=== PATIENT | male | born 1940 | race Caucasian/White ===

== ENCOUNTER 2016-07-29 08:05 | Emergency (ER) | payer MEDICARE, BC ==
[~2016-07-29] VITALS: Ht 170.2 cm; Wt 75.7 kg
[~2016-07-29 08:05] MED LIST: /WARF5TA OR; ACTI300C OR; ATEN50TA2 OR; CHLO25TA GT; CLON0.5T OR; DIGO0.257 OR; ENAL20TA OR; FISH1000 OR; GLUC500T OR; NEOM50TA PO; OMEP20TA7 OR; PRAV20TA2 OR; PRAV40TA2 PO; TAMS0.4C2 PO
[2016-07-29 08:24] VITALS: BP 134/65
[2016-07-29] MEDS ORDERED: TAMSULOSIN (08:27)
[2016-07-29] MEDS ORDERED: OMEP20CA3 (08:27)
[2016-07-29] MEDS ORDERED: ATAC16TA (08:27)
[2016-07-29] MEDS ORDERED: CHLO125TA (08:27)
[2016-07-29] MEDS ORDERED: WARF-23 (08:27)
--- NOTE | 2016-07-29 09:07 | REP ---
Clinical: Pain. Technique: Internal rotation, external rotation, and Y view of the left shoulder. Comparison: 08/20/2012. Findings: Age-related osteopenia and degenerative changes include cortical irregularity at the acromioclavicular joint as well as decrease subacromial space. Subtle irregularity to the glenoid rim and humeral head are also noted and consistent with mild age-related changes. No acute fracture or dislocation. No periarticular calcifications. Surrounding soft tissues are unremarkable. Impression: Osteopenia and cortical irregularities at the acromioclavicular joint and glenohumeral joint consistent with age-related degenerative change. Signed by Francis Mccollum MD 07/29/2016 08:59 A
== END 2016-07-29 10:12 | disposition home or self-care (01) ==
LOC: M ED 09:10
DX: S43.51XA Sprain of right acromioclavicular joint, initial encounter (principal); X58.XXXA Exposure to other specified factors, initial encounter; Y92.099 Unspecified place in other non-institutional residence as the place of occurrence of the external cause; Y93.89 Activity, other specified; Y99.9 Unspecified external cause status; M85.812 Other specified disorders of bone density and structure, left shoulder; M19.012 Primary osteoarthritis, left shoulder; I10 Essential (primary) hypertension; K21.9 Gastro-esophageal reflux disease without esophagitis; I48.91 Unspecified atrial fibrillation; K74.60 Unspecified cirrhosis of liver; Z79.01 Long term (current) use of anticoagulants; Z79.899 Other long term (current) drug therapy; Z88.8 Allergy status to other drugs, medicaments and biological substances

== ENCOUNTER → 2016-12-02 | Outpatient (CLI) | payer MEDICARE, BC ==
[~2016-12-02] MED LIST changes: +ATAC16TA; +CHLO125TA; +OMEP20CA3; +TAMSULOSIN; +WARF-23
[2016-12-02 10:56] LABS: BASO % 0.6 % (0.0-1.0); EOS % 0.1 % (0.0-3.0); LARGE UNSTAINED CELL # 0.1 K/mm3 (0.0-0.4); LARGE UNSTAINED CELL % 1.6 % (0.0-4.0); LYMPH # 0.9 K/mm3 (1.5-4.5); LYMPH % 22.5 % (24.0-44.0); MEAN CORPUSCULAR HEMOGLOBIN 33.1 pg (27.0-33.0); MEAN CORPUSCULAR HGB CONC 35.5 g/dl (32.0-36.5); MEAN CORPUSCULAR VOLUME 93.2 fl (80.0-96.0); MONO # 0.3 K/mm3 (0.0-0.8); MONO % 8.1 % (0.0-5.0); NEUTROPHILS # 2.6 K/mm3 (1.8-7.7); NEUTROPHILS % 67.2 % (36.0-66.0); RED CELL DISTRIBUTION WIDTH 14.8 % (11.5-14.5); WHITE BLOOD COUNT 3.8 K/mm3 (4.0-10.0)
[2016-12-02 11:15] LABS: ALBUMIN 3.6 GM/DL (3.2-5.2); ALBUMIN/GLOBULIN RATIO 0.9 (1.00-1.93); BILIRUBIN,TOTAL 3.1 MG/DL (0.2-1.0); CALCIUM LEVEL 8.8 MG/DL (8.8-10.2); CREATININE FOR GFR 1.31 MG/DL (0.70-1.30); GLOMERULAR FILTRATION RATE 56.8 (>42); PLATELET COUNT, AUTOMATED 87 k/mm3 (150-450); POTASSIUM SERUM 3.7 MEQ/L (3.5-5.1); TOTAL PROTEIN 7.6 GM/DL (6.4-8.2)
[2016-12-04 00:06] LABS: PSA TOTAL 6.1 ng/mL (0.0-4.0)
== END ==
LOC: M LAB 10:09
PROVIDERS: ATTEND Urology
DX: R97.20 Elevated prostate specific antigen [PSA] (principal); R10.2 Pelvic and perineal pain

== ENCOUNTER → 2017-02-25 | Outpatient (REF) | payer MEDICARE, BC ==
[2017-02-25 11:27] LABS: INR 4.28
== END ==
LOC: M LAB REF 10:37
PROVIDERS: ATTEND Nurse Practitioner Adult Health
DX: I48.0 Paroxysmal atrial fibrillation (principal); Z51.81 Encounter for therapeutic drug level monitoring

== ENCOUNTER → 2017-04-04 | Outpatient (CLI) | payer MEDICARE, BC ==
[2017-04-04 10:41] LABS: BASO % 0.7 % (0.0-1.0); EOS # 0.1 10^3/uL (0.0-0.50); EOS % 1.9 % (0.0-3.0); HEMATOCRIT 37.7 % (42.0-52.0); HEMOGLOBIN 12.8 g/dl (14.0-18.0); IMMATURE GRANULOCYTE % 0.5 % (0-0); LYMPH # 0.9 10^3/uL (1.5-4.5); LYMPH % 21.2 % (24.0-44.0); MEAN CORPUSCULAR HEMOGLOBIN 32.2 pg (27.0-33.0); MEAN CORPUSCULAR VOLUME 94.7 fl (80.0-96.0); MONO # 0.3 10^3/uL (0.0-0.8); MONO % 7.9 % (0.0-5.0); NEUTROPHILS # 2.8 10^3/uL (1.8-7.7); NEUTROPHILS % 67.8 % (36.0-66.0); RED BLOOD COUNT 3.98 10^6/uL (4.30-6.10); RED CELL DISTRIBUTION WIDTH 14.3 % (11.5-14.5); WHITE BLOOD COUNT 4.2 10^3/uL (4.0-10.0)
[2017-04-04 10:53] LABS: PLATELET COUNT, AUTOMATED 77 10^3/uL (150-450)
[2017-04-04 10:54] LABS: IMMATURE PLATELET FRACTION % 8.9 % (0.0-10.9)
[2017-04-04 11:00] LABS: ALBUMIN 3.4 GM/DL (3.2-5.2); ALBUMIN/GLOBULIN RATIO 0.87 (1.00-1.93); ALKALINE PHOSPHATASE 416 U/L (45-117); ALT/SGPT 114 U/L (12-78); ANION GAP 7 MEQ/L (8-16); AST/SGOT 125 U/L (7-37); BILIRUBIN,DIRECT 2.3 MG/DL (0.0-0.2); BILIRUBIN,TOTAL 3.2 MG/DL (0.2-1.0); BLOOD UREA NITROGEN 20 MG/DL (7-18); CALCIUM LEVEL 8.5 MG/DL (8.8-10.2); CARBON DIOXIDE LEVEL 28 MEQ/L (21-32); CHLORIDE LEVEL 105 MEQ/L (98-107); GLOMERULAR FILTRATION RATE 57.3 (>42); GLUCOSE, FASTING 160 MG/DL (83-110); POTASSIUM SERUM 3.8 MEQ/L (3.5-5.1); SODIUM LEVEL 140 MEQ/L (136-145); TOTAL PROTEIN 7.3 GM/DL (6.4-8.2)
[2017-04-04 11:06] LABS: ALPHA FETOPROTEIN TUMOR QUANT 7.9 NG/ML (<8.1)
== END ==
LOC: M LAB 09:26
DX: K74.60 Unspecified cirrhosis of liver (principal)
CPT/HCPCS: 82248

== ENCOUNTER 2017-06-21 08:16 | Emergency (ER) | payer MEDICARE, BC ==
[2017-06-21 09:24] LABS: BASO % 0.7 % (0.0-1.0); EOS # 0.1 10^3/uL (0.0-0.50); EOS % 2.2 % (0.0-3.0); HEMOGLOBIN 13.3 g/dl (13.5-17.5); IMMATURE GRANULOCYTE % 0.2 % (0-3.0); LYMPH # 0.8 10^3/uL (1.5-4.5); LYMPH % 20.7 % (24.0-44.0); MEAN CORPUSCULAR HEMOGLOBIN 32.4 pg (27.0-33.0); MEAN CORPUSCULAR HGB CONC 34.1 g/dl (32.0-36.5); MEAN CORPUSCULAR VOLUME 94.9 fl (80.0-96.0); MONO # 0.4 10^3/uL (0.0-0.8); MONO % 9.1 % (0.0-5.0); NEUTROPHILS # 2.7 10^3/uL (1.8-7.7); NEUTROPHILS % 67.1 % (36.0-66.0); RED BLOOD COUNT 4.11 10^6/uL (4.30-6.10); RED CELL DISTRIBUTION WIDTH 14.2 % (11.5-14.5); WHITE BLOOD COUNT 4.1 10^3/uL (4.0-10.0)
[2017-06-21 09:32] LABS: IMMATURE PLATELET FRACTION % 7.3 % (0.0-10.9); PLATELET COUNT, AUTOMATED 89 10^3/uL (150-450); PLATELET F 85; POS COUNT POS FLAG
[2017-06-21 09:35] LABS: INR 1.66; PROTHROMBIN TIME 20.1 SECONDS (12.4-14.5)
[2017-06-21 09:36] LABS: PARTIAL THROMBOPLASTIN TIME 36.7 SECONDS (26.8-37.9)
[2017-06-21 09:54] LABS: AMMONIA 32 uMOL/L (<32)
[2017-06-21 10:05] LABS: ALBUMIN 3.4 GM/DL (3.2-5.2); ALBUMIN/GLOBULIN RATIO 0.81 (1.00-1.93); ALKALINE PHOSPHATASE 281 U/L (45-117); ALT/SGPT 137 U/L (12-78); AMYLASE 88 U/L (25-115); ANION GAP 7 MEQ/L (8-16); AST/SGOT 155 U/L (7-37); BILIRUBIN,DIRECT 2.1 MG/DL (0.0-0.2); BILIRUBIN,TOTAL 2.6 MG/DL (0.2-1.0); BLOOD UREA NITROGEN 20 MG/DL (7-18); CALCIUM LEVEL 8.9 MG/DL (8.8-10.2); CARBON DIOXIDE LEVEL 29 MEQ/L (21-32); CHLORIDE LEVEL 107 MEQ/L (98-107); CREATININE FOR GFR 1.21 MG/DL (0.70-1.30); GLOMERULAR FILTRATION RATE > 60.0 (>42); GLUCOSE, FASTING 104 MG/DL (70-100); LIPASE 240 U/L (73-393); POTASSIUM SERUM 3.9 MEQ/L (3.5-5.1); SODIUM LEVEL 143 MEQ/L (136-145); TOTAL PROTEIN 7.6 GM/DL (6.4-8.2)
== END 2017-06-21 10:39 | disposition home or self-care (01) ==
LOC: M ED 08:16
DX: R51 Headache (principal); K74.60 Unspecified cirrhosis of liver; I48.91 Unspecified atrial fibrillation; E11.9 Type 2 diabetes mellitus without complications; I10 Essential (primary) hypertension; E78.70 Disorder of bile acid and cholesterol metabolism, unspecified; K21.9 Gastro-esophageal reflux disease without esophagitis; Z88.8 Allergy status to other drugs, medicaments and biological substances; Z79.899 Other long term (current) drug therapy; Z79.2 Long term (current) use of antibiotics; Z79.01 Long term (current) use of anticoagulants
CPT/HCPCS: 70450

== ENCOUNTER → 2017-08-01 | Outpatient (REF) | payer MEDICARE, OTHER ==
[2017-08-01 13:14] LABS: HEPATITIS C VIRUS ABY INDEX < 0.0 INDEX (<0.8)
== END ==
LOC: M LAB REF 11:39
DX: Z11.59 Encounter for screening for other viral diseases (principal)
CPT/HCPCS: 86803

== ENCOUNTER 2017-08-15 09:52 | Inpatient (IN) | payer MEDICARE, OTHER ==
[2017-08-15] MEDS: MORPHINE 4 MG/ML 1ML VIAL/SYRINGE (J2270) IV ×2 (10:14→11:28)
[2017-08-15] MEDS: ONDANSETRON 4MG/2ML VIAL (J2405) IV (10:14)
[2017-08-15] MEDS: LORazepam 2 MG/ML VIAL (J2060) IV (13:43)
[2017-08-15] MEDS: PERCOCET 5MG/325MG TAB PO (22:00)
[2017-08-15] MEDS ORDERED: BISACODYL 5 MG TAB PO (23:30)
[2017-08-15] MEDS ORDERED: ACETAMINOPHEN TAB 650MG DOSE (2X325MG) PO (23:30)
[2017-08-15] MEDS ORDERED: MORPHINE 4 MG/ML 1ML VIAL/SYRINGE (J2270) IV (23:30)
[2017-08-16] MEDS: CREON-12 CAPSULE PO ×4 (09:49→20:46)
[2017-08-16] MEDS: TAMSULOSIN 0.4 MG CAP PO (09:49)
[2017-08-16] MEDS: PANTOPRAZOLE 40MG TAB (PROTONIX) PO (09:49)
[2017-08-16] MEDS: NEOMYCIN SULFATE 500 MG TAB PO ×2 (09:50→20:47)
[2017-08-16] MEDS: URSODIOL 300 MG CAP PO ×2 (09:50→20:48)
[2017-08-16] MEDS: CHLORTHALIDONE 12.5MG PER 1/2 TABLET PO (09:50)
[2017-08-16] MEDS: CANDESARTAN 16 MG TABLET PO ×2 (11:27→20:46)
[2017-08-16] MEDS: PERCOCET 5MG/325MG TAB PO ×2 (12:03→17:59)
[2017-08-16] MEDS: RIVAROXABAN 20 MG TAB (XARELTO) PO (17:59)
[2017-08-17] MEDS: URSODIOL 300 MG CAP PO ×2 (07:54→20:56)
[2017-08-17] MEDS: NEOMYCIN SULFATE 500 MG TAB PO ×2 (07:54→20:57)
[2017-08-17] MEDS: CANDESARTAN 16 MG TABLET PO ×2 (07:55→20:57)
[2017-08-17] MEDS: CREON-12 CAPSULE PO ×4 (07:55→20:56)
[2017-08-17] MEDS: PANTOPRAZOLE 40MG TAB (PROTONIX) PO (07:55)
[2017-08-17] MEDS: TAMSULOSIN 0.4 MG CAP PO (07:55)
[2017-08-17] MEDS: CHLORTHALIDONE 12.5MG PER 1/2 TABLET PO (07:55)
[2017-08-17] MEDS: PERCOCET 5MG/325MG TAB PO ×2 (07:55→20:56)
[2017-08-17] MEDS: RIVAROXABAN 20 MG TAB (XARELTO) PO (17:16)
[2017-08-18] MEDS: URSODIOL 300 MG CAP PO ×2 (08:12→21:22)
[2017-08-18] MEDS: CREON-12 CAPSULE PO ×4 (08:12→21:22)
[2017-08-18] MEDS: NEOMYCIN SULFATE 500 MG TAB PO ×2 (08:12→21:22)
[2017-08-18] MEDS: PANTOPRAZOLE 40MG TAB (PROTONIX) PO (08:12)
[2017-08-18] MEDS: CANDESARTAN 16 MG TABLET PO ×2 (08:13→21:22)
[2017-08-18] MEDS: CHLORTHALIDONE 12.5MG PER 1/2 TABLET PO (08:13)
[2017-08-18] MEDS: TAMSULOSIN 0.4 MG CAP PO (08:13)
[2017-08-18] MEDS: RIVAROXABAN 20 MG TAB (XARELTO) PO (17:26)
[2017-08-18] MEDS: LORazepam 0.5 MG TAB PO (21:22)
[2017-08-19] MEDS: CANDESARTAN 16 MG TABLET PO (08:08)
[2017-08-19] MEDS: PANTOPRAZOLE 40MG TAB (PROTONIX) PO (08:08)
[2017-08-19] MEDS: NEOMYCIN SULFATE 500 MG TAB PO (08:08)
[2017-08-19] MEDS: URSODIOL 300 MG CAP PO (08:08)
[2017-08-19] MEDS: TAMSULOSIN 0.4 MG CAP PO (08:08)
[2017-08-19] MEDS: CHLORTHALIDONE 12.5MG PER 1/2 TABLET PO (08:08)
[2017-08-19] MEDS: CREON-12 CAPSULE PO ×2 (08:08→12:00)
[2017-08-19 08:29] LABS: BASO % 0.9 % (0.0-1.0); EOS # 0.1 10^3/uL (0.0-0.50); EOS % 2.4 % (0.0-3.0); HEMOGLOBIN 14.4 g/dl (13.5-17.5); IMMATURE GRANULOCYTE % 0.4 % (0-3.0); LYMPH % 21.4 % (24.0-44.0); MEAN CORPUSCULAR HEMOGLOBIN 33.6 pg (27.0-33.0); MEAN CORPUSCULAR HGB CONC 35.1 g/dl (32.0-36.5); MEAN CORPUSCULAR VOLUME 95.8 fl (80.0-96.0); MONO # 0.4 10^3/uL (0.0-0.8); MONO % 8.1 % (0.0-5.0); NEUTROPHILS # 3.1 10^3/uL (1.8-7.7); NEUTROPHILS % 66.8 % (36.0-66.0); RED BLOOD COUNT 4.28 10^6/uL (4.30-6.10); RED CELL DISTRIBUTION WIDTH 13.5 % (11.5-14.5); WHITE BLOOD COUNT 4.6 10^3/uL (4.0-10.0)
[2017-08-19 08:37] LABS: PLATELET COUNT, AUTOMATED 90 10^3/uL (150-450)
[2017-08-19 08:39] LABS: IMMATURE PLATELET FRACTION % 5.7 % (0.0-10.9)
[2017-08-19 09:01] LABS: ALBUMIN 3.4 GM/DL (3.2-5.2); ALBUMIN/GLOBULIN RATIO 0.81 (1.00-1.93); ALKALINE PHOSPHATASE 344 U/L (45-117); ALT/SGPT 134 U/L (12-78); ANION GAP 8 MEQ/L (8-16); AST/SGOT 141 U/L (7-37); BILIRUBIN,TOTAL 2.4 MG/DL (0.2-1.0); BLOOD UREA NITROGEN 28 MG/DL (7-18); CALCIUM LEVEL 8.7 MG/DL (8.8-10.2); CARBON DIOXIDE LEVEL 27 MEQ/L (21-32); CHLORIDE LEVEL 105 MEQ/L (98-107); CREATININE FOR GFR 1.39 MG/DL (0.70-1.30); GLUCOSE, FASTING 143 MG/DL (70-100); MAGNESIUM LEVEL 2.2 MG/DL (1.8-2.4); POTASSIUM SERUM 4.1 MEQ/L (3.5-5.1); SODIUM LEVEL 140 MEQ/L (136-145); TOTAL PROTEIN 7.6 GM/DL (6.4-8.2)
== END 2017-08-19 14:45 | disposition home or self-care (01) | DRG 552 ==
LOC: M ED INP 23:19 → M MS5PR 08-16 01:20 → M ED 09:52
DX: M54.9 Dorsalgia, unspecified (principal); I10 Essential (primary) hypertension; E78.5 Hyperlipidemia, unspecified; I48.0 Paroxysmal atrial fibrillation; Z79.899 Other long term (current) drug therapy; K74.60 Unspecified cirrhosis of liver; Z88.8 Allergy status to other drugs, medicaments and biological substances; M79.1 Myalgia; M48.061 Spinal stenosis, lumbar region without neurogenic claudication

== ENCOUNTER → 2017-08-26 | Outpatient (CLI) | payer MEDICARE, BC ==
[2017-08-26 14:29] LABS: PROSTATIC SPECIFIC AG MONITOR 6.06 NG/ML (< 4.0)
== END ==
LOC: M LAB 13:32
DX: C61 Malignant neoplasm of prostate (principal)
CPT/HCPCS: 84153

== ENCOUNTER 2017-09-24 11:17 | Emergency (ER) | payer MEDICARE, BC ==
[2017-09-24] MEDS: PERCOCET 5MG/325MG TAB PO (12:47)
== END 2017-09-24 13:18 | disposition home or self-care (01) ==
LOC: M ED 11:17
DX: S49.91XA Unspecified injury of right shoulder and upper arm, initial encounter (principal); M25.511 Pain in right shoulder; X58.XXXA Exposure to other specified factors, initial encounter; Y92.9 Unspecified place or not applicable; Y93.89 Activity, other specified; Y99.9 Unspecified external cause status; Z79.899 Other long term (current) drug therapy; Z88.8 Allergy status to other drugs, medicaments and biological substances
CPT/HCPCS: 73030

== ENCOUNTER 2017-11-16 11:26 | Emergency (ER) | payer MEDICARE ==
[2017-11-16 12:01] LABS: BASO % 0.9 % (0.0-1.0); EOS # 0.1 10^3/uL (0.0-0.50); EOS % 2.9 % (0.0-3.0); HEMATOCRIT 37.5 % (42.0-52.0); HEMOGLOBIN 12.9 g/dl (13.5-17.5); IMMATURE GRANULOCYTE % 0.2 % (0-3.0); LYMPH # 0.9 10^3/uL (1.5-4.5); LYMPH % 18.8 % (24.0-44.0); MEAN CORPUSCULAR HEMOGLOBIN 33.6 pg (27.0-33.0); MEAN CORPUSCULAR HGB CONC 34.4 g/dl (32.0-36.5); MEAN CORPUSCULAR VOLUME 97.7 fl (80.0-96.0); MONO # 0.6 10^3/uL (0.0-0.8); MONO % 13.2 % (0.0-5.0); NEUTROPHILS # 2.9 10^3/uL (1.8-7.7); RED BLOOD COUNT 3.84 10^6/uL (4.30-6.10); RED CELL DISTRIBUTION WIDTH 12.8 % (11.5-14.5); WHITE BLOOD COUNT 4.5 10^3/uL (4.0-10.0)
[2017-11-16 12:13] LABS: PLATELET COUNT, AUTOMATED 96 10^3/uL (150-450)
[2017-11-16 12:14] LABS: IMMATURE PLATELET FRACTION % 4.7 % (0.0-10.9); PLATELET F 89
[2017-11-16 12:31] LABS: ANION GAP 6 MEQ/L (8-16); BLOOD UREA NITROGEN 25 MG/DL (7-18); CALCIUM LEVEL 8.8 MG/DL (8.8-10.2); CARBON DIOXIDE LEVEL 28 MEQ/L (21-32); CHLORIDE LEVEL 109 MEQ/L (98-107); CPK CREATINE PHOSPHOKINASE 93 U/L (39-308); CREATININE FOR GFR 1.34 MG/DL (0.70-1.30); GLOMERULAR FILTRATION RATE 55.2 (>42); GLUCOSE, FASTING 104 MG/DL (70-100); MB/CK RELATIVE INDEX 1.07 (< OR =4); POTASSIUM SERUM 3.8 MEQ/L (3.5-5.1); SODIUM LEVEL 143 MEQ/L (136-145); TROPONIN I < 0.02 NG/ML (< 0.10)
[2017-11-16] MEDS: GI COCKTAIL 50ML BTL(HYOSCYAMINE/MAALOX/LIDOCAINE VISCOUS)(1:3:1) PO (13:25)
[2017-11-16] MEDS: PANTOPRAZOLE 40MG INJ (PROTONIX) (C9113) IV (14:53)
== END 2017-11-16 15:05 | disposition home or self-care (01) ==
LOC: M ED 11:26
DX: R07.89 Other chest pain (principal); K21.9 Gastro-esophageal reflux disease without esophagitis; I48.91 Unspecified atrial fibrillation; I10 Essential (primary) hypertension; E78.5 Hyperlipidemia, unspecified
CPT/HCPCS: C9113

== ENCOUNTER 2018-02-03 03:18 | Emergency (ER) | payer MEDICARE, OTHER ==
[2018-02-04 09:32] LABS: BEDSIDE GLUCOSE 118 MG/DL (83-110)
== END 2018-02-03 06:31 | disposition home or self-care (01) ==
LOC: M ED 03:18
DX: R55 Syncope and collapse (principal); S40.012A Contusion of left shoulder, initial encounter; S00.93XA Contusion of unspecified part of head, initial encounter; S00.31XA Abrasion of nose, initial encounter; W18.11XA Fall from or off toilet without subsequent striking against object, initial encounter; Y92.091 Bathroom in other non-institutional residence as the place of occurrence of the external cause; I10 Essential (primary) hypertension; I48.91 Unspecified atrial fibrillation; K21.9 Gastro-esophageal reflux disease without esophagitis; K74.60 Unspecified cirrhosis of liver; Z79.899 Other long term (current) drug therapy; Z79.01 Long term (current) use of anticoagulants; Z88.8 Allergy status to other drugs, medicaments and biological substances
CPT/HCPCS: 73030

== ENCOUNTER → 2018-02-06 | Outpatient (CLI) | payer MEDICARE, OTHER, BC | LOC: M LRY 09:51 | DX: R05 Cough (principal); R91.8 Other nonspecific abnormal finding of lung field | CPT/HCPCS: 71046; G0463 ==

== ENCOUNTER → 2018-03-18 | Outpatient (CLI) | payer MEDICARE, BC ==
[~2018-03-18] MED LIST changes: +ALLE1TAB23 PO; -ATAC16TA; +ATAC16TA PO; +ATIV1TAB10 PO; +BENZ200C70 PO; +CAND16TA7 PO; +CETI10CH PO; -CHLO125TA; +CHLO125TA PO; +CORICAP PO; +COUM1TAB17 PO; +COUM2.5T17 PO; +CREO12CA PO; +FLUT11IN; +LORA0.5T11 PO; +NEOM500T PO; -NEOM50TA PO; +NORCOTAB PO; -OMEP20TA7 OR; +OMEP20TA7 PO; +PANT40TA3; +SING10TA32 PO; +SUCR1SS PO; +URSO300C3 PO; +XARE20TA PO
--- NOTE | 2018-03-18 14:47 | REP ---
Chest two views HISTORY: Shortness of breath Comparison: 02/06/2018 Linear density is present in the left lower lobe consistent with atelectasis or scar. The right lung is clear. The lungs are clear. The heart is normal in size. The pulmonary vasculature is normal in appearance. The bony structure is intact. IMPRESSION: Left lower lobe atelectasis or scar. Electronically Signed by Yuriy Sorenson MD 03/18/2018 02:38 P
== END ==
LOC: M LRY 14:21
PROVIDERS: ATTEND Nurse Practitioner Family
DX: J98.4 Other disorders of lung (principal); R06.02 Shortness of breath
CPT/HCPCS: 71046; 80053; 82550; 82553; 83880; 84484; 85025; 93005; 94640; G0463

== ENCOUNTER → 2018-03-18 | Outpatient (REF) | payer MEDICARE, BC ==
[~2018-03-18] MED LIST changes: -BENZ200C70 PO; -CORICAP PO; -PANT40TA3; -SING10TA32 PO
[2018-03-18 15:40] LABS: BASO # 0.1 10^3/uL (0.0-0.2); BASO % 0.9 % (0.0-1.0); EOS # 0.1 10^3/uL (0.0-0.50); EOS % 1.7 % (0.0-3.0); HEMOGLOBIN 11.8 g/dl (13.5-17.5); LYMPH # 0.9 10^3/uL (1.5-4.5); LYMPH % 15.6 % (24.0-44.0); MEAN CORPUSCULAR HEMOGLOBIN 28.7 pg (27.0-33.0); MEAN CORPUSCULAR HGB CONC 32.8 g/dl (32.0-36.5); MEAN CORPUSCULAR VOLUME 87.6 fl (80.0-96.0); MONO # 0.7 10^3/uL (0.0-0.8); MONO % 11.5 % (0.0-5.0); NEUTROPHILS # 4.1 10^3/uL (1.8-7.7); PLATELET COUNT, AUTOMATED 128 10^3/uL (150-450); RED BLOOD COUNT 4.11 10^6/uL (4.30-6.10); WHITE BLOOD COUNT 5.8 10^3/uL (4.0-10.0)
[2018-03-18 17:07] LABS: ALT/SGPT 64 U/L (12-78); BILIRUBIN,TOTAL 1.5 MG/DL (0.2-1.0); BLOOD UREA NITROGEN 12 MG/DL (7-18); CARBON DIOXIDE LEVEL 27 MEQ/L (21-32); CHLORIDE LEVEL 108 MEQ/L (98-107); CK-MB VALUE MASS < 1.0 NG/ML (<3.6); CPK CREATINE PHOSPHOKINASE 84 U/L (39-308); CREATININE FOR GFR 1.25 MG/DL (0.70-1.30); GLOMERULAR FILTRATION RATE 59.8 (>42); GLUCOSE, FASTING 89 MG/DL (70-100); MB/CK RELATIVE INDEX 1.19 (< OR =4); NT-PRO BNP 15 PG/ML (<450); POTASSIUM SERUM 3.5 MEQ/L (3.5-5.1); SODIUM LEVEL 142 MEQ/L (136-145); TOTAL PROTEIN 6.9 GM/DL (6.4-8.2); TROPONIN I < 0.02 NG/ML (< 0.10)
== END ==
LOC: M SFHCLERA 14:07
PROVIDERS: ATTEND Nurse Practitioner Family
DX: R06.02 Shortness of breath (principal)

== ENCOUNTER 2018-03-29 05:30 | Emergency (ER) | payer MEDICARE, BC ==
[2018-03-29] MEDS ORDERED: PRAV40TA2 PO (05:47)
[2018-03-29] MEDS ORDERED: CORICAP PO (05:47)
[2018-03-29] MEDS ORDERED: SING10TA32 PO (05:47)
[2018-03-29] MEDS ORDERED: IBUPROFEN 800 MG TAB PO ONE (06:45)
[2018-03-29 06:47] LABS: BASO % 0.2 % (0.0-1.0); EOS % 0.2 % (0.0-3.0); HEMATOCRIT 34.8 % (42.0-52.0); HEMOGLOBIN 11.3 g/dl (13.5-17.5); LYMPH # 0.5 10^3/uL (1.5-4.5); LYMPH % 3.3 % (24.0-44.0); MEAN CORPUSCULAR HEMOGLOBIN 28.1 pg (27.0-33.0); MEAN CORPUSCULAR HGB CONC 32.5 g/dl (32.0-36.5); MEAN CORPUSCULAR VOLUME 86.6 fl (80.0-96.0); MONO # 0.8 10^3/uL (0.0-0.8); MONO % 5.1 % (0.0-5.0); NEUTROPHILS # 14.6 10^3/uL (1.8-7.7); NEUTROPHILS % 90.7 % (36.0-66.0); RED BLOOD COUNT 4.02 10^6/uL (4.30-6.10); WHITE BLOOD COUNT 16.1 10^3/uL (4.0-10.0)
[2018-03-29 06:56] LABS: ALBUMIN 2.9 GM/DL (3.2-5.2); ALT/SGPT 53 U/L (12-78); BILIRUBIN,DIRECT 1.3 MG/DL (0.0-0.2); BILIRUBIN,TOTAL 1.6 MG/DL (0.2-1.0); BLOOD UREA NITROGEN 12 MG/DL (7-18); CALCIUM LEVEL 8.6 MG/DL (8.8-10.2); CARBON DIOXIDE LEVEL 24 MEQ/L (21-32); CHLORIDE LEVEL 106 MEQ/L (98-107); CK-MB VALUE MASS < 1.0 NG/ML (<3.6); CPK CREATINE PHOSPHOKINASE 69 U/L (39-308); CREATININE FOR GFR 1.15 MG/DL (0.70-1.30); GLOMERULAR FILTRATION RATE > 60.0 (>42); GLUCOSE, FASTING 123 MG/DL (70-100); MB/CK RELATIVE INDEX 1.45 (< OR =4); POTASSIUM SERUM 3.5 MEQ/L (3.5-5.1); SODIUM LEVEL 141 MEQ/L (136-145); TOTAL PROTEIN 7.2 GM/DL (6.4-8.2); TROPONIN I < 0.02 NG/ML (< 0.10)
[2018-03-29 06:57] LABS: INR 1.37; PROTHROMBIN TIME 17.1 SECONDS (12.1-14.4)
[2018-03-29 06:58] LABS: PARTIAL THROMBOPLASTIN TIME 34.9 SECONDS (25.4-37.6)
[2018-03-29 07:07] LABS: INFLUENZA A AMPLIFICATION NEGATIVE (NEGATIVE); INFLUENZA B AMPLIFICATION NEGATIVE (NEGATIVE)
[2018-03-29 07:30] LABS: PLATELET COUNT, AUTOMATED 87 10^3/uL (150-450)
[2018-03-29] MEDS ORDERED: ISOVUE-370 76% 100ML VIAL (Q9967) As Ordered ONE (08:14)
--- NOTE | 2018-03-29 08:23 | REP ---
Chest x-ray: Two views. History: Short of breath. Comparison study: March 18, 2018. Findings: The lungs are exposed at a low level of inspiration unchanged from the prior study. There is no evidence of infiltrate or free subdiaphragmatic air. There is some linear opacity in the right base consistent with atelectasis. Heart is not felt to be enlarged. The aorta is tortuous and calcific. Pulmonary vasculature is not increased. There are degenerative changes in the thoracic spine. There are surgical clips in right upper quadrant of the abdomen. Impression: Discoid atelectasis right base. Elevated right hemidiaphragm unchanged. Otherwise no acute disease. Electronically Signed by Yoel Whitt MD 03/29/2018 08:14 A
--- NOTE | 2018-03-29 08:49 | REP ---
CT pulmonary angiogram: With IV contrast. History: Shortness of breath, fever, rule out pulmonary embolus versus infiltrate. Comparison studies: No comparison chest CT. Comparison chest x-ray is from earlier on this date. Contrast dose: 75 cc's of Isovue [address] technique: Helical scanning is acquired and overlapping 1.5 mm and contiguous 3 mm axial images are reformatted. In addition, maximum intensity projection and multiplanar re-formation images are generated in sagittal and coronal imaging projections. CT pulmonary angiographic findings: There is good opacification of the pulmonary arterial tree. There is no CT evidence of pulmonary embolism. Thoracic aorta enhances homogeneously. The innominate and left common carotid take a common origin from the aortic arch as a common normal variant. No evidence of aneurysm or dissection. There is bilateral lower lobe plate-like atelectasis but no focal infiltrate. A tiny sliver of pleural fluid is present bilaterally. There is mild to moderate upper abdominal ascites visible. Splenomegaly is observed. Prominent left hepatic lobe, atrophic right hepatic lobe, and macronodular liver contour connote cirrhosis. There are multiple borderline size upper abdominal lymph nodes. No hilar or mediastinal adenopathy is seen. No bony destructive lesion. Impression: No CT evidence of pulmonary embolus. Bilateral lower lobe discoid atelectatic changes. No definite infiltrate. Mild to moderate upper abdominal ascites. Cirrhosis. There are scattered stable celiac axis and upper abdominal lymph nodes unchanged from August 15, 2017. The ascites is new, however. Electronically Signed by Yoel Whitt MD 03/29/2018 09:09 A
--- NOTE | 2018-03-29 08:52 | ECGEPIP ---
Stationary ECG Study 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
[2018-03-29 09:23] VITALS: BP 111/54
--- NOTE | 2018-03-30 06:48 | ED PDOC ---
Post-Departure Follow-Up no pcp listed. certified letter sent to pt re formal read of cta chest. find out pcp name and fax to pcp for fu please Lucas Sabillon MD Mar 30, 2018 06:48
== END 2018-03-29 09:28 | disposition home or self-care (01) ==
LOC: M ED 05:30
DX: R18.8 Other ascites (principal); K74.60 Unspecified cirrhosis of liver; I45.19 Other right bundle-branch block; I10 Essential (primary) hypertension; E78.00 Pure hypercholesterolemia, unspecified; K21.9 Gastro-esophageal reflux disease without esophagitis; I48.91 Unspecified atrial fibrillation; G47.33 Obstructive sleep apnea (adult) (pediatric); Z79.899 Other long term (current) drug therapy; Z79.01 Long term (current) use of anticoagulants; Z88.8 Allergy status to other drugs, medicaments and biological substances
CPT/HCPCS: 36415; 71046; 71275; 80048; 80076; 82550; 82553; 84484; 85025; 85049; 85055; 85610; 85730; 87631; 93005; 99284; Q9967

== ENCOUNTER → 2018-03-30 | Outpatient (REF) | payer MEDICARE ==
[~2018-03-30] MED LIST changes: +CORICAP PO; +SING10TA32 PO
[2018-03-30 18:26] LABS: FERRITIN 36 NG/ML (26-388); IRON (FE) 71 UG/DL (65-175); PERCENT SATURATION 20.3 % (19.7-50.0); TOTAL IRON BINDING CAPACITY 350 UG/DL (250-450)
[2018-04-01 12:01] LABS: HEPATITIS B SURFACE ANTIBODY NEGATIVE (POSITIVE)
[2018-04-01 12:41] LABS: HEPATITIS B CORE ANTIBODY IGM NEGATIVE (NEGATIVE)
[2018-04-01 14:58] LABS: CERULOPLASMIN 27.5 mg/dL (16.0-31.0)
[2018-04-02 00:10] LABS: ANTI-MITOCHONDRIAL ANTIBODY 8.5 Units (0.0-20.0); ANTI-SMOOTH MUSCLE ANTIBODY 5 Units (0-19); ANTINUCLEAR ANTIBODIES DIRECT Negative (Negative); ENDOMYSIAL ABY IgA Negative (Negative); HEPATITIS A IgG TOTAL Positive (Negative); LIVER-KIDNEY MICROSOMAL ABY 1.5 Units (0.0-20.0); TISSUE TRANSGLUTAMINASE IgA <2 U/mL (0-3)
== END ==
LOC: M LAB REF 17:01
PROVIDERS: ATTEND Physician Assistant
DX: K74.60 Unspecified cirrhosis of liver (principal)

== ENCOUNTER → 2018-04-14 | Outpatient (REF) | payer MEDICARE | LOC: M LAB REF 11:54 | PROVIDERS: ATTEND Nurse Practitioner Adult Health | DX: R06.02 Shortness of breath (principal) ==

== ENCOUNTER 2018-04-21 14:58 | Emergency (ER) | payer MEDICARE ==
[~2018-04-21] VITALS: Ht 170.2 cm; Wt 77.3 kg
[2018-04-21] MEDS ORDERED: PANT40TA3 (15:16)
[2018-04-21] MEDS ORDERED: NEOM500T PO (15:16)
--- NOTE | 2018-04-21 17:05 | REP ---
Chest x-ray: Two views. History: Shortness of breath. Cirrhosis. Comparison study: March 29, 2018. Findings: The lungs are symmetrically aerated and clear. Pleural angles are sharp. Heart size is normal. Pulmonary vasculature is not increased. There are degenerative changes in the thoracic spine. Impression: No active disease. Electronically Signed by Yoel Whitt MD 04/21/2018 04:56 P
[2018-04-21 17:12] LABS: APPEARANCE, URINE HAZY (CLEAR); BACTERIA, URINE AUTO 2+ (NEGATIVE); BILIRUBIN, URINE AUTO NEGATIVE (NEGATIVE); BLOOD, URINE BLOOD NEGATIVE (NEGATIVE); COLOR, URINE AMBER (YELLOW); GLUCOSE, URINE (UA) AUTO NEGATIVE (NEGATIVE); KETONE, URINE AUTO NEGATIVE (NEGATIVE); LEUKOCYTE ESTERASE, URINE AUTO TRACE (NEGATIVE); MUCUS, URINE SMALL (NEGATIVE); NITRITE, URINE AUTO NEGATIVE (NEGATIVE); PROTEIN, URINE AUTO NEGATIVE (NEGATIVE); RBC, URINE AUTO 3 /HPF (0-3); SPECIFIC GRAVITY URINE AUTO 1.023 (1.002-1.035); SQUAMOUS EPITHELIAL CELL UR AU 0 /HPF (0-6); WBC, URINE AUTO 61 /HPF (0-3)
[2018-04-21 17:16] LABS: BASO # 0.1 10^3/uL (0.0-0.2); BASO % 0.8 % (0.0-1.0); EOS # 0.2 10^3/uL (0.0-0.50); EOS % 2.8 % (0.0-3.0); HEMATOCRIT 32.4 % (42.0-52.0); HEMOGLOBIN 10.5 g/dl (13.5-17.5); LYMPH # 1.1 10^3/uL (1.5-4.5); LYMPH % 17.3 % (24.0-44.0); MEAN CORPUSCULAR HEMOGLOBIN 29.1 pg (27.0-33.0); MEAN CORPUSCULAR HGB CONC 32.4 g/dl (32.0-36.5); MEAN CORPUSCULAR VOLUME 89.8 fl (80.0-96.0); MONO # 0.6 10^3/uL (0.0-0.8); MONO % 9.6 % (0.0-5.0); NEUTROPHILS # 4.2 10^3/uL (1.8-7.7); NEUTROPHILS % 68.3 % (36.0-66.0); PLATELET COUNT, AUTOMATED 100 10^3/uL (150-450); RED BLOOD COUNT 3.61 10^6/uL (4.30-6.10); WHITE BLOOD COUNT 6.1 10^3/uL (4.0-10.0)
[2018-04-21 17:28] LABS: INR 1.32; PROTHROMBIN TIME 16.6 SECONDS (12.1-14.4)
[2018-04-21 17:29] LABS: PARTIAL THROMBOPLASTIN TIME 37.4 SECONDS (25.4-37.6)
[2018-04-21 17:40] LABS: ALT/SGPT 37 U/L (12-78); AMYLASE 85 U/L (25-115); BILIRUBIN,DIRECT 1.3 MG/DL (0.0-0.2); BILIRUBIN,TOTAL 1.6 MG/DL (0.2-1.0); BLOOD UREA NITROGEN 15 MG/DL (7-18); CALCIUM LEVEL 8.1 MG/DL (8.8-10.2); CARBON DIOXIDE LEVEL 27 MEQ/L (21-32); CHLORIDE LEVEL 106 MEQ/L (98-107); CREATININE FOR GFR 1.29 MG/DL (0.70-1.30); GLOMERULAR FILTRATION RATE 57.6 (>42); GLUCOSE, FASTING 82 MG/DL (70-100); LIPASE 287 U/L (73-393); POTASSIUM SERUM 3.7 MEQ/L (3.5-5.1); SODIUM LEVEL 140 MEQ/L (136-145); TOTAL PROTEIN 6.9 GM/DL (6.4-8.2)
[2018-04-21 18:51] LABS: CPK CREATINE PHOSPHOKINASE 75 U/L (39-308); NT-PRO BNP 35 PG/ML (<450); TROPONIN I < 0.02 NG/ML (< 0.10)
[2018-04-21 19:05] VITALS: BP 114/56
[2018-04-21] MEDS ORDERED: BENZ200C70 PO (19:20)
--- NOTE | 2018-04-21 19:25 | REP ---
CT abdomen and pelvis without IV or oral contrast: History: Shortness of breath. Cirrhosis. Ascites. Comparison study: August 15, 2017. CT findings: Preliminary digital oracle hyperion consultant radiograph shows clips in the right upper quadrant. The lung bases are clear essentially clear. The spleen is enlarged measuring 18 cm in greatest transverse dimension. This it is similar to the prior study, 16.7 cm. No focal splenic lesion is seen. There is a micronodular liver contour consistent with cirrhosis with some prominence of the left lobe and relatively small right lobe. There are clips in the gallbladder fossa. No definite liver mass lesion is seen. No adrenal lesion is observed on either side. Pancreas is unremarkable. There is a trace amount of ascites visible along the pericolic gutters. There is a mild edema pattern in the small bowel mesenteric fat and there are scattered , mildly prominent mesenteric lymph nodes. These are slightly more prominent than on the prior study but not new. The largest of these are too adjacent pericaval lymph nodes measuring 10 mm each in short axis dimension. These two lymph nodes are unchanged. A normal appendix is seen. There is no evidence of hydronephrosis. There is a complex cyst in the periphery of the left kidney which measures 3.5 cm. This contains a cyst wall calcification posteriorly and is unchanged from the August 15, 2017 prior study. There are smaller cysts bilaterally including a slightly hyperdense cyst in the right mid kidney. These are unchanged as well. Small and large bowel loops show no evidence of obstruction. No free air is seen. The urinary bladder is unremarkable. The prostate shows moderate enlargement. Seminal vesicles are unremarkable. No pelvic adenopathy is seen. Some vascular calcification is noted. Impression: Evidence of cirrhosis with splenomegaly. Mild small bowel mesenteric edema and slightly prominent mesenteric lymph nodes. Trace of fluid along the pericolic gutters. Enlarged prostate. Stable bilateral renal cysts. No other acute finding. Electronically Signed by Yoel Whitt MD 04/21/2018 08:43 P
--- NOTE | 2018-04-22 09:02 | ECGEPIP ---
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
--- NOTE | 2018-04-22 14:39 | ED PDOC ---
Post-Departure Follow-Up dr combs faxed formal report of ct abd/p for fu Lucas Sabillon MD Apr 22, 2018 14:39
== END 2018-04-21 19:45 | disposition home or self-care (01) ==
LOC: M ED 14:58
DX: R05 Cough (principal); R06.00 Dyspnea, unspecified; F41.9 Anxiety disorder, unspecified; I48.91 Unspecified atrial fibrillation; Z79.899 Other long term (current) drug therapy; Z88.8 Allergy status to other drugs, medicaments and biological substances; Z87.891 Personal history of nicotine dependence

== ENCOUNTER → 2018-04-27 | Outpatient (CLI) | payer MEDICARE ==
[~2018-04-27] MED LIST changes: +BENZ200C70 PO; +PANT40TA3
--- NOTE | 2018-04-28 16:16 | ECHO ---
OUTPATIENT ECHOCARDIOGRAPHIC REPORT: DATE OF PROCEDURE: 04/27/2018 DATE OF : 1940 AGE: 77 GENDER: Male HEIGHT: 67 inches WEIGHT: 177 pounds BODY SURFACE AREA: 1.92 m2 OUTPATIENT REFERRING PHYSICIAN: GO Balderrama INDICATION: Aortic insufficiency. MEASUREMENTS: 2-D Measurements: RV: 3.4 cm LV: 5.3 cm Septum: 1.1 cm Posterior wall: 1.1 cm Aortic root: 2.9 cm LA: 4.7 cm LVEF: 70% Doppler Measurements: AV: 1.54 m/s LVOT: 1.2 m/s LVOT diameter: 2.0 cm MV: E 78 A 83, EA ratio 0.9 Early mitral deceleration time: 166 ms E prime: 9.3 A prime: 14 E/E prime ratio: 8.6 PCWP: 11.5 m/s PV: 1.0 m/s Pulmonary artery acceleration time: 95 ms PASP: 39 mmHg IVC: 2.3 cm COMMENTS: Normal sinus rhythm with incomplete right bundle branch block. Somewhat challenging study in light of the patient's body habitus but diagnostically useful information was still obtained. M-mode and two-dimensional echocardiography was performed with pulsed, continuous wave, color flow and tissue Doppler studies. Normal left ventricular size, wall thickness and hyperkinetic wall motion. Moderately dilated left atrium with currently normal Doppler assessment of LV diastolic function and estimated mean left atrial pressure. Normal right heart chamber sizes and motion with Doppler evidence of mild pulmonary hypertension. Three equal sized aortic cusps that were asymmetrically thickened but with adequate cusp separation. Mild-moderate aortic insufficiency with aortic jet impinging on the anterior leaflet of the mitral valve and creating a traumatic vegetation. Normal aortic root size. Moderate mitral annular thickening with anterior leaflet thickening as mentioned above but adequate leaflet excursion and no posterior systolic buckling. Mild mitral insufficiency. No other intracardiac mass or pericardial effusion. I would recommend a complete blood count, sedimentation rate and two sets of blood cultures to rule out endocarditis. Would have a low threshold for considering a transesophageal echo to further define his anterior mitral leaflet. MTDD
== END ==
LOC: M CARPUL 09:28
PROVIDERS: ATTEND Physician Assistant
DX: I35.1 Nonrheumatic aortic (valve) insufficiency (principal)

== ENCOUNTER → 2018-04-30 | Outpatient (CLI) | payer MEDICARE ==
[2018-04-30 10:57] LABS: BASO % 0.6 % (0.0-1.0); EOS # 0.2 10^3/uL (0.0-0.50); EOS % 4.1 % (0.0-3.0); HEMATOCRIT 32.1 % (42.0-52.0); HEMOGLOBIN 10.6 g/dl (13.5-17.5); LYMPH # 0.8 10^3/uL (1.5-4.5); LYMPH % 16.6 % (24.0-44.0); MEAN CORPUSCULAR HEMOGLOBIN 29.2 pg (27.0-33.0); MEAN CORPUSCULAR VOLUME 88.4 fl (80.0-96.0); MONO # 0.4 10^3/uL (0.0-0.8); MONO % 7.5 % (0.0-5.0); NEUTROPHILS # 3.4 10^3/uL (1.8-7.7); NEUTROPHILS % 70.8 % (36.0-66.0); PLATELET COUNT, AUTOMATED 110 10^3/uL (150-450); RED BLOOD COUNT 3.63 10^6/uL (4.30-6.10); WHITE BLOOD COUNT 4.8 10^3/uL (4.0-10.0)
[2018-04-30 11:24] LABS: ERYTHROCYTE SEDIMENTATION RATE 60 mm/hr (0-20)
== END ==
LOC: M LAB 10:15
PROVIDERS: ATTEND Physician Assistant
DX: R06.02 Shortness of breath (principal); I10 Essential (primary) hypertension

== ENCOUNTER → 2018-05-01 | Outpatient (CLI) | payer MEDICARE | LOC: M LAB 15:50 | PROVIDERS: ATTEND Physician Assistant | DX: R06.02 Shortness of breath (principal); I10 Essential (primary) hypertension ==

== ENCOUNTER → 2018-05-08 | Outpatient (CLI) | payer MEDICARE ==
[2018-05-08 17:43] LABS: BASO % 0.1 % (0.0-1.0); EOS % 0.1 % (0.0-3.0); HEMATOCRIT 32.4 % (42.0-52.0); HEMOGLOBIN 10.4 g/dl (13.5-17.5); LYMPH # 0.7 10^3/uL (1.5-4.5); LYMPH % 8.9 % (24.0-44.0); MEAN CORPUSCULAR HGB CONC 32.1 g/dl (32.0-36.5); MEAN CORPUSCULAR VOLUME 90.3 fl (80.0-96.0); MONO # 0.5 10^3/uL (0.0-0.8); MONO % 5.4 % (0.0-5.0); NEUTROPHILS % 84.8 % (36.0-66.0); PLATELET COUNT, AUTOMATED 128 10^3/uL (150-450); RED BLOOD COUNT 3.59 10^6/uL (4.30-6.10); WHITE BLOOD COUNT 8.3 10^3/uL (4.0-10.0)
[2018-05-13 08:50] LABS: D001-IgE D pteronyssinus <0.10 kU/L (Class 0); E001-IgE Cat Epith/Dander < 0.10 kU/L (Class 0); E005-IgE Dog Dander < 0.10 kU/L (Class 0); G002-IgE Bermuda Grass < 0.10 kU/L (Class 0); G008-IgE Kentucky Bluegrass < 0.10 kU/L (Class 0); M001-IgE Penicillium chrysogen < 0.10 kU/L (Class 0); M002 IgE Cladosporium herbaru < 0.10 kU/L (Class 0); M003 IgE Aspergillus fumigatu < 0.10 kU/L (Class 0); M006-IgE Alternaria alternata < 0.10 kU/L (Class 0); T001-IgE Maple/Box Elder < 0.10 kU/L (Class 0); T003-IgE Common Silver Birch 2.05 kU/L (Class III); T006-IgE Cedar, Mountain < 0.10 kU/L (Class 0); T007-IgE Oak, White 0.57 kU/L (Class II); T008-IgE Elm, American 0.12 kU/L (Class 0/I); T015-IgE Ash, White < 0.10 kU/L (Class 0); T041-IgE Hickory, White < 0.10 kU/L (Class 0); T070-IgE White Mulberry < 0.10 kU/L (Class 0); W001-IgE Ragweed, Short 0.78 kU/L (Class II); W009-IgE Plantain, English < 0.10 kU/L (Class 0); W014-IgE Pigweed, Rough < 0.10 kU/L (Class 0); W018-IgE Sheep Sorrel < 0.10 kU/L (Class 0)
== END ==
LOC: M LRY 11:53
PROVIDERS: ATTEND Internal Medicine Pulmonary Disease
DX: J45.40 Moderate persistent asthma, uncomplicated (principal)

== ENCOUNTER → 2018-05-15 | Outpatient (CLI) | payer MEDICARE, BC ==
[~2018-05-15] MED LIST changes: +ADV500INH; +CLON0.5T8; +FURO20TA2; +PRED10TA2
--- NOTE | 2018-05-15 18:07 | REP ---
Clinical: Right-sided rib pain Technique: Frontal view of the chest with multiple views of the right hemithorax. Findings: Frontal view of the chest demonstrates no acute cardiopulmonary process. Multiple views of the right hemithorax demonstrates no obvious acute rib fracture or pathology. Impression: No right rib fracture. Electronically Signed by Francis Mccollum MD 05/15/2018 05:58 P
== END ==
LOC: M LRY 17:40
PROVIDERS: ATTEND Physician Assistant
DX: R07.81 Pleurodynia (principal)
CPT/HCPCS: 71101; G0463

== ENCOUNTER 2018-05-27 16:01 | Emergency (ER) | payer MEDICARE, OTHER ==
[~2018-05-27] VITALS: Ht 170.2 cm; Wt 78.6 kg
[~2018-05-27 16:01] MED LIST changes: -ADV500INH; -CLON0.5T8; -FURO20TA2; -PRED10TA2
[2018-05-27] MEDS ORDERED: FURO20TA2 (16:26)
[2018-05-27] MEDS ORDERED: ADV500INH (16:26)
[2018-05-27] MEDS ORDERED: PRED10TA2 (16:26)
[2018-05-27] MEDS ORDERED: CLON0.5T8 (16:26)
[2018-05-27 16:57] LABS: BASO % 0.2 % (0.0-1.0); EOS % 0.4 % (0.0-3.0); HEMATOCRIT 33.3 % (42.0-52.0); HEMOGLOBIN 10.7 g/dl (13.5-17.5); LYMPH # 0.5 10^3/uL (1.5-4.5); LYMPH % 9.5 % (24.0-44.0); MEAN CORPUSCULAR HEMOGLOBIN 29.2 pg (27.0-33.0); MEAN CORPUSCULAR HGB CONC 32.1 g/dl (32.0-36.5); MEAN CORPUSCULAR VOLUME 90.7 fl (80.0-96.0); MONO # 0.4 10^3/uL (0.0-0.8); MONO % 7.1 % (0.0-5.0); NEUTROPHILS # 4.2 10^3/uL (1.8-7.7); NEUTROPHILS % 82.4 % (36.0-66.0); RED BLOOD COUNT 3.67 10^6/uL (4.30-6.10); WHITE BLOOD COUNT 5.1 10^3/uL (4.0-10.0)
[2018-05-27 17:18] LABS: PLATELET COUNT, AUTOMATED 75 10^3/uL (150-450)
[2018-05-27 17:22] LABS: ALBUMIN 3.3 GM/DL (3.2-5.2); BILIRUBIN,DIRECT 1.1 MG/DL (0.0-0.2); BILIRUBIN,TOTAL 1.7 MG/DL (0.2-1.0); CALCIUM LEVEL 8.4 MG/DL (8.8-10.2); CREATININE FOR GFR 1.32 MG/DL (0.70-1.30); GLOMERULAR FILTRATION RATE 56.1 (>42); MAGNESIUM LEVEL 2.3 MG/DL (1.8-2.4); POTASSIUM SERUM 4.9 MEQ/L (3.5-5.1); TOTAL PROTEIN 6.7 GM/DL (6.4-8.2)
[2018-05-27 19:03] LABS: VENOUS BASE EXCESS -1.4 (-2.0-2.0); VENOUS HCO3 22.9 MEQ/L (23.0-27.0); VENOUS O2 SATURATION 76.8 % (60.0-80.0); VENOUS PARTIAL PRESSURE CO2 37.2 mmHg (38.0-50.0); VENOUS PARTIAL PRESSURE O2 43.1 mmHg (30.0-50.0); VENOUS PH 7.407 UNITS (7.330-7.430); VENOUS STANDARD HCO3 22.9 MEQ/L
[2018-05-27 19:28] VITALS: BP 155/73
[2018-05-27] MEDS ORDERED: LACTULOSE 20 GM/30 ML SYRUP UD PO ONE (19:30)
[2018-05-27] MEDS ORDERED: MORPHINE 4 MG/ML 1ML VIAL/SYRINGE (J2270) IV ONE (19:45)
== END 2018-05-27 19:52 | disposition home or self-care (01) ==
LOC: M ED 16:01
DX: K73.9 Chronic hepatitis, unspecified (principal); R25.2 Cramp and spasm; I48.91 Unspecified atrial fibrillation; J45.909 Unspecified asthma, uncomplicated; Z88.8 Allergy status to other drugs, medicaments and biological substances; Z79.52 Long term (current) use of systemic steroids; Z79.899 Other long term (current) drug therapy; Z79.51 Long term (current) use of inhaled steroids; E78.00 Pure hypercholesterolemia, unspecified; G47.30 Sleep apnea, unspecified

== ENCOUNTER 2018-06-29 10:56 | Emergency (ER) | payer MEDICARE, OTHER ==
[~2018-06-29] VITALS: Ht 170.2 cm; Wt 79.5 kg
[~2018-06-29 10:56] MED LIST changes: -/WARF5TA OR; +ADV500INH; +CLON0.5T8; +COUM1TAB17 OR; +FURO20TA2; +HYDR-3715 PO; -NORCOTAB PO; +PRED10TA2 PO
[2018-06-29] MEDS ORDERED: LORazepam 2 MG/ML VIAL (J2060) IV STA (11:31)
[2018-06-29] MEDS ORDERED: ROBA500T PO (11:38)
[2018-06-29] MEDS ORDERED: TRAM50TA2 PO (11:38)
[2018-06-29] MEDS ORDERED: ONDANSETRON 4MG/2ML VIAL (J2405) IV ONE (11:45)
[2018-06-29] MEDS ORDERED: MORPHINE 4 MG/ML 1ML VIAL/SYRINGE (J2270) IV PRN (11:45)
[2018-06-29 11:58] LABS: HEMATOCRIT 34.6 % (42.0-52.0); HEMOGLOBIN 10.9 g/dl (13.5-17.5); MEAN CORPUSCULAR HEMOGLOBIN 28.1 pg (27.0-33.0); MEAN CORPUSCULAR HGB CONC 31.5 g/dl (32.0-36.5); MEAN CORPUSCULAR VOLUME 89.2 fl (80.0-96.0); PLATELET COUNT, AUTOMATED 105 10^3/uL (150-450); RED BLOOD COUNT 3.88 10^6/uL (4.30-6.10); WHITE BLOOD COUNT 6.3 10^3/uL (4.0-10.0)
[2018-06-29 12:25] LABS: CALCIUM LEVEL 8.3 MG/DL (8.8-10.2); CREATININE FOR GFR 1.42 MG/DL (0.70-1.30); GLOMERULAR FILTRATION RATE 51.6 (>42); POTASSIUM SERUM 3.9 MEQ/L (3.5-5.1)
[2018-06-29] MEDS ORDERED: ISOVUE-370 76% 100ML VIAL (Q9967) As Ordered ONE (12:28)
--- NOTE | 2018-06-29 12:58 | REP ---
CT Lumbar Spine without contrast HISTORY: Trauma COMPARISON: 08/15/2017 There is no disc bulge or herniation at the L1-2 level. The L1 nerves exit the neural foramina without compression. A diffuse disc bulge is present at the L2-3 level. There is hypertrophy of the ligamenta flava and posterior articulating facets. These findings produce minimal central canal stenosis. The L2 nerves exit the neural foramen without compression. A diffuse disc bulge is present at the L3-4 level. There is hypertrophy of the ligamenta flava and posterior articulating facets. These findings produce moderate central canal stenosis. The L3 nerves exit the neural foramina without compression. A diffuse disc bulge is present at the L4-5 level. There is hypertrophy of the ligamenta flava and posterior articulating facets. These findings produce moderate central canal stenosis. The L4 nerves exit the neural foramina without compression. A diffuse disc bulge is present at the S1 level. There is minimal compression of the thecal sac. There is hypertrophy of the posterior to the facets. There is compression of the L5 nerves in the neural foramina. The L3-4 and L4-5 intervertebral discs are decreased in height consistent with disc degeneration. There is an old compression fracture of the L4 vertebral body with mild height loss. There is no subluxation. IMPRESSION: 1. Minimal central canal stenosis at the L2-3 level secondary to disc bulge, ligamentous and facet hypertrophy. 2. Moderate central canal stenosis at the L3-4 and L4-5 levels secondary to disc bulge, ligamentous and facet hypertrophy. 3. Diffuse disc bulge at the L5-L1 level with minimal thecal sac compression. There is compression of the L5 nerves in the neural foramina. There is no change compared to the previous study. Electronically Signed by Yuriy Sorenson MD 06/29/2018 12:50 P
[2018-06-29 13:00] VITALS: BP 114/58
--- NOTE | 2018-06-29 13:24 | ED PDOC ---
Post-Departure Follow-Up dr combs faxed results of ct ls spine for fu Lucas Sabillon MD Jun 29, 2018 13:24
--- NOTE | 2018-06-29 15:14 | REP ---
CT of the abdomen and pelvis with IV contrast: Comparison is 04/21/2018. The visualized lung luque are unremarkable. There is free fluid surrounding the liver as an interval change. The hepatic parenchyma is homogeneous. The hepatic margin is nodular compatible with cirrhosis. This is unchanged. There are surgical clips in the gallbladder fossa. This is unchanged. The pancreas is unremarkable. Splenomegaly is again identified, unchanged. The spleen is otherwise unremarkable. There is no perisplenic free fluid. The adrenals are unremarkable. The right and left kidneys are unremarkable. There is no intra renal or pararenal hematoma. Renal cysts are again identified, unchanged. The abdominal aorta is unremarkable. There is no periaortic or retroperitoneal hematoma. The bowel and mesentery are otherwise unremarkable. Pelvis: There is no free fluid. The bladder is unremarkable. There is no adenopathy. Skeletal structures are: There is grade II compression deformity of the L4 vertebral body, however, this is unchanged. Progressed. There are no other vertebral body compression deformities. No other lumbar or pelvic fractures are identified. Impression: There is free fluid surrounding the liver as an interval change. There is no free fluid elsewhere in the mesentery or in the pelvis. The hepatic margin is nodular compatible with cirrhosis. This is unchanged. There is splenomegaly. The spleen is otherwise unremarkable. There is no perisplenic free fluid. There is no intra renal or pararenal hematoma . There are renal cysts, unchanged. The abdominal aorta is unremarkable. There is no periaortic hematoma. There is chronic grade II compression deformity of the L4 vertebral body, unchanged from the prior study. No acute fracture is identified. Electronically Signed by Tarik Corey MD 06/29/2018 03:05 P
== END 2018-06-29 14:18 | disposition home or self-care (01) ==
LOC: EDBD 10:56 → M ED 10:56
DX: M51.37 Other intervertebral disc degeneration, lumbosacral region (principal); M48.07 Spinal stenosis, lumbosacral region; I12.9 Hypertensive chronic kidney disease with stage 1 through stage 4 chronic kidney disease, or unspecified chronic kidney disease; N18.3 Chronic kidney disease, stage 3 (moderate); I48.91 Unspecified atrial fibrillation; E78.5 Hyperlipidemia, unspecified; N40.0 Benign prostatic hyperplasia without lower urinary tract symptoms; Z79.899 Other long term (current) drug therapy; Z79.01 Long term (current) use of anticoagulants; Z88.8 Allergy status to other drugs, medicaments and biological substances
CPT/HCPCS: 72131; 74177; 80048; 85027; 96374; 96375; 99284; G0463; J2060; J2270; J2405; Q9967

== ENCOUNTER 2018-08-15 11:58 | Emergency (ER) | payer MEDICARE, OTHER ==
[~2018-08-15] VITALS: Ht 170.2 cm; Wt 79.0 kg
[~2018-08-15 11:58] MED LIST changes: +ROBA500T PO; +TRAM50TA2 PO
[2018-08-15] MEDS ORDERED: NADO20TA PO (12:03)
[2018-08-15 12:36] LABS: EOS # 0.2 10^3/uL (0.0-0.50); EOS % 4.8 % (0.0-3.0); HEMOGLOBIN 9.5 g/dl (13.5-17.5); LYMPH # 0.8 10^3/uL (1.5-4.5); LYMPH % 18.2 % (24.0-44.0); MEAN CORPUSCULAR HEMOGLOBIN 29.1 pg (27.0-33.0); MEAN CORPUSCULAR HGB CONC 32.8 g/dl (32.0-36.5); MEAN CORPUSCULAR VOLUME 88.7 fl (80.0-96.0); MONO # 0.5 10^3/uL (0.0-0.8); MONO % 12.7 % (0.0-5.0); NEUTROPHILS # 2.6 10^3/uL (1.8-7.7); NEUTROPHILS % 62.8 % (36.0-66.0); PLATELET COUNT, AUTOMATED 107 10^3/uL (150-450); RED BLOOD COUNT 3.27 10^6/uL (4.30-6.10); WHITE BLOOD COUNT 4.2 10^3/uL (4.0-10.0)
[2018-08-15] MEDS ORDERED: NS 1,000 ML IV SCH (12:40)
[2018-08-15] MEDS ORDERED: MORPHINE 2 MG/ML 1ML SYRINGE (J2270) IV ONE (12:45)
[2018-08-15 13:01] LABS: BILIRUBIN,TOTAL 1.4 MG/DL (0.2-1.0); CALCIUM LEVEL 8.5 MG/DL (8.8-10.2); CREATININE FOR GFR 1.33 MG/DL (0.70-1.30); GLOMERULAR FILTRATION RATE 55.7 (>42); POTASSIUM SERUM 4.1 MEQ/L (3.5-5.1); TOTAL PROTEIN 6.7 GM/DL (6.4-8.2)
[2018-08-15] MEDS ORDERED: ISOVUE-370 76% 100ML VIAL (Q9967) As Ordered ONE (13:07)
[2018-08-15] MEDS ORDERED: NS 1,000 ML IV ONE (13:30)
--- NOTE | 2018-08-15 13:38 | REP ---
Clinical: Abdominal pain. History of umbilical hernia. Technique: Axial contrast enhanced images from the lung bases to the pubic symphysis using 100 ml Isovue 370 intravenous contrast material with coronal and sagittal re-formations. Comparison: 07/24/2018, 07/24/2018. Findings: Abdominal findings related to cirrhosis and portal venous hypertension are again noted along with scattered mesenteric/intra-abdominal adenopathy which remains essentially unchanged. Mild stranding primarily noted along the bilateral pericolic gutters are similar to prior examinations and the previously noted mild ascites has resolved. No focal hepatic or splenic lesion identified. The pancreas, bilateral adrenal glands and right kidney are stable/normal. Evidence of prior cholecystectomy noted. Left renal cysts are unchanged. The enteric system is without obstruction or definite acute inflammatory process. Normal terminal ileum and appendix are identified in the right lower quadrant. Pelvis demonstrates enlarged prostate gland with mass effect on the base of the bladder. No ascites. No free air. Small periumbilical hernia contains fat and trace fluid unchanged from prior examination. Atherosclerotic changes to the aorta and vasculature noted without aneurysm or dissection. Musculoskeletal structures demonstrate degenerative changes without focal osseous abnormality. Impression: 1. Chronic stable changes related to cirrhosis and portal hypertension including splenomegaly, varices, and scattered adenopathy. 2. Small periumbilical hernia remains stable and contains minimal fat and fluid. 3. Further chronic changes as described above including left renal cysts. 4. No acute abdominopelvic pathology otherwise noted. Electronically Signed by Francis Mccollum MD 08/15/2018 01:29 P
[2018-08-15 13:52] VITALS: BP 114/56
== END 2018-08-15 14:21 | disposition home or self-care (01) ==
LOC: M ED 11:58
DX: K42.9 Umbilical hernia without obstruction or gangrene (principal); I50.9 Heart failure, unspecified; E78.5 Hyperlipidemia, unspecified; G47.33 Obstructive sleep apnea (adult) (pediatric); Z79.899 Other long term (current) drug therapy; Z79.01 Long term (current) use of anticoagulants; Z87.891 Personal history of nicotine dependence; Z88.8 Allergy status to other drugs, medicaments and biological substances
CPT/HCPCS: 74177; 80048; 80076; 83605; 83690; 85025; 96361; 96374; 99284; J2270; Q9967

== ENCOUNTER → 2018-08-31 | Outpatient (CLI) | payer MEDICARE, BC ==
[~2018-08-31] MED LIST changes: +MUPI2OI TOP; +NADO20TA PO; +OMEP40CA2 PO
--- NOTE | 2018-08-31 11:48 | REP ---
Complete abdominal ultrasound: Comparison is the abdomen and pelvis CT dated 08/15/2018. The patient has known diagnosis of cirrhosis. The the patient has a cholecystectomy. There is no intrahepatic or extrahepatic biliary duct dilatation. The common duct measures 2.4 mm in diameter. The hepatic parenchyma is diffusely hyperechoic compatible with cirrhosis. No focal hepatic masses are identified. The visualized pancreatic parenchyma is unremarkable. The spleen is enlarged measuring up to 14 mm craniocaudad length. This is unchanged. The right kidney measures 10.6 x 5.4 x 5.7 cm. There is a 1.5 x 1.1 x 1.7 cm left renal cyst. The right kidney is otherwise unremarkable. The left kidney measures 10.7 x 5.45 point 1 cm. There are three left renal cysts. The largest cyst measures up to 3.6 x 2.2 x 3.6 cm. The abdominal aorta is obscured by bowel gas. Half there is a small volume of ascites in the right upper quadrant. The bladder is incompletely distended. Impression: Hyperechoic hepatic parenchyma compatible with the clinical history of cirrhosis. There are no hepatic masses. There is no biliary duct dilatation. There is a cholecystectomy. Small volume of right upper quadrant abdominal ascites. Bilateral renal cysts as described. Electronically Signed by Tarik Corey MD 08/31/2018 11:40 A
== END ==
LOC: M LRY 08:08
PROVIDERS: ATTEND Internal Medicine Gastroenterology
DX: K74.60 Unspecified cirrhosis of liver (principal); R18.8 Other ascites; N28.1 Cyst of kidney, acquired

== ENCOUNTER 2018-09-03 19:12 | Emergency (ER) | payer BC, MEDICARE ==
[~2018-09-03] VITALS: Ht 170.2 cm; Wt 76.4 kg
[~2018-09-03 19:12] MED LIST changes: -MUPI2OI TOP; -OMEP40CA2 PO
[2018-09-03] MEDS ORDERED: OMEP40CA2 PO (19:24)
[2018-09-03] MEDS ORDERED: CAND16TA7 PO (19:24)
[2018-09-03 20:07] LABS: BASO % 0.8 % (0.0-1.0); EOS # 0.2 10^3/uL (0.0-0.50); EOS % 3.6 % (0.0-3.0); HEMATOCRIT 30.1 % (42.0-52.0); HEMOGLOBIN 9.6 g/dl (13.5-17.5); LYMPH # 0.9 10^3/uL (1.5-4.5); LYMPH % 18.6 % (24.0-44.0); MEAN CORPUSCULAR HEMOGLOBIN 27.7 pg (27.0-33.0); MEAN CORPUSCULAR HGB CONC 31.9 g/dl (32.0-36.5); MONO # 0.6 10^3/uL (0.0-0.8); MONO % 13.1 % (0.0-5.0); NEUTROPHILS % 63.7 % (36.0-66.0); PLATELET COUNT, AUTOMATED 103 10^3/uL (150-450); RED BLOOD COUNT 3.46 10^6/uL (4.30-6.10); WHITE BLOOD COUNT 4.7 10^3/uL (4.0-10.0)
[2018-09-03 20:31] LABS: BLOOD UREA NITROGEN 12 MG/DL (7-18); CALCIUM LEVEL 8.6 MG/DL (8.8-10.2); CARBON DIOXIDE LEVEL 24 MEQ/L (21-32); CHLORIDE LEVEL 109 MEQ/L (98-107); CK-MB VALUE MASS < 1.0 NG/ML (<3.6); CPK CREATINE PHOSPHOKINASE 68 U/L (39-308); CREATININE FOR GFR 1.37 MG/DL (0.70-1.30); GLOMERULAR FILTRATION RATE 53.8 (>42); GLUCOSE, FASTING 121 MG/DL (70-100); MB/CK RELATIVE INDEX 1.47 (< OR =4); POTASSIUM SERUM 3.8 MEQ/L (3.5-5.1); SODIUM LEVEL 141 MEQ/L (136-145); TROPONIN I < 0.02 NG/ML (< 0.10)
--- NOTE | 2018-09-03 21:10 | REPVR ---
EXAM: CT Head Without Contrast EXAM DATE/TIME: 09/03/2018 8:20 PM CLINICAL HISTORY: 77 years old, male; Pain; Headache not specified TECHNIQUE: Imaging protocol: Axial computed tomography images of the head without contrast. Radiation optimization: All CT scans at this facility use at least one of these dose optimization techniques: automated exposure control; mA and/or kV adjustment per patient size (includes targeted exams where dose is matched to clinical indication); or iterative reconstruction. COMPARISON: CT Head without contrast 02/03/2018 3:19 AM FINDINGS: There are no intra-or extra-axial hemorrhages or fluid collections. There is no mass effect or midline shift. Ventricles are symmetrical and mildly prominent with associated cortical volume loss commensurate with patient's stated age. Mild chronic ischemic changes in the periventricular deep white matter. Atherosclerotic changes within intracranial arteries. There are no focal parenchymal abnormalities. No calvarial fractures. Visualized paranasal sinuses and mastoid air cells are clear. IMPRESSION: Probable age-related generalized atrophy and chronic ischemic changes, similar to previous examination.. No acute intracranial process. No intracranial hemorrhage. Electronically signed by: Ryan Castanon On 09/03/2018 21:10:40 PM
--- NOTE | 2018-09-03 21:59 | ECGEPIP ---
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
[2018-09-03 23:20] LABS: CK-MB VALUE MASS < 1.0 NG/ML (<3.6); CPK CREATINE PHOSPHOKINASE 58 U/L (39-308); MB/CK RELATIVE INDEX 1.72 (< OR =4); TROPONIN I < 0.02 NG/ML (< 0.10)
[2018-09-03 23:30] VITALS: BP 114/63
[2018-09-03] MEDS ORDERED: MUPI2OI TOP (23:38)
--- NOTE | 2018-09-04 05:46 | ECGEPIP ---
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
--- NOTE | 2018-09-04 07:22 | REP ---
The portable chest, 08:34 p.m., single AP view with the patient sitting: Comparison is 04/21/2018. There is minor discoid atelectasis above the dome of the left hemidiaphragm as an interval change. The left costophrenic angle is mildly effaced as an interval change. Lung luque otherwise clear. Cardiac size is normal. The darrian, mediastinum, skeletal structures are. Impression: Minor discoid atelectasis above the dome of the left hemidiaphragm and mild effacement of the left costophrenic angle. Electronically Signed by Tarik Corey MD 09/04/2018 07:13 A
[2018-09-22] MEDS ORDERED: FLOM0.4C39 PO (11:26)
[2018-09-22] MEDS ORDERED: SYMB16INH INH (11:36)
[2018-09-22] MEDS ORDERED: NEOM500T PO (11:36)
[2018-09-22] MEDS ORDERED: VITAD1000T PO (11:36)
[2018-09-22] MEDS ORDERED: SING5CHW23 PO (11:36)
== END 2018-09-03 23:48 | disposition home or self-care (01) ==
LOC: M ED 19:12
DX: R07.89 Other chest pain (principal); L01.00 Impetigo, unspecified; I44.4 Left anterior fascicular block; I45.10 Unspecified right bundle-branch block; I48.91 Unspecified atrial fibrillation; I10 Essential (primary) hypertension; E78.5 Hyperlipidemia, unspecified; K21.9 Gastro-esophageal reflux disease without esophagitis; Z79.899 Other long term (current) drug therapy; Z87.891 Personal history of nicotine dependence

== ENCOUNTER 2018-09-16 11:09 | Emergency (ER) | payer BC, MEDICARE ==
[~2018-09-16] VITALS: Ht 170.2 cm; Wt 76.8 kg
[~2018-09-16 11:09] MED LIST changes: +MUPI2OI TOP; -OMEP20CA3; +OMEP20CA4; +OMEP40CA2 PO
[2018-09-16] MEDS ORDERED: PANT20TA2 PO (11:40)
[2018-09-16] MEDS ORDERED: PRAV40TA2 PO (11:40)
[2018-09-16] MEDS ORDERED: SPIR50TA4 PO (11:40)
[2018-09-16] MEDS ORDERED: FURO20TA2 PO (11:40)
[2018-09-16] MEDS ORDERED: ALLE1TAB23 PO (11:40)
[2018-09-16] MEDS ORDERED: AZIT500T2 PO (11:40)
[2018-09-16 13:14] LABS: BASO % 0.6 % (0.0-1.0); EOS # 0.1 10^3/uL (0.0-0.50); EOS % 1.5 % (0.0-3.0); HEMATOCRIT 28.9 % (42.0-52.0); HEMOGLOBIN 9.2 g/dl (13.5-17.5); LYMPH # 0.8 10^3/uL (1.5-4.5); LYMPH % 13.5 % (24.0-44.0); MEAN CORPUSCULAR HEMOGLOBIN 27.7 pg (27.0-33.0); MEAN CORPUSCULAR HGB CONC 31.8 g/dl (32.0-36.5); MONO # 0.6 10^3/uL (0.0-0.8); MONO % 9.6 % (0.0-5.0); NEUTROPHILS # 4.6 10^3/uL (1.8-7.7); NEUTROPHILS % 74.3 % (36.0-66.0); PLATELET COUNT, AUTOMATED 100 10^3/uL (150-450); RED BLOOD COUNT 3.32 10^6/uL (4.30-6.10); WHITE BLOOD COUNT 6.2 10^3/uL (4.0-10.0)
--- NOTE | 2018-09-16 13:40 | REP ---
Clinical: Acute chest pain and shortness of breath. Technique: Axial noncontrast images from the thoracic inlet to the upper abdomen with coronal and sagittal re-formations. Comparison: 03/29/2018. Findings: Very minimal left basilar atelectasis appreciated. The no further consolidation. No effusion. No pneumothorax. Tracheobronchial tree is patent. Stable cardiomegaly noted along with atherosclerotic changes to the thoracic aorta and coronary arteries. No aortic aneurysm or pericardial effusion identified. No adenopathy. Surrounding musculoskeletal structures are intact. Limited upper abdomen demonstrates cirrhosis with portal venous hypertension including splenomegaly, scattered mesenteric lymph nodes and portosystemic collateral circulation. Normal bilateral adrenal glands. Evidence of prior cholecystectomy. Impression: 1. Mild left basilar atelectasis. 2. Stable cardiomegaly. 3. Cirrhosis and portal venous hypertension Electronically Signed by Francis Mccollum MD 09/16/2018 01:31 P
--- NOTE | 2018-09-16 13:45 | REP ---
Clinical: Left lower extremity pain and swelling . Technique: Santos scale and color Doppler evaluation using linear high frequency transducer. Findings: Ultrasound examination of the left lower extremity deep venous structures from the common femoral vein to the popliteal vein demonstrates normal compressibility flow and wave patterns in response to respiration and augmentation. There is no evidence for deep venous thrombosis. Calcifications along the lumen of the distal femoral vein and popliteal vein are nonspecific but may represent sequelae of old thrombus. Impression: No evidence for acute deep venous thrombosis. Electronically Signed by Francis Mccollum MD 09/16/2018 01:36 P
[2018-09-16 13:51] LABS: ALBUMIN 3.1 GM/DL (3.2-5.2); ALT/SGPT 58 U/L (12-78); BILIRUBIN,TOTAL 1.4 MG/DL (0.2-1.0); BLOOD UREA NITROGEN 17 MG/DL (7-18); CALCIUM LEVEL 8.8 MG/DL (8.8-10.2); CARBON DIOXIDE LEVEL 25 MEQ/L (21-32); CHLORIDE LEVEL 107 MEQ/L (98-107); CK-MB VALUE MASS < 1.0 NG/ML (<3.6); CPK CREATINE PHOSPHOKINASE 69 U/L (39-308); CREATININE FOR GFR 1.35 MG/DL (0.70-1.30); GLOMERULAR FILTRATION RATE 54.7 (>42); GLUCOSE, FASTING 80 MG/DL (70-100); MB/CK RELATIVE INDEX 1.45 (< OR =4); POTASSIUM SERUM 4.3 MEQ/L (3.5-5.1); SODIUM LEVEL 139 MEQ/L (136-145); TOTAL PROTEIN 6.8 GM/DL (6.4-8.2); TROPONIN I < 0.02 NG/ML (< 0.10)
[2018-09-16 17:59] LABS: CK-MB VALUE MASS < 1.0 NG/ML (<3.6); CPK CREATINE PHOSPHOKINASE 64 U/L (39-308); MB/CK RELATIVE INDEX 1.56 (< OR =4); TROPONIN I < 0.02 NG/ML (< 0.10)
[2018-09-16 19:24] VITALS: BP 110/72
--- NOTE | 2018-09-17 10:30 | ECGEPIP ---
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
--- NOTE | 2018-09-17 10:33 | ECGEPIP ---
[facility] - ED Test Date: 2018-09-16 Pat Name: SHEILA GALARZA Department: Room: - Gender: Male Coil Finisher: KARLCAR : 1940 Requested By: GIBSON Gage Order Number: [id number] Reading MD: Kellen Weaver Measurements Intervals [place] Rate: 71 P: 15 [place]: 183 QRS: QRSD: 122 T: 5 QT: 384 QTc: 418 Interpretive Statements SINUS RHYTHM RIGHT BUNDLE BRANCH BLOCK LEFT ANTERIOR FASCICULAR BLOCK POSSIBLE ANTERIOR MYOCARDIAL INFARCTION, PROBABLY OLD similar to prior EKG 09/16/18 Electronically Signed on 09-17-2018 10:32:51 EDT by Kellen Weaver
[2018-09-22] MEDS ORDERED: FLOM0.4C39 PO (11:26)
[2018-09-22] MEDS ORDERED: SYMB16INH INH (11:36)
[2018-09-22] MEDS ORDERED: VITAD1000T PO (11:36)
[2018-09-22] MEDS ORDERED: NEOM500T PO (11:36)
[2018-09-22] MEDS ORDERED: SING5CHW23 PO (11:36)
== END 2018-09-16 19:43 | disposition home or self-care (01) ==
LOC: M ED 11:09
DX: R06.02 Shortness of breath (principal); J98.11 Atelectasis; K76.6 Portal hypertension; I45.10 Unspecified right bundle-branch block; I44.4 Left anterior fascicular block; I48.91 Unspecified atrial fibrillation; R07.89 Other chest pain; I11.9 Hypertensive heart disease without heart failure; K74.60 Unspecified cirrhosis of liver; M79.89 Other specified soft tissue disorders; Z87.891 Personal history of nicotine dependence; Z88.8 Allergy status to other drugs, medicaments and biological substances; Z79.899 Other long term (current) drug therapy; Z79.2 Long term (current) use of antibiotics; Z79.01 Long term (current) use of anticoagulants

== ENCOUNTER → 2018-10-05 | Outpatient (REF) | payer MEDICARE ==
[~2018-10-05] MED LIST changes: +AZIT500T2 PO; +BUSP5TA; +FLOM0.4C39 PO; +FURO20TA2 PO; +HYDR-3713 PO; +PANT20TA2 PO; +SING5CHW23 PO; +SPIR50TA4 PO; +SYMB16INH INH; +VITAD1000T PO
== END ==
LOC: M LAB REF 11:35
PROVIDERS: ATTEND Radiology Diagnostic Radiology
DX: R22.32 Localized swelling, mass and lump, left upper limb (principal)

== ENCOUNTER 2018-10-06 07:24 | Day surgery (SDC) | payer MEDICARE ==
[~2018-10-06] VITALS: Ht 170.2 cm; Wt 79.4 kg
[~2018-10-06 07:24] MED LIST changes: +BUPIVACAINE HCL 0.25% 30 ML VIAL As Ordered ONE; +BUPIVACAINE LIPOSOME/PF 1.3% 20ML VIAL (13.3MG/ML)(EXPAREL)(C9290 PER1MG) As Ordered ONE; -BUSP5TA; -HYDR-3713 PO; +LIDOCAINE 1% MDV 20ML VIAL SQ PRN; +LR 1,000 ML IV SCH
[2018-10-06] MEDS ORDERED: dexameTHASONE 4 MG/ML 1ML VIAL (J1100) As Ordered ONE (08:16)
[2018-10-06] MEDS ORDERED: PROPOFOL 200 MG/20 ML VIAL As Ordered ONE (08:16)
[2018-10-06] MEDS ORDERED: LIDOCAINE 2% INJ 100 MG/5 ML SDV (FOR ANES.) As Ordered ONE (08:16)
[2018-10-06] MEDS ORDERED: fentaNYL 250 MCG/5 ML INJECTION (J3010) As Ordered ONE (08:16)
[2018-10-06] MEDS ORDERED: ONDANSETRON 4MG/2ML VIAL (J2405) As Ordered ONE (08:16)
[2018-10-06] MEDS ORDERED: ROCURONIUM BROMIDE 50 MG/5 ML VIAL As Ordered ONE ×2 (08:16→11:07)
[2018-10-06] MEDS ORDERED: MIDAZOLAM INJ 2 MG/2 ML VIAL (J2250) As Ordered ONE (08:17)
[2018-10-06] MEDS ORDERED: BUSP5TA (08:25)
[2018-10-06] MEDS ORDERED: PHENYLephrine HCL 500 MCG/5 ML (100MCG/ML) SYRINGE (J2370) As Ordered ONE ×2 (08:33→11:54)
[2018-10-06] MEDS ORDERED: ceFAZolin 2 GM/D5W 50 ML IV BAG (J0690 PER 500MG) As Ordered ONE (10:10)
[2018-10-06] MEDS ORDERED: ACETAMINOPHEN 1000MG 100ML IV BTL (OFIRMEV) (J0131 PER 10MG) As Ordered ONE (11:21)
[2018-10-06] MEDS ORDERED: SUGAMMADEX SODIUM 500 MG/5 ML VIAL (BRIDION) As Ordered ONE (11:43)
[2018-10-06] MEDS ORDERED: oxyCODONE 5MG TAB As Ordered ONE (12:18)
[2018-10-06] MEDS: oxyCODONE 5MG TAB PO PRN ×2 (12:20→13:05)
[2018-10-06] MEDS ORDERED: HYDR-3713 PO (12:24)
[2018-10-06] MEDS ORDERED: LR 1,000 ML IV SCH (12:30)
[2018-10-06] MEDS ORDERED: NORCO, ANEXSIA 5/325MG TABLET (HYDROcodone/ACETAMINOPHEN) PO PRN (12:30)
[2018-10-06] MEDS ORDERED: fentaNYL 100 MCG/2 ML INJECTION (J3010) IV PRN (12:30)
[2018-10-06] MEDS ORDERED: ACETAMINOPHEN TAB 650MG DOSE (2X325MG) PO PRN (12:30)
[2018-10-06] MEDS ORDERED: ONDANSETRON 4MG/2ML VIAL (J2405) IV PRN (12:30)
[2018-10-06 14:25] VITALS: BP 125/63
--- NOTE | 2018-10-08 11:22 | RO ---
DATE OF PROCEDURE: 10/06/2018 PREOPERATIVE DIAGNOSIS: Ventral hernia. POSTOPERATIVE DIAGNOSIS: Umbilical hernia. PROCEDURE PERFORMED: Laparoscopic umbilical herniorrhaphy with placement of Parietex mesh. SURGEON: Wilfredo Ngo MD COOKER LOADER: Tarik Jenkins MS III ANESTHESIA: General. INDICATIONS FOR PROCEDURE The patient is a 77-year-old man with a history of cirrhosis. He had been diagnosed after presenting with evidence of ascites, which revealed a bulge at the umbilicus consistent with an umbilical hernia. With resolution of his ascites, the hernia is less prominent, but he is now for repair of a small hernia at the umbilicus. He has had a previous laparoscopic cholecystectomy with a scar just above the umbilicus raising the possibility that this represents an actual incisional hernia. OPERATIVE PROCEDURE The patient was brought to the operating room and placed on the table in a supine position. He was placed under general anesthesia. The patient's abdomen was prepped and draped in a sterile fashion. A small incision was made beginning just above the umbilicus at the midline and curving around the left side of the umbilicus partially. The incision was deepened into the subcutaneous tissues. A small hernia sac was identified protruding in the upper portion of the umbilicus. This was freed from the overlying umbilical skin and dissected free down to the fascial level. This was transected at the level of the fascia using the cautery. This was found to be a small peritoneal sac with some fat along one wall. This was sent as a specimen for hernia sac. Inspection did not identify any definite fascial weakness at the area of his supraumbilical midline scar. The hernia was about a centimeter in diameter. Given his history of cirrhosis and ascites, I elected to proceed with placement of prosthetic mesh. To accomplish this, a 5-mm port was placed through his umbilical defect and the abdomen was insufflated with carbon dioxide. A laparoscope was placed and there were no evident adhesions within the abdomen. The liver was noted and clearly was markedly nodular. A photo was taken for his record. A 5 mm port was placed in the right lateral abdomen. A second 5 mm port was then also placed. Using cauterizing scissors some fibrofatty tissue at the midline around the area of the umbilicus was excised off the anterior abdominal wall to allow better placement and more secure placement of mesh. This fibrofatty tissue was retrieved through the umbilical defect. A 9 cm Parietex patch reference code [id number] was obtained. This was a lot number [id number]. From this piece of mesh a 5 cm approximately round patch was cut. This patch was marked on the nonadherent side and inserted into the abdomen. This was grasped and held with a grasper through one of the right lateral ports. The fascial defect was then closed with interrupted simple sutures of #1-0 Ethibond. The abdomen was then reinflated and a secure strap tacker was used to tack the piece of mesh to the anterior abdominal wall, centered over the closed fascial defect. Inspection showed no evidence any significant bleeding. The abdomen was deflated and the two remaining trocars were removed. 0.25% Marcaine was infiltrated around the incisions. The tissues along the periumbilical incision were closed with some buried #3-0 Vicryl and the skin incisions were all closed with buried #4-0 Vicryl and Steri-Strips. Light dressings were applied. The patient tolerated the procedure well without apparent complication. He was awakened in the operating room, extubated and moved to the recovery room in stable condition.
== END 2018-10-06 14:35 | disposition home or self-care (01) ==
LOC: M SDC 07:24
PROVIDERS: ATTEND Surgery
DX: K42.9 Umbilical hernia without obstruction or gangrene (principal); K74.60 Unspecified cirrhosis of liver; I10 Essential (primary) hypertension; E78.5 Hyperlipidemia, unspecified; G47.30 Sleep apnea, unspecified; I48.91 Unspecified atrial fibrillation; K44.9 Diaphragmatic hernia without obstruction or gangrene; K21.9 Gastro-esophageal reflux disease without esophagitis; Z79.01 Long term (current) use of anticoagulants; Z79.899 Other long term (current) drug therapy; N40.0 Benign prostatic hyperplasia without lower urinary tract symptoms; Z88.8 Allergy status to other drugs, medicaments and biological substances
CPT/HCPCS: 49652; 88302; C1781; J0131; J0690; J1100; J2250; J2370; J2405; J3010

== ENCOUNTER 2018-10-17 09:19 | Emergency (ER) | payer MEDICARE ==
[~2018-10-17] VITALS: Ht 170.2 cm; Wt 79.9 kg
[~2018-10-17 09:19] MED LIST changes: -BUPIVACAINE HCL 0.25% 30 ML VIAL As Ordered ONE; -BUPIVACAINE LIPOSOME/PF 1.3% 20ML VIAL (13.3MG/ML)(EXPAREL)(C9290 PER1MG) As Ordered ONE; +BUSP5TA; +HYDR-3713 PO; -LIDOCAINE 1% MDV 20ML VIAL SQ PRN; -LR 1,000 ML IV SCH
[2018-10-17 10:03] LABS: BASO % 1.2 % (0.0-1.0); EOS # 0.2 10^3/uL (0.0-0.50); EOS % 4.4 % (0.0-3.0); HEMATOCRIT 29.4 % (42.0-52.0); HEMOGLOBIN 9.3 g/dl (13.5-17.5); LYMPH # 0.7 10^3/uL (1.5-4.5); LYMPH % 19.9 % (24.0-44.0); MEAN CORPUSCULAR HGB CONC 31.6 g/dl (32.0-36.5); MEAN CORPUSCULAR VOLUME 85.2 fl (80.0-96.0); MONO # 0.3 10^3/uL (0.0-0.8); NEUTROPHILS # 2.2 10^3/uL (1.8-7.7); NEUTROPHILS % 64.2 % (36.0-66.0); RED BLOOD COUNT 3.45 10^6/uL (4.30-6.10); WHITE BLOOD COUNT 3.4 10^3/uL (4.0-10.0)
[2018-10-17 10:22] LABS: PLATELET COUNT, AUTOMATED 80 10^3/uL (150-450)
[2018-10-17 10:34] LABS: BLOOD UREA NITROGEN 14 MG/DL (7-18); CALCIUM LEVEL 8.7 MG/DL (8.8-10.2); CARBON DIOXIDE LEVEL 27 MEQ/L (21-32); CHLORIDE LEVEL 109 MEQ/L (98-107); CREATININE FOR GFR 1.23 MG/DL (0.70-1.30); GLOMERULAR FILTRATION RATE > 60.0 (>42); GLUCOSE, FASTING 162 MG/DL (70-100); POTASSIUM SERUM 4.2 MEQ/L (3.5-5.1); SODIUM LEVEL 143 MEQ/L (136-145)
--- NOTE | 2018-10-17 10:36 | REP ---
Clinical: Palpable mass. Technique: Real time fernandez scale and color evaluation using linear high malignancy transducer. Findings: Directed ultrasound examination in the right lower quadrant at the site of prior surgical incisions demonstrates no obvious hernia, fluid collection or mass lesion. Impression: No obvious significant abnormality underlying the incision sites. Electronically Signed by Francis Mccollum MD 10/17/2018 10:27 A
[2018-10-17 11:21] VITALS: BP 121/64
== END 2018-10-17 11:22 | disposition home or self-care (01) ==
LOC: M ED 09:19
DX: R19.8 Other specified symptoms and signs involving the digestive system and abdomen (principal); I10 Essential (primary) hypertension; I48.91 Unspecified atrial fibrillation; Z79.899 Other long term (current) drug therapy; Z87.891 Personal history of nicotine dependence; Z88.3 Allergy status to other anti-infective agents

== ENCOUNTER → 2019-01-06 | Outpatient (REF) | payer MEDICARE, OTHER ==
[~2019-01-06] MED LIST changes: -AZIT500T2 PO; +AZIT500T5 PO; +CHOL100029 PO; -OMEP40CA2 PO; +OMEP40CA97 PO; -VITAD1000T PO
[2019-01-06 14:02] LABS: FOLATE 10.3 NG/ML; PERCENT SATURATION 13.5 % (19.7-50.0)
== END ==
LOC: M LAB REF 12:23
PROVIDERS: ATTEND Internal Medicine
DX: D64.9 Anemia, unspecified (principal)

== ENCOUNTER → 2019-04-07 | Outpatient (CLI) | payer MEDICARE, OTHER, BC ==
[~2019-04-07] MED LIST changes: +CLON0.5T2; -CLON0.5T8; -LORA0.5T11 PO; +LORA0.5T5 PO; +OMEP1CAP73; -OMEP20CA4
--- NOTE | 2019-04-07 17:23 | REP ---
PA and lateral chest: Comparison is 04/21/2018. The lung luque are clear. The cardiac size is normal. The darrian, mediastinum, and skeletal structures are unremarkable. Impression: Negative PA and lateral chest. There is no interval change. Electronically Signed by Tarik Corey MD 04/07/2019 05:15 P
== END ==
LOC: M LRY 16:29
PROVIDERS: ATTEND Physician Assistant
DX: R05 Cough (principal)
CPT/HCPCS: 71046; G0463

== ENCOUNTER → 2019-04-12 | Outpatient (REF) | payer MEDICARE, OTHER, BC ==
[2019-04-12 14:11] LABS: PERCENT SATURATION 27.7 % (19.7-50.0)
== END ==
LOC: M LAB REF 13:12
PROVIDERS: ATTEND Internal Medicine
DX: D50.9 Iron deficiency anemia, unspecified (principal); K74.60 Unspecified cirrhosis of liver

== ENCOUNTER → 2019-05-17 | Outpatient (REF) | payer MEDICARE, BC | LOC: M SFHCLERA 14:12 | PROVIDERS: ATTEND Physician Assistant | DX: R19.7 Diarrhea, unspecified (principal) | CPT/HCPCS: 81002; 87507; G0463 ==

== ENCOUNTER → 2019-05-19 | Outpatient (REF) | payer MEDICARE, BC | LOC: M LAB REF 12:14 | PROVIDERS: ATTEND Nurse Practitioner Adult Health | DX: K74.60 Unspecified cirrhosis of liver (principal); R19.7 Diarrhea, unspecified ==

== ENCOUNTER → 2019-06-01 | Outpatient (REF) | payer MEDICARE, BC | LOC: M LAB REF 12:27 | PROVIDERS: ATTEND Nurse Practitioner Adult Health | DX: R10.84 Generalized abdominal pain (principal) ==

== ENCOUNTER → 2019-06-23 | Outpatient (CLI) | payer MEDICARE, BC ==
[2019-06-23 11:25] LABS: BASO % 0.2 % (0.0-1.0); EOS # 0.1 10^3/uL (0.0-0.5); HEMATOCRIT 38.9 % (42.0-52.0); HEMOGLOBIN 13.3 g/dl (13.5-17.5); LYMPH # 1.2 10^3/uL (1.5-5.0); MEAN CORPUSCULAR HEMOGLOBIN 34.6 pg (27.0-33.0); MEAN CORPUSCULAR HGB CONC 34.2 g/dl (32.0-36.5); MEAN CORPUSCULAR VOLUME 101.3 fl (80.0-96.0); MONO # 0.7 10^3/uL (0.0-0.8); MONO % 8.6 % (0.0-5.0); NEUTROPHILS # 6.2 10^3/uL (1.5-8.5); NEUTROPHILS % 74.8 % (36.0-66.0); RED BLOOD COUNT 3.84 10^6/uL (4.30-6.10); WHITE BLOOD COUNT 8.2 10^3/uL (4.0-10.0)
[2019-06-23 11:26] LABS: PLATELET COUNT, AUTOMATED 77 10^3/uL (150-450)
[2019-06-25 10:07] LABS: D001-IgE D pteronyssinus <0.10 kU/L (Class 0); E001-IgE Cat Epith/Dander < 0.10 kU/L (Class 0); E005-IgE Dog Dander < 0.10 kU/L (Class 0); G002-IgE Bermuda Grass < 0.10 kU/L (Class 0); G008-IgE Kentucky Bluegrass < 0.10 kU/L (Class 0); M001-IgE Penicillium chrysogen < 0.10 kU/L (Class 0); M002 IgE Cladosporium herbaru < 0.10 kU/L (Class 0); M003 IgE Aspergillus fumigatu < 0.10 kU/L (Class 0); M006-IgE Alternaria alternata < 0.10 kU/L (Class 0); T001-IgE Maple/Box Elder < 0.10 kU/L (Class 0); T003-IgE Common Silver Birch 2.63 kU/L (Class III); T006-IgE Cedar, Mountain < 0.10 kU/L (Class 0); T007-IgE Oak, White 0.81 kU/L (Class II); T008-IgE Elm, American 0.12 kU/L (Class 0/I); T015-IgE Ash, White < 0.10 kU/L (Class 0); T041-IgE Hickory, White < 0.10 kU/L (Class 0); T070-IgE White Mulberry < 0.10 kU/L (Class 0); W001-IgE Ragweed, Short 0.83 kU/L (Class II); W009-IgE Plantain, English < 0.10 kU/L (Class 0); W014-IgE Pigweed, Rough < 0.10 kU/L (Class 0); W018-IgE Sheep Sorrel < 0.10 kU/L (Class 0)
== END ==
LOC: M LRY 09:18
PROVIDERS: ATTEND Internal Medicine Pulmonary Disease
DX: R05 Cough (principal); Z79.899 Other long term (current) drug therapy; Z91.048 Other nonmedicinal substance allergy status; K74.69 Other cirrhosis of liver; R18.8 Other ascites; Z90.49 Acquired absence of other specified parts of digestive tract; N28.1 Cyst of kidney, acquired; J45.50 Severe persistent asthma, uncomplicated

== ENCOUNTER → 2019-06-23 | Outpatient (CLI) | payer MEDICARE, BC ==
--- NOTE | 2019-06-23 11:36 | REP ---
ULTRASOUND ABDOMEN: Real-time sonographic evaluation of the abdomen performed. Patient has had a prior cholecystectomy. There is no intrahepatic or extrahepatic biliary dilatation, common bile duct measuring 4 mm. Liver demonstrates heterogeneous increased echotexture with mildly lobulated surface having a cirrhotic appearance. No gross liver or pancreatic mass is seen. Pancreas is not well seen due to overlying bowel gas. Spleen is enlarged with a length of 15 cm. Kidneys are normal in size and echotexture, right kidney measuring 10.8 x 6.3 x 6.1 cm and left kidney 10.8 x 5.0 x 6.4 cm. There is no hydronephrosis bilaterally. There appears to be cyst in the right kidney mid aspect as seen on prior study, measuring approximately 1.6 cm in diameter. Exophytic left renal cyst is again noted with a maximum diameter of 3.3 cm. Two smaller cysts are seen in the adjacent lower pole. Abdominal aorta is not well visualized. Bladder is mildly distended and grossly unremarkable. Ureteral jets are not visualized. Mild diffuse ascites is noted. IMPRESSION: Status post cholecystectomy. Liver has a cirrhotic appearance with no gross mass. There is mild splenomegaly. There are bilateral renal cysts without hydronephrosis. There is mild diffuse ascites. Electronically Signed by Tarik Santos MD 06/23/2019 11:43 A
== END ==
LOC: M LRY 08:53
DX: K74.69 Other cirrhosis of liver (principal); R18.8 Other ascites; Z90.49 Acquired absence of other specified parts of digestive tract; N28.1 Cyst of kidney, acquired

== ENCOUNTER → 2019-06-23 | Outpatient (CLI) | payer MEDICARE, BC ==
--- NOTE | 2019-06-23 11:02 | REP ---
REASON: Asthma. COMPARISON: Multiple, the latest 04/07/2019. Once again, the lung luque are hypoexpanded which crowds the basilar vascularity. No acute patchy parenchymal opacities or pleural effusions have developed. The cardiomediastinal silhouette is stable. The osseous structures are stable and intact. IMPRESSION: No significant change from the prior exam. There is no evidence of acute disease. Electronically Signed by Blake Moss DO 06/23/2019 01:36 P
== END ==
LOC: M LRY 09:12
PROVIDERS: ATTEND Internal Medicine Pulmonary Disease
DX: J45.50 Severe persistent asthma, uncomplicated (principal)

== ENCOUNTER → 2019-06-23 | Outpatient (CLI) | payer MEDICARE, BC ==
[2019-06-23 11:31] LABS: HEMATOCRIT 38.8 % (42.0-52.0); HEMOGLOBIN 13.2 g/dl (13.5-17.5); MEAN CORPUSCULAR HEMOGLOBIN 34.5 pg (27.0-33.0); MEAN CORPUSCULAR VOLUME 101.3 fl (80.0-96.0); RED BLOOD COUNT 3.83 10^6/uL (4.30-6.10); WHITE BLOOD COUNT 7.9 10^3/uL (4.0-10.0)
[2019-06-23 11:32] LABS: PLATELET COUNT, AUTOMATED 78 10^3/uL (150-450)
[2019-06-23 11:39] LABS: ALBUMIN 2.7 GM/DL (3.2-5.2); ALT/SGPT 65 U/L (12-78); BILIRUBIN,TOTAL 2.8 MG/DL (0.2-1.0); BLOOD UREA NITROGEN 19 MG/DL (7-18); CALCIUM LEVEL 8.8 MG/DL (8.8-10.2); CARBON DIOXIDE LEVEL 29 MEQ/L (21-32); CHLORIDE LEVEL 109 MEQ/L (98-107); CREATININE FOR GFR 1.06 MG/DL (0.70-1.30); GLOMERULAR FILTRATION RATE > 60.0 (>42); GLUCOSE, FASTING 80 MG/DL (70-100); POTASSIUM SERUM 3.3 MEQ/L (3.5-5.1); SODIUM LEVEL 144 MEQ/L (136-145); TOTAL PROTEIN 6.4 GM/DL (6.4-8.2)
[2019-06-23 11:41] LABS: INR 2.98; PROTHROMBIN TIME 30.9 SECONDS (11.8-14.0)
== END ==
LOC: M LRY 09:51
PROVIDERS: ATTEND Internal Medicine Hepatology
DX: K74.69 Other cirrhosis of liver (principal)

== ENCOUNTER 2019-07-01 13:57 | Inpatient (IN) | payer MEDICARE, OTHER ==
[~2019-07-01] VITALS: Ht 170.2 cm; Wt 87.2 kg
[2019-07-01] MEDS ORDERED: FLUTISP (14:11)
[2019-07-01] MEDS ORDERED: PRED10TA2 PO (14:11)
[2019-07-01] MEDS ORDERED: FERR325T3 PO (14:11)
--- NOTE | 2019-07-01 15:10 | REP ---
CHEST, TWO VIEWS: Two views of the chest are performed. COMPARISON: 06/23/2019. There is mild elevation of the right hemidiaphragm again noted. There are linear atelectatic changes in the right lower lobe. No acute infiltrate is seen. The heart is normal in size and the mediastinal silhouette is unchanged. There is calcification of the thoracic aorta. There are mild degenerative changes of the spine. IMPRESSION: Right base atelectasis. No acute abnormality. Electronically Signed by Tarik Santos MD 07/01/2019 03:49 P
[2019-07-01 15:14] LABS: BASO % 0.2 % (0.0-1.0); EOS % 0.1 % (0.0-3.0); HEMATOCRIT 45.3 % (42.0-52.0); HEMOGLOBIN 15.4 g/dl (13.5-17.5); LYMPH # 0.7 10^3/uL (1.5-5.0); LYMPH % 5.3 % (24.0-44.0); MEAN CORPUSCULAR HEMOGLOBIN 34.1 pg (27.0-33.0); MEAN CORPUSCULAR VOLUME 100.2 fl (80.0-96.0); MONO # 0.7 10^3/uL (0.0-0.8); MONO % 5.4 % (0.0-5.0); NEUTROPHILS # 11.8 10^3/uL (1.5-8.5); NEUTROPHILS % 87.9 % (36.0-66.0); PLATELET COUNT, AUTOMATED 106 10^3/uL (150-450); RED BLOOD COUNT 4.52 10^6/uL (4.30-6.10); WHITE BLOOD COUNT 13.4 10^3/uL (4.0-10.0)
[2019-07-01 16:08] LABS: ALBUMIN 2.8 GM/DL (3.2-5.2); ALT/SGPT 171 U/L (12-78); BILIRUBIN,DIRECT 2.8 MG/DL (0.0-0.2); BLOOD UREA NITROGEN 26 MG/DL (7-18); CALCIUM LEVEL 8.1 MG/DL (8.8-10.2); CARBON DIOXIDE LEVEL 22 MEQ/L (21-32); CHLORIDE LEVEL 111 MEQ/L (98-107); CK-MB VALUE MASS 1.2 NG/ML (<3.6); CPK CREATINE PHOSPHOKINASE 92 U/L (39-308); CREATININE FOR GFR 1.21 MG/DL (0.70-1.30); GLOMERULAR FILTRATION RATE > 60.0 (>42); GLUCOSE, FASTING 180 MG/DL (70-100); LIPASE 287 U/L (73-393); NT-PRO BNP 141 PG/ML (<450); POTASSIUM SERUM 3.6 MEQ/L (3.5-5.1); SODIUM LEVEL 143 MEQ/L (136-145); TOTAL PROTEIN 6.8 GM/DL (6.4-8.2); TROPONIN I < 0.02 NG/ML (< 0.10)
--- NOTE | 2019-07-01 16:10 | REP ---
Bilateral lower extremity Duplex Doppler venous ultrasound: Real time compression and duplex Doppler interrogation of the bilateral lower extremity deep venous system is performed. Bilaterally, the common femoral, superficial femoral and popliteal veins are fully compressible with transducer pressure and demonstrate normal spontaneous and phasic flow, without evidence of deep venous thrombosis. Impression: No evidence of deep venous thrombosis of the bilateral lower extremity femoral popliteal venous system. Electronically Signed by Tarik Santos MD 07/01/2019 04:03 P
[2019-07-01 16:48] VITALS: O2SAT 97
[2019-07-01] MEDS: GASTROGRAFIN SOLUTION 30ML PO SCH ×2 (17:01→17:47)
[2019-07-01] MEDS ORDERED: MIRA3350 PO (17:03)
[2019-07-01] MEDS ORDERED: ISOVUE-370 76% 100ML VIAL (Q9967) As Ordered ONE (18:20)
--- NOTE | 2019-07-01 18:53 | REPVR ---
PROCEDURE INFORMATION: Exam: CT Abdomen And Pelvis With Contrast Exam date and time: 07/01/2019 6:28 PM Age: 78 years old Clinical indication: Abdominal pain; Localized; Left lower quadrant (llq); Additional info: Llq pain TECHNIQUE: Imaging protocol: Computed tomography of the abdomen and pelvis with intravenous contrast. Axial, coronal and sagittal reformatted images were created and reviewed. Radiation optimization: All CT scans at this facility use at least one of these dose optimization techniques: automated exposure control; mA and/or kV adjustment per patient size (includes targeted exams where dose is matched to clinical indication); or iterative reconstruction. Contrast material: ISOVUE 370; Contrast volume: 100 ml; Contrast route: IV; COMPARISON: CT ABD/PEL W/IV CONTRAST ONLY 08/15/2018 1:00 PM FINDINGS: Lungs: Linear/discoid stranding , groundglass and mild subsegmental consolidation at the lung bases, likely due to atelectasis and/or scarring. Mediastinum: Small hiatal hernia. Liver: Cirrhotic. Gallbladder and bile ducts: Status post cholecystectomy. No biliary ductal dilatation. Pancreas: Unremarkable. Spleen: Coarse calcified splenic granuloma. Mild splenomegaly. Adrenals: Unremarkable. Kidneys and ureters: Simple left renal cysts, measuring up to 3.6 x 2.5 cm, similar to prior (no follow-up is indicated based on the imaging appearance). Subcentimeter low-density renal lesions bilaterally, too small to characterize. Nonobstructing left renal calculus. No hydronephrosis. Stomach and bowel: Mild multifocal bowel wall thickening, likely secondary to 3rd spacing. Superimposed rectal wall thickening, concerning for non-specific proctitis. No obstruction. No pneumatosis. Appendix: Normal. Intraperitoneal space: Moderate ascites. No organized fluid collection. No free air. Vasculature: Mild atherosclerotic disease. No aneurysm or dissection. Gastroesophageal varices. Lymph nodes: No pathologically enlarged lymph nodes. Bladder: Unremarkable. Reproductive: Mildly enlarged prostate. Bones/joints: No acute osseous abnormality. Osteopenia. Degenerative changes. Chronic partial L1 and L4 superior endplate compression deformities. Soft tissues: Unremarkable. IMPRESSION: 1. Cirrhosis with evidence of portal hypertension, mild splenomegaly and moderate ascites. 2. Mild multifocal bowel wall thickening, likely secondary to 3rd spacing. Superimposed rectal wall thickening, concerning for non-specific proctitis. 3. Additional findings, as above. COMMENTS: Consistent with the [employer]'s Incidental Findings Committee white paper (J Am Noah Radiol 2018): Any incidental cystic renal lesion classified in this report as too small to characterize or simple appearing is likely a benign cyst. No follow-up imaging is recommended for these lesions per consensus recommendations based on imaging criteria. Electronically signed by: Moise Gordon On 07/01/2019 18:53:24 PM
[2019-07-01] MEDS ORDERED: PANT40TA3 PO (19:37)
[2019-07-01] MEDS ORDERED: B-12100010 PO (19:42)
[2019-07-01] MEDS ORDERED: SPIR-10 PO (19:42)
[2019-07-01] MEDS ORDERED: CETI10CA2 PO (19:42)
[2019-07-01] MEDS ORDERED: MONT10TA4 PO (19:44)
--- NOTE | 2019-07-01 20:50 | ECGEPIP ---
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
[2019-07-01] MEDS ORDERED: NADOLOL 20MG TABLET PO SCH (21:00)
[2019-07-01] MEDS ORDERED: CETIRIZINE (ZyrTEC) 10 MG TAB PO SCH (21:00)
[2019-07-01] MEDS ORDERED: MONTELUKAST 10 MG TAB PO SCH (21:00)
[2019-07-01 21:18] VITALS: BP 147/91
--- NOTE | 2019-07-01 22:26 | HPE ---
DATE OF ADMISSION: 07/01/2019 CHIEF COMPLAINT: "Hard to breathe," "feels like I'm ." HISTORY OF PRESENTING ILLNESS: This is a 78-year-old male with a history of NELSON, liver cirrhosis, previously seen by Dr. Santos but has changed providers to Dr. Acevedo at [facility]. Presents to the emergency room with complaints of "looking like I'm " with a 10-pound weight gain, increased lower extremity edema that was "getting bad for the past 2 months." For the past 2 weeks, the patient has had increasing dyspnea and was seen by Dr. 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 Patient says, "I was gasping to breathe" and has had a dry cough, which almost causes him to pass out and "hurts so much." He denies any fever or COVID-19 exposure. He has not been out of the [facility] and has been compliant with his medications. His plant protection superintendent in [place] has not put him on salt or fluid restriction in the past, and he says that he was previously on spironolactone that he does not take now, and his Lasix has also been discontinued because he almost passed out with blood pressure of 70 systolic when he had taken that. Patient otherwise denies any change in appetite, nausea, or vomiting. He complains of increasing abdominal discomfort all over the abdomen without any fevers at home. He has noted diarrhea for the past 2 months, watery in nature, about 2-3 times during the day, also with nighttime symptoms about 1-2 times, which has not been evaluated recently. About 2 months ago, while his plant protection superintendent did check a GI panel, which was negative, he had complained of increased bloating at that time, and he was told to also take Gas-Ex. The patient had stayed away from acetaminophen due to liver cirrhosis, despite having abdominal pain rated at 3/10, describes more like an achy stretching feeling and no nonsteroidal anti-inflammatory drug (NSAID) use. No bloody diarrhea. Patient has been eating at home. He does not drink any well water. He does not use excessive sorbitol or gum that could cause persistent diarrhea. At this time, hospitalist was called to admit for ascites requiring paracentesis. PAST MEDICAL HISTORY: 1. NELSON, liver cirrhosis. 2. Atrial fibrillation, on chronic Xarelto. 3. Hypertension. 4. Dyslipidemia. 5. Asthma. 6. Umbilical hernia. 7. Benign prostatic hypertrophy. 8. Gastroesophageal varices. 9. Nonobstructing left renal calculus. 10. L1 and L4 compression deformities. PAST SURGICAL HISTORY: 1. Umbilical hernia repair 2019. 2. Cholecystectomy. ALLERGIES: To NIACIN causing sunburn. HOME MEDICATIONS: - Lasix 20 mg daily - Xarelto 20 mg every evening - spironolactone 25 mg daily - Zyrtec 10 mg nightly - vitamin B12 1000 mcg daily - ferrous sulfate 325 mg daily - fluticasone spray twice a day - montelukast 10 mg nightly - nadolol 20 mg nightly - Protonix 40 mg twice a day - pravastatin 40 mg daily - prednisone 10 mg tapering dose for asthma - ursodiol 300 mg cap, 600 mg twice a day SOCIAL HISTORY: Previously lived alone, now lives with his daughter. 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 Previous smoker, 1-1/2 packs a day and quit in 1967. Patient does not drink any alcohol, does not take any acetaminophen due to his fatty liver induced liver cirrhosis. He is a FULL CODE. Healthcare proxy is Sonia Burton, phone number is [phone]. REVIEW OF SYSTEMS: Per history of the present illness. 12-point system otherwise negative. PHYSICAL EXAMINATION: Temperature is 98.2, pulse 91, respiratory rate 16, blood pressure is 170/92, 99% on room air. Generally patient has mild respiratory distress. He is able to speak in full sentences. He has slight icterus, but no overt jaundice. No jugular venous distention (JVD) or thyromegaly. Moist mucous membranes. Lungs: Diminished with fine crackles at bilateral bases. Clear in the upper lobes without wheezing. Heart: S1, S2, sinus rhythm. No murmurs, rubs, or gallops. Abdomen is distended, tense, and positive fluid wave. No spider angiomata. Patient has no palmar erythema Extremities: 2+ pitting edema bilaterally. No cyanosis or clubbing. LABORATORY DATA: White count 13.4, hemoglobin 15, hematocrit 45, MCV 100.2, MCH 34.1, platelet count is 106, 87% neutrophils, 5.3 lymphocytes, 5.4 monocytes. Sodium 143, potassium 3.6, chloride 111, bicarbonate 22, BUN 26, creatinine 1.21, glucose 180, calcium 8.1, total bilirubin 4, direct bilirubin 2.8, AST 168, ALT 171, alkaline phosphatase of 289, total CK 92, MB fraction 1.2, relative index 1.3, troponin less than 0.02. BNP 141, total protein 6.8, albumin 2.8, lipase 287. CT abdomen and pelvis: Groundglass and mild subsegmental consolidation at the lung bases, likely due to atelectasis and/or scarring. Mediastinum. Small hiatal hernia. Liver is cirrhotic. Status post cholecystectomy. No biliary ductal dilatation. Unremarkable pancreas. Coarse calcified splenic granuloma, mild splenomegaly, unremarkable adrenals. Left renal cyst measuring 3.6 x 2.5 cm. No followup is indicated. Nonobstructing left renal calculus. No hydronephrosis. Multifocal bowel wall thickening secondary to third spacing. Superimposed rectal wall thickening, concerning for nonspecific proctitis. No obstruction. No pneumatosis. Normal appendix. Moderate ascites. No organized fluid collection. No free air. No aneurysm or dissection. Gastroesophageal varices. Lymph nodes: No pathologically enlarged lymph nodes. Unremarkable bladder. Mild enlarged prostate. Osteopenia. ASSESSMENT AND PLAN: This is a 78-year-old previous smoker, fatty liver induced liver cirrhosis - follows with Dr. Acevedo at [facility], gastroenterology, asthma - follows with Dr. Blankenship, manager mining, atrial fibrillation - on chronic Xarelto, hypertension, dyslipidemia, cholecystectomy, hiatal hernia, gastroesophageal varices and splenomegaly, portal hypertension due to liver cirrhosis, non-obstructing left renal calculus and left renal cyst. Presents to the emergency room with a 2-month history of increasing abdominal distention, worsened in the past 2 weeks, with worsening shortness of breath and lower extremity edema with a 10-pound weight gain. The patient is admitted for decompensated liver cirrhosis with ascites for paracentesis. ACTIVE ISSUE ARE FOLLOWS: 1. Decompensated liver cirrhosis with ascites. NELSON per the patient. no history of alcohol abuse in the past. Patient has complaints of increasing abdominal distention without fever or chills. He has shortness of breath. He has been ordered an ultrasound-guided paracentesis in the morning for therapeutic purposes. He has a known history of liver cirrhosis and portal hypertension, and follows with plant protection superintendent, Dr. Acevedo. He will be continued on his home medications spironolactone and Lasix with lower doses and holding parameters for potassium greater than 5. Spironolactone is to be held. Both diuretics are to be held for systolic pressure less than 110 to prevent hypoperfusion and renal failure. Serial metabolic panel to check for electrolytes and to be repleted if potassium is less than 3-1/2, magnesium less than 2. Patient will be continued on his home dose of nadolol as well. His Xarelto will be held this evening in preparation for the paracentesis tomorrow and may be resumed postprocedure. Due to liver cirrhosis, gastroesophageal varices and splenomegaly, we will also check Doppler ultrasound to rule out portal vein thrombosis. He may be continued on his home dose of Xarelto postprocedure, nothing by mouth (n.p.o.) after midnight for the liver ultrasound with Doppler. 2. Atrial fibrillation. Currently rate controlled. His Xarelto will be held due to paracentesis to be done in the morning. 3. Hypertension. Patient complains of pain, but does not want any medications for this. Try to avoid acetaminophen products. 4. Gastroesophageal varices with no history of GI bleed. Has no encephalopathy today; therefore, we will not give Xifaxan for now. Will continue him on the Protonix and monitor for any signs of GI bleed. 5. Asthma. No wheezing. He is currently on tapering dose of prednisone, which we can continue. 6. Dyslipidemia. On chronic Pravachol. Patient has had an allergic reaction to niacin causing sunburns. 7. Deep vein thrombosis (DVT) prophylaxis with compression stockings. Cannot give any anticoagulation due to planned paracentesis in the morning. 8. Code status is a FULL CODE. Healthcare proxy is Sonia Angie Micheal; phone number is [phone]. Diet will be a 2-gram sodium diet with a 2-liter fluid restriction. [facility] [place]
[2019-07-01] MEDS: PANTOPRAZOLE 40MG TAB (PROTONIX) PO SCH (23:10)
[2019-07-02] MEDS: ursodioL 300 MG CAP PO SCH ×2 (00:10→09:11)
[2019-07-02] MEDS: FLUTICASONE PROP 0.05% NASAL SPRAY 16 GM (FLONASE) SCH ×2 (00:10→09:16)
[2019-07-02 06:00] VITALS: BP 135/66
[2019-07-02 06:17] LABS: HEMATOCRIT 38.3 % (42.0-52.0); MEAN CORPUSCULAR HEMOGLOBIN 33.8 pg (27.0-33.0); MEAN CORPUSCULAR HGB CONC 33.7 g/dl (32.0-36.5); MEAN CORPUSCULAR VOLUME 100.3 fl (80.0-96.0); RED BLOOD COUNT 3.82 10^6/uL (4.30-6.10); WHITE BLOOD COUNT 10.2 10^3/uL (4.0-10.0)
[2019-07-02 06:18] LABS: HEMOGLOBIN 12.9 g/dl (13.5-17.5); PLATELET COUNT, AUTOMATED 67 10^3/uL (150-450)
[2019-07-02 06:41] LABS: ALBUMIN 2.3 GM/DL (3.2-5.2); ALT/SGPT 141 U/L (12-78); BILIRUBIN,TOTAL 3.9 MG/DL (0.2-1.0); BLOOD UREA NITROGEN 27 MG/DL (7-18); CALCIUM LEVEL 8.1 MG/DL (8.8-10.2); CARBON DIOXIDE LEVEL 26 MEQ/L (21-32); CHLORIDE LEVEL 110 MEQ/L (98-107); CREATININE FOR GFR 1.12 MG/DL (0.70-1.30); GLOMERULAR FILTRATION RATE > 60.0 (>42); GLUCOSE, FASTING 81 MG/DL (70-100); POTASSIUM SERUM 3.5 MEQ/L (3.5-5.1); SODIUM LEVEL 144 MEQ/L (136-145); TOTAL PROTEIN 5.5 GM/DL (6.4-8.2)
[2019-07-02] MEDS ORDERED: FERROUS SULFATE 325MG TAB PO SCH (09:00)
[2019-07-02] MEDS ORDERED: FUROSEMIDE 20 MG TAB PO SCH (09:00)
[2019-07-02] MEDS ORDERED: SPIRONOLACTONE 25 MG TAB PO SCH (09:00)
[2019-07-02] MEDS ORDERED: PRAVASTATIN 20 MG TAB PO SCH (09:00)
[2019-07-02] MEDS ORDERED: predniSONE 10 MG TAB PO SCH (09:00)
[2019-07-02] MEDS ORDERED: CYANOCOBALAMIN 500 MCG TAB PO SCH (09:00)
[2019-07-02] MEDS: PANTOPRAZOLE 40MG TAB (PROTONIX) PO SCH (09:12)
[2019-07-02 10:01] LABS: PLATELET COUNT, AUTOMATED 87 10^3/uL (150-450)
[2019-07-02 10:10] LABS: INR 1.51
--- NOTE | 2019-07-02 10:32 | IPNPDOC ---
Subjective Date Seen The patient was seen on 07/02/19. Subjective Chief Complaint/HPI Patient is awaiting a paracentesis. Offers no other complaints General: Denies: ROS Unobtainable, Chills, Night Sweats, Fatigue, Malaise, Normal Appetite, Other Symptoms Constitutional: Denies: Chills, Fever, Malaise, Night Sweats, Weakness, Fatigue, Weight Loss, Lethargy, Other Skin: Denies: Rash, Lesions, Jaundice, Bruising, Itching, Dry, Breakdown, Nail Changes, Other Pulmonary: Denies: Dyspnea, Cough, Pleuritic Chest Pain, Other Symptoms Cardiovascular: Denies: Chest Pain, Palpitations, Orthopnea, Paroxysmal Noc. Dyspnea, Edema, Lt Headedness, Other Symptoms Gastrointestinal: Denies: Nausea, Vomiting, Abdominal Pain, Diarrhea, Constipation, Melena, Hematochezia, Other Symptoms Musculoskeletal: Denies: Neck Pain, Back Pain, Shoulder Pain, Arm Pain, Hand Pain, Leg Pain, Foot Pain, Joint Pain, Muscle Pain, Spasms, Other Symptoms Neurological: Denies: Weakness, Numbness, Incoordination, Change in speech, Confusion, Seizures, Other Symptoms Objective Physical Examination General Exam: Positive: Alert, Cooperative Eye Exam: Positive: PERRLA, Conjunctiva & lids normal Chest Exam: Positive: Clear to auscultation, Normal air movement Heart Exam: Positive: Rate Normal, Normal S1 Abdomen Exam: Positive: Normal bowel sounds, Soft Extremity Exam: Positive: Normal pulses Skin Exam: Positive: Nl turgor and temperature Neuro Exam: Positive: Strength at 5/5 X4 ext, Cranial Nerves 3-12 NL Assessment /Plan Problems (1) Cirrhosis of liver with ascites Status: Acute Problem Text: Patient was admitted with the diagnosis of decompensated liver cirrhosis secondary to NELSON Patient follows up at [facility] with the GI for his cirrhosis, varices and ascites Patient is awaiting paracentesis for Large ascites today If he is asymptomatic after work he possibly can be discharged home after paracentesis and can follow with GI as an outpatient Xarelto is on hold He is nothing by mouth Repeat INR and CBC was asked by interventional radiology before the procedure is done today Continue home meds (2) Atrial fibrillation Status: Chronic Problem Text: Ventricular rate is under control with beta blockers Salter is on hold secondary to impending procedure (3) GERD (gastroesophageal reflux disease) Status: Chronic Problem Text: continue home meds (4) Asthma Status: Chronic Problem Text: Continue home meds (5) HTN (hypertension) Status: Chronic Problem Text: continue home meds Plan/VTE VTE Prophylaxis Ordered?: Yes VS, I&O, 24H, Fishbone Vital Signs/I&O Vital Signs Date Time Temp Pulse Resp B/P (MAP) Pulse Ox O2 Delivery O2 Flow Rate FiO2 07/02/19 06:00 97.6 51 18 135/66 (89) 96 Room Air I&O- Last 24 Hours up to 6 AM 07/02/19 06:00 Intake Total 0 ml Output Total 550 ml Balance -550 ml Laboratory Data 24H LABS Laboratory Tests 2 07/01/19 14:57: Immature Granulocyte % (Auto) 1.1, Neutrophils (%) (Auto) 87.9H, Lymphocytes (%) (Auto) 5.3L, Monocytes (%) (Auto) 5.4H, Eosinophils (%) (Auto) 0.1, Basophils (%) (Auto) 0.2, Neutrophils # (Auto) 11.8H, Lymphocytes # (Auto) 0.7L, Monocytes # (Auto) 0.7, Eosinophils # (Auto) 0.0, Basophils # (Auto) 0.0, Nucleated Red Blood Cells % (auto) 0.0, Anion Gap 10, Glomerular Filtration Rate > 60.0, Calcium Level 8.1L, Total Bilirubin 4.0H, Direct Bilirubin 2.8H, Aspartate Amino Transf (AST/SGOT) 168H, Alanine Aminotransferase (ALT/SGPT) 171H, Alkaline Phosphatase 289H, Total Creatine Kinase 92, Creatine Kinase MB 1.2, Creatine Kinase MB Relative Index 1.30, Troponin I < 0.02, [id number]-Type Natriuretic Peptide 141, Total Protein 6.8, Albumin 2.8L, Albumin/Globulin Ratio 0.70L, Lipase 287 07/02/19 05:46: Nucleated Red Blood Cells % (auto) 0.0, Anion Gap 8, Glomerular Filtration Rate > 60.0, Calcium Level 8.1L, Total Bilirubin 3.9H, Aspartate Amino Transf (AST/SGOT) 140H, Alanine Aminotransferase (ALT/SGPT) 141H, Alkaline Phosphatase 232H, Total Protein 5.5L, Albumin 2.3L, Albumin/Globulin Ratio 0.72L, Immature Platelet Fraction 4.3 07/02/19 09:49: Prothrombin Time 18.0H, Prothromb Time International Ratio 1.51 CBC/BMP Laboratory Tests 07/01/19 14:57 07/02/19 05:46 07/02/19 09:49 Microbiology Microbiology 07/02/19 Gastrointestinal Tract Panel (PCR) - Final, Complete HUNTER BARBER MD Jul 02, 2019 10:31
[2019-07-02 11:49] LABS: APPEARANCE, BODY FLUID CLOUDY (CLEAR); PERITONEAL FL COLOR YELLOW (COLORLESS); SOURCE, BODY FLUID PERITONEAL; SPEC. GRAVITY BODY FLUIDS 1.008 (NOT ESTABLISHED)
[2019-07-02 12:47] LABS: SOURCE, BODY FLUID ALBUMIN PERITONEAL; SOURCE, BODY FLUID GLUCOSE PERITONEAL; SOURCE, BODY FLUID TOT PROTEIN PERITONEAL; TOTAL PROTEIN, BODY FLUID 0.4 G/DL (NOT ESTABLISHED)
[2019-07-02 14:00] VITALS: BP 167/76
--- NOTE | 2019-07-02 14:21 | DS.PDOC ---
Discharge Summary General Date of Admission Jul 01, 2019 at 19:37 Date of Discharge 07/02/19 Discharge Summary PROCEDURES PERFORMED DURING STAY: None. ADMITTING DIAGNOSES: 1. Cirrhosis of liver with ascites. DISCHARGE DIAGNOSES: 1. Cirrhosis of liver with ascites. COMPLICATIONS/CHIEF COMPLAINT: Cirrhosis Of Liver With Ascites. HISTORY OF PRESENT ILLNESS: This is a 78-year-old male with a history of NELSON, liver cirrhosis, previously seen by Dr. Santosbut has changed providers to Dr. Acevedo at [facility]. 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 Patient says, "I was gasping to breathe" and has had a dry cough, which almost causes him to pass out and "hurts so much." He denies any fever or COVID-19 exposure. He has not been out of the [facility] and has been compliant with his medications. His wire taper in [place] has not put him on salt or fluid restriction inthe past, and he says that he was previously on spironolactone that he does not take now, and his Lasix has also been discontinued because he almost passed out with blood pressure of 70 systolic when he had taken that. Patient otherwise denies any change in appetite, nausea, or vomiting. He complains of increasing abdominal discomfort all over the abdomen without any fevers at home. He has noted diarrhea for the past 2 months, watery in nature, about 2-3 times during the day, also with nighttime symptoms about 1-2 times, which has not been evaluated recently. About 2 months ago, while his wire taper did check a GI panel, which was negative, he had complained of increased bloating at that time, and he was told to also take Gas-Ex. The patient had stayed away from acetaminophen due to liver cirrhosis, despite having abdominal pain rated at 3/10, describes more like an achy stretching feeling and no nonsteroidal anti-inflammatory drug (NSAID) use. No bloody diarrhea. Patient has been eating at home. He does not drink any well water. He does not use excessive sorbitol or gum that could cause persistent diarrhea. At this time, hospitalist was called to admit for ascites requiring paracentesis.. HOSPITAL COURSE: Patient was admitted with the diagnosis of ascites secondary to cirrhosis of liver. Patient follows up with the wire taper at [place]. Patient was admitted for paracentesis. Intervention radiology was called and after repeating second INR and platelets count paracentesis was done and unofficial report 3600 mL of fluid was drained out. Official report a paracentesis is still pending. Patient is afebrile, asymptomatic, vital signs are stable. He wishes to go me with discharged home and he will follow up with his wire taper at [place] in one week. Patient was also advised to follow-up his pending laboratory work done at this hospital with the help of physical GI physician.. DISCHARGE MEDICATIONS: Please see below. ALLERGIES: Please see below. PHYSICAL EXAMINATION ON DISCHARGE: VITAL SIGNS: Please see below. GENERAL: Within normal limits HEENT: PERRLA. Extraocular muscles intact NECK: Supple CARDIOVASCULAR EXAMINATION: S1, S2, regular RESPIRATORY EXAMINATION: Clear to A&P ABDOMINAL EXAMINATION: , Soft, not distended after paracentesis, bowel sounds present EXTREMITIES: bipedal edema noted SKIN: Normal NEUROLOGICAL EXAMINATION: . No focal motor sensory deficit PSYCHIATRIC EXAMINATION: Normal LABORATORY DATA: Please see below. IMAGING: CT abdomen and pelvis:1. Cirrhosis with evidence of portal hypertension, mild splenomegaly and moderate ascites. 2. Mild multifocal bowel wall thickening, likely secondary to 3rd spacing. Superimposed rectal wall thickening, concerning for non-specific proctitis. 3. Additional findings, as above. PROGNOSIS: Good ACTIVITY: As tolerated. DIET: As tolerated DISCHARGE PLAN: Discharged home today DISPOSITION: . Home DISCHARGE INSTRUCTIONS: 1. Follow with you wire taper at [place] in one week. ITEMS TO FOLLOWUP ON ON OUTPATIENT: 1. Follow with use GI in one week. DISCHARGE CONDITION: Stable. TIME SPENT ON DISCHARGE: 25 minutes. Vital Signs/I&Os Vital Signs Date Time Temp Pulse Resp B/P (MAP) Pulse Ox O2 Delivery O2 Flow Rate FiO2 07/02/19 11:30 51 20 97 Room Air 07/02/19 10:38 97.6 07/02/19 06:00 135/66 (89) I&O- Last 24 Hours up to 6 AM 07/02/19 06:00 Intake Total 0 ml Output Total 550 ml Balance -550 ml Laboratory Data Labs 24H Laboratory Tests 2 07/01/19 14:57: Immature Granulocyte % (Auto) 1.1, Neutrophils (%) (Auto) 87.9H, Lymphocytes (%) (Auto) 5.3L, Monocytes (%) (Auto) 5.4H, Eosinophils (%) (Auto) 0.1, Basophils (%) (Auto) 0.2, Neutrophils # (Auto) 11.8H, Lymphocytes # (Auto) 0.7L, Monocytes # (Auto) 0.7, Eosinophils # (Auto) 0.0, Basophils # (Auto) 0.0, Nucleated Red Blood Cells % (auto) 0.0, Anion Gap 10, Glomerular Filtration Rate > 60.0, Calcium Level 8.1L, Total Bilirubin 4.0H, Direct Bilirubin 2.8H, Aspartate Amino Transf (AST/SGOT) 168H, Alanine Aminotransferase (ALT/SGPT) 171H, Alkaline Phosphatase 289H, Total Creatine Kinase 92, Creatine Kinase MB 1.2, Creatine Ki nase MB Relative Index 1.30, Troponin I < 0.02, WH-Hwn-N-Type Natriuretic Peptide 141, Total Protein 6.8, Albumin 2.8L, Albumin/Globulin Ratio 0.70L, Lipase 287 07/02/19 05:46: Nucleated Red Blood Cells % (auto) 0.0, Anion Gap 8, Glomerular Filtration Rate > 60.0, Calcium Level 8.1L, Total Bilirubin 3.9H, Aspartate Amino Transf (AST/SGOT) 140H, Alanine Aminotransferase (ALT/SGPT) 141H, Alkaline Phosphatase 232H, Total Protein 5.5L, Albumin 2.3L, Albumin/Globulin Ratio 0.72L, Immature Platelet Fraction 4.3 07/02/19 09:49: Prothrombin Time 18.0H, Prothromb Time International Ratio 1.51 07/02/19 10:45: Body Fluid Specific Arroyo 1.008, Body Fluid WBC (Auto) 710H, Body Fluid RBC (Auto) < 2, Body Fluid Mononuclear Cells % Auto 30.0H, Fluid Polymorphonuclear Cell % Auto 70.0H, Body Fluid Glucose Source PERITONEAL, Body Fluid Glucose 90, Body Fluid Protein Source PERITONEAL, Body Fluid Total Protein 0.4, Body Fluid Albumin Source PERITONEAL, Body Fluid Albumin 0.1, Peritoneal Fluid Source PERITONEAL, Peritoneal Fluid Color YELLOW, Peritoneal Fluid Appearance CLOUDY CBC/BMP Laboratory Tests 07/01/19 14:57 07/02/19 05:46 07/02/19 09:49 Microbiology Microbiology 07/02/19 Fungal Smear, Received Pending 07/02/19 Fungal Culture, Received Pending 07/02/19 Anaerobic Culture, Received Pending 07/02/19 Gram Stain - Final, Resulted 07/02/19 Body Fluid Culture, Resulted Pending 07/02/19 Gastrointestinal Tract Panel (PCR) - Final, Complete Discharge Medications Scheduled Cetirizine HCl (ZyrTEC) 10 Mg Capsule, 10 MG PO QHS, (Reported) Cyanocobalamin (Vitamin B-12) (Vitamin B-12) 1,000 Mcg Capsule, 1,000 MCG PO DAILY, (Reported) Ferrous Sulfate (Ferrous Sulfate) 325 Mg Tablet.dr, 325 MG PO DAILY, (Reported) Fluticasone Propionate (Fluticasone Propionate) 16 Gm Malcolm.susp, 1 SPRAY NA B ID, (Reported) Furosemide (Furosemide) 20 Mg Tablet, 20 MG PO DAILY, (Reported) Montelukast Sodium (Montelukast Sodium) 10 Mg Tablet, 10 MG PO QHS, (Reported) Nadolol (Nadolol) 20 Mg Tablet, 20 MG PO QHS, (Reported) Pantoprazole Sodium (Pantoprazole Sodium) 40 Mg Tablet.dr, 40 MG PO BID, (Reported) Pravastatin Sodium (Pravastatin Sodium) 40 Mg Tablet, 40 MG PO DAILY, (Reported) Prednisone (Prednisone) 10 Mg Tablet, 10 MG PO DAILY, (Reported) started 06/21/19 5 tabs daily x5 days, 4 tabs x5 days, 3 tabs x5 days,2 tabs x5 days, 1 tab x 5 days,1/2 tab x 5 days Rivaroxaban (Xarelto) 20 Mg Tab, 20 MG PO QPM, (Reported) Spironolactone (Spironolactone) 25 Mg Tablet, 25 MG PO DAILY, (Reported) Ursodiol (Ursodiol) 300 Mg Cap, 600 MG PO BID, (Reported) Allergies Coded Allergies: niacin (Verified Allergy, Unknown, "sunburn", 09/22/18) HUNTER BARBER MD Jul 02, 2019 14:21
--- NOTE | 2019-07-02 15:15 | REP ---
ABDOMINAL ULTRASOUND WITH DUPLEX DOPPLER EVALUATION OF PORTAL VASCULATURE: Real-time sonographic evaluation of the abdomen performed. The patient has had prior cholecystectomy. There is no intrahepatic or extrahepatic biliary dilatation. The liver appears cirrhotic with diffuse heterogeneous echotexture and lobulated markings. No gross liver mass is seen. The pancreas is grossly unremarkable, not well seen due to overlying bowel gas. Spleen is enlarged. It measures 14.9 x 14.1 x 5.5 cm. A small calcification is seen centrally in the spleen. Kidneys are normal in size and echotexture, right kidney measuring 10.8 x 5.7 x 6.5 cm and left kidney 1.6 x 5.0 x 6.4 cm. There is no hydronephrosis. There is a cyst in the right kidney mid aspect laterally 1.6 x 1.2 x 1.8 cm. There is a cyst in the lower pole of the left kidney 2.9 x 2.3 x 2.2 cm and a cyst in the left kidney 3.3 x 2.4 x 3.5 cm. Abdominal aorta cannot be visualized. There is trace residual perihepatic ascites following paracentesis today. Real-time ultrasound evaluation and duplex Doppler interrogation of the portal vasculature is performed. Main portal vein measures 7 mm which is within normal limits. The study is limited due to patient body habitus and bowel gas. There is normal direction of flow in the hepatic veins with no internal thrombus. There is loss of phasicity of the hepatic venous waveforms. Portal veins demonstrate normal direction of flow with no intraluminal thrombus. Splenic vein is visualized in the region of the splenic hilum and is patent. Superior mesenteric vein is not visualized. Main hepatic artery demonstrates peak systolic velocity of 91.0 cm/s, resistive index 0.85. IMPRESSION: Cirrhosis. Splenomegaly. Trace ascites right upper quadrant status post paracentesis today. No evidence of portal vein or hepatic vein thrombosis. Electronically Signed by Tarik Santos MD 07/02/2019 04:53 P
--- NOTE | 2019-07-02 16:53 | REP ---
Ultrasound-guided paracentesis The procedure was performed under the direct supervision of Dr. Santos. The risks and benefits of the procedure were explained to the patient and informed consent was obtained. The largest pocket of fluid was localized in the left lower quadrant using ultrasound guidance. The skin was prepped and draped in a sterile fashion. 1% lidocaine was used as a local anesthetic. Using ultrasound guidance an 8-Lith[place]ian multi side-hole catheter was inserted using trocar technique. 3450 ml of clear yellow fluid was withdrawn with a sample sent to the lab for analysis. The patient tolerated the procedure well and there were no immediate complications. After the appropriate amount of monitored convalescence the patient was discharged from the department. Electronically Signed by NIKKI Carvalho 07/02/2019 03:22 P Electronically Signed by Tarik Santos MD 07/02/2019 04:45 P
== END 2019-07-02 15:48 | disposition home or self-care (01) | DRG 433 ==
LOC: M ED 13:57 → M ED INP 19:37 → ENRESERVTM 20:37 → ENRESERVDT 20:37 → M MSPAV 21:20
PROVIDERS: ADMIT General Practice; ATTEND Internal Medicine
PROC: 0W9G3ZZ Drainage of Peritoneal Cavity, Percutaneous Approach (ICD-10-PCS; principal; 2019-07-02 15:00)
DX: K74.60 Unspecified cirrhosis of liver (principal); R18.8 Other ascites; I85.10 Secondary esophageal varices without bleeding; K75.81 Nonalcoholic steatohepatitis (NASH); J45.909 Unspecified asthma, uncomplicated; Z79.899 Other long term (current) drug therapy; Z88.8 Allergy status to other drugs, medicaments and biological substances; I48.91 Unspecified atrial fibrillation; E78.5 Hyperlipidemia, unspecified; Z79.01 Long term (current) use of anticoagulants; N20.0 Calculus of kidney; N40.0 Benign prostatic hyperplasia without lower urinary tract symptoms; Z79.52 Long term (current) use of systemic steroids; Z87.891 Personal history of nicotine dependence; I10 Essential (primary) hypertension; K44.9 Diaphragmatic hernia without obstruction or gangrene

== ENCOUNTER 2019-07-11 07:37 | Inpatient (IN) | payer MEDICARE, OTHER ==
[~2019-07-11] VITALS: Ht 170.2 cm; Wt 78.8 kg
[~2019-07-11 07:37] MED LIST changes: +B-12100010 PO; +CETI10CA2 PO; +FERR325T3 PO; +FLUTISP; +MIRA3350 PO; +MONT10TA4 PO; +PANT40TA3 PO; +SPIR-10 PO
[2019-07-11] MEDS ORDERED: EPLE25TA PO (07:50)
[2019-07-11] MEDS ORDERED: FUROSEMIDE 20MG/2ML VIAL (J1940) IV ONE (08:45)
[2019-07-11 08:47] LABS: BASO # 0.1 10^3/uL (0.0-0.2); BASO % 0.4 % (0.0-1.0); EOS # 0.4 10^3/uL (0.0-0.5); HEMATOCRIT 43.5 % (42.0-52.0); HEMOGLOBIN 15.2 g/dl (13.5-17.5); LYMPH # 1.2 10^3/uL (1.5-5.0); LYMPH % 8.1 % (24.0-44.0); MEAN CORPUSCULAR HEMOGLOBIN 33.9 pg (27.0-33.0); MEAN CORPUSCULAR HGB CONC 34.9 g/dl (32.0-36.5); MEAN CORPUSCULAR VOLUME 97.1 fl (80.0-96.0); MONO % 7.3 % (0.0-5.0); NEUTROPHILS # 11.4 10^3/uL (1.5-8.5); NEUTROPHILS % 80.6 % (36.0-66.0); PLATELET COUNT, AUTOMATED 156 10^3/uL (150-450); RED BLOOD COUNT 4.48 10^6/uL (4.30-6.10); WHITE BLOOD COUNT 14.2 10^3/uL (4.0-10.0)
[2019-07-11 08:48] LABS: VENOUS BASE EXCESS -0.2 (-2.0-2.0); VENOUS HCO3 23.1 MEQ/L (23.0-27.0); VENOUS O2 SATURATION 88.3 % (60.0-80.0); VENOUS PARTIAL PRESSURE CO2 34.3 mmHg (38.0-50.0); VENOUS PARTIAL PRESSURE O2 58.4 mmHg (30.0-50.0); VENOUS PH 7.446 UNITS (7.330-7.430); VENOUS TOTAL CO2 24.1 MEQ/L (24.0-28.0)
[2019-07-11] MEDS: ALBUTEROL 90 MCG/ACT 8GM HFA INHALER INH SCH ×3 (08:50→09:25)
--- NOTE | 2019-07-11 08:51 | REP ---
CHEST, PORTABLE: AP portable view of the chest is performed and compared to a prior study of 07/01/2019. There is no evidence of acute infiltrate. There is poor ventilation. Linear scar is seen in the left costophrenic angle. There is mild left ventricular prominence and calcification of the thoracic aorta. IMPRESSION: No acute infiltrate. Electronically Signed by Tarik Santos MD 07/11/2019 09:47 P
--- NOTE | 2019-07-11 09:32 | REP ---
LIMITED ABDOMINAL ULTRASOUND: Real-time sonographic evaluation of the abdomen performed to evaluate for ascites. There is a moderate amount of diffuse abdominal ascites seen in all four quadrants of the abdomen. IMPRESSION: Moderate diffuse abdominal ascites. Electronically Signed by Tarik Santos MD 07/11/2019 09:48 P
[2019-07-11 09:38] LABS: ALBUMIN 2.5 GM/DL (3.2-5.2); ALT/SGPT 117 U/L (12-78); BILIRUBIN,DIRECT 3.6 MG/DL (0.0-0.2); BLOOD UREA NITROGEN 18 MG/DL (7-18); CALCIUM LEVEL 8.4 MG/DL (8.8-10.2); CARBON DIOXIDE LEVEL 23 MEQ/L (21-32); CHLORIDE LEVEL 104 MEQ/L (98-107); CK-MB VALUE MASS 2.4 NG/ML (<3.6); CPK CREATINE PHOSPHOKINASE 116 U/L (39-308); CREATININE FOR GFR 1.26 MG/DL (0.70-1.30); GLOMERULAR FILTRATION RATE 59.1 (>42); GLUCOSE, FASTING 104 MG/DL (70-100); MB/CK RELATIVE INDEX 2.07 (< OR =4); NT-PRO BNP 259 PG/ML (<450); POTASSIUM SERUM 3.7 MEQ/L (3.5-5.1); SODIUM LEVEL 139 MEQ/L (136-145); THYROXINE (T4) 12.8 UG/DL (4.5-12.0); TOTAL PROTEIN 6.3 GM/DL (6.4-8.2); TROPONIN I < 0.02 NG/ML (< 0.10)
[2019-07-11] MEDS ORDERED: CREO3600 PO (10:35)
[2019-07-11] MEDS ORDERED: SYMB16INH INH (10:35)
[2019-07-11] MEDS ORDERED: VENTAER INH (10:35)
[2019-07-11] MEDS ORDERED: MOM 30ML SUSPENSION UDC PO PRN (11:15)
[2019-07-11] MEDS ORDERED: MAALOX 30 ML SUSP *UDC PO PRN (11:15)
[2019-07-11 13:14] LABS: APPEARANCE, BODY FLUID HAZY (CLEAR); ASCITES FL COLOR YELLOW (COLORLESS); SOURCE, BODY FLUID ASCITES
--- NOTE | 2019-07-11 13:17 | HPEPDOC ---
General Date of Admission Jul 11, 2019 at 07:38 Date of Service: Jul 11, 2019 Chief Complaint The patient is a 78-year-old male admitted with a reason for visit of Cirrhosis Of Liver With Ascites. Source: Patient, Old records Exam Limitations: No limitations Timing/Duration: Week(s) (2) Severity: Moderate Associated Symptoms: Cough, Malaise, Nausea, Shortness of breath, Weakness History of Present Illness 78-year-old male with past medical history of liver cirrhosis secondary to NELSON presents with worsening abdominal pain and distention and weight gain over the past 2 weeks. Patient was recently discharged from [facility] 2 weeks prior for similar complaints. At that time he was admitted for a paracentesis in which 3.4 L of ascitic fluid was removed. After fluid had removed, patient felt better and was discharged home the following day. Since his discharge, patient reports that she's been gaining weight steadily even though he has been taking his medications as prescribed. Patient also reports having abdominal pain that feels deep inside his stomach. He has intermittent chills but denies any fevers. He also reports some difficulty breathing as his stomach has become more distended and a nonproductive cough that is controlled persisted and gotten worse. Patient denies any recent sick contacts or travel history. He currently lives with his daughter who is a homemaker and his son-in-law who is a federal air marshal. Neither of those contacts reported to be sick at this time. Due to his worsening symptoms, patient decided to come to the ER for further evaluation. On ER evaluation, patient noted to have moderate ascites on ultrasound. He was also found to be septic with an elevated white count and was tachycardic. Given his current condition, bedside paracentesis was done and labs were sent to rule out SBP. Patient reports that he had held his Xarelto for the past 2 days in anticipation for paracentesis. Bedside paracentesis removed approximately 4.5 L of ascitic fluid. Patient to be admitted for further observation. Home Medications Scheduled Budesonide/Formoterol (Symbicort 160-4.5 Mcg Inhaler) 6 Gm Hfa.aer.ad, 2 PUFF INH BID, (Reported) Cetirizine HCl (ZyrTEC) 10 Mg Capsule, 10 MG PO QHS, (Reported) Cyanocobalamin (Vitamin B-12) (Vitamin B-12) 1,000 Mcg Capsule, 1,000 MCG PO DAILY, (Reported) Eplerenone (Eplerenone) 25 Mg Tablet, 50 MG PO DAILY, (Reported) Fluticasone Propionate (Fluticasone Propionate) 16 Gm Hindman.susp, 1 SPRAY NA BID, (Reported) Furosemide (Furosemide) 20 Mg Tablet, 20 MG PO DAILY, (Reported) Lipase/Protease/Amylase (Creon Dr 36,000 Units Capsule) 1 Each Capsule.dr, 36,000 UNIT PO WM, (Reported) Montelukast Sodium (Montelukast Sodium) 10 Mg Tablet, 10 MG PO QHS, (Reported) Nadolol (Nadolol) 20 Mg Tablet, 20 MG PO QHS, (Reported) Pantoprazole Sodium (Pantoprazole Sodium) 40 Mg Tablet.dr, 40 MG PO BID, (Reported) Pravastatin Sodium (Pravastatin Sodium) 40 Mg Tablet, 40 MG PO DAILY, (Reported) Rivaroxaban (Xarelto) 20 Mg Tab, 20 MG PO QPM, (Reported) Ursodiol (Ursodiol) 300 Mg Cap, 600 MG PO BID, (Reported) Scheduled PRN Albuterol Sulfate (Ventolin Hfa) 18 Gm Hfa.aer.ad, 2 PUFFS INH QID PRN for SHORTNESS OF BREATH, (Reported) Allergies Coded Allergies: niacin (Verified Allergy, Unknown, "sunburn", 09/22/18) Past Medical History Medical History PAST MEDICAL HISTORY: 1. NELSON, liver cirrhosis. 2. Atrial fibrillation, on chronic Xarelto. 3. Hypertension. 4. Dyslipidemia. 5. Asthma. 6. Umbilical hernia. 7. Benign prostatic hypertrophy. 8. Gastroesophageal varices. 9. Nonobstructing left renal calculus. 10. L1 and L4 compression deformities. Surgical History PAST SURGICAL HISTORY: 1. Umbilical hernia repair 2019. 2. Cholecystectomy. Family History Significant Family History: No pertinent family hx, Noncontributory Social History * Smoker: Denies Alcohol: Denies Drugs: denies Recent Travel/Sick Contacts: Denies: Recent travel, Recent sick contacts Psychosocial History: No pertinent psych hx Previously lived alone, now lives with his daughter. 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 Previous smoker, 1-1/2 packs a day and quit in 1967. Patient does not drink any alcohol, does not take any acetaminophen due to his fatty liver induced liver cirrhosis. He is a FULL [employer]. Healthcare proxy is Sonia Burton, phone number is [phone]. A-FIB/CHADSVASC A-FIB History Current/History of A-Fib/PAF?: Yes Current PO Anticoag Therapy: Yes Review of Systems Constitutional: Reports: Chills, Malaise, Weakness, Fatigue; Denies: Fever Eyes: Denies: Pain, Vision change ENT: Denies: Head Aches, Ear Pain, Dysphagia, Sore Throat Skin: Denies: Rash, Lesions, Jaundice, Bruising, Breakdown Pulmonary: Reports: Cough; Denies: Dyspnea Cardiovascular: Denies: Chest Pain, Palpitations, Orthopnea, Edema, Lt Headed ness Gastrointestinal: Reports: Nausea, Abdominal Pain, Other Symptoms (worsening abdominal distention); Denies: Vomiting, Diarrhea, Constipation Genitourinary: Denies: Dysuria, Frequency Hematologic: Reports: Bruising; Denies: Bleeding Excessively, Petecchia, Purpura Musculoskeletal: Denies: Neck Pain, Back Pain, Joint Pain, Muscle Pain Neurological: Reports: Weakness; Denies: Numbness, Incoordination, Change in speech, Confusion, Seizures Psych: Reports: Mood Normal Physical Examination General Exam: Positive: Alert, Cooperative, Mild Distress, Other (elderly white male speaking softly. Appears to be uncomfortable and breathing rapidly due to abdominal discomfort and able to speak only in 4-5 word bursts) Eye Exam: Positive: PERRLA, Conjunctiva & lids normal, EOMI; Negative: Sclera icteric ENT Exam: Positive: Atraumatic, Mucous membr. moist/pink Neck Exam: Positive: Supple; Negative: JVD, thyromegaly Chest Exam: Positive: Clear to auscultation, Diminished, Other (decreased air and she bilaterally. No active rhonchi or wheezing appreciated) Heart Exam: Positive: Tachycardic (heart rate in 90s), Regular Rhythm, Normal S1, Normal S2; Negative: Murmurs Abdomen Exam: Positive: Normal bowel sounds, Soft, Tenderness (diffusely tender to palpation in all 4 quadrants), Other (abdomen is distended and positive for fluid wave on exam) Extremity Exam: Positive: Normal pulses; Negative: Clubbing, Cyanosis, Edema Skin Exam: Positive: Nl turgor and temperature; Negative: Rash Neuro Exam: Positive: Cranial Nerves 3-12 NL Psych Exam: Positive: Mental status NL, Mood NL Vital Signs Vital Signs Date Time Temp Pulse Resp B/P (MAP) Pulse Ox O2 Delivery O2 Flow Rate FiO2 07/11/19 11:30 130/65 (86) 07/11/19 11:18 91 22 97 Room Air 07/11/19 07:38 97.9 Laboratory Data Labs 24H Laboratory Tests 2 07/11/19 08:40: Immature Granulocyte % (Auto) 0.6, Neutrophils (%) (Auto) 80.6H, Lymphocytes (%) (Auto) 8.1L, Monocytes (%) (Auto) 7.3H, Eosinophils (%) (Auto) 3.0, Basophils (%) (Auto) 0.4, Neutrophils # (Auto) 11.4H, Lymphocytes # (Auto) 1.2L, Monocytes # (Auto) 1.0H, Eosinophils # (Auto) 0.4, Basophils # (Auto) 0.1, Nucleated Red Blood Cells % (auto) 0.0, Blood Gas Bicarbonate Standard 24.0, Venous Blood pH 7.446H, Venous Blood Partial Pressure CO2 34.3L, Venous Blood Partial Pressure O2 58.4H, Venous Blood Total Carbon Dioxide 24.1, Venous Blood HCO3 23.1, Venous Blood Oxygen Saturation 88.3H, Venous Blood Base Excess -0.2, Anion Gap 12, Glomerular Filtration Rate 59.1, Lactic Acid Level 1.7, Calcium Level 8.4L, Total Bilirubin 6.0H, Direct Bilirubin 3.6H, Aspartate Amino Transf (AST/SGOT) 131H, Alanine Aminotransferase (ALT/SGPT) 117H, Alkaline Phosphatase 337H, Ammonia 46H, Total Creatine Kinase 116, Creatine Kinase MB 2.4, Creatine Kinase MB Relative Index 2.07, Troponin I < 0.02, YX-Anl-W-Type Natriuretic Peptide 259, Total Protein 6.3L, Albumin 2.5L, Albumin/Globulin Ratio 0.66L, Thyroid Stimulating Hormone (TSH) 4.780H, Thyroxine (T4) 12.8H CBC/BMP Laboratory Tests 07/11/19 08:40 RAD Interpretation STUDY: abdominal ultrasound Rad Actions: Films Reviewed, Discussed with the pt RAD Interpretation: Other Result Comments: (moderate amount of diffuse abdominal ascites noted in all 4 quadrants) STUDY: CXR Rad Actions: Report Reviewed (no acute infiltrate seen but decreased lung volumes noted), Films Reviewed Assessment/Plan 78M with known cirrhosis of liver presents with worsening ascites. Patient also presents with chills, abdominal pain, elevated white count which is concerning for SBP. Bedside paracentesis was performed and samples were sent to lab for further evaluation. Patient to be started on ceftriaxone 2 g every 24 for SBP treatment empirically. Approximately a 4.5 L of ascitic fluid was removed and patient is now resting comfortably. She remains hemodynamics stable after the procedure and has no complaints at this time. We'll follow up laboratory work and continue treatment for now. Plan / VTE VTE Prophylaxis Ordered?: Yes Plan Plan Decompensated liver cirrhosis with ascites R/o SBP Patient presents with worsening abdominal distention, pain, elevated white count. Concern for possible SBP. Paracentesis have been completed and 4.5 L of fluid was removed. - Follow up ascitic fluid cell count, Gram stain, culture - Start empiric treatment with ceftriaxone 2 g every 24 (cefotaxime not available here at pharmacy) - Will consider GI consults the patient does not improve - INR, CBC daily - Continue with diuretics as per home dose - Aldactone and Lasix - 1 dose albumin to be given status post paracentesis Atrial fibrillation Patient on Xarelto but he has held it for the past 48 hours. - Given recent procedure, will resume tomorrow morning GERD Continue with Protonix Asthma Currently not wheezing on exam. Patient multipleinhalers. - Continue with medications as per home dose Hypertension Patient can be normotensive at this time. - Continue with beta juan daniel as per home dose Diet: Continue Current Activity: Continue Current Medications: Start Antibiotics Diagnostics: Check Labs, Repeat Labs in AM, Obtain Cultures Anticipated Discharge: Home JODI PHILLIPS MD Jul 11, 2019 13:17
[2019-07-11] MEDS ORDERED: ALBUTEROL 90 MCG/ACT 8GM HFA INHALER INH PRN (13:30)
[2019-07-11 13:50] VITALS: BP 146/81
[2019-07-11 14:01] VITALS: BP 138/70
[2019-07-11] MEDS: cefTRIAXone SOD 2 GM in D5W MINI-BAG PLUS 50 ML IV SCH (14:07)
--- NOTE | 2019-07-11 14:07 | IPNPDOC ---
Text Note Date of Service The patient was seen on 07/11/19. NOTE PROCEDURE NOTE: Paracentesis - diagnostic and therapeutic Provider to perform procedure: Dr. Arvizu Supervised by: Dr. Jodi Phillips Consent for operation or procedure: Risks and benefits discussed with patient and consent obtained Time out completed by nurse as per protocol. Patient positioned supine. Abdomen examined with ultrasound for appropriate site placement. Site marked and prepared with chlorhexadine. Site draped with sterile dressing. Wheel of lidocaine placed. Lidocaine then introduced deep to the peritoneum. Skin punctured with an? blade scalpel. Paracentesis needle was placed through the skin into the abdominal cavity. The needle was withdrawn and the site cleaned and bandaged with gauze and tape. Samples were sent to the lab for analysis. Vital signs were monitored every 15 minutes during the procedure. Yellow colored was fluid removed Amount of fluid removed: 4.5L Estimated Blood Loss: minimal Complications: The patient tolerated the procedure well without complications. Patient tolerated procedure well with no issues. After his 4.5 L removed, patient's respiratory rate improved and so did his oxygenation status. Patient appears more comfortable at this time. He is resting comfortably in no acute distress. Plan: Follow-up cell count, culture, Gram stain with ascitic fluid Start ceftriaxone 2 g every 24 hours for empiric SBP treatment Monitor for ascitic fluid leak - if necessary will place suture 25 g albumin to be given after procedure VS,Fishbone, I+O VS, Fishbone, I+O Laboratory Tests 07/11/19 08:40 Vital Signs Date Time Temp Pulse Resp B/P (MAP) Pulse Ox O2 Delivery O2 Flow Rate FiO2 07/11/19 11:30 130/65 (86) 07/11/19 11:18 91 22 97 Room Air 07/11/19 07:38 97.9 JODI PHILLIPS MD Jul 11, 2019 14:07
[2019-07-11 15:31] VITALS: BP 135/74
[2019-07-11 15:42] VITALS: BP 136/76
[2019-07-11 15:44] VITALS: BP 149/71
--- NOTE | 2019-07-11 16:18 | ECGEPIP ---
[facility] - ED Test Date: 2019-07-11 Pat Name: SHEILA GALARZA Department: Room: [place] [address] Gender: Male Senior Benefits Specialist: geovanni : 1940 Requested By: Kellen Weaver Order Number: [id number] Reading MD: Wayne Carney Measurements Intervals [place] Rate: 91 P: 17 PA: 181 QRS: -65 QRSD: 114 T: 5 QT: 393 QTc: 485 Interpretive Statements SINUS RHYTHM LOW QRS VOLTAGE IN PRECORDIAL LEADS INCOMPLETE RIGHT BUNDLE BRANCH BLOCK LEFT ANTERIOR FASCICULAR BLOCK ANTEROSEPTAL MYOCARDIAL INFARCTION, OF INDETERMINATE AGE SIMILAR TO 07/01/19 Electronically Signed on 07-11-2019 16:18:14 EDT by Wayne Carney
[2019-07-11] MEDS: RIVAROXABAN 20 MG TAB (XARELTO) PO SCH (17:10)
[2019-07-11] MEDS: CYANOCOBALAMIN 500 MCG TAB PO SCH (17:10)
[2019-07-11] MEDS ORDERED: SLF 3 ML SYR IV PRN (17:15)
[2019-07-11] MEDS: SYMBICORT 160/4.5MCG INHALER 6GM INH SCH (19:33)
[2019-07-11 20:00] VITALS: BP 128/68
[2019-07-11] MEDS: FLUTICASONE PROP 0.05% NASAL SPRAY 16 GM (FLONASE) SCH (20:28)
[2019-07-11] MEDS: ursodioL 300 MG CAP PO SCH (20:29)
[2019-07-11] MEDS: PANTOPRAZOLE 40MG TAB (PROTONIX) PO SCH (20:30)
[2019-07-11] MEDS: DOCUSATE SODIUM 100 MG CAP PO SCH (20:30)
[2019-07-11] MEDS: MONTELUKAST 10 MG TAB PO SCH (20:30)
[2019-07-11] MEDS: NADOLOL 20MG TABLET PO SCH (20:31)
[2019-07-11] MEDS: SLF 3 ML SYR IV SCH (21:08)
[2019-07-12] VITALS: BP 120/60
[2019-07-12 04:00] VITALS: BP 105/58
[2019-07-12] MEDS: SLF 3 ML SYR IV SCH ×3 (05:16→20:34)
[2019-07-12 06:42] LABS: BASO % 0.6 % (0.0-1.0); EOS # 0.3 10^3/uL (0.0-0.5); EOS % 4.1 % (0.0-3.0); HEMATOCRIT 36.2 % (42.0-52.0); HEMOGLOBIN 12.8 g/dl (13.5-17.5); LYMPH # 1.2 10^3/uL (1.5-5.0); LYMPH % 15.8 % (24.0-44.0); MEAN CORPUSCULAR HEMOGLOBIN 34.4 pg (27.0-33.0); MEAN CORPUSCULAR HGB CONC 35.4 g/dl (32.0-36.5); MEAN CORPUSCULAR VOLUME 97.3 fl (80.0-96.0); MONO # 0.7 10^3/uL (0.0-0.8); MONO % 9.8 % (0.0-5.0); NEUTROPHILS % 69.1 % (36.0-66.0); RED BLOOD COUNT 3.72 10^6/uL (4.30-6.10); WHITE BLOOD COUNT 7.3 10^3/uL (4.0-10.0)
[2019-07-12 06:45] LABS: PLATELET COUNT, AUTOMATED 81 10^3/uL (150-450)
[2019-07-12 07:13] LABS: ALBUMIN 2.4 GM/DL (3.2-5.2); ALT/SGPT 82 U/L (12-78); BILIRUBIN,TOTAL 5.7 MG/DL (0.2-1.0); BLOOD UREA NITROGEN 20 MG/DL (7-18); CALCIUM LEVEL 8.3 MG/DL (8.8-10.2); CARBON DIOXIDE LEVEL 25 MEQ/L (21-32); CHLORIDE LEVEL 102 MEQ/L (98-107); CREATININE FOR GFR 1.05 MG/DL (0.70-1.30); GLOMERULAR FILTRATION RATE > 60.0 (>42); GLUCOSE, FASTING 91 MG/DL (70-100); POTASSIUM SERUM 3.3 MEQ/L (3.5-5.1); SODIUM LEVEL 134 MEQ/L (136-145); TOTAL PROTEIN 5.5 GM/DL (6.4-8.2)
[2019-07-12 08:00] VITALS: BP 125/71
[2019-07-12] MEDS: SYMBICORT 160/4.5MCG INHALER 6GM INH SCH ×2 (08:06→19:21)
[2019-07-12] MEDS: FLUTICASONE PROP 0.05% NASAL SPRAY 16 GM (FLONASE) SCH ×2 (09:01→20:33)
[2019-07-12] MEDS: CYANOCOBALAMIN 500 MCG TAB PO SCH (09:01)
[2019-07-12] MEDS: PANTOPRAZOLE 40MG TAB (PROTONIX) PO SCH ×2 (09:01→20:35)
[2019-07-12] MEDS: PRAVASTATIN 20 MG TAB PO SCH (09:01)
[2019-07-12] MEDS: FUROSEMIDE 20 MG TAB PO SCH (09:02)
[2019-07-12] MEDS: DOCUSATE SODIUM 100 MG CAP PO SCH ×2 (09:03→20:35)
[2019-07-12] MEDS: SPIRONOLACTONE 25 MG TAB PO SCH (09:03)
[2019-07-12] MEDS: ursodioL 300 MG CAP PO SCH ×2 (09:03→20:35)
--- NOTE | 2019-07-12 10:20 | IPNPDOC ---
Subjective Date Seen The patient was seen on 07/12/19. Subjective Chief Complaint/HPI Patient seen and examined at bedside this morning. Patient reports that he is feeling much more comfortable today than he did yesterday. He has some abdominal discomfort in the lower quadrants but otherwise denies any fevers, chills, short of breath, chest pain, nausea, vomiting, leg swelling. Patient has no other complaints at this time. Patient's plan of care was discussed with him at length at bedside and all questions were answered. Other systems 10 point review of systems was negative except what is stated above in the subjective Objective Physical Examination General Exam: Positive: Alert, Cooperative, No Acute Distress Eye Exam: Positive: PERRLA, Conjunctiva & lids normal, EOMI; Negative: Sclera icteric ENT Exam: Positive: Atraumatic, Mucous membr. moist/pink Neck Exam: Positive: Supple; Negative: JVD, thyromegaly Chest Exam: Positive: Clear to auscultation, Normal air movement Heart Exam: Positive: Rate Normal, Regular Rhythm, Normal S1, Normal S2; Negative: Murmurs Abdomen Exam: Positive: Normal bowel sounds, Soft, Tenderness (mild tenderness to palpation of the lower quadrants bilaterally), Hepatospenomegaly, Other (abdomen is less distended with no fluid wave appreciated on exam) Extremity Exam: Positive: Normal pulses; Negative: Clubbing, Cyanosis, Edema Skin Exam: Positive: Nl turgor and temperature; Negative: Rash Neuro Exam: Positive: Normal Gait, Normal Speech, Strength at 5/5 X4 ext, Normal Tone, Cranial Nerves 3-12 NL Psych Exam: Positive: Mental status NL, Mood NL, Oriented x 3 Assessment /Plan Assessment 78-year-old male with known cirrhosis secondary to NELSON presented with worsening abdominal pain, abdominal distention over the past several days. Patient found to have SBP after paracentesis labs are sent. Currently feeling better and labwork reveals improvement in white cell count. GI team is aware and will see patient today. We'll continue with antibiotic treatment for now and monitor patient closely. 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 Paracentesis studies consistent with SBP. Currently on ceftriaxone 2 g every 24 hours as cefotaxime nonformulary. Patient also received albumin challenge and a 1 as per GI recommendations. GI consult currently pending Labs this morning if appear to be dilated compared to what was initially drawn. Has been a drop in all cell count lines noted from admission. We'll continue to monitor closely - Follow-up Gram stain, culture of paracentesis fluid - Continue with ceftriaxone 2 g every 24 (cefotaxime not available here at pharmacy) - Follow-up GI recommendations - INR, CBC daily - Continue with diuretics as per home dose - Aldactone and Lasix Atrial fibrillation Patient on Xarelto but he has held it for the past 48 hours. - Given recent procedure, will resume tomorrow morning GERD Continue with Protonix Asthma Currently not wheezing on exam. Patient multipleinhalers. - Continue with medications as per home dose Hypertension Patient can be normotensive at this time. - Continue with beta juan daniel as per home dose VS, I&O, 24H, Fishbone Vital Signs/I&O Vital Signs Date Time Temp Pulse Resp B/P (MAP) Pulse Ox O2 Delivery O2 Flow Rate FiO2 07/12/19 08:00 99.1 77 18 125/71 (89) 96 Room Air I&O- Last 24 Hours up to 6 AM 07/12/19 06:00 Intake Total 810.0 ml Output Total 825 ml Balance -15.0 ml Laboratory Data 24H LABS Laboratory Tests 2 07/11/19 12:59: Body Fluid Source ASCITES, Body Fluid Color YELLOW, Body Fluid Appearance HAZY, Body Fluid WBC (Auto) 715H, Body Fluid RBC (Auto) < 2, Body Fluid Mononuclear Cells % Auto 19.3H, Fluid Polymorphonuclear Cell % Auto 80.7H, Body Fluid Albumin Source UNKNOWN, Body Fluid Albumin 0.1 07/12/19 06:07: Immature Granulocyte % (Auto) 0.6, Neutrophils (%) (Auto) 69.1H, Lymphocytes (%) (Auto) 15.8L, Monocytes (%) (Auto) 9.8H, Eosinophils (%) (Auto) 4.1H, Basophils (%) (Auto) 0.6, Neutrophils # (Auto) 5.0, Lymphocytes # (Auto) 1.2L, Monocytes # (Auto) 0.7, Eosinophils # (Auto) 0.3, Basophils # (Auto) 0.0, Nucleated Red Blood Cells % (auto) 0.0, Immature Platelet Fraction 4.1, Anion Gap 7L, Glomerular Filtration Rate > 60.0, Calcium Level 8.3L, Total Bilirubin 5.7H, Aspartate Amino Transf (AST/SGOT) 88H, Alanine Aminotransferase (ALT/SGPT) 82H, Alkaline Phosphatase 258H, Total Protein 5.5L, Albumin 2.4L, Albumin/Globulin Ratio 0.77L CBC/BMP Laboratory Tests 07/12/19 06:07 Microbiology Microbiology 07/11/19 Gram Stain - Final, Resulted 07/11/19 Body Fluid Culture, Resulted Pending JODI PHILLIPS MD Jul 12, 2019 10:19
[2019-07-12] MEDS ORDERED: POTASSIUM CHLORIDE 10 MEQ SR TABLET PO ONE (11:00)
[2019-07-12 12:00] VITALS: BP 103/68
[2019-07-12] MEDS: cefTRIAXone SOD 2 GM in D5W MINI-BAG PLUS 50 ML IV SCH (13:54)
[2019-07-12 16:00] VITALS: BP 112/76
[2019-07-12] MEDS: RIVAROXABAN 20 MG TAB (XARELTO) PO SCH (17:33)
[2019-07-12 20:00] VITALS: BP 131/73
[2019-07-12] MEDS: NADOLOL 20MG TABLET PO SCH (20:35)
[2019-07-12] MEDS: MONTELUKAST 10 MG TAB PO SCH (20:35)
[2019-07-13] VITALS (7 sets, daily range): BP systolic 110–142; BP diastolic 71–83
[2019-07-13] MEDS: SLF 3 ML SYR IV SCH ×3 (04:42→21:07)
[2019-07-13 06:11] LABS: BASO # 0.1 10^3/uL (0.0-0.2); BASO % 0.7 % (0.0-1.0); EOS # 0.4 10^3/uL (0.0-0.5); EOS % 4.1 % (0.0-3.0); HEMATOCRIT 39.6 % (42.0-52.0); HEMOGLOBIN 13.8 g/dl (13.5-17.5); LYMPH # 1.3 10^3/uL (1.5-5.0); MEAN CORPUSCULAR HEMOGLOBIN 34.2 pg (27.0-33.0); MEAN CORPUSCULAR HGB CONC 34.8 g/dl (32.0-36.5); MONO # 0.9 10^3/uL (0.0-0.8); MONO % 10.3 % (0.0-5.0); PLATELET COUNT, AUTOMATED 119 10^3/uL (150-450); RED BLOOD COUNT 4.04 10^6/uL (4.30-6.10); WHITE BLOOD COUNT 8.6 10^3/uL (4.0-10.0)
[2019-07-13 06:22] LABS: PROTHROMBIN TIME 47.9 SECONDS (11.8-14.0)
[2019-07-13 06:26] LABS: INR 5.16
[2019-07-13 06:30] LABS: ALBUMIN 2.4 GM/DL (3.2-5.2); ALT/SGPT 75 U/L (12-78); BILIRUBIN,TOTAL 3.4 MG/DL (0.2-1.0); BLOOD UREA NITROGEN 21 MG/DL (7-18); CALCIUM LEVEL 8.3 MG/DL (8.8-10.2); CARBON DIOXIDE LEVEL 26 MEQ/L (21-32); CHLORIDE LEVEL 103 MEQ/L (98-107); CREATININE FOR GFR 1.18 MG/DL (0.70-1.30); GLOMERULAR FILTRATION RATE > 60.0 (>42); GLUCOSE, FASTING 113 MG/DL (70-100); POTASSIUM SERUM 3.6 MEQ/L (3.5-5.1); SODIUM LEVEL 137 MEQ/L (136-145); TOTAL PROTEIN 5.8 GM/DL (6.4-8.2)
[2019-07-13] MEDS: SYMBICORT 160/4.5MCG INHALER 6GM INH SCH ×2 (07:34→19:16)
[2019-07-13] MEDS: SPIRONOLACTONE 25 MG TAB PO SCH (08:54)
[2019-07-13] MEDS: ursodioL 300 MG CAP PO SCH ×2 (08:54→21:07)
[2019-07-13] MEDS: CYANOCOBALAMIN 500 MCG TAB PO SCH (08:54)
[2019-07-13] MEDS: FLUTICASONE PROP 0.05% NASAL SPRAY 16 GM (FLONASE) SCH ×2 (08:55→21:08)
[2019-07-13] MEDS: FUROSEMIDE 20 MG TAB PO SCH (08:55)
[2019-07-13] MEDS: PANTOPRAZOLE 40MG TAB (PROTONIX) PO SCH ×2 (08:55→21:07)
[2019-07-13] MEDS: PRAVASTATIN 20 MG TAB PO SCH (08:55)
[2019-07-13] MEDS: DOCUSATE SODIUM 100 MG CAP PO SCH ×2 (08:55→21:00)
--- NOTE | 2019-07-13 13:14 | IPNPDOC ---
Date Seen The patient was seen on 07/13/19. Progress Note Addendum to Progress note: Discussed with Vivian, HCP & pt's daughter, re: MOLST and Current plan. Pt is still a full code, and HCP understands that it is reasonable to not pursue resuscitation, but she has not discussed this with her father yet. Plan: recurrent ascites -hold eliquis -once inr<1.6, repeat us guided paracentesis for therapeutic purposes. -per [facility] AARON Pena [phone], increase lasix and spironolactone dose to 40 mg lasix and spiroloctone 100 mg. transfuse albumin 25% q6hrs on the day of paracentesis. refer back to [facility] before TIPS due to increase risk of liver injury. Once pt has been seen again at [facility], ok to refer for TIPS. VS, I&O, 24H, Fishbone Vital Signs/I&O Vital Signs Date Time Temp Pulse Resp B/P (MAP) Pulse Ox O2 Delivery O2 Flow Rate FiO2 07/13/19 12:00 97.9 87 18 137/81 (99) 95 Room Air I&O- Last 24 Hours up to 6 AM 07/13/19 05:59 Intake Total 2410 ml Output Total 550 ml Balance 1860 ml Laboratory Data 24H LABS Laboratory Tests 2 07/13/19 05:28: Immature Granulocyte % (Auto) 0.9, Neutrophils (%) (Auto) 69.0H, Lymphocytes (%) (Auto) 15.0L, Monocytes (%) (Auto) 10.3H, Eosinophils (%) (Auto) 4.1H, Basophils (%) (Auto) 0.7, Neutrophils # (Auto) 6.0, Lymphocytes # (Auto) 1.3L, Monocytes # (Auto) 0.9H, Eosinophils # (Auto) 0.4, Basophils # (Auto) 0.1, Nucleated Red Blood Cells % (auto) 0.0, Prothrombin Time 47.9H, Prothromb Time International Ratio 5.16*H, Anion Gap 8, Glomerular Filtration Rate > 60.0, Calcium Level 8.3L, Total Bilirubin 3.4H, Aspartate Amino Transf (AST/SGOT) 89H, Alanine Aminotransferase (ALT/SGPT) 75, Alkaline Phosphatase 267H, Total Protein 5.8L, Albumin 2.4L, Albumin/Globulin Ratio 0.71L CBC/BMP Laboratory Tests 07/13/19 05:28 Microbiology Microbiology 07/11/19 Gram Stain - Final, Complete 07/11/19 Body Fluid Culture - Final, Complete GRACIA KAT MD Jul 13, 2019 13:03
--- NOTE | 2019-07-13 13:29 | IPN ---
DATE OF SERVICE: 07/13/2019 The patient denies any fever or chills, increasing abdominal distention with increasing pain. The patient has no fever or chills, shortness of breath. Currently on IV ceftriaxone for spontaneous bacterial peritonitis (SBP). Tolerating his diet well. Temperature 98, pulse 80, respiratory rate 18, blood pressure 135/72, 94% on room air. Generally awake, alert, oriented times three, answering questions appropriately, in no respiratory distress. No jugular venous distention (JVD). No thyromegaly. No cervical lymphadenopathy. Moist mucous membranes. Lungs: Diminished at the bilateral bases with fine crackles. Heart: S1, S2, sinus rhythm. Abdomen is distended, positive dullness to percussion, positive fluid wave. Positive bowel sounds. Extremities: 2+ pitting edema to the sacrum. LABORATORY DATA: White count 8.6, hemoglobin 13, hematocrit 39, platelet count 119. Sodium 137, potassium 3.6, chloride 103, bicarbonate 26, BUN 21, creatinine 1.18, glucose of 113, calcium 8.3, total bilirubin 3.4, AST 89, ALT 75, alkaline phosphatase 267, ammonia 46. ASSESSMENT AND PLAN: This is a 78-year-old male, history of nonalcoholic steatohepatitis, liver cirrhosis admitted for spontaneous bacterial peritonitis. IMPRESSION: 1. SBP, currently on IV ceftriaxone, afebrile, tolerating his diet well. Continue with full 7 days of antibiotics. May continue as outpatient. 2. Recurrent ascites secondary to liver cirrhosis due to nonalcoholic steatohepatitis. The patient had previous paracentesis with 4.5 liters removed, currently with increased abdominal distention and fluid retention. Repeat paracentesis today. Continue to hold the patient's Xarelto. 3. Chronic history of atrial fibrillation, rate controlled currently on Xarelto, but held due to paracentesis today. 4. Allergic rhinitis. Continue on Singulair and Flonase. 5. Hypercholesterolemia, obesity. Continue on Pravachol.
[2019-07-13] MEDS ORDERED: FUROSEMIDE 20 MG TAB PO ONE (13:30)
[2019-07-13] MEDS ORDERED: SPIRONOLACTONE 25 MG TAB PO ONE (13:30)
[2019-07-13] MEDS: cefTRIAXone SOD 2 GM in D5W MINI-BAG PLUS 50 ML IV SCH (13:46)
--- NOTE | 2019-07-13 15:31 | CR.PDOC ---
General Date of Consultation: Jul 12, 2019 Referring Provider: JODI RAGLAND MD Attending Physician: BAUTISTA GRANT MD Consultation Primary physician/ hospitalist: -Dr. Ragland Reason for consult: -Liver cirrhosis and SBP HPI: 78-year-old male patient with HTN, HLD, bronchial asthma, atrial fibrillation on Xarelto, BPH, NELSON with liver cirrhosis ( CTP C and MELD - Na 20), following at [place] ([facility]), presented to [facility] for abdominal pain and distention for the past 2 weeks. Patient underwent diagnostic and therapeutic paracentesis, and noted to have SBP. GI was consulted for the same. Patient upon examination reports improvement in abdominal pain, slight i mprovement in abdominal distention and denies any fever. Patient denies any other GI symptoms. Patient reports having EGD and colonoscopy around 1 year ago, and had history of varices in prior endoscopy. Patient denies any altered mental status. Pertinent negative GI symptoms: Patient denies fever, sick contacts, recent travel, nausea, vomiting, diarrhea, loss of appetite, early satiety or unintentional weight loss. No history of hematemesis, melena or hematochezia. Patient reports regular bowel movements. Review of Systems: GI: as stated above CVS: No chest pain, No palpitations, No leg swelling. RS: No Shortness of breath, No Wheezing, no cough SAFETY ASSOCIATE: No dizziness, No motor weakness, No sensory problems Hematology: No bruising, No gum bleeding, Musculoskeletal: No joint pain, ambulating well. Skin: No rash : No hematuria, No burning sensation of the urine ENT: No ear discharge/ pain, No dysphagia. Eyes: No photophobia. Jaundice Home medications: reviewed. Antithrombotic agents: -Xarelto Medical h/o: As above. Surgical h/o: None on abdomen. Social h/o: Alcohol: -Denies, smoking: Denies, IVDA/ drugs: Denies. Family h/o of GI cancers - None Prior Endoscopies: As per patient, had EGD and colonoscopy around 1 year ago -- following with GI in [facility]. Prior GI evaluations: None in [facility] Exam: Vitals: reviewed General: Alert and oriented x 3, not in distress HEENT: NO pallor, minimal icterus. Normal oropharynx, NO cervical lymph nodes. Chest: symmetric with bilateral clear air entry, CVS: S1, S2 heard, normal, no murmurs . Abdomen: Distended, no surgical scars, soft, minimal tenderness on deep palpation, no rigidity or guarding, no palpable masses, normal bowel sounds heard. Rectal exam: Patient refused. Extremities: no pedal edema, pulses palpable. SAFETY ASSOCIATE: no focal motor or sensory deficits. Moves all extremities Skin: no rash. Labs: reviewed. Imaging: reviewed. Prior work up showed not immune to hepatitis B, and immune to hepatitis A. Impression: - Liver cirrhosis (CTP C , MELD - Na- 20), with prior esophageal varices, no prior hepatic encephalopathy, currently decompensated with worsening ascites and SBP -- needs further management. - Worsening abdominal pain and abdominal distention likely from SBP. Recommendations: - Patient educated about the test results, possible differential diagnoses and All questions answered. - Continue with the antibiotics therapy for atleast 5 -7 Days. - Give albumin 1.5gm/ Kg body weight per day on day 1 and 1gm/ Kg body weight per day on day 3 of antibiotic course. - Monitor renal function. - Patient might benefit from termination clerk antibiotic prophylaxis - can take ciprofloxacin 500 mg daily, after the completion of above antibiotic therapy for SBP. - Consider resuming diuretics- depending on the renal funciton at the time of discharge - please give lasix 20 mg and spironolactone 50 mg and titrate up as toelrated. - low sodium diet. - Routine liver cirrhosis care as outpatient at primary gaming cage cashier office. Upon discharge please give follow up with PCP and primary GI. Routine care for Liver cirrhosis: 1) Alcohol cessation/abstinence. Alcohol consumption worsens liver disease even in small quantities when you have underlying cirrhosis. 2) Hepatocellular cancer screening: Twice yearly -- ultrasound and AFP level. 3) Esophageal Variceal screening: At least every 3 years if not taking nonselective beta juan daniel. 4) Vaccination: Hepatitis A, hepatitis B and pneumococcal vaccine if not taken before. Yearly influenza vaccine. 5) Bone health: Bone density every 3 years and measurement of vitamin D level twice yearly. 6) Nutrition: Low sodium ( <2gm/day) diet and high-protein diet ( 1.6 gm/ kg body weight). Patients with encephalopathy, benefit from protein snack in the evening. 7) Medications to avoid: Benzodiazepines, NSAIDs, sedating medications. Use opioids only when absolutely necessary. 8) Tylenol <2gm/day dose is safe in cirrhotic patients who do not consume alcohol. 9) Patient with prior encephalopathy should be on lactulose (with or without rifaximin) and must have 1-2 soft or loose bowel movements daily. Plan of care discussed with patient and primary team. Patient verbalized understanding and agreed with the plan. Vital Signs/I&O Vital Signs Date Time Temp Pulse Resp B/P (MAP) Pulse Ox O2 Delivery O2 Flow Rate FiO2 07/13/19 12:00 97.9 87 18 137/81 (99) 95 Room Air I&O- Last 24 Hours up to 6 AM 07/13/19 06:00 Intake Total 2410 ml Output Total 550 ml Balance 1860 ml Laboratory Data Labs 24H Laboratory Tests 2 07/13/19 05:28: Immature Granulocyte % (Auto) 0.9, Neutrophils (%) (Auto) 69.0H, Lymphocytes (%) (Auto) 15.0L, Monocytes (%) (Auto) 10.3H, Eosinophils (%) (Auto) 4.1H, Basophils (%) (Auto) 0.7, Neutrophils # (Auto) 6.0, Lymphocytes # (Auto) 1.3L, Monocytes # (Auto) 0.9H, Eosinophils # (Auto) 0.4, Basophils # (Auto) 0.1, Nucleated Red Blood Cells % (auto) 0.0, Prothrombin Time 47.9H, Prothromb Time International Ratio 5.16*H, Anion Gap 8, Glomerular Filtration Rate > 60.0, Calcium Level 8.3L, Total Bilirubin 3.4H, Aspartate Amino Transf (AST/SGOT) 89H, Alanine Aminotransferase (ALT/SGPT) 75, Alkaline Phosphatase 267H, Total Protein 5.8L, Albumin 2.4L, Albumin/Globulin Ratio 0.71L CBC/BMP Laboratory Tests 07/13/19 05:28 Microbiology Microbiology 07/11/19 Gram Stain - Final, Complete 07/11/19 Body Fluid Culture - Final, Complete Allergies Coded Allergies: niacin (Verified Allergy, Unknown, "sunburn", 09/22/18) Home Medications Scheduled Budesonide/Formoterol (Symbicort 160-4.5 Mcg Inhaler) 6 Gm Hfa.aer.ad, 2 PUFF INH BID, (Reported) Cetirizine HCl (ZyrTEC) 10 Mg Capsule, 10 MG PO QHS, (Reported) Cyanocobalamin (Vitamin B-12) (Vitamin B-12) 1,000 Mcg Capsule, 1,000 MCG PO DAILY, (Reported) Eplerenone (Eplerenone) 25 Mg Tablet, 50 MG PO DAILY, (Reported) Fluticasone Propionate (Fluticasone Propionate) 16 Gm [place].susp, 1 SPRAY NA BID, (Reported) Furosemide (Furosemide) 20 Mg Tablet, 20 MG PO DAILY, (Reported) Lipase/Protease/Amylase (Creon Dr 36,000 Units Capsule) 1 Each Capsule.dr, 36,000 UNIT PO WM, (Reported) Montelukast Sodium (Montelukast Sodium) 10 Mg Tablet, 10 MG PO QHS, (Reported) Nadolol (Nadolol) 20 Mg Tablet, 20 MG PO QHS, (Reported) Pantoprazole Sodium (Pantoprazole Sodium) 40 Mg Tablet.dr, 40 MG PO BID, (Reported) Pravastatin Sodium (Pravastatin Sodium) 40 Mg Tablet, 40 MG PO DAILY, (Reported) Rivaroxaban (Xarelto) 20 Mg Tab, 20 MG PO QPM, (Reported) Ursodiol (Ursodiol) 300 Mg Cap, 600 MG PO BID, (Reported) Scheduled PRN Albuterol Sulfate (Ventolin Hfa) 18 Gm Hfa.aer.ad, 2 PUFFS INH QID PRN for SHORTNESS OF BREATH, (Reported) BAUTISTA GRANT MD Jul 13, 2019 15:31
[2019-07-13 16:11] LABS: INR 2.67; PROTHROMBIN TIME 28.3 SECONDS (11.8-14.0)
[2019-07-13] MEDS: NADOLOL 20MG TABLET PO SCH (21:06)
[2019-07-13] MEDS: MONTELUKAST 10 MG TAB PO SCH (21:07)
[2019-07-14] VITALS: BP 116/69
[2019-07-14 04:00] VITALS: BP 138/78
[2019-07-14] MEDS: SLF 3 ML SYR IV SCH ×3 (04:51→21:08)
[2019-07-14 05:34] LABS: BASO # 0.1 10^3/uL (0.0-0.2); BASO % 0.6 % (0.0-1.0); EOS # 0.3 10^3/uL (0.0-0.5); HEMATOCRIT 39.6 % (42.0-52.0); LYMPH # 1.4 10^3/uL (1.5-5.0); LYMPH % 16.8 % (24.0-44.0); MEAN CORPUSCULAR HEMOGLOBIN 34.6 pg (27.0-33.0); MEAN CORPUSCULAR HGB CONC 35.4 g/dl (32.0-36.5); MEAN CORPUSCULAR VOLUME 97.8 fl (80.0-96.0); MONO % 12.3 % (0.0-5.0); NEUTROPHILS # 5.5 10^3/uL (1.5-8.5); NEUTROPHILS % 65.3 % (36.0-66.0); PLATELET COUNT, AUTOMATED 124 10^3/uL (150-450); RED BLOOD COUNT 4.05 10^6/uL (4.30-6.10); WHITE BLOOD COUNT 8.4 10^3/uL (4.0-10.0)
[2019-07-14 05:52] LABS: INR 2.01; PROTHROMBIN TIME 22.5 SECONDS (11.8-14.0)
[2019-07-14 05:53] LABS: PARTIAL THROMBOPLASTIN TIME 40.5 SECONDS (25.0-38.4)
[2019-07-14 05:58] LABS: ALBUMIN 2.3 GM/DL (3.2-5.2); ALT/SGPT 73 U/L (12-78); BILIRUBIN,TOTAL 4.2 MG/DL (0.2-1.0); BLOOD UREA NITROGEN 20 MG/DL (7-18); CALCIUM LEVEL 8.2 MG/DL (8.8-10.2); CARBON DIOXIDE LEVEL 25 MEQ/L (21-32); CHLORIDE LEVEL 104 MEQ/L (98-107); CREATININE FOR GFR 1.18 MG/DL (0.70-1.30); GLOMERULAR FILTRATION RATE > 60.0 (>42); GLUCOSE, FASTING 97 MG/DL (70-100); POTASSIUM SERUM 3.5 MEQ/L (3.5-5.1); SODIUM LEVEL 136 MEQ/L (136-145); TOTAL PROTEIN 5.6 GM/DL (6.4-8.2)
--- NOTE | 2019-07-14 07:16 | IPNPDOC ---
Date Seen The patient was seen on 07/14/19. Progress Note npo for us liver with doppler to rule out portal vein thrombosis per GI Dr. Hatfield recommendations VS, I&O, 24H, Fishbone Vital Signs/I&O Vital Signs Date Time Temp Pulse Resp B/P (MAP) Pulse Ox O2 Delivery O2 Flow Rate FiO2 07/14/19 04:00 97.7 68 16 138/78 (98) 95 Room Air I&O- Last 24 Hours up to 6 AM 07/14/19 06:00 Intake Total 840 ml Output Total 0 ml Balance 840 ml Laboratory Data 24H LABS Laboratory Tests 2 07/13/19 15:45: Prothrombin Time 28.3H, Prothromb Time International Ratio 2.67 07/14/19 05:04: Prothrombin Time 22.5H, Prothromb Time International Ratio 2.01, Immature Granulocyte % (Auto) 1.0, Neutrophils (%) (Auto) 65.3, Lymphocytes (%) (Auto) 16.8L, Monocytes (%) (Auto) 12.3H, Eosinophils (%) (Auto) 4.0H, Basophils (%) (Auto) 0.6, Neutrophils # (Auto) 5.5, Lymphocytes # (Auto) 1.4L, Monocytes # (Auto) 1.0H, Eosinophils # (Auto) 0.3, Basophils # (Auto) 0.1, Nucleated Red Blood Cells % (auto) 0.0, Activated Partial Thromboplast Time 40.5H, Anion Gap 7L, Glomerular Filtration Rate > 60.0, Calcium Level 8.2L, Total Bilirubin 4.2H, Aspartate Amino Transf (AST/SGOT) 93H, Alanine Aminotransferase (ALT/SGPT) 73, Alkaline Phosphatase 265H, Total Protein 5.6L, Albumin 2.3L, Albumin/Globulin Ratio 0.70L CBC/BMP Laboratory Tests 07/14/19 05:04 Microbiology Microbiology 07/11/19 Gram Stain - Final, Complete 07/11/19 Body Fluid Culture - Final, Complete GRACIA KAT MD Jul 14, 2019 07:16
[2019-07-14 08:00] VITALS: BP 158/79
[2019-07-14] MEDS: SYMBICORT 160/4.5MCG INHALER 6GM INH SCH ×2 (08:14→21:23)
[2019-07-14] MEDS: PANTOPRAZOLE 40MG TAB (PROTONIX) PO SCH ×2 (08:42→21:06)
[2019-07-14] MEDS: CYANOCOBALAMIN 500 MCG TAB PO SCH (08:42)
[2019-07-14] MEDS: PRAVASTATIN 20 MG TAB PO SCH (08:42)
[2019-07-14] MEDS: ursodioL 300 MG CAP PO SCH ×2 (08:43→21:06)
[2019-07-14] MEDS: DOCUSATE SODIUM 100 MG CAP PO SCH ×3 (08:43→21:00)
[2019-07-14] MEDS: SPIRONOLACTONE 50 MG TAB PO SCH (08:43)
[2019-07-14] MEDS: FLUTICASONE PROP 0.05% NASAL SPRAY 16 GM (FLONASE) SCH ×2 (08:44→21:08)
[2019-07-14] MEDS: FUROSEMIDE 40 MG TAB PO SCH (08:44)
--- NOTE | 2019-07-14 09:01 | REPVR ---
PROCEDURE INFORMATION: Exam: US Duplex Artery and Vein of the Abdominal and/or Reproductive Organs, Complete Exam date and time: 07/14/2019 7:54 AM Age: 78 years old Clinical indication: Pain; Other: R/O venous thrombosis; Additional info: R/O portal vein thrombosis TECHNIQUE: Imaging protocol: Real-time duplex ultrasound scan of the arterial and venous flow of the abdominal and/or reproductive organs with B-mode, color Doppler flow and spectral waveform analysis with image documentation. Exam focused on the region of clinical concern. Complete exam. Duplex images required to evaluate vascular conditions. COMPARISON: 1. ABD COMPLETE US 07/02/2019 11:46:[address] ABD/PEL W/IV ORAL CONTRAS 07/01/2019 6:17:21 PM FINDINGS: Limitations: This examination is technically limited by the patient's body habitus and inability to breath hold. Portal venous: Small caliber but patent main portal vein with hepatopetal flow and velocity of 11.9 cm/s. Main portal vein measures 5.2 mm in the region of the hannah hepatis. Patent right portal vein with appropriate flow. Left portal vein is not clearly visualized. Hepatic veins/artery: Patent hepatic veins with loss of phasicity, unchanged. Patent main hepatic artery with peak systolic velocity of 82 cm/s and resistive index of 0.85, unchanged. Liver: Stable cirrhotic appearance of the liver. Gallbladder: Status post cholecystectomy. CBD normal in caliber measuring 3.3 mm. Spleen: Stable splenomegaly. Splenic vein is visualized within the splenic hilum and is patent. Intraperitoneal space: Moderate amount of perihepatic ascites. IMPRESSION: 1. Stable cirrhotic appearance of the liver with evidence of portal hypertension including splenomegaly and moderate ascites. 2. No evidence of portal vein thrombosis involving the main portal vein or right portal vein. The left portal vein is not clearly visualized. 3. Patent hepatic and splenic veins. Electronically signed by: Francis Coughlin On 07/14/2019 09:01:10 AM
[2019-07-14 12:00] VITALS: BP 116/55
--- NOTE | 2019-07-14 12:13 | IPNPDOC ---
Subjective Date Seen The patient was seen on 07/14/19. Subjective Chief Complaint/HPI Patient is scheduled for repeat paracentesis today. Offers no new complaints General: Denies: ROS Unobtainable, Chills, Night Sweats, Fatigue, Malaise, Normal Appetite, Other Symptoms Constitutional: Denies: Chills, Fever, Malaise, Night Sweats, Weakness, Fatigue, Weight Loss, Lethargy, Other Skin: Denies: Rash, Lesions, Jaundice, Bruising, Itching, Dry, Breakdown, Nail Changes, Other Pulmonary: Denies: Dyspnea, Cough, Pleuritic Chest Pain, Other Symptoms Cardiovascular: Denies: Chest Pain, Palpitations, Orthopnea, Paroxysmal Noc. Dyspnea, Edema, Lt Headedness, Other Symptoms Gastrointestinal: Reports: Other Symptoms (abdominal distention); Denies: Nausea, Vomiting, Abdominal Pain, Diarrhea, Constipation, Melena, Hematochezia Hematologic: Denies: Bruising, Bleeding Excessively, Petecchia, Purpura, Enlarged Lymph Nodes, Other Hematologic Musculoskeletal: Denies: Neck Pain, Back Pain, Shoulder Pain, Arm Pain, Hand Pain, Leg Pain, Foot Pain, Joint Pain, Muscle Pain, Spasms, Other Symptoms Neurological: Denies: Weakness, Numbness, Incoordination, Change in speech, Confusion, Seizures, Other Symptoms Objective Physical Examination General Exam: Positive: Alert, Cooperative, No Acute Distress Eye Exam: Positive: PERRLA, Conjunctiva & lids normal, EOMI; Negative: Sclera icteric ENT Exam: Positive: Atraumatic, Mucous membr. moist/pink Neck Exam: Positive: Supple; Negative: JVD, thyromegaly Chest Exam: Positive: Clear to auscultation, Normal air movement Heart Exam: Positive: Rate Normal, Regular Rhythm, Normal S1, Normal S2; Negative: Murmurs Abdomen Exam: Positive: Normal bowel sounds, Soft, Tenderness (mild tenderness to palpation of the lower quadrants bilaterally), Hepatospenomegaly, Other (abdomen is less distended with no fluid wave appreciated on exam) Extremity Exam: Positive: Normal pulses; Negative: Clubbing, Cyanosis, Edema Skin Exam: Positive: Nl turgor and temperature; Negative: Rash Neuro Exam: Positive: Normal Gait, Normal Speech, Strength at 5/5 X4 ext, Normal Tone, Cranial Nerves 3-12 NL Psych Exam: Positive: Mental status NL, Mood NL, Oriented x 3 Assessment /Plan Problems (1) Acute bacterial peritonitis Problem Text: Patient had a repeat paracentesis done with 5 L of fluid was drained out Continue IV antibiotics for 5-7 days Pericardial fluid cultures are pending Discussed with patient and daughter, Sonia she requested if I could talk to her father about DNR, DNI and comfort care status as she is not comfortable addressing to her father Continue present care (2) Cirrhosis of liver with ascites Status: Acute Problem Text: Cirrhosis of the liver with massive ascites History of [place] Patient follows up with GI at [place] Most likely will be discharged back to GI center at [place]. Once he is clinically stable (3) Atrial fibrillation Status: Chronic Problem Text: Rate is under control Continue present meds (4) GERD (gastroesophageal reflux disease) Status: Chronic Problem Text: Continue home meds (5) Asthma Status: Chronic Problem Text: Continue home meds (6) HTN (hypertension) Status: Chronic Problem Text: Under control. Continue home meds Plan/VTE VTE Prophylaxis Ordered?: Yes Plan Diet: Continue Current Activity: Continue Current Therapy: PT Diagnostics: Check Labs, Repeat Labs in AM Anticipated Discharge: Home, Home With Services VS, I&O, 24H, [facility] Vital Signs/I&O Vital Signs Date Time Temp Pulse Resp B/P (MAP) Pulse Ox O2 Delivery O2 Flow Rate FiO2 07/14/19 11:00 68 18 96 Room Air 07/14/19 10:28 97.7 07/14/19 08:00 158/79 (105) I&O- Last 24 Hours up to 6 AM 07/14/19 06:00 Intake Total 840 ml Output Total 0 ml Balance 840 ml Laboratory Data 24H LABS Laboratory Tests 2 07/13/19 15:45: Prothrombin Time 28.3H, Prothromb Time International Ratio 2.67 07/14/19 05:04: Prothrombin Time 22.5H, Prothromb Time International Ratio 2.01, Immature Granulocyte % (Auto) 1.0, Neutrophils (%) (Auto) 65.3, Lymphocytes (%) (Auto) 16.8L, Monocytes (%) (Auto) 12.3H, Eosinophils (%) (Auto) 4.0H, Basophils (%) (Auto) 0.6, Neutrophils # (Auto) 5.5, Lymphocytes # (Auto) 1.4L, Monocytes # (Auto) 1.0H, Eosinophils # (Auto) 0.3, Basophils # (Auto) 0.1, Nucleated Red Blood Cells % (auto) 0.0, Activated Partial Thromboplast Time 40.5H, Anion Gap 7L, Glomerular Filtration Rate > 60.0, Calcium Level 8.2L, Total Bilirubin 4.2H, Aspartate Amino Transf (AST/SGOT) 93H, Alanine Aminotransferase (ALT/SGPT) 73, Alkaline Phosphatase 265H, Total Protein 5.6L, Albumin 2.3L, Albumin/Globulin Ratio 0.70L CBC/BMP Laboratory Tests 07/14/19 05:04 Microbiology Microbiology 07/11/19 Gram Stain - Final, Complete 07/11/19 Body Fluid Culture - Final, Complete HUNTER BARBER MD Jul 14, 2019 12:13
--- NOTE | 2019-07-14 13:41 | REP ---
Ultrasound-guided paracentesis The procedure was performed by NIKKI Edmonds, under the direct supervision of Dr. Santos. The risks and benefits of the procedure were explained to the patient and informed consent was obtained both verbally and written. Directly prior to the start of the procedure, a formal timeout was completed in the procedure room. Under ultrasound guidance, the largest pocket of fluid in the left flank was localized and skin was marked. The skin was then prepped and draped in a sterile fashion. 10 ml of 1% lidocaine 10 mg/ml was used as a local anesthetic. Using ultrasound guidance, an 8-[place] multi side-hole catheter was inserted using trocar technique. 5,300 mL of yellow colored fluid was withdrawn and discarded. The patient tolerated the procedure well and there were no immediate complications. After the appropriate monitored convalescence the patient was discharged from the department. Reviewed by NIKKI Nielsen 07/14/2019 01:32 P Electronically Signed by Tarik Santos MD 07/14/2019 01:32 P
[2019-07-14] MEDS: cefTRIAXone SOD 2 GM in D5W MINI-BAG PLUS 50 ML IV SCH (13:46)
[2019-07-14 16:00] VITALS: BP 91/50
[2019-07-14 20:00] VITALS: BP 118/73
[2019-07-14] MEDS: NADOLOL 20MG TABLET PO SCH (21:06)
[2019-07-14] MEDS: MONTELUKAST 10 MG TAB PO SCH (21:06)
[2019-07-15] VITALS: BP 117/75
[2019-07-15 04:00] VITALS: BP 129/70
[2019-07-15] MEDS: SLF 3 ML SYR IV SCH (05:02)
[2019-07-15 06:37] LABS: BASO # 0.1 10^3/uL (0.0-0.2); BASO % 0.7 % (0.0-1.0); EOS # 0.3 10^3/uL (0.0-0.5); EOS % 4.1 % (0.0-3.0); HEMATOCRIT 39.4 % (42.0-52.0); HEMOGLOBIN 13.7 g/dl (13.5-17.5); LYMPH # 1.1 10^3/uL (1.5-5.0); LYMPH % 15.6 % (24.0-44.0); MEAN CORPUSCULAR HEMOGLOBIN 34.4 pg (27.0-33.0); MEAN CORPUSCULAR HGB CONC 34.8 g/dl (32.0-36.5); MONO % 13.7 % (0.0-5.0); NEUTROPHILS # 4.6 10^3/uL (1.5-8.5); NEUTROPHILS % 64.5 % (36.0-66.0); PLATELET COUNT, AUTOMATED 118 10^3/uL (150-450); RED BLOOD COUNT 3.98 10^6/uL (4.30-6.10); WHITE BLOOD COUNT 7.1 10^3/uL (4.0-10.0)
[2019-07-15 06:45] LABS: INR 1.38; PROTHROMBIN TIME 16.7 SECONDS (11.8-14.0)
[2019-07-15 07:01] LABS: ALBUMIN 2.1 GM/DL (3.2-5.2); BILIRUBIN,TOTAL 3.2 MG/DL (0.2-1.0); CALCIUM LEVEL 8.1 MG/DL (8.8-10.2); CREATININE FOR GFR 1.37 MG/DL (0.70-1.30); GLOMERULAR FILTRATION RATE 53.6 (>42); POTASSIUM SERUM 3.2 MEQ/L (3.5-5.1); TOTAL PROTEIN 5.5 GM/DL (6.4-8.2)
[2019-07-15 08:00] VITALS: BP 125/75
[2019-07-15] MEDS: ursodioL 300 MG CAP PO SCH (08:25)
[2019-07-15] MEDS: FUROSEMIDE 40 MG TAB PO SCH (08:25)
[2019-07-15] MEDS: DOCUSATE SODIUM 100 MG CAP PO SCH (08:26)
[2019-07-15] MEDS: PANTOPRAZOLE 40MG TAB (PROTONIX) PO SCH (08:26)
[2019-07-15] MEDS: CYANOCOBALAMIN 500 MCG TAB PO SCH (08:26)
[2019-07-15] MEDS: PRAVASTATIN 20 MG TAB PO SCH (08:26)
[2019-07-15] MEDS: SPIRONOLACTONE 50 MG TAB PO SCH (08:27)
[2019-07-15] MEDS: SYMBICORT 160/4.5MCG INHALER 6GM INH SCH (09:23)
[2019-07-15] MEDS ORDERED: POTASSIUM CHLORIDE 10 MEQ SR TABLET PO ONE (10:00)
[2019-07-15] MEDS ORDERED: ALDA50TA2 PO (10:11)
[2019-07-15] MEDS ORDERED: KEFL500C17 PO (10:11)
[2019-07-15] MEDS ORDERED: CIPR-249 PO (10:11)
--- NOTE | 2019-07-15 11:30 | DS.PDOC ---
Discharge Summary General Date of Admission Jul 11, 2019 at 07:38 Date of Discharge 07/15/19 Discharge Summary PROCEDURES PERFORMED DURING STAY: None. ADMITTING DIAGNOSES: 1. Cirrhosis the liver with ascites. DISCHARGE DIAGNOSES: 1. Cirrhosis of liver with ascites, spontaneous bacterial peritonitis. COMPLICATIONS/CHIEF COMPLAINT: Cirrhosis Of Liver With Ascites. HISTORY OF PRESENT ILLNESS: 78-year-old male with past medical history of liver cirrhosis secondary to NELSON presents with worsening abdominal pain and distention and weight gain over the past 2 weeks. Patient was recently discharged from [facility] 2 weeks prior for similar complaints. At that time he was admitted for a paracentesis in which 3.4 L of ascitic fluid was removed. After fluid had removed, patient felt better and was discharged home the following day. Since his discharge, patient reports that she 's been gaining weight steadily even though he has been taking his medications as prescribed. Patient also reports having abdominal pain that feels deep inside his stomach. He has intermittent chills but denies any fevers. He also reports some difficulty breathing as his stomach has become more distended and a nonproductive cough that is controlled persisted and gotten worse. Patient denies any recent sick contacts or travel history. He currently lives with his daughter who is a homemaker and his son-in-law who is a trade show coordinator. Neither of those contacts reported to be sick at this time. Due to his worsening symptoms, patient decided to come to the ER for further evaluation. On ER evaluation, patient noted to have moderate ascites on ultrasound. He was also found to be septic with an elevated white count and was tachycardic. Given his current condition, bedside paracentesis was done and labs were sent to rule out SBP. Patient reports that he had held his Xarelto for the past 2 days in anticipation for paracentesis. Bedside paracentesis removed approximately 4.5 L of ascitic fluid. Patient to be admitted for further observation.. HOSPITAL COURSE: Patient was admitted with the ascites secondary to liver cirrhosis secondary to Nelson. Patient had a subsequently 3 paracentesis done with a large amount of slough drain out last present 3 days. He had 5 L of peritoneal fluid drained. Patient also was diagnosed with spontaneous bacterial peritonitis and was seen by Dr. Pasquale Kenney and has recommended antibiotics for 5-7 days. Patient was started on IV Rocephin. He is completely asymptomatic, afebrile. I spoke with Dr. Pasquale Kenney today and he agreed with discharging patient on the by mouth antibiotics for 5 more days and Cipro as prophylactically 500 mg by mouth daily and also spironolactone for his cirrhosis and he will follow patient as an outpatient in 1-2 weeks. I also a discussion with patient's daughter, Sonia she understands patient's poor prognosis and is hoping that she can get home hospice eval done so he can be comfortable. Patient will be discharged home on all his current medications, along with Keflex, Cipro, and spironolactone.. DISCHARGE MEDICATIONS: Please see below. ALLERGIES: Please see below. PHYSICAL EXAMINATION ON DISCHARGE: VITAL SIGNS: Please see below. GENERAL: Within normal limits HEENT: PERRLA extraocular muscles intact NECK: Supple CARDIOVASCULAR EXAMINATION: S1, S2, regular RESPIRATORY EXAMINATION: Clear to A&P ABDOMINAL EXAMINATION: Distended but soft, nontender, bowel sounds present EXTREMITIES: Normal SKIN: Normal NEUROLOGICAL EXAMINATION: . No focal motor sensory deficit PSYCHIATRIC EXAMINATION: Normal LABORATORY DATA: Please see below. IMAGING: Ultrasound-guided paracentesis:The risks and benefits of the procedure were explained to the patient and informed consent was obtained both verbally and written. Directly prior to the start of the procedure, a formal timeout was completed in the procedure room. Under ultrasound guidance, the largest pocket of fluid in the left flank was localized and skin was marked. The skin was then prepped and draped in a sterile fashion. 10 ml of 1% lidocaine 10 mg/ml was used as a local anesthetic. Using ultrasound guidance, an 8-Albanian multi side-hole catheter was inserted using trocar technique. 5,300 mL of yellow colored fluid was withdrawn and discarded. The patient tolerated the procedure well and there were no immediate complications. After the appropriate monitored convalescence the patient was discharged from the department. PROGNOSIS: Poor ACTIVITY: As tolerated. DIET: As tolerated DISCHARGE PLAN: Discharge home with home care DISPOSITION: . Home DISCHARGE INSTRUCTIONS: 1. As per discharge instructions. ITEMS TO FOLLOWUP ON ON OUTPATIENT: 1. Follow with the PCP and GI in one week. DISCHARGE CONDITION: Stable. TIME SPENT ON DISCHARGE: Greater than 45 minutes. Vital Signs/I&Os Vital Signs Date Time Temp Pulse Resp B/P (MAP) Pulse Ox O2 Delivery O2 Flow Rate FiO2 4/30/20 08:00 96.8 75 18 125/75 (92) 98 Room Air I&O- Last 24 Hours up to 6 AM 07/15/19 06:00 Intake Total 890 ml Output Total 0 ml Balance 890 ml Laboratory Data Labs 24H Laboratory Tests 2 07/15/19 06:18: Immature Granulocyte % (Auto) 1.4, Neutrophils (%) (Auto) 64.5, Lymphocytes (%) (Auto) 15.6L, Monocytes (%) (Auto) 13.7H, Eosinophils (%) (Auto) 4.1H, Basophils (%) (Auto) 0.7, Neutrophils # (Auto) 4.6, Lymphocytes # (Auto) 1.1L, Monocytes # (Auto) 1.0H, Eosinophils # (Auto) 0.3, Basophils # (Auto) 0.1, Nucleated Red Blood Cells % (auto) 0.0, Prothrombin Time 16.7H, Prothromb Time International Ratio 1.38, Anion Gap 8, Glomerular Filtration Rate 53.6, Calcium Level 8.1L, Total Bilirubin 3.2H, Aspartate Amino Transf (AST/SGOT) 89H, Alanine Aminotransferase (ALT/SGPT) 63, Alkaline Phosphatase 246H, Total Protein 5.5L, Albumin 2.1L, Albumin/Globulin Ratio 0.62L CBC/BMP Laboratory Tests 07/15/19 06:18 Microbiology Microbiology 07/11/19 Gram Stain - Final, Complete 07/11/19 Body Fluid Culture - Final, Complete Discharge Medications Scheduled Budesonide/Formoterol (Symbicort 160-4.5 Mcg Inhaler) 6 Gm Hfa.aer.ad, 2 PUFF INH BID, (Reported) Cephalexin (Keflex) 500 Mg Capsule, 500 MG PO Q12H FOR 10 DAYS Cetirizine HCl (ZyrTEC) 10 Mg Capsule, 10 MG PO QHS, (Reported) Ciprofloxacin HCl (Cipro) 500 Mg Tablet, 500 MG PO DAILY Cyanocobalamin (Vitamin B-12) (Vitamin B-12) 1,000 Mcg Capsule, 1,000 MCG PO DAILY, (Reported) Eplerenone (Eplerenone) 25 Mg Tablet, 50 MG PO DAILY, (Reported) Fluticasone Propionate (Fluticasone Propionate) 16 Gm [place].susp, 1 SPRAY NA BID, (Reported) Furosemide (Furosemide) 20 Mg Tablet, 20 MG PO DAILY, (Reported) Lipase/Protease/Amylase (Creon Dr 36,000 Units Capsule) 1 Each Capsule.dr, 36,000 UNIT PO WM, (Reported) Montelukast Sodium (Montelukast Sodium) 10 Mg Tablet, 10 MG PO QHS, (Reported) Nadolol (Nadolol) 20 Mg Tablet, 20 MG PO QHS, (Reported) Pantoprazole Sodium (Pantoprazole Sodium) 40 Mg Tablet.dr, 40 MG PO BID, (Reported) Pravastatin Sodium (Pravastatin Sodium) 40 Mg Tablet, 40 MG PO DAILY, (Reported) Rivaroxaban (Xarelto) 20 Mg Tab, 20 MG PO QPM, (Reported) Spironolactone (Aldactone) 50 Mg Tablet, 100 MG PO DAILY Ursodiol (Ursodiol) 300 Mg Cap, 600 MG PO BID, (Reported) Scheduled PRN Albuterol Sulfate (Ventolin Hfa) 18 Gm Hfa.aer.ad, 2 PUFFS INH QID PRN for SHORTNESS OF BREATH, (Reported) Allergies Coded Allergies: niacin (Verified Allergy, Unknown, "sunburn", 09/22/18) HUNTER BARBER MD Jul 15, 2019 11:30
[2019-07-15 12:00] VITALS: BP 132/69
[2019-07-15] MEDS ORDERED: AMIL25TA PO (20:11)
== END 2019-07-15 13:28 | disposition home health service (06) | DRG 432 ==
LOC: M ED 07:37 → OBSVTOIN 07:38 → M PCU 07:38 → M ED 11:36
PROVIDERS: ADMIT Internal Medicine; ATTEND Internal Medicine
PROC: 0W9F30Z Drainage of Abdominal Wall with Drainage Device, Percutaneous Approach (ICD-10-PCS; principal; 2019-07-14 10:00)
DX: K74.60 Unspecified cirrhosis of liver (principal); K65.2 Spontaneous bacterial peritonitis; R18.8 Other ascites; I85.10 Secondary esophageal varices without bleeding; I48.20 Chronic atrial fibrillation, unspecified; I10 Essential (primary) hypertension; K75.81 Nonalcoholic steatohepatitis (NASH); Z79.899 Other long term (current) drug therapy; Z88.8 Allergy status to other drugs, medicaments and biological substances; Z79.01 Long term (current) use of anticoagulants; E78.5 Hyperlipidemia, unspecified; J45.909 Unspecified asthma, uncomplicated; N40.0 Benign prostatic hyperplasia without lower urinary tract symptoms; E66.9 Obesity, unspecified

== ENCOUNTER 2019-07-19 16:17 | Emergency (ER) | payer MEDICARE, OTHER ==
[~2019-07-19] VITALS: Ht 170.2 cm; Wt 85.6 kg
[~2019-07-19 16:17] MED LIST changes: +ALDA50TA2 PO; +AMIL25TA PO; +CIPR-249 PO; +CREO3600 PO; +EPLE25TA PO; +KEFL500C17 PO; +VENTAER INH
[2019-07-19] MEDS ORDERED: AMIL5TAB4 (16:31)
[2019-07-19 17:04] LABS: BASO # 0.1 10^3/uL (0.0-0.2); BASO % 0.7 % (0.0-1.0); EOS # 0.3 10^3/uL (0.0-0.5); EOS % 2.9 % (0.0-3.0); HEMATOCRIT 42.4 % (42.0-52.0); HEMOGLOBIN 14.7 g/dl (13.5-17.5); LYMPH % 9.8 % (24.0-44.0); MEAN CORPUSCULAR HEMOGLOBIN 34.4 pg (27.0-33.0); MEAN CORPUSCULAR HGB CONC 34.7 g/dl (32.0-36.5); MEAN CORPUSCULAR VOLUME 99.3 fl (80.0-96.0); MONO # 1.3 10^3/uL (0.0-0.8); MONO % 12.9 % (0.0-5.0); NEUTROPHILS # 7.4 10^3/uL (1.5-8.5); NEUTROPHILS % 72.3 % (36.0-66.0); PLATELET COUNT, AUTOMATED 157 10^3/uL (150-450); RED BLOOD COUNT 4.27 10^6/uL (4.30-6.10); WHITE BLOOD COUNT 10.2 10^3/uL (4.0-10.0)
[2019-07-19 17:14] LABS: INR 2.94; PROTHROMBIN TIME 30.6 SECONDS (11.8-14.0)
[2019-07-19 17:15] LABS: PARTIAL THROMBOPLASTIN TIME 40.5 SECONDS (25.0-38.4)
[2019-07-19 17:38] LABS: ALBUMIN 2.4 GM/DL (3.2-5.2); BILIRUBIN,DIRECT 3.2 MG/DL (0.0-0.2); BILIRUBIN,TOTAL 4.1 MG/DL (0.2-1.0); CALCIUM LEVEL 8.3 MG/DL (8.8-10.2); CREATININE FOR GFR 1.25 MG/DL (0.70-1.30); GLOMERULAR FILTRATION RATE 59.6 (>42); POTASSIUM SERUM 4.3 MEQ/L (3.5-5.1); TOTAL PROTEIN 6.3 GM/DL (6.4-8.2)
--- NOTE | 2019-07-19 17:48 | REPVR ---
PROCEDURE INFORMATION: Exam: CT Abdomen And Pelvis Without Contrast Exam date and time: 07/19/2019 5:27 PM Age: 78 years old Clinical indication: Abdominal pain; Additional info: Ascities TECHNIQUE: Imaging protocol: Computed tomography of the abdomen and pelvis without contrast. Radiation optimization: All CT scans at this facility use at least one of these dose optimization techniques: automated exposure control; mA and/or kV adjustment per patient size (includes targeted exams where dose is matched to clinical indication); or iterative reconstruction. COMPARISON: CT ABD/PEL W/IV ORAL CONTRAS 07/01/2019 6:17 PM FINDINGS: Limitations: Evaluation is somewhat limited by lack of IV contrast. Lungs: The visualized lung bases demonstrate mild dependent atelectasis. Pleural space: A trace left pleural effusion is again present. Liver: The liver is again shrunken and with a nodular contour, compatible with cirrhosis. It appears otherwise grossly unremarkable. Gallbladder and bile ducts: Cholecystectomy clips are again present. Pancreas: Grossly unremarkable. Spleen: The spleen again contains a tiny calcified granuloma and is again mildly enlarged. Adrenals: Grossly unremarkable. Kidneys and ureters: There are punctate nonobstructing bilateral renal stones. No hydronephrosis or ureteral calculus is identified on either side. A 1.6 cm right renal lesion is hyperdense, with average density approximately 66 Hounsfield units, indeterminate. The left kidney again contains some supple cysts, as well as cystic lesion with some layering or posterior mural calcification. Stomach and bowel: There are again periesophageal, perigastric and perisplenic varices. The unopacified small bowel is not significantly distended to suggest obstruction. There appears to be mild wall thickening involving some scattered small bowel loops, as well as the ascending colon. There is again minor sigmoid colonic diverticulosis. The rectal wall again appears thickened as well. Appendix: The appendix appears normal. Intraperitoneal space: There is no free air. There is fairly similar, moderate ascites. Vasculature: Coronary artery calcifications are again present. The abdominal aorta is nonaneurysmal. Atherosclerotic vascular calcifications are again present. The left renal vein is again retroaortic. Lymph nodes: No gross pathologic lymphadenopathy. Bladder: Grossly unremarkable. Reproductive: The prostate is again large. Bones/joints: Degenerative changes again involve the spine, sacroiliac joints and hips. The bones again appear osteopenic. There are similar compression deformities the L1 and L4 vertebral bodies. Soft tissues: Mild subcutaneous edema is again present about much of the abdomen and pelvis. IMPRESSION: 1. Cirrhotic liver, as on 07/01/19, with similar, moderate ascites and mild splenomegaly, along with persistent varices. 2. Apparent mild wall thickening involving some scattered small bowel loops and the aspirin:, as well as the rectum. This could relate to low albumin state, but correlate as to any possible enterocolitis/proctitis. 3. Persistent trace left pleural effusion. 4. Other stable nonurgent findings as above. Electronically signed by: Moise Krause On 07/19/2019 17:48:49 PM
--- NOTE | 2019-07-19 17:51 | REP ---
REASON FOR EXAM: Abdominal pain. COMPARISON: Multiple, the latest 07/11/2019. Cardiomediastinal silhouette and lung luque are unchanged. Bibasilar chronic changes, status quo. No acute patchy parenchymal opacities or pleural effusions have developed. The heart is not enlarged. The osseous structures are stable and intact. IMPRESSION: No significant change. No evidence of acute cardiopulmonary disease. Electronically Signed by Blake Moss DO 07/19/2019 06:12 P
--- NOTE | 2019-07-19 18:42 | ECGEPIP ---
[facility] - ED Test Date: 2019-07-19 Pat Name: SHEILA GALARZA Department: Room: - Gender: Male Intermediate Project Manager: petra : 1940 Requested By: Kellen Weaver Order Number: [id number] Reading MD: Kellen Weaver Measurements Intervals [place] Rate: 97 P: 13 CT: 181 QRS: -64 QRSD: 113 T: 3 QT: 347 QTc: 442 Interpretive Statements SINUS RHYTHM LOW QRS VOLTAGE IN PRECORDIAL LEADS RIGHT BUNDLE BRANCH BLOCK LEFT ANTERIOR FASCICULAR BLOCK POSSIBLE ANTERIOR MYOCARDIAL INFARCTION, OF INDETERMINATE AGE SIMILAR 07/11/19 Electronically Signed on 07-19-2019 18:42:55 EDT by Kellen Weaver
--- NOTE | 2019-07-19 19:14 | CR.PDOC ---
General Date of Consultation: July 19, 2019 Referring Provider: NADEEM ASCENCIO Primary Care Physician: Jr Bui Collins Attending Physician: NADEEM ASCENCIO Consultation REASON FOR CONSULTATION/CHIEF COMPLAINT: dyspnea and abdominal distention HISTORY OF PRESENT ILLNESS: This is a 78 yr old M who presents w c/o of dyspnea in March, dry cough since April, and abdominal pain with distention. Today's abdomen is so painful that it "hurts like a son of a gun". He has NELSON with recurrent ascites; this is the 4th time he has presented to the hospital for paracentesis this month. Today he denies feeling like his mind is low or he has difficulty grasping concepts. He has an appointment scheduled to see his medical office technologist at [facility] on Friday. ROS: Negative except as listed in HPI PAST MEDICAL/SURGICAL HISTORY: NELSON with liver cirrhosis complicated by ascites and gastroesophageal varices (on Atrial fibrillation (Xarelto) Chronic Hypertension Dyslipidemia Chronic Asthma Umbilical hernia BPH Nonobstructing left renal calculus. L1 and L4 compression deformities. Umbilical hernia repair 2019 Cholecystectomy FULL CODE Healthcare proxy is Snoia Burton, phone number is [phone] SH - T Previous smoker, 1-1/2 packs a day and quit in 1967 - A does not drink any alcohol, does not take any acetaminophen due to his fatty liver induced liver cirrhosis - D Previously lived alone, now lives with his daughter. 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 [employer] Thyroid disorders ALLERGIES: Please see below. HOME MEDICATIONS: Please see below. PHYSICAL EXAMINATION: Vital Signs Date Time Temp Pulse Resp B/P (MAP) Pulse Ox O2 Delivery O2 Flow Rate FiO2 07/19/19 16:18 98.9 102 28 143/71 (95) 98 Room Air INTEGUMENT: has petechiae GENERAL APPEARANCE: Well-nourished/appears chronically ill/slightly lethargic HEENT: NCAT RESPIRATORY: Is able to speak full sentences without having to stop to take a breath/is using accessory muscles/breath sounds are diminished CARDIOVASCULAR: Regular rate and rhythm. No murmurs, rubs or gallops / his lower extremity edema ABDOMEN: Distended/Soft, he doesn't grimace with palpation EXTREMITIES: MICHAEL x4 NEUROLOGICAL: CN 2-12 intact / speech not dyarthric / no asterixis PSYCHIATRIC: A&O x 3 /able to understand and follow all commands LABORATORY DATA: 07/19/19 16:50 Urine Color YELLOW, Urine Appearance HAZY, Urine pH 5.0, Urine Specific [place] 1.023, Urine Protein NEGATIVE, Urine Glucose (UA) NEGATIVE, Urine Ketones TRACEH, Urine Blood NEGATIVE, Urine Nitrite NEGATIVE, Urine Bilirubin NEGATIVE, Urine Urobilinogen 0.2, Urine Leukocyte Esterase TRACEH, Urine WBC (Auto) 5H, Urine RBC (Auto) 2, Urine Hyaline Casts (Auto) 1, Urine Bacteria (Auto) 2+H, Urine Squamous Epithelial Cells 5, Urine Renal Epithelial Cells 1, Urine Calcium Oxalate Cryst (Auto) SMALL, Urine Mucus (Auto) SMALL, Urine Sperm (Auto) Immature Granulocyte % (Auto) 1.4, Neutrophils (%) (Auto) 72.3H, Lymphocytes (%) (Auto) 9.8L, Monocytes (%) (Auto) 12.9H, Eosinophils (%) (Auto) 2.9, Basophils (%) (Auto) 0.7, Neutrophils # (Auto) 7.4, Lymphocytes # (Auto) 1.0L, Monocytes # (Auto) 1.3H, Eosinophils # (Auto) 0.3, Basophils # (Auto) 0.1, Nucleated Red Blood Cells % (auto) 0.0, Prothrombin Time 30.6H, Prothromb Time International Ratio 2.94, Activated Partial Thromboplast Time 40.5H, Anion Gap 10, Glomerular Filtration Rate 59.6, Calcium Level 8.3L, Total Bilirubin 4.1H, Direct Bilirubin 3.2H, Aspartate Amino Transf (AST/SGOT) 123H, Alanine Aminotransferase (ALT/SGPT) 78, Alkaline Phosphatase 278H, Ammonia 81H, Total Protein 6.3L, Albumin 2.4L, Albumin/Globulin Ratio 0.62L, Amylase Level 101, Lipase 475H MICROBIOLOGY: 07/19/19 Urine Culture, Received Pending ASSESSMENT/PLAN: is a 78 yr old M w a hx of NELSON with recurrent ascites and GE varices who presented to the hospital with complaints of dyspnea and abdominal pain due to recurrent ascites; based on his MELD Na Score of 27 and Child Urias Class C he should be evaluated by a Transplant specialist and co-managed by GI. Unfortunately our GI service is not in house this week, therefore I strongly recommend that he is transferred to a facility, such as [facility] where he can be co-managed by a Youth Ministry Director and evaluated by a Transplant Specialist. MELD Na Score 27 = pt should be evaluated for a liver transplant, his 90 mortality is 27-32% MELD New Score 26 = referral to Capsule Inspector or liver transplant center because score is >10 Child Urias Class C = life expectancy of 1-3 years Allergies Coded Allergies: spironolactone (Verified Allergy, Intermediate, GYNECOMASTIA, 07/19/19) niacin (Verified Allergy, Unknown, "sunburn", 09/22/18) Home Medications Scheduled Amiloride HCl (Amiloride HCl) 5 Mg Tablet, 10 MG PO BID for 30 Days, #120 Budesonide/Formoterol (Symbicort 160-4.5 Mcg Inhaler) 6 Gm Hfa.aer.ad, 2 PUFF INH BID, (Reported) Cephalexin (Keflex) 500 Mg Capsule, 500 MG PO Q12H, #20 FOR 10 DAYS Cetirizine HCl (ZyrTEC) 10 Mg Capsule, 10 MG PO QHS, (Reported) Ciprofloxacin HCl (Cipro) 500 Mg Tablet, 500 MG PO DAILY, #30 Cyanocobalamin (Vitamin B-12) (Vitamin B-12) 1,000 Mcg Capsule, 1,000 MCG PO DAILY, (Reported) Fluticasone Propionate (Fluticasone Propionate) 16 Gm [place].susp, 1 SPRAY NA BID, (Reported) Furosemide (Furosemide) 20 Mg Tablet, 20 MG PO DAILY, (Reported) Lipase/Protease/Amylase (Creon Dr 36,000 Units Capsule) 1 Each Capsule.dr, 36,000 UNIT PO WM, (Reported) Montelukast Sodium (Montelukast Sodium) 10 Mg Tablet, 10 MG PO QHS, (Reported) Nadolol (Nadolol) 20 Mg Tablet, 20 MG PO QHS, (Reported) Pantoprazole Sodium (Pantoprazole Sodium) 40 Mg Tablet.dr, 40 MG PO BID, (Reported) Pravastatin Sodium (Pravastatin Sodium) 40 Mg Tablet, 40 MG PO DAILY, (Reported) Rivaroxaban (Xarelto) 20 Mg Tab, 20 MG PO QPM, (Reported) Ursodiol (Ursodiol) 300 Mg Cap, 600 MG PO BID, (Reported) Scheduled PRN Albuterol Sulfate (Ventolin Hfa) 18 Gm Hfa.aer.ad, 2 PUFFS INH QID PRN for SHORTNESS OF BREATH, (Reported) Miscellaneous Medications Amiloride HCl (Amiloride HCl) 5 Mg Tablet, (Reported) JATIN HSU MD July 19, 2019 19:14
[2019-07-19 21:28] VITALS: BP 135/72
[2019-08-05] MEDS ORDERED: AMIL5TAB4 PO (12:39)
[2019-08-05] MEDS ORDERED: PROT1TAB2 PO (12:45)
[2019-08-05] MEDS ORDERED: ALBU83IN IH (12:55)
== END 2019-07-19 21:37 | disposition short-term general hospital (02) ==
LOC: M ED 16:17
DX: K74.60 Unspecified cirrhosis of liver (principal); R18.8 Other ascites; R06.00 Dyspnea, unspecified; K75.81 Nonalcoholic steatohepatitis (NASH); I85.10 Secondary esophageal varices without bleeding; R14.0 Abdominal distension (gaseous); I10 Essential (primary) hypertension; K21.9 Gastro-esophageal reflux disease without esophagitis; I48.91 Unspecified atrial fibrillation; G47.30 Sleep apnea, unspecified; E78.5 Hyperlipidemia, unspecified; J45.909 Unspecified asthma, uncomplicated; N40.0 Benign prostatic hyperplasia without lower urinary tract symptoms; Z88.8 Allergy status to other drugs, medicaments and biological substances; Z79.899 Other long term (current) drug therapy; Z79.51 Long term (current) use of inhaled steroids; Z79.1 Long term (current) use of non-steroidal anti-inflammatories (NSAID); Z79.01 Long term (current) use of anticoagulants

== ENCOUNTER 2019-07-26 14:16 | Inpatient (IN) | payer MEDICARE, OTHER ==
[~2019-07-26] VITALS: Ht 170.2 cm; Wt 87.1 kg
[~2019-07-26 14:16] MED LIST changes: +AMIL5TAB4
[2019-07-26] MEDS ORDERED: GUAI100L6 PO (14:26)
[2019-07-26] MEDS ORDERED: INSP50TA PO (14:26)
[2019-07-26 15:08] LABS: BASO # 0.1 10^3/uL (0.0-0.2); BASO % 0.8 % (0.0-1.0); EOS # 0.4 10^3/uL (0.0-0.5); EOS % 4.2 % (0.0-3.0); HEMOGLOBIN 14.6 g/dl (13.5-17.5); LYMPH # 1.3 10^3/uL (1.5-5.0); LYMPH % 13.4 % (24.0-44.0); MEAN CORPUSCULAR HEMOGLOBIN 34.8 pg (27.0-33.0); MEAN CORPUSCULAR VOLUME 102.6 fl (80.0-96.0); MONO # 1.4 10^3/uL (0.0-0.8); MONO % 13.9 % (0.0-5.0); NEUTROPHILS # 6.6 10^3/uL (1.5-8.5); NEUTROPHILS % 66.2 % (36.0-66.0); PLATELET COUNT, AUTOMATED 182 10^3/uL (150-450); RED BLOOD COUNT 4.19 10^6/uL (4.30-6.10)
[2019-07-26 15:14] LABS: INR 2.75
[2019-07-26 15:15] LABS: PARTIAL THROMBOPLASTIN TIME 39.5 SECONDS (25.0-38.4)
[2019-07-26 15:39] LABS: ALBUMIN 2.3 GM/DL (3.2-5.2); ALT/SGPT 72 U/L (12-78); BILIRUBIN,DIRECT 2.4 MG/DL (0.0-0.2); BILIRUBIN,TOTAL 3.1 MG/DL (0.2-1.0); BLOOD UREA NITROGEN 21 MG/DL (7-18); CALCIUM LEVEL 7.8 MG/DL (8.8-10.2); CARBON DIOXIDE LEVEL 26 MEQ/L (21-32); CHLORIDE LEVEL 105 MEQ/L (98-107); CPK CREATINE PHOSPHOKINASE 64 U/L (39-308); CREATININE FOR GFR 1.31 MG/DL (0.70-1.30); GLOMERULAR FILTRATION RATE 56.5 (>42); GLUCOSE, FASTING 88 MG/DL (70-100); LIPASE 629 U/L (73-393); MB/CK RELATIVE INDEX 3.12 (< OR =4); POTASSIUM SERUM 4.2 MEQ/L (3.5-5.1); SODIUM LEVEL 137 MEQ/L (136-145); TOTAL PROTEIN 6.2 GM/DL (6.4-8.2); TROPONIN I < 0.02 NG/ML (< 0.10)
--- NOTE | 2019-07-26 16:14 | REP ---
LIMITED ABDOMINAL ULTRASOUND: Limited abdominal ultrasound is performed to evaluate for ascites. There is moderate diffuse ascites in all four quadrants of the abdomen and pelvis. IMPRESSION: Moderate diffuse ascites. Electronically Signed by Tarik Santos MD 07/26/2019 04:28 P
[2019-07-26] MEDS ORDERED: PHYTONADIONE 5 MG TAB PO ONE (17:15)
[2019-07-26] MEDS ORDERED: CIPR500T3 PO (17:21)
[2019-07-26] MEDS ORDERED: SPIRONOLACTONE 25 MG TAB PO ONE (18:15)
[2019-07-26] MEDS: CREON-12 CAPSULE PO SCH (18:19)
[2019-07-26] MEDS: CREON-24 CAPSULE PO SCH (18:20)
[2019-07-26] MEDS: SYMBICORT 160/4.5MCG INHALER 6GM INH SCH (19:39)
[2019-07-26] MEDS: PRAVASTATIN 20 MG TAB PO SCH (20:07)
[2019-07-26] MEDS: FUROSEMIDE 40MG/4ML VIAL (J1940) IV SCH (20:07)
[2019-07-26] MEDS: PANTOPRAZOLE 40MG TAB (PROTONIX) PO SCH (20:07)
[2019-07-26] MEDS: MONTELUKAST 10 MG TAB PO SCH (20:07)
[2019-07-26] MEDS: FLUTICASONE PROP 0.05% NASAL SPRAY 16 GM (FLONASE) SCH (20:39)
[2019-07-26] MEDS: NADOLOL 20MG TABLET PO SCH (20:40)
[2019-07-26] MEDS: ursodioL 300 MG CAP PO SCH (20:40)
[2019-07-26 22:00] VITALS: BP 124/80
[2019-07-26 22:40] VITALS: BP 101/44
--- NOTE | 2019-07-26 22:42 | HPEPDOC ---
General Date of Admission 07/26/19 Date of Service: July 26, 2019 Chief Complaint The patient is a 78-year-old male admitted with a reason for visit of Ad Pain. 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 Prabhu says that the diarrhea has been going on for the past 3 months about 4 to 5 times a day of varying quantities. His gastrointestinal panel has been negative in the recent past. He also complains that hs urine is orange in color. He was recently at [facility] last week and had paracentesis there also. he was discharged 4 days ago. Today his INR was elevated to 2.75 so paracentesis was deferred by radiology till his INR comes down below 1.7. patient was admitted for massive ascites needing paracentesis. Home Medications Scheduled Budesonide/Formoterol (Symbicort 160-4.5 Mcg Inhaler) 6 Gm Hfa.aer.ad, 2 PUFF INH BID, (Reported) Cetirizine HCl (ZyrTEC) 10 Mg Capsule, 10 MG PO QHS, (Reported) Ciprofloxacin HCl (Ciprofloxacin HCl) 500 Mg Tablet, 500 MG PO DAILY, (Reported) Cyanocobalamin (Vitamin B-12) (Vitamin B-12) 1,000 Mcg Capsule, 1,000 MCG PO DAILY, (Reported) Eplerenone (Inspra) 50 Mg Tablet, 75 MG PO DAILY, (Reported) PATIENTS DAUGHTER STATES RECENT CHANGE- TOOK 50 MG IN AM, 25 MG AT NOON FOR TOTAL DOSE OF 75 MG DAILY Fluticasone Propionate (Fluticasone Propionate) 16 Gm Jet.susp, 1 SPRAY NA BID, (Reported) Furosemide (Furosemide) 20 Mg Tablet, 40 MG PO DAILY, (Reported) PATIENTS DAUGHTER STATES RECENT CHANGE- TAKES 20 MG IN AM, AND 20 MG AT NOON Lipase/Protease/Amylase (George Walsh 36,000 Units Capsule) 1 Each Capsule., 36,000 UNIT PO WM, (Reported) Montelukast Sodium (Montelukast Sodium) 10 Mg Tablet, 10 MG PO QHS, (Reported) Nadolol (Nadolol) 20 Mg Tablet, 20 MG PO QHS, (Reported) Pantoprazole Sodium (Pantoprazole Sodium) 40 Mg Tablet.dr, 40 MG PO BID, (Reported) Pravastatin Sodium (Pravastatin Sodium) 40 Mg Tablet, 40 MG PO DAILY, (Reported) Rivaroxaban (Xarelto) 20 Mg Tab, 20 MG PO QPM, (Reported) Ursodiol (Ursodiol) 300 Mg Cap, 600 MG PO BID, (Reported) Scheduled PRN Guaifenesin (Guaifenesin) 100 Mg/5 Ml Liquid, 10 ML PO QID PRN for COUGH, (Reported) Allergies Coded Allergies: spironolactone (Verified Adverse Reaction, Intermediate, GYNECOMASTIA, 07/26/19) niacin (Verified Adverse Reaction, Unknown, "sunburn", 07/26/19) Past Medical History Medical History NELSON, liver cirrhosis with decompensation with worsening ascites requiring weekly paracentesis. H/O SBP. Gastroesophageal varices. Atrial fibrillation, on chronic Xarelto. Hypertension. Dyslipidemia. Asthma. Benign prostatic hypertrophy. Nonobstructing left renal calculus. L1 and L4 compression deformities. Surgical History 1. Umbilical hernia repair 2019. 2. Cholecystectomy. Family History Significant Family History: Other (thyroid disease) Social History * Smoker: former Smoker Alcohol: Denies Drugs: denies Previously lived alone, now lives with his daughter. 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 Previous smoker, 1-1/2 packs a day and quit in 1967. Patient does not drink any alcohol, does not take any acetaminophen due to his fatty liver induced liver cirrhosis. He is a FULL CODE. Healthcare proxy is Sonia Burton, phone number is [phone]. A-FIB/CHADSVASC A-FIB History Current/History of A-Fib/PAF?: Yes Current PO Anticoag Therapy: Yes Review of Systems Constitutional: Reports: Weakness, Fatigue; Denies: Chills, Fever, Night Sweats Eyes: Denies: Pain, Vision change ENT: Denies: Head Aches, Ear Pain, Dysphagia Skin: Denies: Rash, Lesions, Breakdown Pulmonary: Denies: Dyspnea, Cough Cardiovascular: Reports: Edema; Denies: Chest Pain, Palpitations, Orthopnea Gastrointestinal: Reports: Abdominal Pain, Diarrhea, Other Symptoms (swelling and distension); Denies: Nausea, Vomiting Genitourinary: Denies: Frequency, Incontinence, Retention Hematologic: Denies: Bruising, Bleeding Excessively Musculoskeletal: Reports: Back Pain Neurological: Denies: Weakness, Numbness, Change in speech, Confusion Physical Examination General Exam: Positive: Alert, Cooperative, No Acute Distress Eye Exam: Positive: PERRLA, Conjunctiva & lids normal, EOMI, Sclera icteric ENT Exam: Positive: Atraumatic, Mucous membr. moist/pink, Pharynx Normal Neck Exam: Positive: Supple; Negative: JVD, thyromegaly Chest Exam: Positive: Clear to auscultation, Normal air movement, Diminished (diminished at the bases) Heart Exam: Positive: Rate Normal, Regular Rhythm, Normal S1, Normal S2; Negative: Murmurs, Rubs Abdomen Exam: Positive: Normal bowel sounds, Soft, Tenderness (in all the quadrants.), Other (ascites); Negative: Hepatospenomegaly Extremity Exam: Positive: Edema (trace edema on the right) Skin Exam: Positive: Nl turgor and temperature; Negative: Breakdown, Lesion Psych Exam: Positive: Memory Intact, Oriented x 3 Vital Signs Vital Signs Date Time Temp Pulse Resp B/P (MAP) Pulse Ox O2 Delivery O2 Flow Rate FiO2 07/26/19 17:14 70 97 07/26/19 15:59 126/77 (93) 07/26/19 15:08 98.5 18 Room Air Laboratory Data Labs 24H Laboratory Tests 2 07/26/19 14:51: Immature Granulocyte % (Auto) 1.5, Neutrophils (%) (Auto) 66.2H, Lymphocytes (%) (Auto) 13.4L, Monocytes (%) (Auto) 13.9H, Eosinophils (%) (Auto) 4.2H, Basophils (%) (Auto) 0.8, Neutrophils # (Auto) 6.6, Lymphocytes # (Auto) 1.3L, Monocytes # (Auto) 1.4H, Eosinophils # (Auto) 0.4, Basophils # (Auto) 0.1, Nucleated Red Blood Cells % (auto) 0.0, Prothrombin Time 29.0H, Prothromb Time International Ratio 2.75, Activated Partial Thromboplast Time 39.5H, Anion Gap 6L, Glomerular Filtration Rate 56.5, Calcium Level 7.8L, Total Bilirubin 3.1H, Direct Bilirubin 2.4H, Aspartate Amino Transf (AST/SGOT) 130H, Alanine Aminotransferase (ALT/SGPT) 72, Alkaline Phosphatase 300H, Ammonia 25, Total Creatine Kinase 64, Creatine Kinase MB 2.0, Creatine Kinase MB Relative Index 3.12, Troponin I < 0.02, Total Protein 6.2L, Albumin 2.3L, Albumin/Globulin Ratio 0.59L, Lipase 629H CBC/BMP Laboratory Tests 07/26/19 14:51 Assessment/Plan 78year old male with 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 Prabhu says that the diarrhea has been going on for the past 3 months about 4 to 5 times a day of varying quantities. His gastrointestinal panel has been negative in the recent past. He also complains that hs urine is orange in color. He was recently at [facility] last week and had paracentesis there also. he was discharged 4 days ago. Today his INR was elevated to 2.75 so paracentesis was deferred by radiology till his INR comes down below 1.7. patient was admitted for massive ascites needing paracentesis. Decompensated Cirrhosis of Liver MELD- na score is Child Urias C due to NELSON with H/O SBP in june 2019, Gastroesophageal varices. No hepatic encephalopathy patient not on fluid restriction and salt restriction at home. his diuretics are also not optimized. ordered for paracentesis for tomorrow. Will give 3 units of 25% albumin, 1 tonight , one before paracentesis and one after paracentesis Xarelto stopped on 07/24/19, INR remains at 2.75 will give vit K. If INR still not optimal for paracentesis will give FFP tomorrow am. 4 units ordered for am. in the meantime will give IV lasix and spironolactone.;( At home he is on eplerenone 50+ 25 daily and Lasix 20mg bid), continue Nadolol. Continue ciprofloxacin. On discharge will set up with radiology for weekly outpatient paracentasis till his fluid status is optimized by medications Discussed with Dr Doty his mint wafer depositor at [facility]. As per him patient's lasix should be increased to 80 mg daily on discharge and to continue eplerone current dosage of 75 mg. Patient has an appointment with Dr Doty on Friday. Patient not a candidate for TIPS as he is Child Urias's stage c. Discussed with Dr Hatfield about placement of pleurx cath as per him it is not indicated as very high risk for infection the recommendation is diet and fluid restriction, medical optimization and weekly paracentesis till volume is optimized. @ gm na diet and fluid restriction 1.2 to 1.5 liters. Avoid Benzodiazepines, NSAIDs, sedating medications. Tylenol <2gm/day dose is safe in cirrhotic patients who do not consume alcohol. will consult GI. Atrial fibrillation, on chronic Xarelto. discussed with Dr Gonzalez. As he now has decompensation of his cirrhosis with high INRs his XXarelto needs to be discontinued Patient will be taken off xarelto. continue nadolol. Chronic diarrhea ? etiology not on any laxatives, GI panel negative before on Ursodiol and creon will continue. Hypertension. Nadolol Dyslipidemia. statin. Asthma. symbicort, singulair, loratadine Benign prostatic hypertrophy. flomax GERD pantoprazole L1 and L4 compression deformities. Plan / VTE VTE Prophylaxis Ordered?: Yes SHAHRIAR NEGRO MD July 26, 2019 17:34
[2019-07-26] MEDS ORDERED: ALBUTEROL 90 MCG/ACT 8GM HFA INHALER INH PRN (22:45)
--- NOTE | 2019-07-26 23:15 | REP ---
CHEST, SINGLE VIEW: Single view of the chest is performed and compared to prior study of 07/19/2019. There is poor ventilation. There is mild elevation of the right hemidiaphragm again noted. I see no acute infiltrate. There is mild cardiomegaly and left ventricular prominence. There is calcification of the thoracic aorta. Mediastinal silhouette is unchanged. IMPRESSION: Mild cardiomegaly. No acute pulmonary disease. Electronically Signed by Tarik Santos MD 07/27/2019 09:18 A
[2019-07-27] VITALS (14 sets, daily range): BP systolic 102–129; BP diastolic 54–72
[2019-07-27] MEDS: CIPROFLOXACIN 500MG TABLET PO SCH (06:16)
[2019-07-27 06:22] LABS: BASO # 0.1 10^3/uL (0.0-0.2); BASO % 0.9 % (0.0-1.0); EOS # 0.3 10^3/uL (0.0-0.5); EOS % 4.1 % (0.0-3.0); HEMATOCRIT 36.3 % (42.0-52.0); LYMPH # 1.1 10^3/uL (1.5-5.0); MEAN CORPUSCULAR HGB CONC 34.7 g/dl (32.0-36.5); MEAN CORPUSCULAR VOLUME 100.8 fl (80.0-96.0); MONO # 0.9 10^3/uL (0.0-0.8); NEUTROPHILS # 4.6 10^3/uL (1.5-8.5); NEUTROPHILS % 66.1 % (36.0-66.0); PLATELET COUNT, AUTOMATED 108 10^3/uL (150-450)
[2019-07-27 06:37] LABS: HEMOGLOBIN 12.6 g/dl (13.5-17.5)
[2019-07-27 06:38] LABS: INR 2.05; PROTHROMBIN TIME 22.9 SECONDS (11.8-14.0)
[2019-07-27 06:45] LABS: ALBUMIN 2.2 GM/DL (3.2-5.2); BILIRUBIN,TOTAL 2.4 MG/DL (0.2-1.0); CALCIUM LEVEL 7.7 MG/DL (8.8-10.2); CREATININE FOR GFR 1.25 MG/DL (0.70-1.30); GLOMERULAR FILTRATION RATE 59.6 (>42); POTASSIUM SERUM 3.5 MEQ/L (3.5-5.1); TOTAL PROTEIN 5.3 GM/DL (6.4-8.2)
[2019-07-27] MEDS: ursodioL 300 MG CAP PO SCH ×2 (07:44→22:48)
[2019-07-27] MEDS: CYANOCOBALAMIN 500 MCG TAB PO SCH (07:44)
[2019-07-27] MEDS: CREON-24 CAPSULE PO SCH ×3 (07:44→17:05)
[2019-07-27] MEDS: CREON-12 CAPSULE PO SCH ×3 (07:44→17:05)
[2019-07-27] MEDS: SPIRONOLACTONE 25 MG TAB PO SCH (07:44)
[2019-07-27] MEDS: FUROSEMIDE 40MG/4ML VIAL (J1940) IV SCH ×2 (07:45→17:49)
[2019-07-27] MEDS: PANTOPRAZOLE 40MG TAB (PROTONIX) PO SCH ×2 (07:45→21:12)
[2019-07-27] MEDS: FLUTICASONE PROP 0.05% NASAL SPRAY 16 GM (FLONASE) SCH ×2 (07:45→21:12)
[2019-07-27] MEDS ORDERED: ENOXAPARIN 40MG/0.4ML SYRINGE (J1650 PER 10MG) SC SCH (09:00)
--- NOTE | 2019-07-27 09:28 | IPNPDOC ---
Date Seen The patient was seen on 07/27/19. Progress Note chronic AFib-rate controlled, xarelto held for paracentesis if inr<1.7 VS, I&O, 24H, Arin Vital Signs/I&O Vital Signs Date Time Temp Pulse Resp B/P (MAP) Pulse Ox O2 Delivery O2 Flow Rate FiO2 07/27/19 09:01 96.9 76 18 116/67 96 Room Air I&O- Last 24 Hours up to 6 AM 07/27/19 06:00 Intake Total 640.0 ml Output Total 900 ml Balance -260.0 ml Laboratory Data 24H LABS Laboratory Tests 2 07/26/19 14:51: Immature Granulocyte % (Auto) 1.5, Neutrophils (%) (Auto) 66.2H, Lymphocytes (%) (Auto) 13.4L, Monocytes (%) (Auto) 13.9H, Eosinophils (%) (Auto) 4.2H, Basophils (%) (Auto) 0.8, Neutrophils # (Auto) 6.6, Lymphocytes # (Auto) 1.3L, Monocytes # (Auto) 1.4H, Eosinophils # (Auto) 0.4, Basophils # (Auto) 0.1, Nucleated Red Blood Cells % (auto) 0.0, Prothrombin Time 29.0H, Prothromb Time International Ratio 2.75, Activated Partial Thromboplast Time 39.5H, Anion Gap 6L, Glomerular Filtration Rate 56.5, Calcium Level 7.8L, Total Bilirubin 3.1H, Direct Bilirubin 2.4H, Aspartate Amino Transf (AST/SGOT) 130H, Alanine Aminotransferase (ALT/SGPT) 72, Alkaline Phosphatase 300H, Ammonia 25, Total Creatine Kinase 64, Creatine Kinase MB 2.0, Creatine Kinase MB Relative Index 3.12, Troponin I < 0.02, Total Protein 6.2L, Albumin 2.3L, Albumin/Globulin Ratio 0.59L, Lipase 629H 07/27/19 05:46: Immature Granulocyte % (Auto) 0.9, Neutrophils (%) (Auto) 66.1H, Lymphocytes (%) (Auto) 15.0L, Monocytes (%) (Auto) 13.0H, Eosinophils (%) (Auto) 4.1H, Basophils (%) (Auto) 0.9, Neutrophils # (Auto) 4.6, Lymphocytes # (Auto) 1.1L, Monocytes # (Auto) 0.9H, Eosinophils # (Auto) 0.3, Basophils # (Auto) 0.1, Nucleated Red Bl ood Cells % (auto) 0.0, Prothrombin Time 22.9H, Prothromb Time International Ratio 2.05, Anion Gap 7L, Glomerular Filtration Rate 59.6, Calcium Level 7.7L, Total Bilirubin 2.4H, Aspartate Amino Transf (AST/SGOT) 99H, Alanine Aminotransferase (ALT/SGPT) 56, Alkaline Phosphatase 235H, Total Protein 5.3L, Albumin 2.2L, Albumin/Globulin Ratio 0.71L CBC/BMP Laboratory Tests 07/26/19 14:51 07/27/19 05:46 GRACIA KAT MD July 27, 2019 09:27
--- NOTE | 2019-07-27 11:22 | CR.PDOC ---
General Date of Consultation: July 27, 2019 Referring Provider: SHAHRIAR DOYLE MD Attending Physician: BAUTISTA GRANT MD Consultation Primary physician/ hospitalist: Dr. Doyle Reason for consult: Decompensated Liver Cirrhosis w/ Refractory Ascites HPI: -- Patient is a 78 year old male with hypertension, hyperlipidemia, bronchial asthma, atrial fibrillation on Xarelto, BPH, and Liver cirrhosis (CTP C; MELD-Na 22) secondary to NELSON with history of prior esophageal varices, ascites, and spontaneous bacterial peritonitis who presented to [facility] with complaint of abdominal pain and distension and difficulty breathing for the past 1-2 weeks. Patient was recently discharged from [facility] in June after being treated for SBP and placed on supervisor long goods prophylaxis. He stated that since discharge he had taken his medications appropriately. He states that he tries to follow a no-added salt diet. He states that over the past week he has gained over 10 lbs. He noticed that his abdomen was becoming larger and causing discomfort. He states that he came in because he felt like he was having difficulty breathing. He denies any fevers. He denies any hematemesis. He states that he has approximately 3-4 loose stools a day. He denies any blood in his stool. Pertinent negative GI symptoms: Patient denies fever, sick contacts, recent travel, vomiting, loss of appetite, early satiety or unintentional weight loss. No history of hematemesis, melena or hematochezia. Review of Systems: GI: Patient reports loose stools, nausea, and abdominal pain and swelling CVS: Denies chest pain, palpitations, or feelings of the heart racing RS: Admits to shortness of breath. Denies cough. Denies wheezing. Denies sputum production SACK CLEANER: Admits to feelings of fatigue and generalized weakness. Denies dizziness. Denies confusion Hematology: No bruising, No gum bleeding, Musculoskeletal: No joint pain, ambulating well. Skin: No rash : Denies dysuria, increase frequency, or urgency ENT: No ear discharge/ pain, No dysphagia. Eyes: No photophobia. Has mild Jaundice Home medications: reviewed. Antithrombotic agents - Xarelto Medical h/o: As above. Surgical h/o: None on abdomen. Social h/o: Denies alcohol use. Denies tobacco products. Denies IV or illicit drug use Family h/o of GI cancers - None Prior Endoscopies: Last EGD 1 year ago. Currently follows with GI in [facility] Exam: Vitals: reviewed General: Awake, alert, and oriented. Lying comfortably in bed. Does not appear in any acute distress HEENT: No mucosal pallor. Mucous membranes are pink and moist. Mild scleral icterus present. No palpable cervical, axillary or supraclavicular lymphadenopathy Chest: Clear vesicular breath sounds bilaterally. Decreased breath sounds in the bases bilaterally with slight dullness to percussion. Symmetric chest expansion. No accessory muscle use CVS: Normal S1, S2. Irregularly irregular rhythm with regular rate. No clicks, rubs, or murmurs Abdomen: Distended. Soft. No tenderness. No rigidity or guarding. No surgical scars. No palpable masses or hernias. Normoactive bowel sounds Rectal exam: Deferred Extremities: No edema. Full and equal pulses in bilateral upper and lower extremities SACK CLEANER: No focal neurological deficits Skin: No rashes Labs: reviewed. Imaging: reviewed. Immunizations: Hep A IMMUNE. Hep B Not Immune. Impression: Patient is a 78 year old male with known liver cirrhosis secondary to NELSON (CTP C; MELD-Na 22) with prior esophageal varices ( Last EGD within 1 year), Decompensated with spontaneous bacterial peritonitis in June 2019, treated, currently on halfway prophylaxis, and tense ascites, and no prior hepatic encephalopathy. -- Uncontrolled and Tense ascites could be due to dietary non-compliance and possibly due to recent SBP. Needs optimization of diuretic therapy. Recommendations: - Patient educated about the test results, possible differential diagnoses and All questions answered. - Recommend diagnostic/ therapeutic paracentesis due to tense ascites. Please send the fluid for analysis - cell counts, Albumin, protein, culture and gram stain. - Also please give albumin atleast 6 - 8 gm/ every liter of fluid removed. - Continue Ciprofloxacin for SBP prophylaxis - Monitor Renal Function -- Daily BUN/ Cr, strict monitoring of the Urinary outp ut. and obtain Urine sodium and creatinine. - Adjust the diuretic doses for adequate diuresis -- Increase Lasix dose to 40mg twice daily and continue on eplerenone 75 daily for now. repeat above labs ( BMP, Urine Sodium Creatinine in 2 days) - Continue Nadolol 20mg. . . - Low sodium diet. High protein - Further work up for diarrhea with stool tests if persistent or worsening. - Follow-up with PCP and Primary GI upon discharge Routine care for Liver cirrhosis: 1) Alcohol cessation/abstinence. Alcohol consumption worsens liver disease even in small quantities when you have underlying cirrhosis. 2) Hepatocellular cancer screening: Twice yearly -- ultrasound and AFP level. 3) Esophageal Variceal screening: At least every 3 years if not taking nonselective beta juan daniel. 4) Vaccination: Hepatitis A, hepatitis B and pneumococcal vaccine if not taken before. Yearly influenza vaccine. 5) Bone health: Bone density every 3 years and measurement of vitamin D level twice yearly. 6) Nutrition: Low sodium ( <2gm/day) diet and high-protein diet ( 1.6 gm/ kg body weight). Patients with encephalopathy, benefit from protein snack in the evening. 7) Medications to avoid: Benzodiazepines, NSAIDs, sedating medications. Use opioids only when absolutely necessary. 8) Tylenol <2gm/day dose is safe in cirrhotic patients who do not consume alcohol. 9) Patient with prior encephalopathy should be on lactulose (with or without rifaximin) and must have 1-2 soft or loose bowel movements daily. Plan of care discussed with patient and primary team. Patient verbalized understanding and agreed with the plan. Vital Signs/I&O Vital Signs Date Time Temp Pulse Resp B/P (MAP) Pulse Ox O2 Delivery O2 Flow Rate FiO2 07/27/19 09:45 97.1 75 18 129/65 96 Room Air I&O- Last 24 Hours up to 6 AM 07/27/19 06:00 Intake Total 640.0 ml Output Total 900 ml Balance -260.0 ml Laboratory Data Labs 24H Laboratory Tests 2 07/26/19 14:51: Immature Granulocyte % (Auto) 1.5, Neutrophils (%) (Auto) 66.2H, Lymphocytes (%) (Auto) 13.4L, Monocytes (%) (Auto) 13.9H, Eosinophils (%) (Auto) 4.2H, Basophils (%) (Auto) 0.8, Neutrophils # (Auto) 6.6, Lymphocytes # (Auto) 1.3L, Monocytes # (Auto) 1.4H, Eosinophils # (Auto) 0.4, Basophils # (Auto) 0.1, Nucleated Red Blood Cells % (auto) 0.0, Prothrombin Time 29.0H, Prothromb Time International Ratio 2.75, Activated Partial Thromboplast Time 39.5H, Anion Gap 6L, Glomerular Filtration Rate 56.5, Calcium Level 7.8L, Total Bilirubin 3.1H, Direct Bilirubin 2.4H, Aspartate Amino Transf (AST/SGOT) 130H, Alanine Aminotransferase (ALT/SGPT) 72, Alkaline Phosphatase 300H, Ammonia 25, Total Creatine Kinase 64, Creatine Kinase MB 2.0, Creatine Kinase MB Relative Index 3.12, Troponin I < 0.02, Total Protein 6.2L, Albumin 2.3L, Albumin/Globulin Ratio 0.59L, Lipase 629H 07/27/19 05:46: Immature Granulocyte % (Auto) 0.9, Neutrophils (%) (Auto) 66.1H, Lymphocytes (%) (Auto) 15.0L, Monocytes (%) (Auto) 13.0H, Eosinophils (%) (Auto) 4.1H, Basophils (%) (Auto) 0.9, Neutrophils # (Auto) 4.6, Lymphocytes # (Auto) 1.1L, Monocytes # (Auto) 0.9H, Eosinophils # (Auto) 0.3, Basophils # (Auto) 0.1, Nucleated Red Blood Cells % (auto) 0.0, Prothrombin Time 22.9H, Prothromb Time International Ratio 2.05, Anion Gap 7L, Glomerular Filtration Rate 59.6, Calcium Level 7.7L, Total Bilirubin 2.4H, Aspartate Amino Transf (AST/SGOT) 99H, Alanine Aminotransferase (ALT/SGPT) 56, Alkaline Phosphatase 235H, Total Protein 5.3L, Albumin 2.2L, Albumin/Globulin Ratio 0.71L CBC/BMP Laboratory Tests 07/26/19 14:51 07/27/19 05:46 Allergies Coded Allergies: spironolactone (Verified Adverse Reaction, Intermediate, GYNECOMASTIA, 07/26/19) niacin (Verified Adverse Reaction, Unknown, "sunburn", 07/26/19) Home Medications Scheduled Budesonide/Formoterol (Symbicort 160-4.5 Mcg Inhaler) 6 Gm Hfa.aer.ad, 2 PUFF INH BID, (Reported) Cetirizine HCl (ZyrTEC) 10 Mg Capsule, 10 MG PO QHS, (Reported) Ciprofloxacin HCl (Ciprofloxacin HCl) 500 Mg Tablet, 500 MG PO DAILY, (Reported) Cyanocobalamin (Vitamin B-12) (Vitamin B-12) 1,000 Mcg Capsule, 1,000 MCG PO DAILY, (Reported) Eplerenone (Inspra) 50 Mg Tablet, 75 MG PO DAILY, (Reported) PATIENTS DAUGHTER STATES RECENT CHANGE- TOOK 50 MG IN AM, 25 MG AT NOON FOR TOTAL DOSE OF 75 MG DAILY Fluticasone Propionate (Fluticasone Propionate) 16 Gm [place].susp, 1 SPRAY NA BID, (Reported) Furosemide (Lasix) 40 Mg Tablet, 40 MG PO BID for 30 Days, #60 Lipase/Protease/Amylase (Creon Dr 36,000 Units Capsule) 1 Each Capsule.dr, 36,000 UNIT PO WM, (Reported) Montelukast Sodium (Montelukast Sodium) 10 Mg Tablet, 10 MG PO QHS, (Reported) Nadolol (Nadolol) 20 Mg Tablet, 20 MG PO QHS, (Reported) Pancreatic Enzymes (Creon Dr 24,000 Units Capsule) 1 Each Capsule.dr, 1 EA PO WM for 30 Days, #90 Pancreatic Enzymes (Creon Dr 12,000 Units Capsule) 1 Each Capsule.dr, 1 EA PO WM for 30 Days, #90 Pantoprazole Sodium (Pantoprazole Sodium) 40 Mg Tablet.dr, 40 MG PO BID, (Reported) Pravastatin Sodium (Pravastatin Sodium) 40 Mg Tablet, 40 MG PO DAILY, (Reported) Ursodiol (Ursodiol) 300 Mg Cap, 600 MG PO BID, (Reported) Scheduled PRN Guaifenesin (Guaifenesin) 100 Mg/5 Ml Liquid, 10 ML PO QID PRN for COUGH, (Reported) JI SCHAEFFER DO July 27, 2019 10:26 BAUTISTA GRANT MD July 28, 2019 09:31
[2019-07-27] MEDS: SYMBICORT 160/4.5MCG INHALER 6GM INH SCH ×2 (12:16→19:36)
[2019-07-27 12:37] LABS: INR 1.57; PROTHROMBIN TIME 18.5 SECONDS (11.8-14.0)
[2019-07-27] MEDS ORDERED: CREO24CA PO (16:55)
[2019-07-27] MEDS ORDERED: CREO12CA PO (16:55)
[2019-07-27] MEDS ORDERED: ALDA25TA2 PO (16:55)
[2019-07-27] MEDS ORDERED: LASI40TA9 PO (17:37)
[2019-07-27] MEDS: NADOLOL 20MG TABLET PO SCH (21:11)
[2019-07-27] MEDS: PRAVASTATIN 20 MG TAB PO SCH (21:12)
[2019-07-27] MEDS: MONTELUKAST 10 MG TAB PO SCH (21:12)
[2019-07-28 06:00] VITALS: BP 107/52
[2019-07-28] MEDS: CIPROFLOXACIN 500MG TABLET PO SCH (06:10)
[2019-07-28 06:13] LABS: BASO % 0.4 % (0.0-1.0); EOS # 0.2 10^3/uL (0.0-0.5); EOS % 3.8 % (0.0-3.0); HEMATOCRIT 32.9 % (42.0-52.0); HEMOGLOBIN 11.7 g/dl (13.5-17.5); LYMPH # 0.8 10^3/uL (1.5-5.0); LYMPH % 16.9 % (24.0-44.0); MEAN CORPUSCULAR HGB CONC 35.6 g/dl (32.0-36.5); MEAN CORPUSCULAR VOLUME 98.5 fl (80.0-96.0); MONO # 0.6 10^3/uL (0.0-0.8); MONO % 13.5 % (0.0-5.0); NEUTROPHILS # 2.9 10^3/uL (1.5-8.5); NEUTROPHILS % 64.5 % (36.0-66.0); RED BLOOD COUNT 3.34 10^6/uL (4.30-6.10); WHITE BLOOD COUNT 4.5 10^3/uL (4.0-10.0)
[2019-07-28 06:36] LABS: ALBUMIN 2.2 GM/DL (3.2-5.2); ALT/SGPT 46 U/L (12-78); BILIRUBIN,TOTAL 2.5 MG/DL (0.2-1.0); BLOOD UREA NITROGEN 18 MG/DL (7-18); CALCIUM LEVEL 7.9 MG/DL (8.8-10.2); CARBON DIOXIDE LEVEL 27 MEQ/L (21-32); CHLORIDE LEVEL 105 MEQ/L (98-107); CREATININE FOR GFR 1.08 MG/DL (0.70-1.30); GLOMERULAR FILTRATION RATE > 60.0 (>42); GLUCOSE, FASTING 89 MG/DL (70-100); POTASSIUM SERUM 3.2 MEQ/L (3.5-5.1); SODIUM LEVEL 138 MEQ/L (136-145); TOTAL PROTEIN 5.1 GM/DL (6.4-8.2)
[2019-07-28 06:46] LABS: INR 1.36; PROTHROMBIN TIME 16.5 SECONDS (11.8-14.0)
[2019-07-28 06:47] LABS: PLATELET COUNT, AUTOMATED 71 10^3/uL (150-450)
[2019-07-28] MEDS: SYMBICORT 160/4.5MCG INHALER 6GM INH SCH (07:22)
--- NOTE | 2019-07-28 07:53 | IPN ---
DATE OF SERVICE: 07/27/2019 SUBJECTIVE: The patient is sleeping comfortably lying on his left side. He says he is slightly short of breath, but saturating 93% to 98% on room air. No cough, fever, or chills overnight. The patient was admitted for moderate ascites due to nonalcoholic steatohepatitis, liver cirrhosis, off of his anticoagulation secondary to plans for paracentesis. The patient has no chest pain, pressure or tightness. No nausea or vomiting. He has abdominal discomfort rated at 3/10, especially when he tries to move and standup and walk. OBJECTIVE: Temperature 98.6, pulse 69, respiratory rate 17, blood pressure 102/62, 93% on room air. Generally, anicteric. No jaundice. No jugular venous distention (JVD) or thyromegaly. Lungs: Diminished with fine crackles at the bases. Heart: S1, S2. Sinus rhythm. Abdomen: Obese. Soft. Positive fluid wave. Distended. Extremities: Positive edema trace bilaterally. LABORATORY DATA: White count 7, hemoglobin 12, hematocrit 36, platelet count 108. Previous plate count 180. Sodium 136, potassium 3.5, chloride 103, bicarbonate 26, BUN 21, creatinine 1.25, glucose 105, calcium 7.7. Ammonia 25. ASSESSMENT AND PLAN: This is a 78-year-old male with history of nonalcoholic steatohepatitis with liver cirrhosis, recurrent ascites, spontaneous bacterial peritonitis (SBP), needing weekly paracentesis for the past one month with decompensated cirrhosis Child-Urias C. The patient presents with worsening abdominal distention, abdominal pain, without nausea or vomiting, fever or chills, with some diarrhea for the past two days. The patient's INR was elevated at 2.75. His Xarelto had been held for planned paracentesis. CURRENT ISSUES: 1. Nonalcoholic steatohepatitis with decompensated liver cirrhosis Child-Urias Class C with decompensated ascites requiring weekly paracentesis. According to his insurance law specialist, the patient is not a candidate for a TIPS procedure or liver transplant. He does have a history of SBP, but currently has no fever. Paracentesis is planned today if INR can be less than 1.7 after fresh frozen plasma (FFP) pheresis. The patient's Xarelto has been held. He has been given vitamin K yesterday. His INR today is still 2.0. 2. Chronic Atrial fibrillation -rate controlled. previously on AC. Anticoagulation has been held secondary to planned paracentesis today. Per Dr. Gonzalez, patient's shredder tender peat, discontinue anticoagulation due to chronically elevated INR due to history of liver cirrhosis and due to increased risk of bleeding. 3. Gastroesophageal varices. The patient is not a candidate for TIPS procedure according to his insurance law specialist. Will continue with weekly paracentesis and continue with diuresis with chronic eplerenone and furosemide. 4. History of asthma. Currently has no wheezing on examination. As needed nebulizers. Continue montelukast. 5. Dyslipidemia. On chronic pravastatin. 6. Benign prostatic hypertrophy (BPH). No acute issues. Patient is urinating well. 7. Hypertension. The patient is on chronic Lasix, nadolol. 8. Allergic rhinitis. Continue on Zyrtec. 9. Nonobstructing left renal calculus. No acute issues. No hematuria in the urine. 10. History of L1 and L4 compression deformities. No complaints of back pain. DISPOSITION: One to two days of hospital stay. We are awaiting the INR to be below 1.7. FFP pheresis today and paracentesis. Physical therapy (PT) evaluation and treatment and home safety evaluation. Hopefully, discharge in one to two days. JENSEN
[2019-07-28] MEDS ORDERED: POTASSIUM CHLORIDE 10 MEQ SR TABLET PO ONE (08:00)
[2019-07-28] MEDS: CREON-12 CAPSULE PO SCH ×2 (08:11→12:12)
[2019-07-28] MEDS: PANTOPRAZOLE 40MG TAB (PROTONIX) PO SCH (08:11)
[2019-07-28] MEDS: ursodioL 300 MG CAP PO SCH (08:11)
[2019-07-28] MEDS: CREON-24 CAPSULE PO SCH ×2 (08:11→12:12)
[2019-07-28] MEDS: CYANOCOBALAMIN 500 MCG TAB PO SCH (08:11)
[2019-07-28] MEDS: SPIRONOLACTONE 25 MG TAB PO SCH (08:11)
[2019-07-28] MEDS: FUROSEMIDE 40MG/4ML VIAL (J1940) IV SCH (08:11)
[2019-07-28] MEDS: FLUTICASONE PROP 0.05% NASAL SPRAY 16 GM (FLONASE) SCH (08:12)
--- NOTE | 2019-07-28 11:07 | REP ---
Ultrasound-guided paracentesis The procedure was performed under the direct supervision of Dr. Santos. The risks and benefits of the procedure were explained to the patient and informed consent was obtained. The largest pocket of fluid was localized in the left flank using ultrasound guidance. The skin was prepped and draped in a sterile fashion. 1% lidocaine was used as a local anesthetic. An 8-Irish multi side-hole catheter was inserted using trocar technique. 5200 ml of yellow fluid was withdrawn and discarded. The patient tolerated the procedure well and there were no immediate complications. After the appropriate amount of monitored convalescence the patient was discharged from the department. Electronically Signed by NIKKI Carvalho 07/27/2019 04:49 P Electronically Signed by Tarik Santos MD 07/27/2019 08:09 P
--- NOTE | 2019-07-28 16:16 | IPN ---
DATE: 07/28/2019 Patient is status post paracentesis yesterday with 5.2 liters removed. He denies any lightheadedness or dizziness this morning. He has 3/10 pain but does not want any pain medications. Describing achiness across the abdomen. No fevers or chills overnight. No shortness of breath. Temperature 98.3, pulse 63, respiratory rate 14, blood pressure 107/52, 94% on room air. GENERAL: Patient is awake, alert, oriented to person, place, and time, answering questions appropriately. No jugular venous distention (JVD). No thyromegaly. No cervical lymphadenopathy. No pharyngeal erythema. Pupils round, reactive to light and accommodation. LUNGS: Diminished but clear to auscultation. No wheezing or rales. HEART: S1, S2, sinus rhythm. No murmurs, rubs, or gallops. ABDOMEN: Soft, obese, nondistended. Slight tender diffusely. No fluid wave. EXTREMITIES: Positive edema bilaterally. White count 4.5, hemoglobin 11, hematocrit 32, platelet count 71, previous platelet count of 108. Sodium 138, potassium 3.2, chloride 105, bicarbonate 27, BUN 18, creatinine 1.08, glucose 89. ASSESSMENT AND PLAN: This is a 78-year-old DO NOT RESUSCITATE, DO NOT INTUBATE patient with a history of nonalcoholic steatohepatitis with liver cirrhosis, recurrent ascites, spontaneous bacterial peritonitis (SBP), requiring weekly paracentesis for the past month with decompensated Child-Urias C. According to his dietary services manager, patient is to increase his Lasix to 80 mg total dose daily and according to his upholstery mechanic to be off Eliquis due to coagulopathy secondary to liver cirrhosis. Patient was admitted due to abdominal distention and pain without nausea, vomiting, fever, or chills and diarrhea for 2 days. His INR on admission was 2.75. Xarelto had been held and discontinued for paracentesis. IMPRESSION: 1. Nonalcoholic steatohepatitis with acute decompensated liver cirrhosis, Child-Urias class C, with recurrent ascites, requiring weekly paracentesis. Due to severity of his liver cirrhosis, patient is not a candidate for post transjugular intrahepatic portosystemic shun (TIPS) or liver transplant and no PleurX catheter is to be placed. His upholstery mechanic agreed that Xarelto should be discontinued due to his coagulopathy from liver cirrhosis. Patient had paracentesis done on 07/27/2019 with 5.2 liters removed. Patient was given albumin infusion after every 12 hours. According to his dietary services manager, he is to be continued on his home dose of eplerenone, Lasix, and nadolol as well as weekly paracentesis and antibiotics. 2. Atrial fibrillation. Anticoagulation has been discontinued due to coagulopathy from liver cirrhosis. Per Dr. Gonzalez, patient's upholstery mechanic, he appears to be rate controlled. Chronic atrial fibrillation, rate controlled off Eliquis. 3. Gastroesophageal varices, not a candidate for TIPS. Will need weekly paracentesis. Off anticoagulation due to risk of gastrointestinal (GI) bleed. 4. History of asthma. No wheezing. On montelukast. 5. Dyslipidemia, on pravastatin. 6. BPH. No acute issues. 7. Hypertension with soft blood pressure. Currently on Lasix, eplerenone, nadolol. 8. Allergic rhinitis, on Zyrtec. 9. Non-obstructing left renal calculus. No acute pain. 10. 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 DISPOSITION: Awaiting physical therapy (PT) and home safety evaluation. May be discharged home with home care if passes. Patient is open to palliative care but does not want hospice at this time. He said his father was on hospice, and he is not ready for this at this time.
== END 2019-07-28 13:40 | disposition home health service (06) | DRG 433 ==
LOC: M ED 14:16 → M ED INP 17:25 → ENRESERV 18:32 → M MS5PR 19:00
PROVIDERS: ADMIT Internal Medicine Nephrology; ATTEND General Practice
PROC: 30233K1 Transfusion of Nonautologous Frozen Plasma into Peripheral Vein, Percutaneous Approach (ICD-10-PCS; 2019-07-26)
PROC: 30233J1 Transfusion of Nonautologous Serum Albumin into Peripheral Vein, Percutaneous Approach (ICD-10-PCS; 2019-07-26)
PROC: 0W9G3ZZ Drainage of Peritoneal Cavity, Percutaneous Approach (ICD-10-PCS; principal; 2019-07-27 15:45)
DX: K74.60 Unspecified cirrhosis of liver (principal); R18.8 Other ascites; I85.10 Secondary esophageal varices without bleeding; I48.20 Chronic atrial fibrillation, unspecified; D68.4 Acquired coagulation factor deficiency; K75.81 Nonalcoholic steatohepatitis (NASH); K52.9 Noninfective gastroenteritis and colitis, unspecified; I10 Essential (primary) hypertension; E78.5 Hyperlipidemia, unspecified; J45.909 Unspecified asthma, uncomplicated; N40.0 Benign prostatic hyperplasia without lower urinary tract symptoms; N20.0 Calculus of kidney; Z90.49 Acquired absence of other specified parts of digestive tract; Z87.891 Personal history of nicotine dependence; Z88.8 Allergy status to other drugs, medicaments and biological substances; Z79.01 Long term (current) use of anticoagulants; Z79.899 Other long term (current) drug therapy

== ENCOUNTER → 2019-08-05 | Outpatient (CLI) | payer MEDICARE, OTHER ==
[~2019-08-05] MED LIST changes: +ALBU83IN IH; +ALDA25TA2 PO; +AMIL5TAB4 PO; +CIPR500T3 PO; +CREO24CA PO; +GUAI100L6 PO; +INSP50TA PO; +LASI40TA9 PO; +PROT1TAB2 PO
[2019-08-05 13:10] VITALS: BP 106/59
--- NOTE | 2019-08-05 15:17 | REP ---
Ultrasound-guided paracentesis The procedure was performed under the direct supervision of Dr. Santos. The risks and benefits of the procedure were explained to the patient and informed consent was obtained. The largest pocket of fluid was localized in the right flank using ultrasound guidance. The skin was prepped and draped in a sterile fashion. 1% lidocaine was used as a local anesthetic. Using ultrasound guidance an 8-Finnish multi side-hole catheter was inserted using trocar technique. 4500 ml of yellow fluid was withdrawn and discarded. The patient tolerated the procedure well and there were no immediate complications. After the appropriate amount of monitored convalescence the patient was discharged from the department. Electronically Signed by NIKKI Carvalho 08/05/2019 03:09 P Electronically Signed by Tarik Santos MD 08/05/2019 03:09 P
== END ==
LOC: M IRPRO 11:49
DX: K74.60 Unspecified cirrhosis of liver (principal); R18.8 Other ascites
CPT/HCPCS: 49083; P9047

== ENCOUNTER → 2019-08-10 | Outpatient (REF) | payer MEDICARE, OTHER ==
[2019-08-10 18:26] LABS: CALCIUM LEVEL 7.8 MG/DL (8.8-10.2); CREATININE FOR GFR 1.55 MG/DL (0.70-1.30); GLOMERULAR FILTRATION RATE 46.5 (>42); POTASSIUM SERUM 3.2 MEQ/L (3.5-5.1)
[2019-08-10 18:53] LABS: HEMATOCRIT 37.7 % (42.0-52.0); HEMOGLOBIN 13.1 g/dl (13.5-17.5); MEAN CORPUSCULAR HEMOGLOBIN 34.5 pg (27.0-33.0); MEAN CORPUSCULAR HGB CONC 34.7 g/dl (32.0-36.5); MEAN CORPUSCULAR VOLUME 99.2 fl (80.0-96.0); PLATELET COUNT, AUTOMATED 114 10^3/uL (150-450)
[2019-08-10 19:06] LABS: INR 1.26; PARTIAL THROMBOPLASTIN TIME 33.4 SECONDS (25.0-38.4); PROTHROMBIN TIME 15.5 SECONDS (11.8-14.0)
== END ==
LOC: M SHH 14:46
DX: K74.60 Unspecified cirrhosis of liver (principal); R18.8 Other ascites

== ENCOUNTER → 2019-08-10 | Outpatient (REF) | payer MEDICARE, OTHER ==
[2019-08-10 20:23] LABS: CALCIUM LEVEL 7.8 MG/DL (8.8-10.2); CREATININE FOR GFR 1.55 MG/DL (0.70-1.30); GLOMERULAR FILTRATION RATE 46.5 (>42); POTASSIUM SERUM 3.2 MEQ/L (3.5-5.1)
== END ==
LOC: M SHH 14:43
PROVIDERS: ATTEND Internal Medicine
DX: R18.8 Other ascites (principal); K74.60 Unspecified cirrhosis of liver

== ENCOUNTER → 2019-08-13 | Outpatient (CLI) | payer MEDICARE, OTHER ==
[~2019-08-13] MED LIST changes: +SODIUM BICARBONATE 8.4% INJ 50MEQ 50 ML VIAL As Ordered ONE
[2019-08-13 14:33] VITALS: BP 114/59
--- NOTE | 2019-08-16 17:16 | REP ---
Ultrasound-guided paracentesis The procedure was performed under the direct supervision of Dr. Santos. The risks and benefits of the procedure were explained to the patient and informed consent was obtained. The largest pocket of fluid was localized in the right flank using ultrasound guidance. The skin was prepped and draped in a sterile fashion. 1% lidocaine was used as a local anesthetic. Using ultrasound guidance an 8-Faroese multi side-hole catheter was inserted using trocar technique. 3900 ml of yellow fluid was withdrawn and discarded. The patient tolerated the procedure well and there were no immediate complications. After the appropriate amount of monitored convalescence the patient was discharged from the department. Electronically Signed by NIKKI Carvalho 08/16/2019 04:31 P Electronically Signed by Tarik Santos MD 08/16/2019 05:05 P
== END ==
LOC: M IRPRO 08-12 13:27
DX: K74.60 Unspecified cirrhosis of liver (principal); R18.8 Other ascites
CPT/HCPCS: 49083; P9047

== ENCOUNTER → 2019-08-17 | Outpatient (REF) | payer MEDICARE, OTHER ==
[~2019-08-17] MED LIST changes: -SODIUM BICARBONATE 8.4% INJ 50MEQ 50 ML VIAL As Ordered ONE
[2019-08-17 13:28] LABS: INR 1.18; PROTHROMBIN TIME 14.7 SECONDS (11.8-14.0)
[2019-08-17 13:38] LABS: BLOOD UREA NITROGEN 19 MG/DL (7-18); CALCIUM LEVEL 8.4 MG/DL (8.8-10.2); CARBON DIOXIDE LEVEL 23 MEQ/L (21-32); CHLORIDE LEVEL 110 MEQ/L (98-107); CREATININE FOR GFR 1.23 MG/DL (0.70-1.30); GLOMERULAR FILTRATION RATE > 60.0 (>42); GLUCOSE, FASTING 122 MG/DL (70-100); POTASSIUM SERUM 3.2 MEQ/L (3.5-5.1); SODIUM LEVEL 142 MEQ/L (136-145)
== END ==
LOC: M SHH 12:13
PROVIDERS: ATTEND Student in an Organized Health Care Education/Training Program
DX: K74.60 Unspecified cirrhosis of liver (principal); R18.8 Other ascites

== ENCOUNTER → 2019-08-17 | Outpatient (REF) | payer MEDICARE, OTHER ==
[2019-08-17 13:14] LABS: BASO # 0.1 10^3/uL (0.0-0.2); BASO % 0.8 % (0.0-1.0); EOS # 0.2 10^3/uL (0.0-0.5); EOS % 3.4 % (0.0-3.0); HEMOGLOBIN 13.4 g/dl (13.5-17.5); LYMPH # 0.8 10^3/uL (1.5-5.0); LYMPH % 13.1 % (24.0-44.0); MEAN CORPUSCULAR HEMOGLOBIN 34.1 pg (27.0-33.0); MEAN CORPUSCULAR HGB CONC 34.4 g/dl (32.0-36.5); MEAN CORPUSCULAR VOLUME 99.2 fl (80.0-96.0); MONO # 0.8 10^3/uL (0.0-0.8); MONO % 12.6 % (0.0-5.0); NEUTROPHILS # 4.3 10^3/uL (1.5-8.5); NEUTROPHILS % 69.4 % (36.0-66.0); RED BLOOD COUNT 3.93 10^6/uL (4.30-6.10); WHITE BLOOD COUNT 6.1 10^3/uL (4.0-10.0)
[2019-08-17 13:15] LABS: PLATELET COUNT, AUTOMATED 92 10^3/uL (150-450)
== END ==
LOC: M SHH 12:16
PROVIDERS: ATTEND Internal Medicine
DX: R18.8 Other ascites (principal); K74.60 Unspecified cirrhosis of liver

== ENCOUNTER → 2019-08-19 | Outpatient (CLI) | payer MEDICARE, OTHER ==
[~2019-08-19] MED LIST changes: +SODIUM BICARBONATE 8.4% INJ 50MEQ 50 ML VIAL As Ordered ONE
[2019-08-19 15:01] VITALS: BP 114/66
--- NOTE | 2019-08-19 19:11 | REP ---
Ultrasound-guided paracentesis The procedure was performed under the direct supervision of Dr. Santos. The risks and benefits of the procedure were explained to the patient and informed consent was obtained. The largest pocket of fluid was localized in the left flank using ultrasound guidance. The skin was prepped and draped in a sterile fashion. 1% lidocaine was used as a local anesthetic. An 8-Tajik multi side-hole catheter was inserted using trocar technique. 3725 ml of yellow fluid was withdrawn and discarded. The patient tolerated the procedure well and there were no immediate complications. After the appropriate amount of monitored convalescence the patient was discharged from the department. Electronically Signed by NIKKI Carvalho 08/19/2019 04:23 P Electronically Signed by Tarik Santos MD 08/19/2019 07:02 P
== END ==
LOC: M IRPRO 13:19
PROVIDERS: ATTEND Student in an Organized Health Care Education/Training Program
DX: K74.60 Unspecified cirrhosis of liver (principal); R18.8 Other ascites
CPT/HCPCS: 49083; P9047

== ENCOUNTER → 2019-08-26 | Outpatient (CLI) | payer MEDICARE, OTHER ==
[2019-08-26 14:33] VITALS: BP 124/65
--- NOTE | 2019-08-26 19:17 | REP ---
Ultrasound-guided paracentesis The procedure was performed under the direct supervision of Dr. Santos. The risks and benefits of the procedure were explained to the patient and informed consent was obtained. The largest pocket of fluid was localized in the left flank using ultrasound guidance. The skin was prepped and draped in a sterile fashion. 1% lidocaine was used as a local anesthetic. Using ultrasound guidance an 8-Guinean multi side-hole catheter was inserted using trocar technique. 4600 ml of yellow fluid was withdrawn and discarded. The patient tolerated the procedure well and there were no immediate complications. After the appropriate amount of monitored convalescence the patient was discharged from the department. Electronically Signed by NIKKI Carvalho 08/26/2019 03:57 P Electronically Signed by Tarik Santos MD 08/26/2019 07:08 P
== END ==
LOC: M IRPRO 12:55
DX: K74.60 Unspecified cirrhosis of liver (principal); R18.8 Other ascites
CPT/HCPCS: 49083; P9047

== ENCOUNTER → 2019-08-31 | Outpatient (REF) | payer MEDICARE, OTHER ==
[~2019-08-31] MED LIST changes: +ATIV1TAB7 PO; +BISA10SU PR; +BUSP5TA PO; -FLUTISP; +FLUTISP NARES; +GUAI100S51 PO; +MONT10TA10 PO; -MONT10TA4 PO; +MORP1SOL4 PO; +ONDA4TAB6 PO; -PANT20TA2 PO; +PANT20TA6 PO; +PANT40TA29; +PANT40TA29 PO; -PANT40TA3; -PANT40TA3 PO; +POTA1TAB23 PO; +PYRI1TAB5 PO; +SCOP1PAT2 TOP; -SODIUM BICARBONATE 8.4% INJ 50MEQ 50 ML VIAL As Ordered ONE; +SULF1TAB93 PO
[2019-08-31 15:15] LABS: BASO # 0.1 10^3/uL (0.0-0.2); BASO % 0.7 % (0.0-1.0); EOS # 0.2 10^3/uL (0.0-0.5); EOS % 2.8 % (0.0-3.0); HEMATOCRIT 40.1 % (42.0-52.0); HEMOGLOBIN 13.7 g/dl (13.5-17.5); LYMPH # 0.7 10^3/uL (1.5-5.0); MEAN CORPUSCULAR HEMOGLOBIN 34.3 pg (27.0-33.0); MEAN CORPUSCULAR HGB CONC 34.2 g/dl (32.0-36.5); MEAN CORPUSCULAR VOLUME 100.5 fl (80.0-96.0); MONO % 14.2 % (0.0-5.0); NEUTROPHILS # 4.7 10^3/uL (1.5-8.5); NEUTROPHILS % 70.1 % (36.0-66.0); PLATELET COUNT, AUTOMATED 109 10^3/uL (150-450); RED BLOOD COUNT 3.99 10^6/uL (4.30-6.10); WHITE BLOOD COUNT 6.7 10^3/uL (4.0-10.0)
== END ==
LOC: M SHH 14:36
PROVIDERS: ATTEND Internal Medicine
DX: K74.60 Unspecified cirrhosis of liver (principal)

== ENCOUNTER → 2019-08-31 | Outpatient (REF) | payer MEDICARE, OTHER ==
[~2019-08-31] MED LIST changes: -MONT10TA10 PO; +MONT10TA4 PO
[2019-08-31 15:27] LABS: INR 1.21
[2019-08-31 15:28] LABS: PARTIAL THROMBOPLASTIN TIME 32.6 SECONDS (25.0-38.4)
[2019-08-31 15:41] LABS: CALCIUM LEVEL 8.7 MG/DL (8.8-10.2); CREATININE FOR GFR 1.37 MG/DL (0.70-1.30); GLOMERULAR FILTRATION RATE 53.6 (>42); POTASSIUM SERUM 3.3 MEQ/L (3.5-5.1)
== END ==
LOC: M SHH 14:33
PROVIDERS: ATTEND Student in an Organized Health Care Education/Training Program
DX: K74.60 Unspecified cirrhosis of liver (principal); R18.8 Other ascites

== ENCOUNTER → 2019-09-02 | Outpatient (CLI) | payer MEDICARE, OTHER ==
[~2019-09-02] MED LIST changes: +LIDOCAINE 1% MDV 20ML VIAL As Ordered ONE; +MONT10TA10 PO; -MONT10TA4 PO; +SODIUM BICARBONATE 8.4% INJ 50MEQ 50 ML VIAL As Ordered ONE
[2019-09-02 15:11] VITALS: BP 111/56
--- NOTE | 2019-09-02 17:16 | REP ---
Ultrasound-guided paracentesis The procedure was performed under the direct supervision of Dr. Whitt. The risks and benefits of the procedure were explained to the patient and informed consent was obtained. The largest pocket of fluid was localized in the right flank using ultrasound guidance. The skin was prepped and draped in a sterile fashion. 1% lidocaine was used as a local anesthetic. Using ultrasound guidance an 8-Micronesian multi side-hole catheter was inserted using trocar technique. 3300 ml of yellow fluid was withdrawn and discarded. The patient tolerated the procedure well and there were no immediate complications. After the appropriate amount of monitored convalescence the patient was discharged from the department. Electronically Signed by NIKKI Carvalho 09/02/2019 03:36 P Electronically Signed by Yoel Whitt MD 09/02/2019 05:07 P
== END ==
LOC: M IRPRO 12:53
PROVIDERS: ATTEND Student in an Organized Health Care Education/Training Program
DX: K74.60 Unspecified cirrhosis of liver (principal); R18.8 Other ascites
CPT/HCPCS: 49083; P9047

== ENCOUNTER → 2019-09-07 | Outpatient (REF) | payer MEDICARE, OTHER ==
[~2019-09-07] MED LIST changes: -ATIV1TAB7 PO; -BISA10SU PR; -BUSP5TA PO; +FLUTISP; -FLUTISP NARES; -GUAI100S51 PO; -LIDOCAINE 1% MDV 20ML VIAL As Ordered ONE; -MONT10TA10 PO; +MONT10TA4 PO; -MORP1SOL4 PO; -ONDA4TAB6 PO; +PANT20TA2 PO; -PANT20TA6 PO; -PANT40TA29; -PANT40TA29 PO; +PANT40TA3; +PANT40TA3 PO; -POTA1TAB23 PO; -PYRI1TAB5 PO; -SCOP1PAT2 TOP; -SODIUM BICARBONATE 8.4% INJ 50MEQ 50 ML VIAL As Ordered ONE; -SULF1TAB93 PO
[2019-09-07 15:46] LABS: BASO # 0.1 10^3/uL (0.0-0.2); BASO % 0.8 % (0.0-1.0); EOS # 0.2 10^3/uL (0.0-0.5); EOS % 2.7 % (0.0-3.0); HEMATOCRIT 38.4 % (42.0-52.0); HEMOGLOBIN 13.4 g/dl (13.5-17.5); LYMPH # 0.9 10^3/uL (1.5-5.0); LYMPH % 12.9 % (24.0-44.0); MEAN CORPUSCULAR HEMOGLOBIN 33.8 pg (27.0-33.0); MEAN CORPUSCULAR HGB CONC 34.9 g/dl (32.0-36.5); MONO % 14.1 % (0.0-5.0); NEUTROPHILS # 4.9 10^3/uL (1.5-8.5); NEUTROPHILS % 68.4 % (36.0-66.0); RED BLOOD COUNT 3.96 10^6/uL (4.30-6.10); WHITE BLOOD COUNT 7.1 10^3/uL (4.0-10.0)
[2019-09-07 15:47] LABS: PLATELET COUNT, AUTOMATED 98 10^3/uL (150-450)
[2019-09-07 16:04] LABS: CALCIUM LEVEL 8.6 MG/DL (8.8-10.2); CREATININE FOR GFR 1.29 MG/DL (0.70-1.30); GLOMERULAR FILTRATION RATE 57.5 (>42); POTASSIUM SERUM 3.1 MEQ/L (3.5-5.1)
== END ==
LOC: M SHH 15:24
PROVIDERS: ATTEND Internal Medicine
DX: K74.60 Unspecified cirrhosis of liver (principal)

== ENCOUNTER → 2019-09-07 | Outpatient (REF) | payer MEDICARE, OTHER ==
[2019-09-07 15:37] LABS: HEMATOCRIT 38.3 % (42.0-52.0); HEMOGLOBIN 13.3 g/dl (13.5-17.5); MEAN CORPUSCULAR HEMOGLOBIN 33.6 pg (27.0-33.0); MEAN CORPUSCULAR HGB CONC 34.7 g/dl (32.0-36.5); MEAN CORPUSCULAR VOLUME 96.7 fl (80.0-96.0); PLATELET COUNT, AUTOMATED 100 10^3/uL (150-450); RED BLOOD COUNT 3.96 10^6/uL (4.30-6.10); WHITE BLOOD COUNT 7.1 10^3/uL (4.0-10.0)
[2019-09-07 15:55] LABS: INR 1.16; PARTIAL THROMBOPLASTIN TIME 31.1 SECONDS (25.0-38.4); PROTHROMBIN TIME 14.5 SECONDS (11.8-14.0)
[2019-09-07 16:00] LABS: CALCIUM LEVEL 8.6 MG/DL (8.8-10.2); CREATININE FOR GFR 1.29 MG/DL (0.70-1.30); GLOMERULAR FILTRATION RATE 57.5 (>42); POTASSIUM SERUM 3.1 MEQ/L (3.5-5.1)
== END ==
LOC: M SHH 15:21
PROVIDERS: ATTEND Student in an Organized Health Care Education/Training Program
DX: K74.60 Unspecified cirrhosis of liver (principal); R18.8 Other ascites

== ENCOUNTER → 2019-09-09 | Outpatient (CLI) | payer MEDICARE, OTHER ==
[~2019-09-09] MED LIST changes: +SODIUM BICARBONATE 8.4% INJ 50MEQ 50 ML VIAL As Ordered ONE
[2019-09-09 14:54] VITALS: BP 125/69
--- NOTE | 2019-09-09 15:47 | REP ---
Ultrasound-guided paracentesis The procedure was performed by NIKKI Edmonds, under the direct supervision of Dr. Santos. The risks and benefits of the procedure were explained to the patient and informed consent was obtained both verbally and written. Directly prior to the start of the procedure, a formal timeout was completed in the procedure room. Under ultrasound guidance, the largest pocket of fluid in the left flank was localized and skin was marked. The skin was then prepped and draped in a sterile fashion. 11 ml of buffered lidocaine was used as a local anesthetic. Using ultrasound guidance, an 8-Vietnamese multi side-hole catheter was inserted using trocar technique. 3,300 mL of yellow colored fluid was withdrawn and discarded. The patient tolerated the procedure well and there were no immediate complications. After the appropriate monitored convalescence the patient was discharged from the department. Reviewed by NIKKI Nielsen 09/09/2019 03:07 P Electronically Signed by Tarik Santos MD 09/09/2019 03:38 P
== END ==
LOC: M IRPRO 13:34
PROVIDERS: ATTEND Student in an Organized Health Care Education/Training Program
DX: K74.60 Unspecified cirrhosis of liver (principal); R18.8 Other ascites
CPT/HCPCS: 49083; P9047

== ENCOUNTER → 2019-09-15 | Outpatient (REF) | payer MEDICARE, OTHER ==
[~2019-09-15] MED LIST changes: -SODIUM BICARBONATE 8.4% INJ 50MEQ 50 ML VIAL As Ordered ONE
[2019-09-15 17:21] LABS: INR 1.26; PROTHROMBIN TIME 15.5 SECONDS (11.8-14.0)
== END ==
LOC: M LAB REF 16:09
PROVIDERS: ATTEND Internal Medicine
DX: K74.60 Unspecified cirrhosis of liver (principal)

== ENCOUNTER → 2019-09-16 | Outpatient (CLI) | payer MEDICARE, OTHER ==
[2019-09-16 14:50] VITALS: BP 120/70
--- NOTE | 2019-09-27 08:00 | REP ---
Ultrasound-guided paracentesis The procedure was performed by NIKKI Edmonds, under the direct supervision of Dr. Whitt. The risks and benefits of the procedure were explained to the patient and informed consent was obtained both verbally and written. Directly prior to the start of the procedure, a formal timeout was completed in the procedure room. Under ultrasound guidance, the largest pocket of fluid in the left flank was localized and skin was marked. The skin was then prepped and draped in a sterile fashion. 10 ml of 1% lidocaine 10 mg/ml was used as a local anesthetic. Using ultrasound guidance, an 8-Japanese multi side-hole catheter was inserted using trocar technique. 3,500 mL of yellow colored fluid was withdrawn and discarded. The patient tolerated the procedure well and there were no immediate complications. After the appropriate monitored convalescence the patient was discharged from the department. Reviewed by NIKKI Nielsen 09/16/2019 04:58 P Electronically Signed by Yoel Whitt MD 09/27/2019 07:51 A
== END ==
LOC: M IRPRO 13:11
PROVIDERS: ATTEND Student in an Organized Health Care Education/Training Program
DX: K74.60 Unspecified cirrhosis of liver (principal); R18.8 Other ascites
CPT/HCPCS: 49083; 96365; P9047

== ENCOUNTER → 2019-09-23 | Outpatient (CLI) | payer MEDICARE, OTHER ==
[~2019-09-23] MED LIST changes: +ATIV1TAB7 PO; +BISA10SU PR; +BUSP5TA PO; -FLUTISP; +FLUTISP NARES; +GUAI100S51 PO; +MORP1SOL4 PO; +ONDA4TAB6 PO; -PANT20TA2 PO; +PANT20TA6 PO; +PANT40TA29; +PANT40TA29 PO; -PANT40TA3; -PANT40TA3 PO; +POTA1TAB23 PO; +PYRI1TAB5 PO; +SCOP1PAT2 TOP; +SULF1TAB93 PO
[2019-09-23 14:50] VITALS: BP 108/62
--- NOTE | 2019-09-26 23:46 | REP ---
Ultrasound-guided paracentesis The procedure was performed by NIKKI Edmonds, under the direct supervision of Dr. Santos. The risks and benefits of the procedure were explained to the patient and informed consent was obtained both verbally and written. Directly prior to the start of the procedure, a formal timeout was completed in the procedure room. Under ultrasound guidance, the largest pocket of fluid in the left flank was localized and skin was marked. The skin was then prepped and draped in a sterile fashion. 10 ml of 1% lidocaine 10 mg/ml was used as a local anesthetic. Using ultrasound guidance, an 8-Chinese multi side-hole catheter was inserted using trocar technique. 2,400 mL of yellow colored fluid was withdrawn and discarded. The patient tolerated the procedure well and there were no immediate complications. After the appropriate monitored convalescence the patient was discharged from the department. Reviewed by NIKKI Nielsen 09/24/2019 07:39 A Electronically Signed by Tarik Santos MD 09/26/2019 11:37 P
== END ==
LOC: M IRPRO 13:04
PROVIDERS: ATTEND Student in an Organized Health Care Education/Training Program
DX: K74.60 Unspecified cirrhosis of liver (principal); R18.8 Other ascites
CPT/HCPCS: 49083; 96365; P9047

== ENCOUNTER → 2019-09-30 | Outpatient (CLI) | payer MEDICARE, OTHER ==
[~2019-09-30] MED LIST changes: +SODIUM BICARBONATE 8.4% INJ 50MEQ 50 ML VIAL As Ordered ONE
[2019-09-30 15:05] VITALS: BP 125/74
--- NOTE | 2019-10-04 10:09 | REP ---
Ultrasound-guided paracentesis The procedure was performed by NIKKI Edmonds, under the direct supervision of Dr. Santos. The risks and benefits of the procedure were explained to the patient and informed consent was obtained both verbally and written. Directly prior to the start of the procedure, a formal timeout was completed in the procedure room. Under ultrasound guidance, the largest pocket of fluid in the left flank was localized and skin was marked. The skin was then prepped and draped in a sterile fashion. 11 ml of buffered lidocaine was used as a local anesthetic. Using ultrasound guidance, an 8-Georgian multi side-hole catheter was inserted using trocar technique. 4,200 mL of solid yellow colored fluid was withdrawn and discarded. The patient tolerated the procedure well and there were no immediate complications. After the appropriate monitored convalescence the patient was discharged from the department. Reviewed by NIKKI Nielsen 09/30/2019 04:12 P Electronically Signed by Tarik Santos MD 10/04/2019 10:01 A
== END ==
LOC: M IRPRO 13:14
PROVIDERS: ATTEND Student in an Organized Health Care Education/Training Program
DX: R18.8 Other ascites (principal); K74.60 Unspecified cirrhosis of liver
CPT/HCPCS: 49083; 96365; P9047

== ENCOUNTER → 2019-10-14 | Outpatient (CLI) | payer MEDICARE, OTHER ==
--- NOTE | 2019-12-03 12:59 | REP ---
ULTRASOUND-GUIDED PARACENTESIS: The procedure was performed under the direct supervision of Dr. Whitt. PROCEDURE: The risks and benefits of the procedure were explained to the patient and informed consent was obtained. The largest pocket of fluid was localized in the left flank using ultrasound guidance. The skin was prepped and draped in a sterile fashion. 1% lidocaine was used as a local anesthetic. An 8 Maori multi-side holed catheter was inserted using trocar technique. 3500 cc of cloudy yellow fluid was withdrawn and discarded. The patient tolerated the procedure well and there were no immediate complications. After the appropriate amount of monitored convalescence, the patient was discharged from the department. JENSEN
== END ==
LOC: M IRPRO 14:00
PROVIDERS: ATTEND Student in an Organized Health Care Education/Training Program
DX: R18.8 Other ascites (principal); K74.60 Unspecified cirrhosis of liver
CPT/HCPCS: 49083; 96365; P9047

== ENCOUNTER → 2019-10-21 | Outpatient (CLI) | payer MEDICARE, OTHER ==
[~2019-10-21] MED LIST changes: -SODIUM BICARBONATE 8.4% INJ 50MEQ 50 ML VIAL As Ordered ONE
--- NOTE | 2019-12-08 09:12 | REP ---
ULTRASOUND-GUIDED PARACENTESIS: The procedure was performed under the direct supervision of Dr. Whitt. The risks and benefits of the procedure were explained to the patient and informed consent was obtained. PROCEDURE: The largest pocket of fluid was localized in the left flank using ultrasound guidance. The skin was prepped and draped in a sterile fashion. 1% lidocaine was used as a local anesthetic. Using ultrasound guidance, an 8-Syriac multi-side hole catheter was inserted using trocar technique. 4050 cc of yellow fluid was withdrawn and discarded. The patient tolerated the procedure well and there were no immediate complications. After the appropriate amount of monitored convalescence, the patient was discharged from the department. JENSEN
== END ==
LOC: M IRPRO 13:06
PROVIDERS: ATTEND Student in an Organized Health Care Education/Training Program
DX: R18.8 Other ascites (principal); K74.60 Unspecified cirrhosis of liver
CPT/HCPCS: 49083; 96365; P9047

== ENCOUNTER → 2019-10-28 | Outpatient (CLI) | payer MEDICARE, OTHER ==
[~2019-10-28] MED LIST changes: +SODIUM BICARBONATE 8.4% INJ 50MEQ 50 ML VIAL As Ordered ONE
--- NOTE | 2019-12-08 09:14 | REP ---
ULTRASOUND-GUIDED PARACENTESIS: The procedure was performed under the direct supervision of Dr. Santos. The risks and benefits of the procedure were explained to the patient and informed consent was obtained. FINDINGS: The largest pocket of fluid was localized in the left lower quadrant using ultrasound guidance. The skin was prepped and draped in a sterile fashion. 1% lidocaine was used as a local anesthetic. An 8-Nigerien multi-side hole catheter was inserted using trocar technique. 4,800 ml of yellow fluid was withdrawn and discarded. The patient tolerated the procedure well and there were no immediate complications. After the appropriate amount of monitored convalescence, the patient was discharged from the department. JENSEN
== END ==
LOC: M IRPRO 13:30
PROVIDERS: ATTEND Student in an Organized Health Care Education/Training Program
DX: R18.8 Other ascites (principal); K74.60 Unspecified cirrhosis of liver
CPT/HCPCS: 49083; 96365; P9047

== ENCOUNTER → 2019-11-04 | Outpatient (CLI) | payer MEDICARE, OTHER ==
[2019-11-04 11:45] VITALS: BP 132/63
--- NOTE | 2019-12-08 09:16 | REP ---
ULTRASOUND-GUIDED PARACENTESIS The procedure was performed under the direct supervision of Dr. Whitt. The risks and benefits of the procedure were explained to the patient and informed consent was obtained. The largest pocket of fluid was localized in the left lower quadrant using ultrasound guidance. The skin was prepped and draped in a sterile fashion. 1% Lidocaine was used as a local anesthetic. An 8-Irish multi-side hole catheter was inserted using trocar technique. 4450 mL of yellow fluid was withdrawn and discarded. The patient tolerated the procedure well and there were no immediate complications. After the appropriate amount of monitored convalescence, the patient was discharged from the department. JENSEN
== END ==
LOC: M IRPRO 10:25
PROVIDERS: ATTEND Student in an Organized Health Care Education/Training Program
DX: R18.8 Other ascites (principal); K74.60 Unspecified cirrhosis of liver
CPT/HCPCS: 49083; 96365; P9047

== ENCOUNTER → 2019-11-11 | Outpatient (CLI) | payer MEDICARE, OTHER ==
[~2019-11-11] MED LIST changes: -SODIUM BICARBONATE 8.4% INJ 50MEQ 50 ML VIAL As Ordered ONE
[2019-11-11 14:02] VITALS: BP 136/62
--- NOTE | 2019-11-21 18:13 | REP ---
ULTRASOUND-GUIDED PARACENTESIS The procedure was performed under the direct supervision of Dr. Whitt. The risks and benefits of the procedure were explained to the patient and informed consent was obtained. The largest pocket of fluid was localized in the left flank using ultrasound guidance. The skin was prepped and draped in a sterile fashion. 1% Lidocaine was used as a local anesthetic. An 8-Kinyarwanda multi-side hole catheter was inserted using trocar technique. 4900 mL of yellow fluid was withdrawn and discarded. The patient tolerated the procedure well and there were no immediate complications. After the appropriate amount of monitored convalescence, the patient was discharged from the department. JENSEN
== END ==
LOC: M IRPRO 12:46
PROVIDERS: ATTEND Student in an Organized Health Care Education/Training Program
DX: R18.8 Other ascites (principal); K74.60 Unspecified cirrhosis of liver
CPT/HCPCS: 49083; 96365; P9047

== ENCOUNTER → 2019-11-18 | Outpatient (CLI) | payer MEDICARE, OTHER ==
[~2019-11-18] MED LIST changes: +SODIUM BICARBONATE 8.4% INJ 50MEQ 50 ML VIAL As Ordered ONE
[2019-11-18 13:35] VITALS: BP 112/57
--- NOTE | 2019-12-14 08:09 | REP ---
ULTRASOUND-GUIDED PARACENTESIS The procedure was performed by NIKKI Edmonds under the direct supervision of Dr. Santos. The risks and benefits of the procedure were explained to the patient and informed consent was signed. Prior to start of procedure, a formal time-out was obtained. The largest pocket of fluid was localized in the left flank using ultrasound guidance. The skin was prepped and draped in a sterile fashion. 11 mL of buffered Lidocaine was used as a local anesthetic. Using ultrasound guidance, an 8-Pakistani multi-side hole catheter was inserted using trocar technique. 4850 mL of dark yellow fluid was withdrawn and discarded. The patient tolerated the procedure well, and there were no immediate complications. After the appropriate amount of monitored convalescence, the patient was discharged from the department. JENSEN
== END ==
LOC: M IRPRO 11:44
PROVIDERS: ATTEND Student in an Organized Health Care Education/Training Program
DX: R18.8 Other ascites (principal); K74.60 Unspecified cirrhosis of liver
CPT/HCPCS: 49083; 96365; P9047

== ENCOUNTER → 2019-11-25 | Outpatient (CLI) | payer MEDICARE, OTHER ==
[2019-11-25 14:46] VITALS: BP 123/66
[2019-11-25 15:11] LABS: SOURCE, BODY FLUID ASCITES
[2019-11-25 15:12] LABS: APPEARANCE, BODY FLUID HAZY (CLEAR); ASCITES FL COLOR YELLOW (COLORLESS)
[2019-11-25 15:45] LABS: SOURCE, BODY FLUID ALBUMIN ASCITES; SOURCE, BODY FLUID TOT PROTEIN ASCITES; TOTAL PROTEIN, BODY FLUID 0.7 G/DL (NOT ESTABLISHED)
--- NOTE | 2019-12-16 07:41 | REP ---
ULTRASOUND-GUIDED PARACENTESIS The procedure was performed under the direct supervision of Dr. Santos. The risks and benefits of the procedure were explained to the patient and informed consent was obtained. The largest pocket of fluid was localized in the left lower quadrant using ultrasound guidance. The skin was prepped and draped in a sterile fashion. 1% Lidocaine was used as a local anesthetic. An 8-Wol[place] multi-side hole catheter was inserted using trocar technique. 4400 mL of emmanuel colored fluid was withdrawn and discarded. The patient tolerated the procedure well, and there were no immediate complications. After the appropriate amount of monitored convalescence, the patient was discharged from the department. JENSEN
== END ==
LOC: M IRPRO 13:37
PROVIDERS: ATTEND Student in an Organized Health Care Education/Training Program
DX: R18.8 Other ascites (principal); K74.60 Unspecified cirrhosis of liver
CPT/HCPCS: 49083; 82042; 84157; 87070; 87205; 89051; 96365; P9047

== ENCOUNTER → 2019-12-02 | Outpatient (CLI) | payer MEDICARE, OTHER ==
[~2019-12-02] MED LIST changes: -SODIUM BICARBONATE 8.4% INJ 50MEQ 50 ML VIAL As Ordered ONE
[2019-12-02 15:15] VITALS: BP 115/67
--- NOTE | 2019-12-16 07:42 | REP ---
ULTRASOUND GUIDED PARACENTESIS: The procedure was performed under the direct supervision of Dr. Whitt. The risks and benefits of the procedure were explained to the patient and informed consent was obtained. The largest pocket of fluid was localized in the left flank using ultrasound guidance. The skin was prepped and draped in a sterile fashion. 1% Lidocaine was used as a local anesthetic. An 8 Tamazight multi-side hole catheter was inserted using trocar technique. 5,900cc of yellow fluid was withdrawn and discarded. The patient tolerated the procedure well and there were no immediate complications. After the appropriate amount of monitored convalescence, the patient was discharged from the department. JENSEN
== END ==
LOC: M IRPRO 13:47
PROVIDERS: ATTEND Student in an Organized Health Care Education/Training Program
DX: R18.8 Other ascites (principal)
CPT/HCPCS: 49083; 96365; P9047

== ENCOUNTER → 2019-12-09 | Outpatient (CLI) | payer MEDICARE, OTHER ==
[~2019-12-09] MED LIST changes: +SODIUM BICARBONATE 8.4% INJ 50MEQ 50 ML VIAL As Ordered ONE
[2019-12-09 15:04] VITALS: BP 117/62
--- NOTE | 2019-12-16 07:44 | REP ---
ULTRASOUND-GUIDED PARACENTESIS This procedure was performed by NIKKI Edmonds, under the direct supervision of Dr. Santos. The risks and benefits of the procedure were explained to the patient and informed consent was obtained both verbally and written. Directly prior to the start of the procedure, a formal time-out was completed in the procedure room. The largest pocket of fluid was localized in the left flank using ultrasound guidance. The skin was prepped, and draped in a sterile fashion. 11 mL of buffered Lidocaine was used as a local anesthetic. Using trocar technique, 8- Romansh multi-side hole catheter was inserted. 5070 mL of dark yellow fluid was withdrawn and discarded. The patient tolerated the procedure well, and there were no immediate complications. After the appropriate amount of monitored convalescence, the patient was discharged from the department. This exam has been dictated by NIKKI Edmonds and Dr. Santos. [facility] PSYCHIATRIC CENTERJulita
== END ==
LOC: M IRPRO 14:05
PROVIDERS: ATTEND Student in an Organized Health Care Education/Training Program
DX: R18.8 Other ascites (principal); K74.60 Unspecified cirrhosis of liver

== ENCOUNTER 2019-12-12 17:49 | Inpatient (IN) | payer MEDICARE, OTHER ==
[~2019-12-12] VITALS: Ht 170.2 cm; Wt 72.6 kg
[~2019-12-12 17:49] MED LIST changes: -ATIV1TAB7 PO; -BISA10SU PR; -BUSP5TA PO; -GUAI100S51 PO; -MORP1SOL4 PO; -ONDA4TAB6 PO; -POTA1TAB23 PO; -PYRI1TAB5 PO; -SCOP1PAT2 TOP; -SODIUM BICARBONATE 8.4% INJ 50MEQ 50 ML VIAL As Ordered ONE; -SULF1TAB93 PO
[2019-12-12] MEDS ORDERED: RIVAROXABAN 10 MG TAB (XARELTO) PO SCH (18:00)
[2019-12-12] MEDS ORDERED: GUAI100S51 PO (18:00)
[2019-12-12] MEDS ORDERED: POTA1TAB23 PO (18:00)
[2019-12-12] MEDS ORDERED: FURO20TA2 PO (18:00)
[2019-12-12] MEDS ORDERED: CREO12CA PO (18:00)
[2019-12-12] MEDS ORDERED: BUSP5TA PO (18:00)
[2019-12-12 18:58] LABS: HEMATOCRIT 37.9 % (42.0-52.0); HEMOGLOBIN 13.3 g/dl (13.5-17.5); MEAN CORPUSCULAR HEMOGLOBIN 34.3 pg (27.0-33.0); MEAN CORPUSCULAR HGB CONC 35.1 g/dl (32.0-36.5); MEAN CORPUSCULAR VOLUME 97.7 fl (80.0-96.0); RED BLOOD COUNT 3.88 10^6/uL (4.30-6.10); WHITE BLOOD COUNT 21.8 10^3/uL (4.0-10.0)
[2019-12-12 19:20] LABS: ERYTHROCYTE SEDIMENTATION RATE 20 mm/hr (0-20)
--- NOTE | 2019-12-12 19:22 | REPVR ---
PROCEDURE INFORMATION: Exam: XR Chest, 2 Views Exam date and time: 12/12/2019 6:51 PM Age: 79 years old Clinical indication: Other: Dyspnea/cough TECHNIQUE: Imaging protocol: XR of the chest Views: 2 views. COMPARISON: CR Chest, 1 view 07/26/2019 4:06 PM FINDINGS: Tubes, catheters and devices: Cardiac leads are in place. Skeletal degeneration. Lungs: Lung volumes are low and there is probable subsegmental atelectasis bilaterally greater on right than left. The upper lobes are clear. Pleural space: No pleural effusions. Heart/Mediastinum: Cardiomediastinal silhouette is not well assessed since it is partially obscured. Atherosclerosis. Bones/joints: Degeneration. Gastrointestinal tract: Scattered air-fluid levels are seen in the right upper quadrant. IMPRESSION: There are low lung volumes with bibasilar subsegmental atelectasis without definite evidence of pneumonia or congestive heart failure. Electronically signed by: Lexii Solano On 12/12/2019 19:21:58 PM
[2019-12-12 19:23] LABS: NT-PRO BNP 564 PG/ML (<450)
[2019-12-12 19:25] LABS: PLATELET COUNT, AUTOMATED 80 10^3/uL (150-450)
[2019-12-12 19:27] LABS: LYMPHOCYTES 5 % (16-44); METAMYELOCYTES 1 % (0-0); MONOCYTES 8 % (0-5); NEUTROPHILS 86 % (28-66); PLATELET ESTIMATE DECREASED (NORMAL)
[2019-12-12 19:54] LABS: INR 1.4; PROTHROMBIN TIME 17.5 SECONDS (12.5-14.3)
[2019-12-12 19:55] LABS: PARTIAL THROMBOPLASTIN TIME 34.3 SECONDS (24.2-38.5)
[2019-12-12] MEDS: SYMBICORT 160/4.5MCG INHALER 6GM INH SCH (20:00)
[2019-12-12 20:13] LABS: ALT/SGPT 37 U/L (12-78); BILIRUBIN,DIRECT 7.5 MG/DL (0.0-0.2); BILIRUBIN,TOTAL 10.3 MG/DL (0.2-1.0); BLOOD UREA NITROGEN 29 MG/DL (7-18); CALCIUM LEVEL 8.6 MG/DL (8.8-10.2); CARBON DIOXIDE LEVEL 19 MEQ/L (21-32); CHLORIDE LEVEL 103 MEQ/L (98-107); CK-MB VALUE MASS < 1.0 NG/ML (<3.6); CPK CREATINE PHOSPHOKINASE 71 U/L (39-308); CREATININE FOR GFR 2.31 MG/DL (0.70-1.30); GLOMERULAR FILTRATION RATE 29.3 (>42); GLUCOSE, FASTING 108 MG/DL (70-100); MB/CK RELATIVE INDEX 1.41 (< OR =4); SODIUM LEVEL 132 MEQ/L (136-145); TOTAL PROTEIN 6.2 GM/DL (6.4-8.2); TROPONIN I < 0.02 NG/ML (< 0.10)
[2019-12-12] MEDS ORDERED: PIPERACILLIN/TAZOBACTAM SOD 3.375 GM in D5W MINI-BAG PLUS 50 ML IV ONE (20:15)
[2019-12-12] MEDS ORDERED: IPRATROPIUM 0.5MG/ALBUTEROL 2.5MG INH SOL UD 3ML (DUONEB) NEB ONE (20:30)
--- NOTE | 2019-12-12 21:13 | ECGEPIP ---
[facility] - ED Test Date: 2019-12-12 Pat Name: SHEILA GALARZA Department: Room: - Gender: Male Registration Representative: angelina : 1940 Requested By: OMAR BUNN D.O. Order Number: [id number] Reading MD: Kellen Weaver Measurements Intervals [place] Rate: 94 P: 5 OK: 175 QRS: -61 QRSD: 115 T: 17 QT: 364 QTc: 455 Interpretive Statements SINUS RHYTHM LOW QRS VOLTAGE IN PRECORDIAL LEADS INCOMPLETE RIGHT BUNDLE BRANCH BLOCK LEFT ANTERIOR FASCICULAR BLOCK POSSIBLE ANTERIOR MYOCARDIAL INFARCTION, PROBABLY OLD similar 07/19/19 Electronically Signed on 12-12-2019 21:12:51 EDT by Kellen Weaver
[2019-12-12] MEDS ORDERED: ALBUTEROL SULFATE 2.5 MG/0.5 ML INH NEB SOLN NEB PRN (21:15)
[2019-12-12] MEDS ORDERED: guaiFENesin SYRUP 200 MG/10 ML UDC PO PRN (21:30)
--- NOTE | 2019-12-12 21:32 | HPEPDOC ---
General Date of Admission 12/12/19 Date of Service: Dec 12, 2019 Chief Complaint The patient is a 79-year-old male admitted with a reason for visit of Diff Breathing. 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 Patient stated that for past 2 days he has been having low-grade fever around 100F with fatigue and increased cough. Also patient had a few episodes of vomiting and constant nausea. Patient denied any abdominal pain or increased abdominal girth, last paracentesis was on . In ER patient was found to have on x-ray There are low lung volumes with bibasilar subsegmental atelectasis without definite evidence of pneumonia or congestive heart failure. Blood work is pertinent for leukocytosis of 21.8, lactic acid 2.8, creatinine 2.3, total bili 10.3, direct bilirubin 7.5, AST 90. CRP 12.6 Home Medications Scheduled Amiloride HCl (Amiloride HCl) 5 Mg Tablet, 20 MG PO DAILY, (Reported) Budesonide/Formoterol (Symbicort 160-4.5 Mcg Inhaler) 6 Gm Hfa.aer.ad, 2 PUFF INH BID, (Reported) Buspirone HCl (Buspirone HCl) 5 Mg Tablet, 5 MG PO QHS, (Reported) Cetirizine HCl (ZyrTEC) 10 Mg Capsule, 10 MG PO QHS, (Reported) Ciprofloxacin HCl (Ciprofloxacin HCl) 500 Mg Tablet, 500 MG PO DAILY, (Reported) Fluticasone Propionate (Fluticasone Propionate) 16 Gm [place].susp, 1 SPRAY NA BID, (Reported) Furosemide (Furosemide) 20 Mg Tablet, 60 MG PO DAILY, (Reported) Montelukast Sodium (Montelukast Sodium) 10 Mg Tablet, 10 MG PO QHS, (Reported) Nadolol (Nadolol) 20 Mg Tablet, 20 MG PO DAILY, (Reported) Pancreatic Enzymes (Creon Dr 12,000 Units Capsule) 1 Each Capsule.dr, 36,000 UNITS PO TID, (Reported) with meals Pantoprazole Sodium (Pantoprazole Sodium) 40 Mg Tablet.dr, 40 MG PO BID, (Reported) Potassium Chloride (Potassium Chloride) 10 Meq Tablet.er, 10 MEQ PO BID, (Reported) Ursodiol (Ursodiol) 300 Mg Cap, 600 MG PO BID, (Reported) Scheduled PRN Guaifenesin (Guaifenesin) 100 Mg/5 Ml Liquid, 5 ML PO PRN PRN for COUGH, (Reported) Allergies Coded Allergies: prednisone (Verified Allergy, Unknown, 08/03/19) spironolactone (Verified Adverse Reaction, Intermediate, GYNECOMASTIA, 07/26/19) niacin (Verified Adverse Reaction, Unknown, "sunburn", 07/26/19) Past Medical History Medical History NELSON, liver cirrhosis with decompensation with worsening ascites requiring weekly paracentesis. H/O SBP. Gastroesophageal varices. Atrial fibrillation, on chronic Xarelto. Hypertension. Dyslipidemia. Asthma. Benign prostatic hypertrophy. Nonobstructing left renal calculus. L1 and L4 compression deformities. Surgical History 1. Umbilical hernia repair 2018. 2. Cholecystectomy. Family History I personally reviewed family history and found not pertinent Social History * Smoker: former Smoker Alcohol: Denies Drugs: denies A-FIB/CHADSVASC A-FIB History Current/History of A-Fib/PAF?: Yes Current PO Anticoag Therapy: Yes Review of Systems Constitutional: Reports: Fatigue; Denies: Chills, Fever Eyes: Denies: Pain ENT: Denies: Head Aches, Ear Pain Skin: Reports: Jaundice Pulmonary: Reports: Dyspnea Cardiovascular: Denies: Chest Pain Gastrointestinal: Reports: Nausea, Vomiting Genitourinary: Denies: Dysuria Hematologic: Denies: Bruising Endocrine: Denies: Polydipsia, Polyphagia Musculoskeletal: Denies: Neck Pain Neurological: Denies: Weakness Psych: Reports: Mood Normal Physical Examination General Exam: Positive: Alert, Cooperative Eye Exam: Positive: PERRLA ENT Exam: Positive: Atraumatic Neck Exam: Positive: Supple; Negative: JVD Chest Exam: Positive: Rales, Rhonchi Heart Exam: Positive: Irregular Rhythm Telemetry: Positive: Atrial fibrillation Abdomen Exam: Positive: BS Hypoactive Extremity Exam: Negative: Clubbing, Cyanosis Skin Exam: Positive: Other skin issue (jaundice) Neuro Exam: Positive: Normal Gait, Strength at 5/5 X4 ext, Cranial Nerves 3-12 NL Psych Exam: Positive: Mental status NL Vital Signs Vital Signs Date Time Temp Pulse Resp B/P (MAP) Pulse Ox O2 Delivery O2 Flow Rate FiO2 12/12/19 20:00 89 100/56 (71) 99 Room Air 12/12/19 18:21 30 12/12/19 17:49 98.2 Laboratory Data Labs 24H Laboratory Tests 2 12/12/19 18:28: Neutrophils (%) (Auto) , Nucleated Red Blood Cells % (auto) 0.0, Neutrophils 86H, Lymphocytes (Manual) 5L, Monocytes (Manual) 8H, Metamyelocytes 1H, Platelet Estimate DECREASED, Immature Platelet Fraction 5.1, Erythrocyte Sedimentation Rate 20, Anion Gap 10, Glomerular Filtration Rate 29.3L, Calcium Level 8.6L, Total Bilirubin 10.3H, Direct Bilirubin 7.5H, Aspartate Amino Transf (AST/SGOT) 90H, Alanine Aminotransferase (ALT/SGPT) 37, Alkaline Phosphatase 205H, Total Creatine Kinase 71, Creatine Kinase MB < 1.0, Creatine Kinase MB Relative Index 1.41, Troponin I < 0.02, C-Reactive Protein, Quantitative 12.60H, HG-Rli-E-Type Natriuretic Peptide 564H, Total Protein 6.2L, Albumin 3.0L, Albumin/Globulin Ratio 0.9 12/12/19 18:33: Prothrombin Time 17.5H, Prothromb Time International Ratio 1.40, Activated Partial Thromboplast Time 34.3 12/12/19 18:34: Lactic Acid Level 2.8*H CBC/BMP Laboratory Tests 12/12/19 18:28 Microbiology Microbiology 12/12/19 Respiratory Virus Panel (PCR) (KATELYN) - Final, Complete 12/12/19 Blood Culture, Received Pending 12/12/19 Blood Culture, Received Pending Assessment/Plan Patient 79 years old male with past medical history of 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 Patient stated that for past 2 days he has been having low-grade fever around 100F with fatigue and increased cough. Also patient had a few episodes of vomiting and constant nausea. Patient denied any abdominal pain or increased abdominal girth, last paracentesis was on . In ER patient was found to have on x-ray There are low lung volumes with bibasilar subsegmental atelectasis without definite evidence of pneumonia or congestive heart failure. Blood work is pertinent for leukocytosis of 21.8, lactic acid 2.8, creatinine 2.3, total bili 10.3, direct bilirubin 7.5, AST 90. CRP 12.6 Problems (1) Sepsis Status: Acute Problem Text: Unknown etiology for now Patient has leukocytosis, low-grade fever, tachycardia and dyspnea The source of sepsis can be SBP, however patient was on chronic dose of Cipro and does not have abdominal pain We'll proceed with CT abdomen and pelvis, CT chest Will start antibiotics for possible SBP and COPD exacerbation, ceftriaxone IV and doxycycline IV Blood culture (2) COPD (chronic obstructive pulmonary disease) Problem Text: Patient has increased cough with increased sputum production Inhalers Incentive spirometry Ceftriaxone IV, doxycycline IV (3) Cirrhosis of liver with ascites Status: Acute Problem Text: Patient is on chronic ciprofloxacin due to high risk of SBP, however microflora can became resistant to Cipro. There is also concern for hepatorenal syndrome given hypotension and worsening kidney function Abdominal/pelvis CT Antibiotic therapy Blood culture IV albumin (4) Atrial fibrillation Status: Chronic Problem Text: Patient is not on oral targeted anticoagulation due to weekly paracentesis Continue home cardioprotective medication Plan / VTE VTE Prophylaxis Ordered?: Yes VANIA ROMO DO Dec 12, 2019 21:32
--- NOTE | 2019-12-12 22:00 | REPVR ---
PROCEDURE INFORMATION: Exam: CT Abdomen And Pelvis Without Contrast Exam date and time: 12/12/2019 9:19 PM Age: 79 years old Clinical indication: Fever; Additional info: Fever, SOB TECHNIQUE: Imaging protocol: Computed tomography of the abdomen and pelvis without contrast. Radiation optimization: All CT scans at this facility use at least one of these dose optimization techniques: automated exposure control; mA and/or kV adjustment per patient size (includes targeted exams where dose is matched to clinical indication); or iterative reconstruction. COMPARISON: CT ABD PELVIS W/O CONTRAST 07/19/2019 5:19 PM FINDINGS: Lungs: There is mild airspace filling posteriorly at left lung base and to a lesser degree in the right. No pleural effusions. Liver: Cirrhotic liver and splenomegaly are again seen with associated varices and ascites. Gallbladder and bile ducts: Cholecystectomy. Pancreas: Pancreas appears atrophic. Spleen: Normal. No splenomegaly. Adrenals: The adrenal glands are unremarkable. Kidneys and ureters: Stable radiodense 1.4 cm lesion is again seen in the right kidney. This may represent a hemorrhagic cyst among other etiologies. There is a stable heterogeneous exophytic left renal cortical lesion with rim calcification. It has the appearance of renal cyst on contrast enhanced CT of 07/01/2019. It has mildly increased in size measuring 3.8 cm AP previously measuring 3.6 cm. There are low dense left renal cortical lesions as well which likely represent cysts. No further workup recommended. Stomach and bowel: There is no evidence of intestinal obstruction. The bowel is poorly assessed on this noncontrast study. Diverticula are again noted. Appendix: No evidence of appendicitis. Intraperitoneal space: Unremarkable. No free air. No significant fluid collection. Vasculature: Unremarkable. No abdominal aortic aneurysm. Lymph nodes: Unremarkable. No enlarged lymph nodes. Urinary bladder: Urinary bladder is decompressed and not well assessed. Reproductive: Prostatic enlargement. Bones/joints: Skeletal degeneration. Stable compression fractures of the superior endplates of L2 and L4. Soft tissues: Unremarkable. IMPRESSION: Stable non-contrast appearance of abdomen and pelvis in patient with cirrhosis, splenomegaly and ascites. Electronically signed by: Lexii Solano On 12/12/2019 21:59:55 PM
--- NOTE | 2019-12-12 22:04 | REPVR ---
PROCEDURE INFORMATION: Exam: CT Chest Without Contrast Exam date and time: 12/12/2019 9:19 PM Age: 79 years old Clinical indication: Fever and shortness of breath; Additional info: Fever, SOB TECHNIQUE: Imaging protocol: Computed tomography of the chest without contrast. Radiation optimization: All CT scans at this facility use at least one of these dose optimization techniques: automated exposure control; mA and/or kV adjustment per patient size (includes targeted exams where dose is matched to clinical indication); or iterative reconstruction. COMPARISON: CT Chest without contrast 09/16/2018 1:08 PM FINDINGS: Lungs: There is mild airspace filling at the lung bases posteriorly slightly greater on left than right which may be due to mild edema and probable subsegmental atelectasis without definite evidence of pneumonia. The remainder of the lung parenchyma is clear. Pleural space: No pleural effusions or pneumothorax. Heart: No cardiomegaly. No pericardial effusion. Aorta: The ascending thoracic aorta is upper limits of normal measuring 3.9 cm AP. Atherosclerosis. Lymph nodes: No significant mediastinal lymphadenopathy. Kallie are not well assessed. Bones/joints: Skeletal degeneration. Soft tissues: Bilateral gynecomastia. IMPRESSION: Mild airspace disease posteriorly at the lung bases most likely due to mild edema. There is also minimal subsegmental atelectasis at the left lung base. No evidence of pneumonia. No pleural effusions. Electronically signed by: Lexii Solano On 12/12/2019 22:04:16 PM
[2019-12-12] MEDS: DOXYCYCLINE HYCLATE 100 MG in D5W MINI-BAG PLUS 100 ML IV SCH (22:41)
[2019-12-12 22:49] VITALS: BP 88/50
[2019-12-12] MEDS ORDERED: SODIUM CHLORIDE 0.9% 1000ML IV ONE (23:45)
[2019-12-12] MEDS: busPIRone 5 MG TAB PO SCH (23:56)
[2019-12-12] MEDS: POTASSIUM CHLORIDE 10 MEQ SR TABLET PO SCH (23:57)
[2019-12-12] MEDS: MONTELUKAST 10 MG TAB PO SCH (23:57)
[2019-12-12] MEDS: FLUTICASONE PROP 0.05% NASAL SPRAY 16 GM (FLONASE) SCH (23:58)
[2019-12-13] VITALS (27 sets, daily range): BP systolic 80–122; BP diastolic 42–63
[2019-12-13] MEDS: cefTRIAXone SOD 1 GM in D5W MINI-BAG PLUS 50 ML IV SCH (00:40)
[2019-12-13] MEDS: IPRATROPIUM 0.5MG/ALBUTEROL 2.5MG INH SOL UD 3ML (DUONEB) NEB SCH ×4 (02:00→19:47)
[2019-12-13 05:40] LABS: HEMATOCRIT 32.1 % (42.0-52.0); HEMOGLOBIN 11.5 g/dl (13.5-17.5); MEAN CORPUSCULAR HEMOGLOBIN 34.8 pg (27.0-33.0); MEAN CORPUSCULAR HGB CONC 35.8 g/dl (32.0-36.5); MEAN CORPUSCULAR VOLUME 97.3 fl (80.0-96.0); WHITE BLOOD COUNT 16.9 10^3/uL (4.0-10.0)
[2019-12-13 05:58] LABS: ALBUMIN 2.4 GM/DL (3.2-5.2); BILIRUBIN,TOTAL 8.1 MG/DL (0.2-1.0); CREATININE FOR GFR 2.29 MG/DL (0.70-1.30); GLOMERULAR FILTRATION RATE 29.6 (>42); MAGNESIUM LEVEL 1.5 MG/DL (1.8-2.4); POTASSIUM SERUM 3.5 MEQ/L (3.5-5.1)
[2019-12-13] MEDS: SYMBICORT 160/4.5MCG INHALER 6GM INH SCH ×2 (07:32→19:47)
--- NOTE | 2019-12-13 08:21 | ECHO ---
DATE OF PROCEDURE: 12/12/2019 Age: 61 Gender: Male Height: 170 cm Weight: 78 kg REFERRING PHYSICIAN: Jose R Zeng MD INDICATION: Sepsis. MEASUREMENTS: 2D Measurements: Left ventricle diastole 4.3 cm Intraventricular septum 1.10 cm Posterior wall 0.96 cm Left atrium 3.4 cm Aortic root 3.3 cm Inferior vena cava 1.6 cm Doppler Measurements: Trace aortic regurgitation No aortic stenosis Aortic valve velocity 118 cm/s No mitral stenosis No mitral regurgitation Mitral E velocity 56.1 cm/s Mitral A velocity 87.8 cm/s Mitral deceleration time 206 msec No tricuspid regurgitation No pulmonic regurgitation Pulmonary acceleration time 114 msec MITRAL ANNULAR TISSUE DOPPLER E prime septal 5.1 cm/s, E prime lateral 6.2 cm/s DESCRIPTION: Rhythm was sinus. Image quality was fair. This was a 2D, M-mode, color flow Doppler, and pulsed wave Doppler examination including mitral annular tissue Doppler. CONCLUSIONS: 1. No vegetations apparent. 2. Moderate aortic valve sclerosis of a 3-cuspid aortic valve. Trace aortic regurgitation. No aortic stenosis. 3. Moderate mitral annular calcification. Calcified septal contact lesion involving the distal portion of the anterior mitral leaflet. No mitral stenosis or regurgitation. 4. Normal left ventricle internal dimensions and wall thickness. Normal regional left ventricular (LV) wall motion and wall thickening. Normal left ventricular (LV) systolic function. Left ventricular ejection fraction (LVEF) 70% by visual estimate. Grade 1 left ventricular (LV) diastolic dysfunction. 5. No pericardial effusion. MTDD
--- NOTE | 2019-12-13 08:51 | HPEPDOC ---
General Date of Admission Dec 12, 2019 at 21:03 Date of Service: Dec 13, 2019 Attending Physician: SHARON COTA MD Chief Complaint Cirrhosis Copd Shortness Of Breath. History of Present Illness HPI: Pt was seen at bedside this am. NAD and no acute events overnight. He denie s CP, SOB, abdominal pain fever, n/v/d. His cough is still the same with productive of white sputum. ROS: All 12 points were reviewed. See HPI PHYSICAL EXAM: VITAL SIGNS: please see below GENERAL: Elderly Male, NAD resting comfortably in bed HEENT: NC, AT, no scleral icterus, no pharyngeal erythema NECK: no JVD appreciated, no lymphadenopathy palpated CV: RRR, no m/g/r, no peripheral edema bilaterally RESPIRATORY: Rhonci in RL base of lung, otherwise clear on auscultation ABDOMEN: soft, nontender, Very full abdomen 2/2 to ascites, dullness to percussion, shifting fluid on movement EXTREMITIES: No peripheral edema, cyanosis or clubbing NEURO: No focal neuro deficits SKIN: jaundiced, spider angiomata seen on legs and abdomen PSYCH: AAOx3, mildly anxious from intractable vomiting IMAGING: ECHO: 1. No vegetations apparent 2. Moderate aortic valve sclerosis of a 3-cuspid aortic valve. Trace aortic regurgitation. No aortic stenosis. 3. Moderate mitral annular calcification. Calcified septal contact lesion involving the distal portion of the anterior mitral leaflet. No mitral stenosis or regurgitation. 4. Normal left ventricle internal dimensions and wall thickness. Normal regional left ventricular (LV) wall motion and wall thickening. Normal left vent ricular (LV) systolic function. Left ventricular ejection fraction (LVEF) 70% by visual estimate. Grade 1 left ventricular (LV) diastolic dysfunction 5. No pericardial effusion. CT abd/pelvis w/o ctx: Stable non-contrast appearance of abdomen and pelvis in patient with cirrhosis, splenomegaly and ascites Chest CT w/o ctx : Mild airspace disease posteriorly at the lung bases most likely due to mild edema. There is also minimal subsegmental atelectasis at the left lung base. No evidence of pneumonia. No pleural effusions CXR 2 views: There are low lung volumes with bibasilar subsegmental atelectasis without definite evidence of pneumonia or congestive heart failure Home Medications Scheduled Amiloride HCl (Amiloride HCl) 5 Mg Tablet, 20 MG PO DAILY, (Reported) Budesonide/Formoterol (Symbicort 160-4.5 Mcg Inhaler) 6 Gm Hfa.aer.ad, 2 PUFF INH BID, (Reported) Buspirone HCl (Buspirone HCl) 5 Mg Tablet, 5 MG PO QHS, (Reported) Cetirizine HCl (ZyrTEC) 10 Mg Capsule, 10 MG PO QHS, (Reported) Fluticasone Propionate (Fluticasone Propionate) 16 Gm [place].susp, 1 SPRAY NA BID, (Reported) Furosemide (Furosemide) 20 Mg Tablet, 60 MG PO DAILY, (Reported) Montelukast Sodium (Montelukast Sodium) 10 Mg Tablet, 10 MG PO QHS, (Reported) Nadolol (Nadolol) 20 Mg Tablet, 20 MG PO DAILY, (Reported) Pancreatic Enzymes (Creon Dr 12,000 Units Capsule) 1 Each Capsule.dr, 36,000 UNITS PO TID, (Reported) with meals Pantoprazole Sodium (Pantoprazole Sodium) 40 Mg Tablet.dr, 40 MG PO BID, (Reported) Phenazopyridine HCl (Pyridium) 200 Mg Tablet, 200 MG PO TID for urinary discomfort Potassium Chloride (Potassium Chloride) 10 Meq Tablet.er, 10 MEQ PO BID, (Reported) Sulfamethoxazole/Trimethoprim (Sulfamethoxazole-Tmp Ds Tablet) 1 Each Tablet, 1 TAB PO BID TAKE FOR 6 MORE DAYS BID for UTI Ursodiol (Ursodiol) 300 Mg Cap, 600 MG PO BID, (Reported) Scheduled PRN Guaifenesin (Guaifenesin) 100 Mg/5 Ml Liquid, 5 ML PO PRN PRN for COUGH, (Reported) Allergies Coded Allergies: prednisone (Verified Allergy, Unknown, 08/03/19) spironolactone (Verified Adverse Reaction, Intermediate, GYNECOMASTIA, 07/26/19) niacin (Verified Adverse Reaction, Unknown, "sunburn", 07/26/19) A-FIB/CHADSVASC A-FIB History Current/History of A-Fib/PAF?: Yes Current PO Anticoag Therapy: No (patient's flitch hanger Dr. Sandhu JAZ rust d/c'd patient off of xarelto. ) Physical Examination General Exam: Positive: Alert, Cooperative Eye Exam: Positive: PERRLA ENT Exam: Positive: Atraumatic Neck Exam: Positive: Supple; Negative: JVD Chest Exam: Positive: Rales, Rhonchi Heart Exam: Positive: Irregular Rhythm Telemetry: Positive: Atrial fibrillation Abdomen Exam: Positive: BS Hypoactive Extremity Exam: Negative: Clubbing, Cyanosis Skin Exam: Positive: Other skin issue (jaundice) Neuro Exam: Positive: Normal Gait, Strength at 5/5 X4 ext, Cranial Nerves 3-12 NL Psych Exam: Positive: Mental status NL Vital Signs Vital Signs Date Time Temp Pulse Resp B/P (MAP) Pulse Ox O2 Delivery O2 Flow Rate FiO2 12/13/19 08:00 98.1 80 22 107/55 (72) 96 Room Air Laboratory Data Labs 24H Laboratory Tests 2 12/12/19 18:28: Neutrophils (%) (Auto) , Nucleated Red Blood Cells % (auto) 0.0, Neutrophils 86H, Lymphocytes (Manual) 5L, Monocytes (Manual) 8H, Metamyelocytes 1H, Platelet Estimate DECREASED, Immature Platelet Fraction 5.1, Erythrocyte Sedimentation Rate 20, Anion Gap 10, Glomerular Filtration Rate 29.3L, Calcium Level 8.6L, Total Bilirubin 10.3H, Direct Bilirubin 7.5H, Aspartate Amino Transf (AST/SGOT) 90H, Alanine Aminotransferase (ALT/SGPT) 37, Alkaline Phosphatase 205H, Total Creatine Kinase 71, Creatine Kinase MB < 1.0, Creatine Kinase MB Relative Index 1.41, Troponin I < 0.02, C-Reactive Protein, Quantitative 12.60H, ET-Rev-U-Type Natriuretic Peptide 564H, Total Protein 6.2L, Albumin 3.0L, Albumin/Globulin Ratio 0.9 12/12/19 18:33: Prothrombin Time 17.5H, Prothromb Time International Ratio 1.40, Activated Partial Thromboplast Time 34.3 12/12/19 18:34: Lactic Acid Level 2.8*H 12/12/19 18:54: POC Glucose (Misc Panel) 116H, POC Sodium (Misc Panel) 133L, POC Potassium (Misc Panel) 3.7, POC Chloride (Misc Panel) 100, POC Total CO2 (Misc Panel) 17.0L, POC Blood Urea Nitrogen (Misc Panel 26, POC Ionized Calcium (Misc Panel) 4.6, POC Creatinine (Misc Panel) 2.2H, POC Hematocrit (Misc Panel) 42.0 12/12/19 21:13: Urine Color YOAN, Urine Appearance CLOUDYH, Urine pH 5.0, Urine Specific [place] 1.011, Urine Protein NEGATIVE, Urine Glucose (UA) NEGATIVE, Urine Ketones NEGATIVE, Urine Blood 2+H, Urine Nitrite NEGATIVE, Urine Bilirubin 2+H, Urine Urobilinogen 4.0H, Urine Leukocyte Esterase 2+H, Urine WBC (Auto) TNTCH, Urine RBC (Auto) 6H, Urine Hyaline Casts (Auto) 9, Urine Bacteria (Auto) 2+H, Urine Squamous Epithelial Cells 0, Urine Transitional Epithelial Cells 2, Urine Renal Epithelial Cells 1, Urine Mucus (Auto) SMALL, Urine Sperm (Auto) 12/13/19 00:51: Lactic Acid Followup at 4 Hours 2.3*H 12/13/19 05:13: Nucleated Red Blood Cells % (auto) 0.0, Anion Gap 11, Glomerular Filtration Rate 29.6L, Calcium Level 8.0L, Magnesium Level 1.5L, Total Bilirubin 8.1H, Aspartate Amino Transf (AST/SGOT) 64H, Alanine Aminotransferase (ALT/SGPT) 27, Alkaline Phosphatase 169H, Total Protein 5.0L, Albumin 2.4L, Albumin/Globulin Ratio 0.9 CBC/BMP Laboratory Tests 12/12/19 18:28 12/13/19 05:13 Microbiology Microbiology 12/12/19 Blood Culture, Received Pending 12/12/19 Urine Culture, Received Pending 12/12/19 Respiratory Virus Panel (PCR) (KATELYN) - Final, Complete 12/12/19 Blood Culture, Received Pending 12/12/19 Blood Culture, Received Pending Assessment/Plan Patient 79 years old male with past medical history of 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 He is admitted for paracentesis procedure and currently being covered with empiric abx for SBP. Plan / VTE VTE Prophylaxis Ordered?: Yes Plan Plan # Cough and sob - CT scan did not show any pulmonary pathology. Minimal subsegmental atelectasis at L lung base. No evidence of PNA or Pleural effusions - Ascites could be contributing to suboptimal diaphragmatic movement causing sob - Paracentesis procedure today with acites fluid analysis -2L NC prn to titrate between 88-92% # NELSON cirrhosis and decompensated liver cirrhosis - Pt was admitted multiple times for decompensated liver cirrhosis and requires weekly paracentesis with 5L of fluid extraction and has a hx of previous SBP - Given 1 dose of zosyn in ER - Empiric abx coverage for SBP with Rocephin and doxycycline - Paracentesis scheduled for today with fluid analysis to r/o SBP - Nadolol held due to decompensated state - Home KCL held # JAMES on CKD - Cr 2.29 - may be 2/2 to intra-abdominal HTN and extravascular overloaded state - Hold lasix - Avoid nephrotoxic drugs - Strict In and outs # Lactic acidosis - Elevated on admission - Will not trend at this time as lactic acidosis may be 2/2 to decreased hepatic lactate disposal #Thrombocytopenia - 81--->40 Plt - Held heparin for dvt ppx - TEDs /SCDs ordered - Will continue to monitor CBC closely #Hypomg - 1.5 Mg today - Repleted with 400mg IV x1 mg citrate - Follow mg lvl ordered for tomorrow am #Hx of COPD - Continue home meds #Hx of afib - NSR RRR - Was on xarelto before being d/c'd by patients flitch hanger Dr. Sandhu in [facility] - ECHO- no vegetations. see full report in imaging above #GERD - Continue protonix 40mg PO daily DVT ppx: Teds scds GI ppx: Protonix 40mg PO daily IVF: none Code: DNR/DNI Diet: 2g Na diet Dispo: Paracentesis today with fluids analysis. Continue empiric abx for SBP prevention GME ATTESTATION GME ATTESTATION My faculty preceptor for this patient encounter was physically present during the encounter and was fully available. All aspects of the patient interview, examination, medical decision making process, and medical care plan development were reviewed and approved by the faculty preceptor. The faculty preceptor is aware and concurs with the plan as stated in the body of this note and will at test to such by his/her cosignature. ATTENDING NOTE Patient was seen and examined by me personally with the residents and students. Agree with the above assessment and plan Tracey Juárez DO Dec 13, 2019 08:51 SHARON COTA MD Dec 22, 2019 09:28
[2019-12-13] MEDS ORDERED: HEPARIN SOD (PORCINE) 5000UNITS/ML 1ML VIAL/SYRINGE SQ SCH (09:00)
[2019-12-13] MEDS ORDERED: aMILoride 5 MG TAB PO SCH (09:00)
[2019-12-13] MEDS ORDERED: NADOLOL 20MG TABLET PO SCH (09:00)
[2019-12-13] MEDS: FUROSEMIDE 20 MG TAB PO SCH (09:00)
[2019-12-13] MEDS ORDERED: MAGNESIUM OXIDE 400 MG TAB (MAG-OX) PO ONE (10:00)
[2019-12-13] MEDS: POTASSIUM CHLORIDE 10 MEQ SR TABLET PO SCH (10:18)
[2019-12-13] MEDS: PANTOPRAZOLE 40MG TAB (PROTONIX) PO SCH (10:18)
[2019-12-13] MEDS: FLUTICASONE PROP 0.05% NASAL SPRAY 16 GM (FLONASE) SCH ×2 (10:20→21:17)
[2019-12-13] MEDS: CREON-12 CAPSULE PO SCH ×3 (10:24→17:35)
[2019-12-13] MEDS: DOXYCYCLINE HYCLATE 100 MG in D5W MINI-BAG PLUS 100 ML IV SCH ×2 (10:52→21:17)
[2019-12-13 11:07] LABS: PLTBLUE- EDTA FREE CALC 47 K/mm3 (172-450)
[2019-12-13 11:37] LABS: PLTBLUE- EDTA FREE MACHINE 43 10^3/uL (172-450)
[2019-12-13] MEDS ORDERED: SODIUM BICARBONATE 8.4% INJ 50MEQ 50 ML VIAL As Ordered ONE (14:49)
[2019-12-13 16:18] LABS: APPEARANCE, BODY FLUID HAZY (CLEAR); ASCITES FL COLOR YELLOW (COLORLESS); SOURCE, BODY FLUID ASCITES
[2019-12-13] MEDS ORDERED: SLF 3 ML SYR IV PRN (16:45)
[2019-12-13 19:07] LABS: SOURCE, BODY FLUID ALBUMIN ASCITES; SOURCE, BODY FLUID GLUCOSE ASCITES; SOURCE, BODY FLUID TOT PROTEIN ASCITES
[2019-12-13] MEDS: SLF 3 ML SYR IV SCH (21:17)
[2019-12-13] MEDS: busPIRone 5 MG TAB PO SCH (21:17)
[2019-12-13] MEDS: MONTELUKAST 10 MG TAB PO SCH (21:17)
[2019-12-14] VITALS: BP 100/58
[2019-12-14] MEDS: IPRATROPIUM 0.5MG/ALBUTEROL 2.5MG INH SOL UD 3ML (DUONEB) NEB SCH ×4 (00:07→19:24)
[2019-12-14] MEDS: cefTRIAXone SOD 1 GM in D5W MINI-BAG PLUS 50 ML IV SCH (00:32)
[2019-12-14 04:00] VITALS: BP 121/65
[2019-12-14] MEDS: SLF 3 ML SYR IV SCH ×3 (05:28→21:40)
[2019-12-14] MEDS: SYMBICORT 160/4.5MCG INHALER 6GM INH SCH ×2 (07:18→19:24)
[2019-12-14] MEDS ORDERED: MEROPENEM INJ 1 GM in IV 1 EA IV SCH (07:30)
[2019-12-14 07:58] LABS: BASO % 0.2 % (0.0-1.0); EOS # 0.1 10^3/uL (0.0-0.5); EOS % 0.8 % (0.0-3.0); HEMATOCRIT 32.9 % (42.0-52.0); HEMOGLOBIN 11.9 g/dl (13.5-17.5); LYMPH # 0.5 10^3/uL (1.5-5.0); LYMPH % 3.5 % (24.0-44.0); MEAN CORPUSCULAR HEMOGLOBIN 34.7 pg (27.0-33.0); MEAN CORPUSCULAR HGB CONC 36.2 g/dl (32.0-36.5); MEAN CORPUSCULAR VOLUME 95.9 fl (80.0-96.0); MONO # 1.2 10^3/uL (0.0-0.8); MONO % 9.5 % (0.0-5.0); NEUTROPHILS % 84.2 % (36.0-66.0); RED BLOOD COUNT 3.43 10^6/uL (4.30-6.10)
[2019-12-14 08:00] VITALS: BP 121/62
--- NOTE | 2019-12-14 08:24 | HPEPDOC ---
General Date of Admission Dec 12, 2019 at 21:03 Date of Service: Dec 14, 2019 Chief Complaint The patient is a 79-year-old male admitted with a reason for visit of Cirrhosis Copd Shortness Of Breath. History of Present Illness Pt was seen at bedside this am. NAD. states that he rested well last night. He complains of increased burning on urination. He is still coughing but states it's improved from previous days. The cough is precipitated by taking in a deep breath. Denies CP, SOB, fever, chills, N/V/D. No acute events overnight. ROS: All 12 points have been reviewed. See HPI PHYSICAL EXAM: VITAL SIGNS: SEE BELOW GENERAL: Elderly Male, NAD resting comfortably in bed HEENT: NC, AT, no scleral icterus, no pharyngeal erythema NECK: no JVD appreciated, no lymphadenopathy palpated CV: RRR, no m/g/r, no peripheral edema bilaterally RESPIRATORY: Rhonci in RL base of lung, otherwise clear on auscultation ABDOMEN: soft, nontender, Very full abdomen 2/2 to ascites, dullness to percussion, shifting fluid on movement EXTREMITIES: No peripheral edema, cyanosis or clubbing NEURO: No focal neuro deficits SKIN: jaundiced, spider angiomata seen on legs and abdomen PSYCH: AAOx3, mildly anxious from intractable vomiting IMAGING: No new imaging Home Medications Scheduled Amiloride HCl (Amiloride HCl) 5 Mg Tablet, 20 MG PO DAILY, (Reported) Budesonide/Formoterol (Symbicort 160-4.5 Mcg Inhaler) 6 Gm Hfa.aer.ad, 2 PUFF INH BID, (Reported) Buspirone HCl (Buspirone HCl) 5 Mg Tablet, 5 MG PO QHS, (Reported) Cetirizine HCl (ZyrTEC) 10 Mg Capsule, 10 MG PO QHS, (Reported) Fluticasone Propionate (Fluticasone Propionate) 16 Gm [place].susp, 1 SPRAY NA BID, (Reported) Furosemide (Furosemide) 20 Mg Tablet, 60 MG PO DAILY, (Reported) Montelukast Sodium (Montelukast Sodium) 10 Mg Tablet, 10 MG PO QHS, (Reported) Nadolol (Nadolol) 20 Mg Tablet, 20 MG PO DAILY, (Reported) Pancreatic Enzymes (Creon Dr 12,000 Units Capsule) 1 Each Capsule.dr, 36,000 UNITS PO TID, (Reported) with meals Pantoprazole Sodium (Pantoprazole Sodium) 40 Mg Tablet.dr, 40 MG PO BID, (Reported) Phenazopyridine HCl (Pyridium) 200 Mg Tablet, 200 MG PO TID for urinary discomfort Potassium Chloride (Potassium Chloride) 10 Meq Tablet.er, 10 MEQ PO BID, (Reported) Sulfamethoxazole/Trimethoprim (Sulfamethoxazole-Tmp Ds Tablet) 1 Each Tablet, 1 TAB PO BID TAKE FOR 6 MORE DAYS BID for UTI Ursodiol (Ursodiol) 300 Mg Cap, 600 MG PO BID, (Reported) Scheduled PRN Guaifenesin (Guaifenesin) 100 Mg/5 Ml Liquid, 5 ML PO PRN PRN for COUGH, (Reported) Allergies Coded Allergies: prednisone (Verified Allergy, Unknown, 08/03/19) spironolactone (Verified Adverse Reaction, Intermediate, GYNECOMASTIA, 02/03) niacin (Verified Adverse Reaction, Unknown, "sunburn", 07/26/19) A-FIB/CHADSVASC A-FIB History Current/History of A-Fib/PAF?: Yes Current PO Anticoag Therapy: No Physical Examination General Exam: Positive: Alert, Cooperative Eye Exam: Positive: PERRLA ENT Exam: Positive: Atraumatic Neck Exam: Positive: Supple; Negative: JVD Chest Exam: Positive: Rales, Rhonchi Heart Exam: Positive: Irregular Rhythm Telemetry: Positive: Atrial fibrillation Abdomen Exam: Positive: BS Hypoactive Extremity Exam: Negative: Clubbing, Cyanosis Skin Exam: Positive: Other skin issue (jaundice) Neuro Exam: Positive: Normal Gait, Strength at 5/5 X4 ext, Cranial Nerves 3-12 NL Psych Exam: Positive: Mental status NL Vital Signs Vital Signs Date Time Temp Pulse Resp B/P (MAP) Pulse Ox O2 Delivery O2 Flow Rate FiO2 12/14/19 04:00 98.7 89 20 121/65 (83) 96 Room Air Laboratory Data Labs 24H Laboratory Tests 2 12/13/19 10:52: Platelet Count, EDTA Free 47L 12/13/19 15:37: Body Fluid Source ASCITES, Body Fluid Color YELLOW, Body Fluid Appearance HAZY, Body Fluid Specific [place] 1.010, Body Fluid WBC (Auto) 328H, Body Fluid RBC (Auto) < 2, Body Fluid Mononuclear Cells % Auto 38.1H, Fluid Polymorphonuclear Cell % Auto 61.9H, Body Fluid Glucose Source ASCITES, Body Fluid Glucose 123, Body Fluid Protein Source ASCITES, Body Fluid Total Protein 1.0, Body Fluid Albumin Source ASCITES, Body Fluid Albumin 0.5 12/14/19 07:42: CBC/BMP Microbiology Microbiology 12/13/19 Acid Fast Stain, Received Pending 12/13/19 Mycobacterial Culture, Received Pending 12/13/19 Fungal Smear, Received Pending 12/13/19 Fungal Culture, Received Pending 12/13/19 Gram Stain, Received Pending 12/13/19 Body Fluid Culture, Received Pending 12/12/19 Blood Culture - Preliminary, Resulted No growth after 24 hours . All specim... 12/12/19 Urine Culture - Preliminary, Resulted E.coli Esbl 12/12/19 Respiratory Virus Panel (PCR) (KATELYN) - Final, Complete 12/12/19 Blood Culture - Preliminary, Resulted No growth after 24 hours . All specim... 12/12/19 Blood Culture - Preliminary, Resulted No growth after 24 hours . All specim... 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 He is admitted for paracentesis procedure and currently being covered with empiric abx for SBP Plan / VTE VTE Prophylaxis Ordered?: Yes Plan Plan # Cough and sob - CT scan did not show any pulmonary pathology. Minimal subsegmental atelectasis at L lung base. No evidence of PNA or Pleural effusions - Ascites could be contributing to suboptimal diaphragmatic movement causing sob - Paracentesis procedure today with acites fluid analysis -2L NC prn to titrate between 88-92% #ESBL + UTI - Worsening dysuria - Ertapenam ordered 1g IV q24h - Pending sensitivities for fosfomycin # NELSON cirrhosis and decompensated liver cirrhosis - Pt was admitted multiple times for decompensated liver cirrhosis and requires weekly paracentesis with 5L of fluid extraction and has a hx of previous SBP - Given 1 dose of zosyn in ER - Empiric abx coverage for SBP with Rocephin and doxycycline - Paracentesis scheduled for today with fluid analysis to r/o SBP - Nadolol held due to decompensated state - Home KCL held # JAMES on CKD - Cr 2.29 - may be 2/2 to intra-abdominal HTN and extravascular overloaded state - Hold lasix - Avoid nephrotoxic drugs - Strict In and outs # Lactic acidosis - Elevated on admission - Will not trend at this time as lactic acidosis may be 2/2 to decreased hepatic lactate disposal #Thrombocytopenia - 81--->40 Plt - Held heparin for dvt ppx - TEDs /SCDs ordered - Will continue to monitor CBC closely #Hypomg - 1.5 Mg today - Repleted with 400mg IV x1 mg citrate - Follow mg lvl ordered for tomorrow am #Hx of COPD - Continue home meds #Hx of afib - NSR RRR - Was on xarelto before being d/c'd by patients lead manufacturing engineer Dr. Sandhu in [facility] - ECHO- no vegetations. see full report in imaging above #GERD - Continue protonix 40mg PO daily DVT ppx: Teds scds GI ppx: Protonix 40mg PO daily IVF: none Code: DNR/DNI Diet: 2g Na diet Dispo: Paracentesis today with fluids analysis. Continue empiric abx for SBP prevention GME ATTESTATION GME ATTESTATION My faculty preceptor for this patient encounter was physically present during the encounter and was fully available. All aspects of the patient interview, examination, medical decision making process, and medical care plan development were reviewed and approved by the faculty preceptor. The faculty preceptor is aware and concurs with the plan as stated in the body of this note and will attest to such by his/her cosignature. ATTENDING NOTE Patient was seen and examined by me personally with the residents and students. Agree with the above assessment and plan Tracey Juárez DO Dec 14, 2019 08:24 SHARON COTA MD Dec 22, 2019 09:29
[2019-12-14 08:28] LABS: ALBUMIN 2.7 GM/DL (3.2-5.2); CALCIUM LEVEL 8.5 MG/DL (8.8-10.2); CREATININE FOR GFR 1.54 MG/DL (0.70-1.30); GLOMERULAR FILTRATION RATE 46.7 (>42); POTASSIUM SERUM 3.7 MEQ/L (3.5-5.1); TOTAL PROTEIN 5.3 GM/DL (6.4-8.2)
[2019-12-14] MEDS: CREON-12 CAPSULE PO SCH ×3 (08:36→17:34)
[2019-12-14] MEDS: PANTOPRAZOLE 40MG TAB (PROTONIX) PO SCH (08:36)
[2019-12-14] MEDS: FUROSEMIDE 20 MG TAB PO SCH (08:36)
[2019-12-14] MEDS: FLUTICASONE PROP 0.05% NASAL SPRAY 16 GM (FLONASE) SCH ×2 (08:37→20:19)
[2019-12-14 08:43] LABS: PLATELET COUNT, AUTOMATED 67 10^3/uL (150-450)
[2019-12-14] MEDS: ERTAPENEM SODIUM 1 GM in NS MINI-BAG PLUS 50 ML IV SCH (09:20)
[2019-12-14 12:00] VITALS: BP 116/55
[2019-12-14 16:00] VITALS: BP 133/67
[2019-12-14 20:00] VITALS: BP 126/63
[2019-12-14] MEDS: busPIRone 5 MG TAB PO SCH (20:14)
[2019-12-14] MEDS: MONTELUKAST 10 MG TAB PO SCH (20:14)
[2019-12-15] VITALS: BP 114/51
[2019-12-15] MEDS: IPRATROPIUM 0.5MG/ALBUTEROL 2.5MG INH SOL UD 3ML (DUONEB) NEB SCH ×3 (02:33→13:29)
[2019-12-15 04:00] VITALS: BP 101/51
[2019-12-15 05:26] LABS: BASO % 0.5 % (0.0-1.0); EOS # 0.1 10^3/uL (0.0-0.5); EOS % 0.6 % (0.0-3.0); HEMATOCRIT 35.4 % (42.0-52.0); HEMOGLOBIN 12.7 g/dl (13.5-17.5); LYMPH # 0.5 10^3/uL (1.5-5.0); LYMPH % 5.8 % (24.0-44.0); MEAN CORPUSCULAR HEMOGLOBIN 34.6 pg (27.0-33.0); MEAN CORPUSCULAR HGB CONC 35.9 g/dl (32.0-36.5); MEAN CORPUSCULAR VOLUME 96.5 fl (80.0-96.0); MONO # 1.1 10^3/uL (0.0-0.8); MONO % 12.5 % (0.0-5.0); NEUTROPHILS # 6.9 10^3/uL (1.5-8.5); NEUTROPHILS % 78.1 % (36.0-66.0); RED BLOOD COUNT 3.67 10^6/uL (4.30-6.10); WHITE BLOOD COUNT 8.8 10^3/uL (4.0-10.0)
[2019-12-15 05:29] LABS: PLATELET COUNT, AUTOMATED 67 10^3/uL (150-450)
[2019-12-15] MEDS: SLF 3 ML SYR IV SCH ×2 (05:33→13:11)
[2019-12-15 05:46] LABS: ALBUMIN 2.8 GM/DL (3.2-5.2); BILIRUBIN,TOTAL 7.9 MG/DL (0.2-1.0); CALCIUM LEVEL 8.5 MG/DL (8.8-10.2); CREATININE FOR GFR 1.55 MG/DL (0.70-1.30); GLOMERULAR FILTRATION RATE 46.4 (>42); POTASSIUM SERUM 3.4 MEQ/L (3.5-5.1); TOTAL PROTEIN 5.4 GM/DL (6.4-8.2)
[2019-12-15] MEDS: SYMBICORT 160/4.5MCG INHALER 6GM INH SCH (07:39)
[2019-12-15 08:00] VITALS: BP 123/72
[2019-12-15] MEDS ORDERED: POTASSIUM CHLORIDE 10 MEQ SR TABLET PO ONE (08:00)
[2019-12-15] MEDS ORDERED: MAGNESIUM OXIDE 400 MG TAB (MAG-OX) PO ONE (08:00)
[2019-12-15] MEDS: CREON-12 CAPSULE PO SCH ×3 (08:57→17:57)
[2019-12-15] MEDS: PANTOPRAZOLE 40MG TAB (PROTONIX) PO SCH (08:58)
[2019-12-15] MEDS: ERTAPENEM SODIUM 1 GM in NS MINI-BAG PLUS 50 ML IV SCH (08:58)
[2019-12-15] MEDS: FUROSEMIDE 20 MG TAB PO SCH (08:58)
[2019-12-15] MEDS: FLUTICASONE PROP 0.05% NASAL SPRAY 16 GM (FLONASE) SCH (08:58)
[2019-12-15] MEDS ORDERED: SULF1TAB93 PO (11:36)
--- NOTE | 2019-12-15 11:38 | DS.PDOC ---
Discharge Summary General Date of Admission Dec 12, 2019 at 21:03 Date of Discharge 12/15/2019 Attending Physician: SHARON COTA MD Discharge Summary PROCEDURES PERFORMED DURING STAY: paracentesis ADMITTING DIAGNOSES: 1. cough and sob DISCHARGE DIAGNOSES: 1. cough and symptomatic ESBL UTI COMPLICATIONS/CHIEF COMPLAINT: Cirrhosis Copd Shortness Of Breath. 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 Patient stated that for past 2 days he has been having low-grade fever around 100F with fatigue and increased cough. Also patient had a few episodes of vomiting and constant nausea. Patient denied any abdominal pain or increased abdominal girth, last paracentesis was on . In ER patient was found to have on x-ray There are low lung volumes with bibasilar subsegmental atelectasis without definite evidence of pneumonia or congestive heart failure. Blood work is pertinent for leukocytosis of 21.8, lactic acid 2.8, creatinine 2.3, total bili 10.3, direct bilirubin 7.5, AST 90. CRP 12.6. During hospitalization he was empirically covered with abx for possible SBP and was sent for a paracentesis which took out about 5.6 L. Fluid analysis ruled out SBP. His urine cx also grew ESBL ecoli and sensivities showed resistance to PO fosfomycin but sensitive to PO bactrim. He was put on ertapenam 1g q24 hour and transitioned to a course of bactrim to be taken for another 6 days outpt. He is instructed to follow outpt with PCP within 7 days and management developer within 7 days and swimming instructor within 7 days of d/c. He can follow with thermo cementing folder operator within 4 weeks of discharge. Extensive communication have been done with patient's daughter (Sonia) who is his proxy about her father's hospital course and discharge plans. The case was also discussed with senior program planner who had talked with daughter about how home health works. Home health form has been signed by Dr. Antoine Koo to evaluate patient upon discharge within 48 hours. DISCHARGE MEDICATIONS: Please see below ALLERGIES: Please see below. PHYSICAL EXAMINATION ON DISCHARGE: VITAL SIGNS: Please see below GENERAL: Elderly Male, NAD resting comfortably in bed HEENT: NC, AT, no scleral icterus, no pharyngeal erythema NECK: no JVD appreciated, no lymphadenopathy palpated CV: RRR, no m/g/r, no peripheral edema bilaterally RESPIRATORY: Rhonci in RL base of lung, otherwise clear on auscultation ABDOMEN: soft, nontender, Very full abdomen 2/2 to ascites, dullness to percussion EXTREMITIES: No peripheral edema, cyanosis or clubbing NEURO: No focal neuro deficits SKIN: jaundiced, spider angiomata seen on legs and abdomen PSYCH: AAOx3 LABORATORY DATA: Please see below. PROGNOSIS: medical conditions optimally managed during this hospitalization ACTIVITY: As tolerated DIET: 2g Na diet and consistent carb diet DISCHARGE PLAN: Follow up with PCP within 7 days of hospitalization, DISPOSITION: Optimally medically managed for discharge to follow outpt with specialist doctors. DISCHARGE INSTRUCTIONS: 1. Continue to take bactrim for 6 days 2. Continue to take all home meds 3.) F/u with pcp within 7 days of hospital discharge 4.) f/u with management developer within 7 days 5.) f/u with thermo cementing folder operator within 4 weeks of discharge 6.) Home health to evaluate patient for home health services, social media community manager and nursing and PT DISCHARGE CONDITION: Stable TIME SPENT ON DISCHARGE: 50 minutes. Vital Signs/I&Os Vital Signs Date Time Temp Pulse Resp B/P (MAP) Pulse Ox O2 Delivery O2 Flow Rate FiO2 12/15/19 08:00 96.6 94 18 123/72 (89) 98 Room Air I&O- Last 24 Hours up to 6 AM 12/15/19 06:00 Intake Total 1460 ml Output Total 250 ml Balance 1210 ml Laboratory Data Labs 24H Laboratory Tests 2 12/14/19 15:48: Methicillin-Resist S.aureus DNA PCR NOT DETECTED 12/15/19 05:02: Immature Granulocyte % (Auto) 2.5, Neutrophils (%) (Auto) 78.1H, Lymphocytes (%) (Auto) 5.8L, Monocytes (%) (Auto) 12.5H, Eosinophils (%) (Auto) 0.6, Basophils (%) (Auto) 0.5, Neutrophils # (Auto) 6.9, Lymphocytes # (Auto) 0.5L, Monocytes # (Auto) 1.1H, Eosinophils # (Auto) 0.1, Basophils # (Auto) 0.0, Nucleated Red Blood Cells % (auto) 0.0, Anion Gap 9, Glomerular Filtration Rate 46.4, Calcium Level 8.5L, Total Bilirubin 7.9H, Aspartate Amino Transf (AST/SGOT) 76H, Alanine Aminotransferase (ALT/SGPT) 30, Alkaline Phosphatase 153H, Total Protein 5.4L, Albumin 2.8L, Albumin/Globulin Ratio 1.1 CBC/BMP Laboratory Tests 12/15/19 05:02 Microbiology Microbiology 12/13/19 Acid Fast Stain, Received Pending 12/13/19 Mycobacterial Culture, Received Pending 12/13/19 Fungal Smear, Received Pending 12/13/19 Fungal Culture, Received Pending 12/13/19 Gram Stain - Final, Resulted 12/13/19 Body Fluid Culture, Resulted Pending 12/12/19 Blood Culture - Preliminary, Resulted No Growth after 48 hours. All Specime... 12/12/19 Urine Culture - Final, Complete E.coli Esbl 12/12/19 Respiratory Virus Panel (PCR) (KATELYN) - Final, Complete 12/12/19 Blood Culture - Preliminary, Resulted No Growth after 48 hours. All Specime... 12/12/19 Blood Culture - Preliminary, Resulted No Growth after 48 hours. All Specime... Discharge Medications Scheduled Amiloride HCl (Amiloride HCl) 5 Mg Tablet, 20 MG PO DAILY, (Reported) Budesonide/Formoterol (Symbicort 160-4.5 Mcg Inhaler) 6 Gm Hfa.aer.ad, 2 PUFF INH BID, (Reported) Buspirone HCl (Buspirone HCl) 5 Mg Tablet, 5 MG PO QHS, (Reported) Cetirizine HCl (ZyrTEC) 10 Mg Capsule, 10 MG PO QHS, (Reported) Fluticasone Propionate (Fluticasone Propionate) 16 Gm [place].susp, 1 SPRAY NA BID, (Reported) Furosemide (Furosemide) 20 Mg Tablet, 60 MG PO DAILY, (Reported) Montelukast Sodium (Montelukast Sodium) 10 Mg Tablet, 10 MG PO QHS, (Reported) Nadolol (Nadolol) 20 Mg Tablet, 20 MG PO DAILY, (Reported) Pancreatic Enzymes (Creon Dr 12,000 Units Capsule) 1 Each Capsule.dr, 36,000 UNITS PO TID, (Reported) with meals Pantoprazole Sodium (Pantoprazole Sodium) 40 Mg Tablet.dr, 40 MG PO BID, (Reported) Phenazopyridine HCl (Pyridium) 200 Mg Tablet, 200 MG PO TID for urinary discomfo rt Potassium Chloride (Potassium Chloride) 10 Meq Tablet.er, 10 MEQ PO BID, (Reported) Sulfamethoxazole/Trimethoprim (Sulfamethoxazole-Tmp Ds Tablet) 1 Each Tablet, 1 TAB PO BID TAKE FOR 6 MORE DAYS BID for UTI Ursodiol (Ursodiol) 300 Mg Cap, 600 MG PO BID, (Reported) Scheduled PRN Guaifenesin (Guaifenesin) 100 Mg/5 Ml Liquid, 5 ML PO PRN PRN for COUGH, (Reported) Allergies Coded Allergies: prednisone (Verified Allergy, Unknown, 08/03/19) spironolactone (Verified Adverse Reaction, Intermediate, GYNECOMASTIA, 07/26/19) niacin (Verified Adverse Reaction, Unknown, "sunburn", 07/26/19) GME ATTESTATION GME ATTESTATION My faculty preceptor for this patient encounter was physically present during the encounter and was fully available. All aspects of the patient interview, examination, medical decision making process, and medical care plan development were reviewed and approved by the faculty preceptor. The faculty preceptor is aware and concurs with the plan as stated in the body of this note and will attest to such by his/her cosignature. ATTENDING NOTE Patient was seen and examined by me personally with the residents and students. Agree with the above assessment and plan Tracey Juárez DO Dec 15, 2019 11:38 SHARON COTA MD Dec 22, 2019 09:34
[2019-12-15 12:00] VITALS: BP 109/57
[2019-12-15] MEDS ORDERED: PYRI1TAB5 PO (15:45)
[2019-12-15 16:00] VITALS: BP 111/63
--- NOTE | 2019-12-15 16:35 | IPNPDOC ---
Subjective Date Seen The patient was seen on 12/15/19. Subjective Chief Complaint/HPI Pt was seen at bedside. NAD, states that he didn't sleep well at night and states that he still has dysuria but states his bp is getting better. He denies CP, SOB, abdominal pain fever, n/v/d. Otherwise, he is doing well clinically improved. White count has improved. ROS: All 12 points points have been reviewed. PHYSICAL EXAM GENERAL: Elderly Male, NAD resting comfortably in bed HEENT: NC, AT, no scleral icterus, no pharyngeal erythema NECK: no JVD appreciated, no lymphadenopathy palpated CV: RRR, no m/g/r, no peripheral edema bilaterally RESPIRATORY: Rhonci in RL base of lung, otherwise clear on auscultation ABDOMEN: soft, nontender, Very full abdomen 2/2 to ascites, dullness to percussion EXTREMITIES: No peripheral edema, cyanosis or clubbing NEURO: No focal neuro deficits SKIN: jaundiced, spider angiomata seen on legs and abdomen PSYCH: AAOx3 Objective Physical Examination General Exam: Positive: Alert, Cooperative Eye Exam: Positive: PERRLA ENT Exam: Positive: Atraumatic Neck Exam: Positive: Supple; Negative: JVD Chest Exam: Positive: Rales, Rhonchi Heart Exam: Positive: Irregular Rhythm Telemetry: Positive: Atrial fibrillation Abdomen Exam: Positive: BS Hypoactive Extremity Exam: Negative: Clubbing, Cyanosis Skin Exam: Positive: Other skin issue (jaundice) Neuro Exam: Positive: Normal Gait, Strength at 5/5 X4 ext, Cranial Nerves 3-12 NL Psych Exam: Positive: Mental status NL Assessment /Plan Assessment Patient 79 years old male with past medical history of 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 He is admitted for paracentesis procedure and currently being covered with empiric abx for SBP. Plan/VTE VTE Prophylaxis Ordered?: Yes Plan # Cough and sob - CT scan did not show any pulmonary pathology. Minimal subsegmental atelectasis at L lung base. No evidence of PNA or Pleural effusions - Ascites could be contributing to suboptimal diaphragmatic movement causing sob - Paracentesis procedure today with ascites fluid analysis - 2L NC PRN to titrate between 88-92% # ESBL + UTI - Worsening dysuria - DCd ertapenam and switched to Bactrim BID for 7 days total course - Patient is resistant to fosfomycin # NELSON cirrhosis and decompensated liver cirrhosis - Pt was admitted multiple times for decompensated liver cirrhosis and requires weekly paracentesis with 5L of fluid extraction and has a hx of previous SBP - Given 1 dose of zosyn in ER - Empiric abx coverage for SBP with Rocephin and doxycycline - Paracentesis scheduled for today with fluid analysis to r/o SBP - Nadolol held due to decompensated state - Home KCL held # JAMES on CKD - Cr 1.55 - may be 2/2 to intra-abdominal HTN and extravascular overloaded state - Hold lasix - Avoid nephrotoxic drugs - Strict In and outs # Lactic acidosis - Elevated on admission - Will not trend at this time as lactic acidosis may be 2/2 to decreased hepatic lactate disposal #Thrombocytopenia improved - Heparin held for dvt ppx - TEDs /SCDs ordered - Will continue to monitor CBC closely #Hypomg - Repleted with 400mg IV x1 mg citrate - Follow mg lvl ordered for tomorrow am #Hx of COPD - Continue home meds #Hx of afib - NSR RRR - Was on xarelto before being d/c'd by patients pensions retirement plan specialist in [facility] - ECHO- no vegetations. See full report in imaging above #GERD - Continue protonix 40mg PO daily DVT ppx: Teds scds GI ppx: Protonix 40mg PO daily IVF: none Code: DNR/DNI Diet: 2g Na diet Dispo: Spoke extensively with daughter (Sonia), whos the patients sole dot net architect and she states that she is not able to take care of the father anymore. Pending placement at this point. VS, I&O, 24H, Fishbone Vital Signs/I&O Vital Signs Date Time Temp Pulse Resp B/P (MAP) Pulse Ox O2 Delivery O2 Flow Rate FiO2 12/15/19 16:00 99.0 96 18 111/63 (79) 95 Room Air I&O- Last 24 Hours up to 6 AM 12/15/19 06:00 Intake Total 1460 ml Output Total 250 ml Balance 1210 ml Laboratory Data 24H LABS Laboratory Tests 2 12/15/19 05:02: Immature Granulocyte % (Auto) 2.5, Neutrophils (%) (Auto) 78.1H, Lymphocytes (%) (Auto) 5.8L, Monocytes (%) (Auto) 12.5H, Eosinophils (%) (Auto) 0.6, Basophils (%) (Auto) 0.5, Neutrophils # (Auto) 6.9, Lymphocytes # (Auto) 0.5L, Monocytes # (Auto) 1.1H, Eosinophils # (Auto) 0.1, Basophils # (Auto) 0.0, Nucleated Red Blood Cells % (auto) 0.0, Anion Gap 9, Glomerular Filtration Rate 46.4, Calcium Level 8.5L, Total Bilirubin 7.9H, Aspartate Amino Transf (AST/SGOT) 76H, Alanine Aminotransferase (ALT/SGPT) 30, Alkaline Phosphatase 153H, Total Protein 5.4L, Albumin 2.8L, Albumin/Globulin Ratio 1.1 CBC/BMP Laboratory Tests 12/15/19 05:02 Microbiology Microbiology 12/13/19 Acid Fast Stain, Received Pending 12/13/19 Mycobacterial Culture, Received Pending 12/13/19 Fungal Smear, Received Pending 12/13/19 Fungal Culture, Received Pending 12/13/19 Gram Stain - Final, Resulted 12/13/19 Body Fluid Culture, Resulted Pending 12/12/19 Blood Culture - Preliminary, Resulted No Growth after 48 hours. All Specime... 12/12/19 Urine Culture - Final, Complete E.coli Esbl 12/12/19 Respiratory Virus Panel (PCR) (KATELYN) - Final, Complete 12/12/19 Blood Culture - Preliminary, Resulted No Growth after 48 hours. All Specime... 12/12/19 Blood Culture - Preliminary, Resulted No Growth after 48 hours. All Specime... GME ATTESTATION GME ATTESTATION My faculty preceptor for this patient encounter was physically present during the encounter and was fully available. All aspects of the patient interview, examination, medical decision making process, and medical care plan development were reviewed and approved by the faculty preceptor. The faculty preceptor is aware and concurs with the plan as stated in the body of this note and will attest to such by his/her cosignature. ATTENDING NOTE Patient was seen and examined by me personally with the residents and students. Agree with the above assessment and plan Tracey Juárez DO Dec 15, 2019 16:35 SHARON COTA MD Dec 22, 2019 09:33
[2019-12-16] MEDS ORDERED: BACTRIM 160MG/800MG DS TAB PO SCH (09:00)
--- NOTE | 2019-12-22 16:44 | REP ---
ULTRASOUND GUIDED PARACENTESIS The procedure was performed by Beata Edouard [facility], under the direct supervision of Dr. Santos. The risks and benefits of the procedure were explained to the patient, and an informed consent was obtained both verbally and written. Directly prior to the start of the procedure, a formal time out was completed in the procedure room. The largest pocket of fluid was localized in the left flank using ultrasound guidance. The skin was prepped and draped in a sterile fashion. 11 mL of buffered lidocaine was used as a local anesthetic. A small skin aaliyah was made, and through that skin aaliyah, an 8-Slovak multi sidehole catheter was inserted using trocar technique. 3,500 mL of yellow fluid was withdrawn, 200 mL of this fluid was sent to the lab for further analysis, and the rest was discarded. The patient tolerated the procedure well, and there were no immediate complications. After the appropriate amount of monitored convalescence, the patient was discharged back up to the floor. JENSEN
== END 2019-12-15 18:12 | disposition home health service (06) | DRG 433 ==
LOC: M ED 17:49 → M ED INP 21:03 → ENRESERV 22:40 → M MSPAV 22:49 → M PCU 12-13 03:36
PROVIDERS: ADMIT Internal Medicine; ATTEND Internal Medicine
PROC: 0W9G3ZZ Drainage of Peritoneal Cavity, Percutaneous Approach (ICD-10-PCS; principal; 2019-12-13 15:30)
DX: K74.60 Unspecified cirrhosis of liver (principal); N39.0 Urinary tract infection, site not specified; R18.8 Other ascites; I85.10 Secondary esophageal varices without bleeding; I48.20 Chronic atrial fibrillation, unspecified; E87.2 Acidosis; N17.9 Acute kidney failure, unspecified; K75.81 Nonalcoholic steatohepatitis (NASH); I12.9 Hypertensive chronic kidney disease with stage 1 through stage 4 chronic kidney disease, or unspecified chronic kidney disease; J45.909 Unspecified asthma, uncomplicated; Z79.899 Other long term (current) drug therapy; Z88.8 Allergy status to other drugs, medicaments and biological substances; Z79.01 Long term (current) use of anticoagulants; E78.5 Hyperlipidemia, unspecified; N40.0 Benign prostatic hyperplasia without lower urinary tract symptoms; N18.9 Chronic kidney disease, unspecified; D69.6 Thrombocytopenia, unspecified; E83.42 Hypomagnesemia; K21.9 Gastro-esophageal reflux disease without esophagitis

== ENCOUNTER → 2019-12-21 | Outpatient (CLI) | payer MEDICARE, OTHER ==
[~2019-12-21] MED LIST changes: +ATIV1TAB7 PO; +BISA10SU PR; +BUSP5TA PO; +GUAI100S51 PO; +MORP1SOL4 PO; +ONDA4TAB6 PO; +POTA1TAB23 PO; +PYRI1TAB5 PO; +SCOP1PAT2 TOP; +SODIUM BICARBONATE 8.4% INJ 50MEQ 50 ML VIAL As Ordered ONE; +SULF1TAB93 PO
[2019-12-21 13:16] VITALS: BP 106/53
--- NOTE | 2019-12-28 09:58 | REP ---
ULTRASOUND-GUIDED PARACENTESIS This procedure was performed by Beata Edouard [facility], under the direct supervision of Dr. Santos. The risks and benefits of the procedure were explained to the patient and an informed consent was obtained both verbally and written. Directly prior to the start of the procedure, a formal time-out was completed in the procedure room. The largest pocket of fluid was localized in the right flank using ultrasound guidance. The skin was prepped, and draped in a sterile fashion. Approximately 11 mL of buffered Lidocaine was used as a local anesthetic. Using ultrasound guidance, an 8-Ghanaian multi-side hole catheter was inserted using trocar technique. 5600 mL of straw yellow fluid was withdrawn and discarded. The patient tolerated the procedure well, and there were no immediate complications. After the appropriate amount of monitored convalescence, the patient was discharged from the department. JENSEN
== END ==
LOC: M IRPRO 11:38
PROVIDERS: ATTEND Student in an Organized Health Care Education/Training Program
DX: R18.8 Other ascites (principal); K74.60 Unspecified cirrhosis of liver
CPT/HCPCS: 49083; 96365; P9047

== ENCOUNTER → 2019-12-23 | Outpatient (REF) | payer MEDICARE, OTHER ==
[~2019-12-23] MED LIST changes: -SODIUM BICARBONATE 8.4% INJ 50MEQ 50 ML VIAL As Ordered ONE
[2019-12-23 17:53] LABS: BASO # 0.1 10^3/uL (0.0-0.2); EOS # 0.2 10^3/uL (0.0-0.5); EOS % 1.8 % (0.0-3.0); HEMATOCRIT 38.4 % (42.0-52.0); HEMOGLOBIN 13.4 g/dl (13.5-17.5); LYMPH # 0.8 10^3/uL (1.5-5.0); LYMPH % 6.7 % (24.0-44.0); MEAN CORPUSCULAR HEMOGLOBIN 34.9 pg (27.0-33.0); MEAN CORPUSCULAR HGB CONC 34.9 g/dl (32.0-36.5); MONO # 1.1 10^3/uL (0.0-0.8); MONO % 8.7 % (0.0-5.0); NEUTROPHILS # 9.6 10^3/uL (1.5-8.5); NEUTROPHILS % 79.5 % (36.0-66.0); PLATELET COUNT, AUTOMATED 118 10^3/uL (150-450); RED BLOOD COUNT 3.84 10^6/uL (4.30-6.10); WHITE BLOOD COUNT 12.1 10^3/uL (4.0-10.0)
[2019-12-23 18:06] LABS: INR 1.25
[2019-12-23 18:24] LABS: ALBUMIN 2.9 GM/DL (3.2-5.2); BILIRUBIN,DIRECT 4.2 MG/DL (0.0-0.2); BILIRUBIN,TOTAL 5.1 MG/DL (0.2-1.0); CALCIUM LEVEL 8.7 MG/DL (8.8-10.2); CREATININE FOR GFR 2.21 MG/DL (0.70-1.30); GLOMERULAR FILTRATION RATE 30.8 (>42); POTASSIUM SERUM 3.9 MEQ/L (3.5-5.1); TOTAL PROTEIN 5.9 GM/DL (6.4-8.2)
== END ==
LOC: M LAB REF 17:09
PROVIDERS: ATTEND Internal Medicine Gastroenterology
DX: K74.60 Unspecified cirrhosis of liver (principal); R18.8 Other ascites

== ENCOUNTER → 2019-12-23 | Outpatient (REF) | payer MEDICARE, OTHER ==
[2019-12-25 18:07] LABS: TESTOSTERONE FREE (DIRECT) 8.6 pg/mL (6.6-18.1)
== END ==
LOC: M LAB REF 16:59
PROVIDERS: ATTEND Urology
DX: C61 Malignant neoplasm of prostate (principal); R97.20 Elevated prostate specific antigen [PSA]; K74.60 Unspecified cirrhosis of liver; R18.8 Other ascites

== ENCOUNTER 2019-12-26 11:47 | Inpatient (IN) | payer MEDICARE, OTHER ==
[~2019-12-26] VITALS: Ht 170.2 cm; Wt 80.1 kg
[~2019-12-26 11:47] MED LIST changes: -ATIV1TAB7 PO; -BISA10SU PR; -MORP1SOL4 PO; -ONDA4TAB6 PO; -SCOP1PAT2 TOP
[2019-12-26] MEDS ORDERED: CIPR500T3 PO (12:02)
[2019-12-26] MEDS ORDERED: ONDANSETRON 4MG/2ML VIAL IV ONE (12:15)
[2019-12-26 12:48] LABS: BASO # 0.1 10^3/uL (0.0-0.2); BASO % 1.5 % (0.0-1.0); EOS # 0.2 10^3/uL (0.0-0.5); EOS % 2.2 % (0.0-3.0); HEMATOCRIT 40.7 % (42.0-52.0); HEMOGLOBIN 13.7 g/dl (13.5-17.5); LYMPH # 0.8 10^3/uL (1.5-5.0); LYMPH % 9.2 % (24.0-44.0); MEAN CORPUSCULAR HEMOGLOBIN 34.3 pg (27.0-33.0); MEAN CORPUSCULAR HGB CONC 33.7 g/dl (32.0-36.5); MEAN CORPUSCULAR VOLUME 101.8 fl (80.0-96.0); MONO # 0.8 10^3/uL (0.0-0.8); MONO % 8.9 % (0.0-5.0); NEUTROPHILS # 6.9 10^3/uL (1.5-8.5); NEUTROPHILS % 76.7 % (36.0-66.0); PLATELET COUNT, AUTOMATED 119 10^3/uL (150-450); WHITE BLOOD COUNT 8.9 10^3/uL (4.0-10.0)
[2019-12-26 12:59] LABS: INR 1.15; PARTIAL THROMBOPLASTIN TIME 29.1 SECONDS (24.2-38.5); PROTHROMBIN TIME 14.9 SECONDS (12.5-14.3)
[2019-12-26 13:17] LABS: ALBUMIN 2.9 GM/DL (3.2-5.2); BILIRUBIN,DIRECT 5.3 MG/DL (0.0-0.2); BILIRUBIN,TOTAL 6.8 MG/DL (0.2-1.0); TOTAL PROTEIN 6.4 GM/DL (6.4-8.2)
--- NOTE | 2019-12-26 13:21 | ECGEPIP ---
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
--- NOTE | 2019-12-26 13:59 | REPVR ---
PROCEDURE INFORMATION: Exam: CT Abdomen And Pelvis Without Contrast Exam date and time: 12/26/2019 12:57 PM Age: 79 years old Clinical indication: Abdominal pain; Generalized; Additional info: Sob/abdominal pain; HX of pneumonia/ascites TECHNIQUE: Imaging protocol: Computed tomography of the abdomen and pelvis without contrast. Radiation optimization: All CT scans at this facility use at least one of these dose optimization techniques: automated exposure control; mA and/or kV adjustment per patient size (includes targeted exams where dose is matched to clinical indication); or iterative reconstruction. COMPARISON: CT ABD PELVIS W/O CONTRAST 12/12/2019 9:14 PM FINDINGS: Pleural space: Small left greater than right pleural effusions. Liver: Cirrhotic liver. Gallbladder and bile ducts: Cholecystectomy changes. No biliary ductal dilation. Pancreas: No ductal dilation. Spleen: Persistent splenomegaly. Adrenals: No mass. Kidneys and ureters: Unchanged mildly complicated exophytic left renal cyst with calcifications and multiple additional smaller renal cysts. Proteinaceous/hemorrhagic cyst in the right kidney is stable measuring 1 cm. Several small nonobstructing nephroliths are present bilaterally. No hydronephrosis. Stomach and bowel: No bowel obstruction. Areas of bowel wall edema or likely secondary to underlying chronic liver disease. Appendix: No evidence of appendicitis. Intraperitoneal space: Large volume ascites. Diffuse reticular stranding throughout the mesentery and omentum. Vasculature: Aortic annular and coronary artery calcifications are present. Moderate aortic and branch vessel atherosclerosis. Lymph nodes: No enlarged lymph nodes. Urinary bladder: Unremarkable as visualized. Reproductive: Mildly enlarged prostate. Bones/joints: Multiple vertebral body endplate deformities are likely chronic. Soft tissues: Moderate body wall edema. IMPRESSION: 1. Cirrhotic liver with sequelae of portal hypertension including splenomegaly, large volume ascites and diffuse mesenteric edema as well as areas of portal enteropathy. 2. Bilateral simple and complex renal cysts. Attention on follow-up. Electronically signed by: Brando Castillo On 12/26/2019 13:59:50 PM
--- NOTE | 2019-12-26 14:02 | REPVR ---
PROCEDURE INFORMATION: Exam: CT Chest Without Contrast Exam date and time: 12/26/2019 12:57 PM Age: 79 years old Clinical indication: Shortness of breath; Additional info: Sob/abdominal pain; HX of pneumonia/ascites TECHNIQUE: Imaging protocol: Computed tomography of the chest without contrast. Radiation optimization: All CT scans at this facility use at least one of these dose optimization techniques: automated exposure control; mA and/or kV adjustment per patient size (includes targeted exams where dose is matched to clinical indication); or iterative reconstruction. COMPARISON: CT Chest without contrast 12/12/2019 9:14 PM FINDINGS: Lungs: Mild dependent atelectasis. Pleural space: Small left greater than right pleural effusions. Heart: Aortic annular and coronary artery calcifications are present. Mediastinal space: Mildly patulous esophagus with distal paraesophageal varices. Aorta: Moderate aortic and branch vessel atherosclerosis. Lymph nodes: No enlarged lymph nodes. Bones/joints: Extensive spinal degenerative change with bridging osteophytes throughout the lower thoracic spine. Soft tissues: Extensive bilateral gynecomastia. Other findings: For findings below the diaphgram see concurrent ct abdomen report. IMPRESSION: 1. No evidence of pneumonia. 2. Bilateral dependent atelectasis. 3. Small bilateral pleural effusions. Electronically signed by: Brando Castillo On 12/26/2019 14:02:30 PM
--- NOTE | 2019-12-26 14:25 | HPEPDOC ---
[facility] Medical History & Physical Date of Admission Dec 26, 2019 Date of Service: Dec 26, 2019 Attending Physician: Urvashi Albrecht MD History and Physical CHIEF COMPLAINT: Abdominal pain/discomfort, shortness of breath HISTORY OF PRESENT ILLNESS: Patient is a 79 y/o M with PMH of NELSON liver cirrhosis with worsening ascites requiring weekly paracentesis (last 12/21/19), hx of SBP, gastroesophageal varices, atrial fibrillation on chronic Xarelto, HTN, HLD, asthma, BPH, nonobstructing left renal calculus who presented to [facility] with chief complaint of abdominal pain and shortness of breath. The patient really had paracentesis on 12/21/2019 but since then has had symptoms of increased sh ortness of breath at rest and with activity, nausea 4 days without vomiting. His abdominal pain is located periumbilically, 34/10, intermittent, sometimes worsens with eating. He also complains of a dry mouth, feeling unsteady in the morning, lethargy and decreased appetite. The patient follows with a GI/press tender Dionisio Pena. He states that his liver disease is end- stage and he follows regularly with his provider. He denies chest pain, fevers, chills, diarrhea, lightheadedness, dizziness. In the ER, VS showed he was slightly hypotensive with BP 961 . WBC was normal, his complete metabolic panel was abnormal with T bili 6.8, D bili 5.3, AST/ALT 129/62, alkaline phosphatase 240, ammonia 28. When compared to prior labs this seems to be his baseline. He also had a creatinine elevated at 2.4, baseline prior to 11/2019 was 1.2-0.5. The last time he had his creatinine chec ked on 12/23/2019 his crying was 2.12 and trending upwards. He denies seeing a account adjuster in the community or chronic kidney issues in the past. He takes high-dose Lasix daily and admits to not having much of an appetite over the past several days. CT abd/pelvis showed: 1. Cirrhotic liver with sequelae of portal hypertension including splenomegaly, large volume ascites and diffuse mesenteric edema as well as areas of portal enteropathy. 2. Bilateral simple and complex renal cysts. Renal US pending. Patient was admitted for worsening ascites 2/2 to NELSON cirrhosis requiring therapeutic paracentesis, acute kidney injury. REVIEW OF SYSTEMS: Neg except what is mentioned above PAST MEDICAL HISTORY: NELSON, liver cirrhosis with worsening ascites H/O SBP. Gastroesophageal varices. Atrial fibrillation on chronic Xarelto. Hypertension. Dyslipidemia. Asthma. Benign prostatic hypertrophy. Nonobstructing left renal calculus. L1 and L4 compression deformities. PAST SURGICAL HISTORY: Umbilical hernia repair 2019. Cholecystectomy. PAST FAMILY HISTORY: mother-HTN, at 97 y/o father- HTN, at 78 y/o SOCIAL HISTORY Former smoker for 10 years, 1-1.5 PPD. Quit in 1968. Denies regular alcohol use. Denies drug use. Previously lived alone, now lives with his daughter. 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 Patient does not drink any alcohol, does not take any acetaminophen due to his cirrhosis. He is a FULL CODE. Healthcare proxy is Sonia Burton, phone number is [phone]. ALLERGIES: Please see below. HOME MEDICATIONS: Please see below. PHYSICAL EXAMINATION: VS: Please see below CONSTITUTIONAL: No acute distress, resting comfortably, AAO x 3 EYES: PERRLA, EOM intact HENT, MOUTH: Normocephalic, atraumatic, moist mucous membranes, light yellow scl era NECK: SUPPLE, no JVD, no lymphadenopathy, no carotid bruit CV: Regular rate and rhythm, S1S2 normal, no murmurs/rubs/gallops RESPIRATORY: Clear to auscultation bilaterally, no rales/rhonchi/wheezes GI: distended abdomen, tense, BS positive in 4 quadrants, nontender,no rebound or guarding, no organomegaly : Deferred MUSCULOSKELETAL: Normal ROM. No cyanosis, clubbing, swelling, joint deformity, pitting edema +2 bilateral lower ext INTEGUMENTARY: Skin is tanned, intact, no rashes, no lesions, no erythema NEUROLOGIC: Cranial Nerves II-XII are intact, no focal deficits PSYCHIATRIC: Mood and affect are normal LABORATORY DATA: Please see below IMAGING: CT abd/pelvis: 1. Cirrhotic liver with sequelae of portal hypertension including splenomegaly, large volume ascites and diffuse mesenteric edema as well as areas of portal enteropathy. 2. Bilateral simple and complex renal cysts. CT chest: 1. No evidence of pneumonia. 2. Bilateral dependent atelectasis. 3. Small bilateral pleural effusions. ASSESSMENT: 79 y/o M with PMH of NELSON liver cirrhosis with decompensation with worsening ascites requiring weekly paracentesis (last 12/21/19), hx of SBP, g astroesophageal varices, atrial fibrillation on chronic Xarelto, HTN, HLD, asthma, BPH, nonobstructing left renal calculus admitted for worsening ascites 2/2 to NELSON cirrhosis requiring therapeutic paracentesis, acute kidney injury. PLAN: Abdominal discomfort 2/2 to ascites 2/2 to decompensating NELSON liver cirrhosis -Gets weekly paracenteses; recent paracentesis 12/21/19 5.6 L of yellow fluid dr morales. -Afebrile, WBC wnl and not suspicious of SBP currently. Hx of SBP in past and on prophylactic abx daily -AST/ALT, T and D bili, Alk phos and ammonia at patient's baseline. -To go for paracentesis in the AM. Will need 3 albumin 25% to be ran before and during paracentesis to help avoid hypotensive episode. -Follows with press tender/GI specialist in [place]. Acute kidney injury r/o nephrotoxicity 2/2 medications vs. developing hepatorenal syndrome vs. cystic disease -Cr 2.4 today, previously 2.21 on 12/23/19. Prior to 11/2019 Cr baseline 1.2-1.5 -On lasix 60 mg daily, amiloride- held on admission until nephrology reviews -Bilateral simple and complex renal cysts seen on CT -F/u daily labs, renal US -Dr. Galloway (nephrology) consulted Shortness of breath likely 2/2 to bilateral pleural effusions, distended abdomen 2/2 to increased ascites fluid -Small effusions seen on CT chest. Currently saturating well on RA. -Patient states to feel this often with increased abd distension -F/u post-paracentesis and recommendations per nephrology as to continue/adjust diuretics -C/w treatment above Gastroesophageal varices -No s/s of bleeding Atrial fibrillation -Previously on Xarelto;however, not any longer -rate controlled -C/w BB with holding parameters Intermittent hypotension -Hx of HTN, decreased appetite at home -BP 96-132/58-65 -Monitor closely, holding parameters on BB and diuretics stopped for now HLD -Not currently on statin Asthma -Stable. -Symbicort, montelukast Benign prostatic hypertrophy -Not on medications Hypokalemia hx -K wnl -C/w daily supplement Chronic thrombocytopenia -PLTs today at 119, best they have been since 08/2019 -No s/s of bleeding -Daily CBC GI px -PPI BID DVT px -Heparin SC DISPOSITION: Admit to acute inpatient status. Plan is paracentesis in the AM, nephrology consulted. Plan is discharge home when medically improved. Vital Signs Vital Signs Date Time Temp Pulse Resp B/P (MAP) Pulse Ox O2 Delivery O2 Flow Rate FiO2 12/26/19 14:15 73 120/62 (81) 97 12/26/19 12:40 Room Air 99 12/26/19 12:19 96.4 12/26/19 11:49 22 Laboratory Data Labs 24H Laboratory Tests 2 12/26/19 12:32: Immature Granulocyte % (Auto) 1.5, Neutrophils (%) (Auto) 76.7H, Lymphocytes (%) (Auto) 9.2L, Monocytes (%) (Auto) 8.9H, Eosinophils (%) (Auto) 2.2, Basophils (%) (Auto) 1.5H, Neutrophils # (Auto) 6.9, Lymphocytes # (Auto) 0.8L, Monocytes # (Auto) 0.8, Eosinophils # (Auto) 0.2, Basophils # (Auto) 0.1, Nucleated Red Blood Cells % (auto) 0.0, Prothrombin Time 14.9H, Prothromb Time International Ratio 1.15, Activated Partial Thromboplast Time 29.1, Lactic Acid Level 1.4, Total Bilirubin 6.8H, Direct Bilirubin 5.3H, Aspartate Amino Transf (AST/SGOT) 129H, Alanine Aminotransferase (ALT/SGPT) 62, Alkaline Phosphatase 240H, Ammonia 28, Total Protein 6.4, Albumin 2.9L, Albumin/Globulin Ratio 0.8, Lipase 450H CBC/BMP Laboratory Tests 12/26/19 12:32 Microbiology Microbiology 12/26/19 Blood Culture, Received Pending 12/26/19 Blood Culture, Received Pending Home Medications Scheduled Amiloride HCl (Amiloride HCl) 5 Mg Tablet, 20 MG PO DAILY Budesonide/Formoterol (Symbicort 160-4.5 Mcg Inhaler) 6 Gm Hfa.aer.ad, 2 PUFF INH BID Buspirone HCl (Buspirone HCl) 5 Mg Tablet, 5 MG PO QHS Cetirizine HCl (ZyrTEC) 10 Mg Capsule, 10 MG PO QHS Ciprofloxacin HCl (Ciprofloxacin HCl) 500 Mg Tablet, 500 MG PO DAILY Furosemide (Furosemide) 20 Mg Tablet, 60 MG PO DAILY Montelukast Sodium (Montelukast Sodium) 10 Mg Tablet, 10 MG PO QHS Nadolol (Nadolol) 20 Mg Tablet, 20 MG PO QHS Pancreatic Enzymes (Creon Dr 12,000 Units Capsule) 1 Each Capsule.dr, 36,000 UNITS PO TID with meals Pantoprazole Sodium (Pantoprazole Sodium) 40 Mg Tablet.dr, 40 MG PO BID Potassium Chloride (Potassium Chloride) 10 Meq Tablet.er, 10 MEQ PO BID Ursodiol (Ursodiol) 300 Mg Cap, 600 MG PO BID Scheduled PRN Fluticasone Propionate (Fluticasone Propionate) 16 Gm [place].susp, 1 SPRAY NARES BID PRN for CONGESTION Guaifenesin (Guaifenesin) 100 Mg/5 Ml Liquid, 5 ML PO PRN PRN for COUGH Allergies Coded Allergies: prednisone (Verified Allergy, Unknown, 12/26/19) spironolactone (Verified Adverse Reaction, Intermediate, GYNECOMASTIA, 12/26/19) niacin (Verified Adverse Reaction, Unknown, "sunburn", 12/26/19) A-FIB/CHADSVASC A-FIB History Current/History of A-Fib/PAF?: Yes Current PO Anticoag Therapy: Yes Age/Risk Factor Scoring CHADSVASC: CHADSVASC Response (Comments) Value Age Risk Factor Age >/= 75 years old 2 Gender Risk Factor Male 0 Hx of CHF No 0 Hx of HTN Yes 1 Hx of Stroke/TIA/or VTE No 0 Hx of Diabetes No 0 Hx of Vascular Disease No 0 Total 3 Treatment Treatment ordered: Other Other anticoagulant ordered: Urvashi Alanis MD Dec 26, 2019 14:25
[2019-12-26] MEDS ORDERED: ACETAMINOPHEN TAB 650MG DOSE (2X325MG) PO PRN (15:15)
[2019-12-26] MEDS ORDERED: FLUTICASONE PROP 0.05% NASAL SPRAY 16 GM (FLONASE) NARES PRN (16:30)
[2019-12-26] MEDS ORDERED: guaiFENesin SYRUP 200 MG/10 ML UDC PO PRN (16:30)
[2019-12-26 16:48] VITALS: BP 127/65
--- NOTE | 2019-12-26 17:16 | REPVR ---
PROCEDURE INFORMATION: Exam: US Retroperitoneal Limited, Kidneys Exam date and time: 12/26/2019 4:37 PM Age: 79 years old Clinical indication: Abnormal findings; Abnormal lab test; Abnormal kidney function lab tests; Additional info: Renal cysts, worsening kidney function TECHNIQUE: Imaging protocol: Real-time ultrasound of the retroperitoneum with image documentation. Examination was focused on the kidneys. COMPARISON: PARACENTESIS NEEDLE PLACE US BILATERAL 12/21/2019 12:02 PM FINDINGS: Right kidney: 14 mm diameter cyst in the midportion of the right kidney. No right hydronephrosis. The right renal calculi seen on the previous CT scan are not identified. No hydronephrosis. Left kidney: 3.6 cm diameter exophytic cyst with wall calcification within the left kidney midpole. 14 mm cyst with partial septation and wall nodule within the left kidney midpole. 23 mm diameter simple cyst in the left kidney lower pole. Minimally dilated left renal pelvis. Nonobstructing stone measuring 5 mm within the left kidney lower pole. Intraperitoneal space: Large volume of abdominal ascites. Bladder: Neither ureteral jet is visualized on this examination. . The urinary bladder is unremarkable as visualized but incompletely seen on this examination. IMPRESSION: 1. Large abdominal ascites. 2. Left nephrolithiasis. 3. Bilateral renal cysts. 4. There are 2 complex cysts within the left kidney. One contains a partial septation and wall nodule and the 2nd has a wall calcification. These are both Bosniak 2F lesions. Follow-up renal imaging in 6-12 months is recommended. Electronically signed by: Javy Carreon On 12/26/2019 17:16:03 PM
[2019-12-26] MEDS: CREON-12 CAPSULE PO SCH (18:02)
[2019-12-26] MEDS: SYMBICORT 160/4.5MCG INHALER 6GM INH SCH (20:01)
[2019-12-26 20:29] VITALS: BP 101/68
[2019-12-26] MEDS: busPIRone 5 MG TAB PO SCH (20:49)
[2019-12-26] MEDS: PANTOPRAZOLE 40MG TAB (PROTONIX) PO SCH (20:49)
[2019-12-26] MEDS: CETIRIZINE (ZyrTEC) 10 MG TAB PO SCH (20:49)
[2019-12-26] MEDS: MONTELUKAST 10 MG TAB PO SCH (20:49)
[2019-12-26] MEDS: HEPARIN SOD (PORCINE) 5000UNITS/ML 1ML VIAL/SYRINGE SQ SCH (20:50)
[2019-12-26] MEDS: ursodioL 300 MG CAP PO SCH (20:50)
[2019-12-26] MEDS: POTASSIUM CHLORIDE 10 MEQ SR TABLET PO SCH (20:50)
[2019-12-26] MEDS ORDERED: NADOLOL 20MG TABLET PO SCH (21:00)
[2019-12-26 22:00] VITALS: BP 101/68
[2019-12-27] VITALS (8 sets, daily range): BP systolic 103–134; BP diastolic 58–75
[2019-12-27] MEDS: CIPROFLOXACIN 500MG TABLET PO SCH (05:44)
[2019-12-27 06:16] LABS: HEMATOCRIT 33.4 % (42.0-52.0); HEMOGLOBIN 11.6 g/dl (13.5-17.5); MEAN CORPUSCULAR HEMOGLOBIN 34.4 pg (27.0-33.0); MEAN CORPUSCULAR HGB CONC 34.7 g/dl (32.0-36.5); MEAN CORPUSCULAR VOLUME 99.1 fl (80.0-96.0); RED BLOOD COUNT 3.37 10^6/uL (4.30-6.10); WHITE BLOOD COUNT 7.8 10^3/uL (4.0-10.0)
[2019-12-27 06:25] LABS: PLATELET COUNT, AUTOMATED 91 10^3/uL (150-450)
[2019-12-27 06:39] LABS: ALBUMIN 2.4 GM/DL (3.2-5.2); BILIRUBIN,TOTAL 5.9 MG/DL (0.2-1.0); CALCIUM LEVEL 8.7 MG/DL (8.8-10.2); CREATININE FOR GFR 2.15 MG/DL (0.70-1.30); GLOMERULAR FILTRATION RATE 31.8 (>42); POTASSIUM SERUM 4.3 MEQ/L (3.5-5.1); TOTAL PROTEIN 5.3 GM/DL (6.4-8.2)
[2019-12-27] MEDS: SYMBICORT 160/4.5MCG INHALER 6GM INH SCH ×2 (07:23→19:15)
[2019-12-27] MEDS: CREON-12 CAPSULE PO SCH ×3 (08:15→18:19)
[2019-12-27] MEDS: ursodioL 300 MG CAP PO SCH ×2 (08:15→20:47)
[2019-12-27] MEDS: PANTOPRAZOLE 40MG TAB (PROTONIX) PO SCH ×2 (08:15→20:47)
[2019-12-27] MEDS: POTASSIUM CHLORIDE 10 MEQ SR TABLET PO SCH (08:15)
[2019-12-27] MEDS ORDERED: SODIUM BICARBONATE 8.4% INJ 50MEQ 50 ML VIAL As Ordered ONE (12:55)
--- NOTE | 2019-12-27 17:21 | IPNPDOC ---
Date Seen The patient was seen on 12/27/19. Progress Note SUBJECTIVE: While in the room, the pt was eating his cereal but stopped because he said he began to feel nauseous. He admitted to feeling nauseous before he arrived but had no episode of vomiting and he was able to eat his dinner at home without feeling nauseous afterwards. Pt denied any abdominal pain, chest pain, palpitations, constipation, diarrhea. OBJECTIVE: VITAL SIGNS: please see below. GENERAL: Pt was seen lying comfortably in hospital bed, appears stated age, and in NAD. HEENT: NC, AT, EOMI, PERRLA, yellow scleral icterus, moist mucus membranes, no pharyngeal erythema. NECK: no JVD or lymphadenopathy appreciated. CV: RRR without murmurs, rubs, or gallops. RESPIRATORY: CTAB without wheezes, rales, or rhonchi. ABDOMEN: tense, distended, nontender, bowel sounds present in all 4 quadrants, no rebound or guarding. EXTREMITIES: 5/5 strength and sensation intact in all 4 extremities, 1+ pitting edema in feet B/L. NEURO: CN II-XII grossly intact, no focal deficits. PSYCH: normal mood and affect. LABORATORY, MICROBIOLOGY, and IMAGING: please see below. ASSESSMENT/PLAN: This is a 79yo male with a PMH of NELSON cirrhosis complicated by esophageal varices and history of SBP undergoing weekly paracenteses who presented to the ED complaining of abdominal pain/discomfort and SOB found to have acute decompensated liver cirrhosis and worsening ascites. # Acute decompensated liver cirrhosis 2/2 NELSON: it appears patient is not fully optimized with fluid restriction/medication at this time - Gets weekly paracentesis, last done 12/20 with 5.6L of yellow fluid drained - Paracentesis at 0930 today (12/26), 6.5L removed - s/p 2 vials of 25% albumin replaced post-procedure - Follows with manager of regulatory affairs/GI specialist in [place] - Holding nadalol for now due to soft BP and acute decompensation - Continue home Ursodiol, Pancreatic enzymes # Hx of SBP: no evidence of SBP at this time - Continue chronic Ciprofloxacin # Acute Kidney Injury: consider medication side effect vs hepatorenal syndrome - Nephrology consulted by admitting team. Appreciate recommendations - Cr of 2.4 today (12/26), prior to 12/05/19 Cr baseline 1.2-1.5 - KCl discontinued # History of Gastroesophageal varices - Hgb stable, no signs of bleeding - Currently holding nadalol for hypotension # Intermittent hypotension: likely 2/2 ascites and increased abdominal pressures - Holding rate control for time being # Asthma - Continue Symbicort and Singulair DVT prophylaxis: Heparin SC GI prophylaxis: Protonix BID Arvind Alcira, PAS-2 VS, I&O, 24H, Fishbone Vital Signs/I&O Vital Signs Date Time Temp Pulse Resp B/P (MAP) Pulse Ox O2 Delivery O2 Flow Rate FiO2 12/27/19 15:55 96.9 76 18 120/59 96 12/27/19 14:00 Room Air 12/26/19 12:40 99 I&O- Last 24 Hours up to 6 AM 12/27/19 06:00 Intake Total 670 ml Output Total 1125 ml Balance -455 ml Laboratory Data 24H LABS Laboratory Tests 2 12/27/19 05:39: Nucleated Red Blood Cells % (auto) 0.0, Immature Platelet Fraction 3.1, Anion Gap 9, Glomerular Filtration Rate 31.8L, Calcium Level 8.7L, Total Bilirubin 5.9H, Aspartate Amino Transf (AST/SGOT) 101H, Alanine Aminotransferase (ALT/SGPT) 48, Alkaline Phosphatase 196H, Total Protein 5.3L, Albumin 2.4L, Albumin/Globulin Ratio 0.8 CBC/BMP Laboratory Tests 12/27/19 05:39 Microbiology Microbiology 12/26/19 Blood Culture - Preliminary, Resulted No growth after 24 hours . All specim... 12/26/19 Blood Culture - Preliminary, Resulted No growth after 24 hours . All specim... GME ATTESTATION GME ATTESTATION My faculty preceptor for this patient encounter was physically present during the encounter and was fully available. All aspects of the patient interview, examination, medical decision making process, and medical care plan development were reviewed and approved by the faculty preceptor. The faculty preceptor is aware and concurs with the plan as stated in the body of this note and will attest to such by his/her cosignature. ATTENDING NOTE Patient was seen and examined by me personally with the residents and the students. Agree with the above assessment and plan. SID CONNER MD Dec 27, 2019 17:21 SHARON COTA MD Dec 31, 2019 14:02
[2019-12-27] MEDS: HEPARIN SOD (PORCINE) 5000UNITS/ML 1ML VIAL/SYRINGE SQ SCH (20:46)
[2019-12-27] MEDS: MONTELUKAST 10 MG TAB PO SCH (20:47)
[2019-12-27] MEDS: CETIRIZINE (ZyrTEC) 10 MG TAB PO SCH (20:47)
[2019-12-27] MEDS: busPIRone 5 MG TAB PO SCH (20:48)
[2019-12-28] MEDS: CIPROFLOXACIN 500MG TABLET PO SCH (05:29)
[2019-12-28 06:00] VITALS: BP 114/61
[2019-12-28 06:06] LABS: HEMATOCRIT 32.3 % (42.0-52.0); HEMOGLOBIN 11.3 g/dl (13.5-17.5); MEAN CORPUSCULAR HEMOGLOBIN 34.5 pg (27.0-33.0); MEAN CORPUSCULAR VOLUME 98.5 fl (80.0-96.0); RED BLOOD COUNT 3.28 10^6/uL (4.30-6.10); WHITE BLOOD COUNT 5.6 10^3/uL (4.0-10.0)
[2019-12-28 06:11] LABS: PLATELET COUNT, AUTOMATED 77 10^3/uL (150-450)
[2019-12-28 06:25] LABS: ALBUMIN 2.7 GM/DL (3.2-5.2); BILIRUBIN,TOTAL 5.9 MG/DL (0.2-1.0); CALCIUM LEVEL 9.2 MG/DL (8.8-10.2); CREATININE FOR GFR 1.77 MG/DL (0.70-1.30); GLOMERULAR FILTRATION RATE 39.8 (>42); POTASSIUM SERUM 4.1 MEQ/L (3.5-5.1); TOTAL PROTEIN 5.5 GM/DL (6.4-8.2)
[2019-12-28] MEDS: SYMBICORT 160/4.5MCG INHALER 6GM INH SCH (07:14)
[2019-12-28] MEDS: CREON-12 CAPSULE PO SCH ×2 (07:56→12:31)
[2019-12-28] MEDS: ursodioL 300 MG CAP PO SCH (07:57)
[2019-12-28] MEDS: HEPARIN SOD (PORCINE) 5000UNITS/ML 1ML VIAL/SYRINGE SQ SCH (07:57)
[2019-12-28] MEDS: PANTOPRAZOLE 40MG TAB (PROTONIX) PO SCH (07:57)
--- NOTE | 2019-12-28 10:39 | CR ---
DATE: 12/27/2019 REFERRING PHYSICIAN: Urvashi Albrecht M.D. REASON FOR CONSULTATION: Acute kidney injury superimposed on chronic kidney disease. HISTORY OF PRESENT ILLNESS: Mr. 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 He has been getting paracentesis every week and did have his last paracentesis done on December 20. He reports not feeling well afterwards and developed abdominal pain and further distention of abdomen due to which he presented to the Emergency Room yesterday and was admitted. He was noted to have worsening kidney function with serum creatinine up to 2.4 mg/dL due to which a Nephrology consultation was requested by Dr. Albrecht and the patient is seen this morning. PAST MEDICAL HISTORY: 1. NELSON. 2. Cirrhosis with recurrent ascites requiring paracentesis. 3. History of SBP. 4. History of gastroesophageal varices. 5. History of atrial fibrillation. 6. Hypertension. 7. Dyslipidemia. 8. Asthma. 9. History of BPH. 10. History of renal calculi. 11. History of L1 and L4 compression deformities. PAST SURGICAL HISTORY: 1. Umbilical hernia repair in 2019. 2. Cholecystectomy. 3. Recurrent paracentesis every week. FAMILY HISTORY: Mother at age 97 with a history of hypertension. Father at age 78, also had hypertension. PERSONAL AND SOCIAL HISTORY: Patient is a former smoker who quit in 1968. He denies any alcohol or drug use. He lives with his daughter now. HOME MEDICATIONS: 1. Amiloride 5 mg four tablets daily. 2. Symbicort two puffs b.i.d. 3. Buspirone 5 mg at bedtime. 4. Zyrtec 10 mg at bedtime. 5. Ciprofloxacin 500 mg daily. 6. Furosemide 60 mg daily. 7. Nadolol 20 mg at bedtime. 8. Pancreatic enzymes one capsule t.i.d. 9. Pantoprazole 40 mg b.i.d. 10. Potassium chloride 10 mEq b.i.d. 11. Ursodiol 300 mg two tablets b.i.d. ALLERGIES: He has an allergy to spironolactone, niacin and prednisone. REVIEW OF SYSTEMS: Patient is generally not feeling well due to abdominal distention and pain. He denies any fever or chills. Ears, nose and throat are unremarkable. Cardiovascular system: Significant for atrial fibrillation but no chest pain or dyspnea. Respiratory system is significant for asthma. Denies any cough or hemoptysis. GI system is significant for marked abdominal distention and pain. He reports a poor appetite. Denies any black colored stools or rectal bleeding. system is negative for dysuria or hematuria. He does have a history of kidney stones. Musculoskeletal system is significant for back pain with compression deformities of L1 and L4. He also reports some ankle edema. Endocrine system is negative for diabetes. Hematological system is significant for chronic anticoagulation for atrial fibrillation. Skin is negative for rash or ulcers. Psychosocial system: Negative for depression or anxiety. PHYSICAL EXAMINATION: VITAL SIGNS: Temperature 97.7 degrees Fahrenheit, heart rate 70 per minute and respiratory rate 18 per minute, blood pressure 116/65 mmHg and oxygen saturation 96% on room air. HEAD: Atraumatic. Ears, nose and throat are unremarkable. Pupils equal and reactive to light. Sclera are slightly icteric. There is no oral thrush or ulcers. HEART: Heart sounds are regular without a pericardial friction rub. LUNGS: Slightly diminished breath sounds at bases bilaterally. ABDOMEN: Markedly distended and firm. Bowel sounds are hypoactive. EXTREMITIES: Without any cyanosis or clubbing. NEUROLOGIC: He is awake, alert and at his baseline mentation. LABORATORY DATA: WBC count is 7.8, hemoglobin 11.6 and hematocrit 33.4, platelets 91,000. Sodium 138, potassium 4.3, CO2 19, BUN 40 and creatinine 2.15. Glucose 99, calcium 8.7. Total bilirubin is 5.9, AST 101, ALT 48 and alkaline phosphatase 196. Total protein 5.3 and albumin 2.4. Urinalysis showed 3+ blood and no protein. PROBLEMS: 1. Acute renal failure superimposed on chronic kidney disease. Patient reportedly has a serum creatinine at baseline about 1.2 mg/dL. He reports that he did not receive any albumin at the time of his last paracentesis on December 20 which may have caused intravascular volume depletion leading to acute kidney injury. He is scheduled to have another paracentesis today and I would recommend that he receives at least 150 mL of 25% albumin today prior to paracentesis. I agree with holding his diuretic. 2. Cirrhosis of liver with recurrent ascites. Patient has been getting weekly paracentesis. He is high risk for hepatorenal syndrome and in fact already has decline in kidney function related to his hepatic dysfunction and intravascular volume depletion. Will have to use caution with every paracentesis and use adequate amount of IV albumin to prevent intravascular volume depletion. I would also recommend to limit the amount of fluid removal in one session. 3. Anemia, his anemia is very mild and does not need any intervention at present. Thank you for involving me in the care of Mr. Burton. I will follow him along with you. DEBD
--- NOTE | 2019-12-28 11:59 | DS.PDOC ---
Discharge Summary General Date of Admission Dec 26, 2019 at 15:12 Date of Discharge December 28, 2019 Primary Care Physician: Jr Bui Collins Attending Physician: SHARON COTA MD Specialist/Consultants Involve: ALYSHA TAYLOR MD @ Discharge Summary PROCEDURES PERFORMED DURING STAY: Paracentesis ADMITTING DIAGNOSES: 1. Ascites 2/2 decompensated NELSON cirrhosis 2. JAMES 3. SOB 2/2 ascites 4. NELSON cirrhosis complicated by esophageal varices, frequent (weekly) paracenteses 5. Atrial fibrillation on Xarelto DISCHARGE DIAGNOSES: 1. Ascites 2/2 decompensated NELSON cirrhosis COMPLICATIONS/CHIEF COMPLAINT: Cirrhosis Of The Liver With Ascites,Sob. HISTORY OF PRESENT ILLNESS: Patient is a 79 y/o M with PMH of NELSON liver cirrhosis with worsening ascites requiring weekly paracentesis (last 12/21/19), hx of SBP, gastroesophageal varices, atrial fibrillation on chronic Xarelto, HTN, HLD, asthma, BPH, nonobstructing left renal calculus who presented to [facility] with chief complaint of abdominal pain and shortness of breath. The patient really had paracentesis on 12/21/2019 but since then has had symptoms of increased shortness of breath at rest and with activity, nausea 4 days without vomiting. His abdominal pain is located periumbilically, 34/10, intermittent, sometimes worsens with eating. He also complains of a dry mouth, feeling unsteady in the morning, lethargy and decreased appetite. The patient follows with a GI/professor of environmental engineering Dionisio Pena. He states that his liver disease is end-stage and he follows regularly with his provider. He denies chest pain, fevers, chills, diarrhea, lightheadedness, dizziness. In the ER, VS showed he was slightly hypotensive with BP 961 . WBC was normal, his complete metabolic panel was abnormal with T bili 6.8, D bili 5.3, AST/ALT 129/62, alkaline phosphatase 240, ammonia 28. When compared to prior labs this seems to be his baseline. He also had a creatinine elevated at 2.4, baseline prior to 11/2019 was 1.2-0.5. The last time he had his creatinine checked on 12/23/2019 his crying was 2.12 and trending upwards. He denies seeing a artificial breeding technician in the community or chronic kidney issues in the past. He takes high-dose Lasix daily and admits to not having much of an appetite over the past several days. CT abd/pelvis showed: 1. Cirrhotic liver with sequelae of portal hypertension including splenomegaly, large volume ascites and diffuse mesenteric edema as well as areas of portal enteropathy. 2. Bilateral simple and complex renal cysts. Renal US pending. Patient was admitted for worsening ascites 2/2 to NELSON cirrhosis requiring therapeutic paracentesis, acute kidney injury. HOSPITAL COURSE: Mr. Burton was admitted on 12/26/2019 with chief complaint of SOB and abdominal pain thought to be 2/2 recent paracentesis and excessive fluid removal. There was no suspicion of acute infection or recurrence of SBP. He was found to have tense fluid-filled abdomen so he underwent paracentesis on hospital day #2 with 6,300ml removed. Albumin was replaced appropriately. His nadalol was held 2/2 acute decompensation and for soft BPs. The patient remained hemodynamically stable after the procedure and on hospital day #3 his abdominal pain resolved. He was evaluated by PT and OT, who determined him safe for discharge. He is to follow up with his GI doctor in [place], Dr. Yan, within 7 days of discharge. Concurrently, the patient was found to have JAMES likely 2/2 prerenal hypovolemia from excessive fluid removal from previous paracentesis. He was given sodium bicarbonate orally. His renal function did improve from Cr 2.4 to 1.77 on the day of discharge. He was found to have septated renal cysts, Bosniak 2 on renal ultrasound, which will need to be re-imaged in 6 months. DISCHARGE MEDICATIONS: Please see below. ALLERGIES: Please see below. PHYSICAL EXAMINATION ON DISCHARGE: VITAL SIGNS: Please see below. GENERAL: Pt was seen lying comfortably in hospital bed, appears stated age, and in NAD. HEENT: NC, AT, EOMI, PERRLA, yellow scleral icterus, moist mucus membranes, no pharyngeal erythema. NECK: no JVD or lymphadenopathy appreciated. CV: RRR without murmurs, rubs, or gallops. RESPIRATORY: CTAB without wheezes, rales, or rhonchi. ABDOMEN: nondistended, nontender, bowel sounds present in all 4 quadrants, no rebound or guarding. EXTREMITIES: 5/5 strength and sensation intact in all 4 extremities, 1+ pitting edema in feet B/L. NEURO: CN II-XII grossly intact, no focal deficits. PSYCH: normal mood and affect. LABORATORY DATA: Please see below. IMAGING: CHEST CT: FINDINGS: Lungs: Mild dependent atelectasis. Pleural space: Small left greater than right pleural effusions. Heart: Aortic annular and coronary artery calcifications are present. Mediastinal space: Mildly patulous esophagus with distal paraesophageal varices. Aorta: Moderate aortic and branch vessel atherosclerosis. Lymph nodes: No enlarged lymph nodes. Bones/joints: Extensive spinal degenerative change with bridging osteophytes throughout the lower thoracic spine. Soft tissues: Extensive bilateral gynecomastia. Other findings: For findings below the diaphgram see concurrent ct abdomen report. IMPRESSION: 1. No evidence of pneumonia. 2. Bilateral dependent atelectasis. 3. Small bilateral pleural effusions. CT ABD/PELVIS: FINDINGS: Pleural space: Small left greater than right pleural effusions. Liver: Cirrhotic liver. Gallbladder and bile ducts: Cholecystectomy changes. No biliary ductal dilation. Pancreas: No ductal dilation. Spleen: Persistent splenomegaly. Adrenals: No mass. Kidneys and ureters: Unchanged mildly complicated exophytic left renal cyst with calcifications and multiple additional smaller renal cysts. Proteinaceous/hemorrhagic cyst in the right kidney is stable measuring 1 cm. Several small nonobstructing nephroliths are present bilaterally. No hydronephrosis. Stomach and bowel: No bowel obstruction. Areas of bowel wall edema or likely secondary to underlying chronic liver disease. Appendix: No evidence of appendicitis. Intraperitoneal space: Large volume ascites. Diffuse reticular stranding throughout the mesentery and omentum. Vasculature: Aortic annular and coronary artery calcifications are present. Moderate aortic and branch vessel atherosclerosis. Lymph nodes: No enlarged lymph nodes. Urinary bladder: Unremarkable as visualized. Reproductive: Mildly enlarged prostate. Bones/joints: Multiple vertebral body endplate deformities are likely chronic. Soft tissues: Moderate body wall edema. IMPRESSION: 1. Cirrhotic liver with sequelae of portal hypertension including splenomegaly, large volume ascites and diffuse mesenteric edema as well as areas of portal enteropathy. 2. Bilateral simple and complex renal cysts. Attention on follow-up. RENAL US: FINDINGS: Right kidney: 14 mm diameter cyst in the midportion of the right kidney. No right hydronephrosis. The right renal calculi seen on the previous CT scan are not identified. No hydronephrosis. Left kidney: 3.6 cm diameter exophytic cyst with wall calcification within the left kidney midpole. 14 mm cyst with partial septation and wall nodule within the left kidney midpole. 23 mm diameter simple cyst in the left kidney lower pole. Minimally dilated left renal pelvis. Nonobstructing stone measuring 5 mm within the left kidney lower pole. Intraperitoneal space: Large volume of abdominal ascites. Bladder: Neither ureteral jet is visualized on this examination. . The urinary bladder is unremarkable as visualized but incompletely seen on this examination. IMPRESSION: 1. Large abdominal ascites. 2. Left nephrolithiasis. 3. Bilateral renal cysts. 4. There are 2 complex cysts within the left kidney. One contains a partial septation and wall nodule and the 2nd has a wall calcification. These are both Bosniak 2F lesions. Follow-up renal imaging in 6-12 months is recommended. PROGNOSIS: fair ACTIVITY: [As tolerated]. DIET: 2g sodium diet with 1500cc/day fluid restriction DISCHARGE PLAN: home DISPOSITION: . DISCHARGE INSTRUCTIONS: 1. Follow up with GI doctor, Dr. Yan, in [place] within 7 days ITEMS TO FOLLOWUP ON ON OUTPATIENT: 1. Re-image kidneys (Renal US) for complex cysts in 6 months DISCHARGE CONDITION: [Stable]. TIME SPENT ON DISCHARGE: Greater than 45 minutes. Vital Signs/I&Os Vital Signs Date Time Temp Pulse Resp B/P (MAP) Pulse Ox O2 Delivery O2 Flow Rate FiO2 12/28/19 06:00 98.0 75 18 114/61 (78) 97 Room Air 12/26/19 12:40 99 I&O- Last 24 Hours up to 6 AM 12/28/19 06:00 Intake Total 1310.0 ml Output Total 600 ml Balance 710.0 ml Laboratory Data Labs 24H Laboratory Tests 2 12/28/19 05:50: Nucleated Red Blood Cells % (auto) 0.0, Immature Platelet Fraction 3.0, Anion Gap 7L, Glomerular Filtration Rate 39.8L, Calcium Level 9.2, Total Bilirubin 5.9H, Aspartate Amino Transf (AST/SGOT) 90H, Alanine Aminotransferase (ALT/SGPT) 46, Alkaline Phosphatase 176H, Total Protein 5.5L, Albumin 2.7L, Albumin/Globulin Ratio 1.0 CBC/BMP Laboratory Tests 12/28/19 05:50 Microbiology Microbiology 12/26/19 Blood Culture - Preliminary, Resulted No growth after 24 hours . All specim... 12/26/19 Blood Culture - Preliminary, Resulted No growth after 24 hours . All specim... Discharge Medications Scheduled Budesonide/Formoterol (Symbicort 160-4.5 Mcg Inhaler) 6 Gm Hfa.aer.ad, 2 PUFF INH BID, (Reported) Buspirone HCl (Buspirone HCl) 5 Mg Tablet, 5 MG PO QHS, (Reported) Cetirizine HCl (ZyrTEC) 10 Mg Capsule, 10 MG PO QHS, (Reported) Ciprofloxacin HCl (Ciprofloxacin HCl) 500 Mg Tablet, 500 MG PO DAILY, (Reported) Montelukast Sodium (Montelukast Sodium) 10 Mg Tablet, 10 MG PO QHS, (Reported) Pancreatic Enzymes (Creon Dr 12,000 Units Capsule) 1 Each Capsule.dr, 36,000 UNITS PO BIDWM, (Reported) BREAKFAST/DINNER Pantoprazole Sodium (Pantoprazole Sodium) 40 Mg Tablet.dr, 40 MG PO BID, (Reported) Ursodiol (Ursodiol) 300 Mg Cap, 600 MG PO BID, (Reported) Scheduled PRN Fluticasone Propionate (Fluticasone Propionate) 16 Gm Bowman.susp, 1 SPRAY NARES BID PRN for CONGESTION, (Reported) Allergies Coded Allergies: prednisone (Verified Allergy, Unknown, 12/30/19) spironolactone (Verified Adverse Reaction, Intermediate, GYNECOMASTIA, 12/30/19) niacin (Verified Adverse Reaction, Unknown, "sunburn", 12/30/19) GME ATTESTATION GME ATTESTATION My faculty preceptor for this patient encounter was physically present during the encounter and was fully available. All aspects of the patient interview, examination, medical decision making process, and medical care plan development were reviewed and approved by the faculty preceptor. The faculty preceptor is aware and concurs with the plan as stated in the body of this note and will attest to such by his/her cosignature. ATTENDING NOTE Patient was seen and examined by me personally with the residents and the students. Agree with the above assessment and plan. SID CONNER MD Dec 28, 2019 11:59 SHARON COTA MD Dec 31, 2019 14:05
[2019-12-28] MEDS ORDERED: SODIUM BICARBONATE 325 MG TAB PO SCH (13:00)
[2019-12-28 14:00] VITALS: BP 113/63
--- NOTE | 2019-12-29 08:24 | IPN ---
DATE: 12/28/2019 SUBJECTIVE: Mr. Burton is seen this morning at his bedside. He underwent paracentesis yesterday and 6.3 liters of fluid was removed. He is feeling somewhat better, but still nauseated. He reports no appetite. He denies any dyspnea or chest pain. PHYSICAL EXAMINATION: Temperature 98 degrees Fahrenheit, heart rate 75 per minute, respiratory rate 18 per minute. Blood pressure 114/60 mmHg and oxygen saturation 97% on room air. Head: Atraumatic. Neck: Supple and without JVD or thyroid enlargement. Heart: Sounds are regular. Lungs: Clear to auscultation. Abdomen: Improved significantly, but still ascites is present. Bowel sounds are normal. Extremities: Without any cyanosis or clubbing. Neurologically: He is at his baseline mentation without focal deficit. LABORATORY DATA: Todays labs showed: WBC count 8.6, hemoglobin 11.3, hematocrit 32.3, platelets 77,000. Sodium 136, potassium 4.1, CO2 19, BUN 35 and creatinine 1.77, glucose 112 and calcium 9.2. Total bilirubin 5.9 and albumin 2.7. PROBLEMS: 1. Acute kidney injury superimposed on chronic kidney disease: Improvement in kidney function noticed since yesterday. He did have a paracentesis done and I.V. albumin was used this time. We will continue to recheck his renal profile on a daily basis. 2. Metabolic acidosis: He has mild metabolic acidosis and probably related to acute and chronic kidney disease. I will put him on sodium bicarbonate 325 mg twice a day and we will see how his bicarbonate level changes tomorrow. 3. Cirrhosis of liver with recurrent ascites: Patient had his weekly paracentesis done yesterday and still has some ascites. His is likely to require paracentesis again in a few days. MTDD
--- NOTE | 2019-12-30 13:42 | REP ---
PARACENTESIS This procedure was performed by NIKKI Edmonds, under the direct supervision of Dr. Whitt. The risks and benefits of the procedure were explained to the patient and an informed consent was obtained both verbally and written. Directly prior to the start of the procedure, a formal time-out was completed in the procedure room. The largest pocket of fluid was localized in the left flank using ultrasound guidance. The skin was prepped, and draped in a sterile fashion. 11 mL of buffered Lidocaine was used as a local anesthetic. Using trocar technique, an 8- Brazilian multi-side hole catheter was inserted into the ascites fluid. 6220 mL of yellow fluid was withdrawn and discarded. The patient tolerated the procedure well, and there were no immediate complications. After the appropriate amount of monitored convalescence, the patient was discharged back up to the unit. JENSEN
== END 2019-12-28 14:30 | disposition home or self-care (01) | DRG 433 ==
LOC: M ED 11:47 → M ED INP 15:12 → ENRESERV 15:48 → M MSPAV 16:48
PROVIDERS: ADMIT Internal Medicine; ATTEND Internal Medicine
PROC: 0W9G3ZZ Drainage of Peritoneal Cavity, Percutaneous Approach (ICD-10-PCS; principal; 2019-12-27 09:30)
DX: K74.60 Unspecified cirrhosis of liver (principal); R18.8 Other ascites; I85.10 Secondary esophageal varices without bleeding; N17.9 Acute kidney failure, unspecified; I48.91 Unspecified atrial fibrillation; Z79.01 Long term (current) use of anticoagulants; N40.0 Benign prostatic hyperplasia without lower urinary tract symptoms; I10 Essential (primary) hypertension; J45.909 Unspecified asthma, uncomplicated; E78.5 Hyperlipidemia, unspecified; K75.81 Nonalcoholic steatohepatitis (NASH); Z79.899 Other long term (current) drug therapy; Z88.8 Allergy status to other drugs, medicaments and biological substances; N20.0 Calculus of kidney

== ENCOUNTER 2019-12-30 16:17 | Inpatient (IN) | payer MEDICARE, OTHER ==
[~2019-12-30] VITALS: Ht 170.2 cm; Wt 77.0 kg
[2019-12-30 18:38] LABS: BASO # 0.1 10^3/uL (0.0-0.2); EOS # 0.3 10^3/uL (0.0-0.5); EOS % 3.5 % (0.0-3.0); HEMATOCRIT 36.1 % (42.0-52.0); HEMOGLOBIN 12.4 g/dl (13.5-17.5); LYMPH # 0.7 10^3/uL (1.5-5.0); LYMPH % 9.4 % (24.0-44.0); MEAN CORPUSCULAR HEMOGLOBIN 34.2 pg (27.0-33.0); MEAN CORPUSCULAR HGB CONC 34.3 g/dl (32.0-36.5); MEAN CORPUSCULAR VOLUME 99.4 fl (80.0-96.0); MONO # 1.2 10^3/uL (0.0-0.8); MONO % 16.5 % (0.0-5.0); NEUTROPHILS # 4.9 10^3/uL (1.5-8.5); NEUTROPHILS % 68.6 % (36.0-66.0); PLATELET COUNT, AUTOMATED 82 10^3/uL (150-450); RED BLOOD COUNT 3.63 10^6/uL (4.30-6.10); WHITE BLOOD COUNT 7.1 10^3/uL (4.0-10.0)
--- NOTE | 2019-12-30 18:47 | REPVR ---
PROCEDURE INFORMATION: Exam: XR Chest, 1 View Exam date and time: 12/30/2019 6:35 PM Age: 79 years old Clinical indication: Shortness of breath; Additional info: SOB TECHNIQUE: Imaging protocol: XR of the chest Views: 1 view. COMPARISON: CT Chest without contrast 12/26/2019 12:52 PM FINDINGS: Lungs: Suboptimal inspiratory effort. No acute infiltrates. Pleural space: Unremarkable. No pleural effusion. No pneumothorax. Heart/Mediastinum: Unremarkable. No cardiomegaly. Bones/joints: Unremarkable. IMPRESSION: No acute findings. Electronically signed by: Rehan España On 12/30/2019 18:47:12 PM
[2019-12-30 19:05] LABS: ALBUMIN 2.7 GM/DL (3.2-5.2); BILIRUBIN,DIRECT 6.3 MG/DL (0.0-0.2); BILIRUBIN,TOTAL 8.3 MG/DL (0.2-1.0); CALCIUM LEVEL 9.2 MG/DL (8.8-10.2); CREATININE FOR GFR 1.77 MG/DL (0.70-1.30); GLOMERULAR FILTRATION RATE 39.8 (>42); POTASSIUM SERUM 4.5 MEQ/L (3.5-5.1)
--- NOTE | 2019-12-30 19:45 | ECGEPIP ---
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
[2019-12-30 20:28] LABS: INR 1.3; PROTHROMBIN TIME 16.4 SECONDS (12.5-14.3)
[2019-12-30] MEDS ORDERED: BISACODYL 10 MG SUPP PR PRN (20:30)
[2019-12-30] MEDS ORDERED: FLEET ENEMA PR PRN (20:30)
[2019-12-30] MEDS ORDERED: SCOPOLAMINE 1MG TRANSDERMAL PATCH TOP PRN (20:30)
[2019-12-30] MEDS ORDERED: LORazepam 1 MG TAB PO PRN (20:30)
--- NOTE | 2019-12-30 20:33 | HPEPDOC ---
General Date of Admission 12/30/19 Date of Service: Dec 30, 2019 Chief Complaint The patient is a 79-year-old male admitted with a reason for visit of SOB. Source: Patient Exam Limitations: No limitations Timing/Duration: Constant Severity: Moderate History of Present Illness Patient is a 79 y/o M with PMH of NELSON liver cirrhosis with worsening ascites requiring weekly paracentesis (last 12/21/19), hx of SBP, gastroesophageal varices, atrial fibrillation on chronic Xarelto, HTN, HLD, asthma, BPH, nonobst ructing left renal calculus who presented complaint of abdominal distention. Patient currently [employer]W [employer] and hospice care will start on Friday. Patient came to ER for palliative paracentesis. Patient denied fever, chills, nausea, vomiting, diarrhea. Home Medications Scheduled Budesonide/Formoterol (Symbicort 160-4.5 Mcg Inhaler) 6 Gm Hfa.aer.ad, 2 PUFF INH BID, (Reported) Buspirone HCl (Buspirone HCl) 5 Mg Tablet, 5 MG PO QHS, (Reported) Cetirizine HCl (ZyrTEC) 10 Mg Capsule, 10 MG PO QHS, (Reported) Ciprofloxacin HCl (Ciprofloxacin HCl) 500 Mg Tablet, 500 MG PO DAILY, (Reported) Montelukast Sodium (Montelukast Sodium) 10 Mg Tablet, 10 MG PO QHS, (Reported) Pancreatic Enzymes (Creon Dr 12,000 Units Capsule) 1 Each Capsule.dr, 36,000 UNITS PO BIDWM, (Reported) BREAKFAST/DINNER Pantoprazole Sodium (Pantoprazole Sodium) 40 Mg Tablet.dr, 40 MG PO BID, (Reported) Ursodiol (Ursodiol) 300 Mg Cap, 600 MG PO BID, (Reported) Scheduled PRN Fluticasone Propionate (Fluticasone Propionate) 16 Gm [place].susp, 1 SPRAY NARES BID PRN for CONGESTION, (Reported) Allergies Coded Allergies: prednisone (Verified Allergy, Unknown, 12/30/19) spironolactone (Verified Adverse Reaction, Intermediate, GYNECOMASTIA, 12/30/19) niacin (Verified Adverse Reaction, Unknown, "sunburn", 12/30/19) Past Medical History Medical History NELSON, liver cirrhosis with worsening ascites H/O SBP. Gastroesophageal varices. Atrial fibrillation on chronic Xarelto. Hypertension. Dyslipidemia. Asthma. Benign prostatic hypertrophy. Nonobstructing left renal calculus. L1 and L4 compression deformities. Surgical History Umbilical hernia repair 2019. Cholecystectomy. Family History mother-HTN, at 97 y/o father- HTN, at 78 y/o Social History * Smoker: former Smoker Alcohol: Denies Drugs: denies A-FIB/CHADSVASC A-FIB History Current/History of A-Fib/PAF?: Yes Current PO Anticoag Therapy: No Review of Systems Constitutional: Denies: Chills, Fever Eyes: Denies: Pain, Vision change ENT: Denies: Head Aches Skin: Denies: Rash Pulmonary: Denies: Dyspnea, Cough Cardiovascular: Denies: Chest Pain Gastrointestinal: Reports: Other Symptoms (abdominal distention); Denies: Nausea, Abdominal Pain Genitourinary: Denies: Dysuria Hematologic: Reports: Bruising Endocrine: Denies: Polydipsia, Polyphagia Musculoskeletal: Denies: Neck Pain Neurological: Denies: Weakness Psych: Reports: Mood Normal Physical Examination General Exam: Positive: Alert, Cooperative Eye Exam: Positive: PERRLA ENT Exam: Positive: Atraumatic Neck Exam: Positive: Supple, JVD Heart Exam: Positive: Irregular Rhythm; Negative: Rate Normal Telemetry: Positive: Atrial fibrillation Abdomen Exam: Positive: Hepatospenomegaly Extremity Exam: Negative: Cyanosis, Edema Skin Exam: Negative: Pruritus Neuro Exam: Positive: Strength at 5/5 X4 ext, Cranial Nerves 3-12 NL Psych Exam: Positive: Mental status NL Vital Signs Vital Signs Date Time Temp Pulse Resp B/P (MAP) Pulse Ox O2 Delivery O2 Flow Rate FiO2 12/30/19 19:49 12/30/19 19:47 101 18 98 Room Air 12/30/19 16:18 97.4 Laboratory Data Labs 24H Laboratory Tests 2 12/30/19 17:59: Immature Granulocyte % (Auto) 1.0, Neutrophils (%) (Auto) 68.6H, Lymphocytes (%) (Auto) 9.4L, Monocytes (%) (Auto) 16.5H, Eosinophils (%) (Auto) 3.5H, Basophils (%) (Auto) 1.0, Neutrophils # (Auto) 4.9, Lymphocytes # (Auto) 0.7L, Monocytes # (Auto) 1.2H, Eosinophils # (Auto) 0.3, Basophils # (Auto) 0.1, Nucleated Red B lood Cells % (auto) 0.0, Immature Platelet Fraction 3.3, Anion Gap 9, Glomerular Filtration Rate 39.8L, Calcium Level 9.2, Total Bilirubin 8.3H, Direct Bilirubin 6.3H, Aspartate Amino Transf (AST/SGOT) 107H, Alanine Aminotransferase (ALT/SGPT) 53, Alkaline Phosphatase 195H, Total Protein 6.0L, Albumin 2.7L, Albumin/Globulin Ratio 0.8, Lipase 273 12/30/19 19:30: CBC/BMP Laboratory Tests 12/30/19 17:59 Assessment/Plan Patient is a 79 y/o M with PMH of NELSON liver cirrhosis with worsening ascites requiring weekly paracentesis (last 12/21/19), hx of SBP, gastroesophageal varices, atrial fibrillation on chronic Xarelto, HTN, HLD, asthma, BPH, nonobstructing left renal calculus who presented complaint of abdominal distention. Patient currently [employer] G[employer]W [employer] and hospice care will start on Friday. Patient came to ER for palliative paracentesis. Patient denied fever, chills, nausea, vomiting, diarrhea. Problems (1) Ascites Status: Acute Problem Text: Palliative paracentesis tomorrow Hospice care required a Pleurx placement according to his daughter Sonia [phone] (2) Palliative care encounter Status: Chronic Problem Text: Consider consult of palliative care (3) Cirrhosis of liver with ascites Status: Chronic Problem Text: Long-standing cirrhosis secondary to Nelson Decompensated Palliative care Plan / VTE VTE Prophylaxis Ordered?: No VTE Exclusion Mechanical Proph: Other (patient [employer] G[employer]W [employer]PER[employer]) VANIA ROMO DO Dec 30, 2019 20:33
[2019-12-30] MEDS ORDERED: FLUTICASONE PROP 0.05% NASAL SPRAY 16 GM (FLONASE) NARES PRN (20:45)
[2019-12-30 22:40] VITALS: BP 103/74
[2019-12-30] MEDS: RAMELTEON 8 MG TAB (ROZEREM) PO PRN (23:56)
[2019-12-30] MEDS: MONTELUKAST 10 MG TAB PO SCH (23:56)
[2019-12-31] MEDS: CIPROFLOXACIN 500MG TABLET PO SCH (06:18)
[2019-12-31] MEDS: ONDANSETRON 4 MG ORAL DISINTEGRATING TAB PO PRN (07:53)
[2019-12-31] MEDS: SYMBICORT 160/4.5MCG INHALER 6GM INH SCH ×2 (07:54→20:00)
[2019-12-31] MEDS: CREON-12 CAPSULE PO SCH ×2 (08:41→17:13)
[2019-12-31] MEDS ORDERED: fentaNYL 100 MCG/2 ML INJECTION (J3010) As Ordered ONE (10:17)
[2019-12-31] MEDS ORDERED: diphenhydrAMINE 50MG/ML VIAL (J1200) As Ordered ONE (10:17)
[2019-12-31] MEDS ORDERED: ceFAZolin 1GM VIAL (J0690 PER 500MG) As Ordered ONE (10:17)
[2019-12-31] MEDS ORDERED: MIDAZOLAM INJ 2MG/2ML VIAL (J2250 PER 1MG) As Ordered ONE (10:17)
--- NOTE | 2019-12-31 10:18 | IPNPDOC ---
Text Note Date of Service The patient was seen on 12/31/19. NOTE Subjective: Patient seen and examined at bedside. No new medical complaints. Objective: General: NAD, chronically ill appearing, lying comfortably in bed A/P: 79 yo male with PMHx of NELSON/liver cirrhosis with worsening ascites requiring weekly paracentesis (last 12/21/19), hx of SBP, gastroesophageal varices, a- fib/Xarelto, HTN, HLD, asthma, BPH, non-obstructing left renal calculus who presented for abdominal distention. Patient is currently [employer] and hospice care will start on Friday. Patient came to ER for palliative paracentesis. #abdominal distention/ascites - secondary to NELSON/liver cirrhosis - plan for paracentesis today - plan for Pleurx or similar catheter for routine drainage of ascites #Gastroesophageal varices. #Atrial fibrillation on chronic Xarelto. #Hypertension. #Dyslipidemia. #Asthma. #Benign prostatic hypertrophy. Dispo: pending evaluation by IR for drainage and placement of catheter for routine ascites fluid drainage, plan for home with hospice on Friday01/03/20 VS,Arin, I+O VS, Lilae, I+O Laboratory Tests 12/30/19 17:59 Vital Signs Date Time Temp Pulse Resp B/P (MAP) Pulse Ox O2 Delivery O2 Flow Rate FiO2 12/31/19 09:48 98.9 97 18 95 Room Air 12/30/19 22:40 103/74 (84) I&O- Last 24 Hours up to 6 AM 12/31/19 05:59 Intake Total 420 ml Output Total 125 ml Balance 295 ml PERRY KWONG MD Dec 31, 2019 10:18
[2019-12-31] MEDS ORDERED: LIDOCAINE 1% MDV 20ML VIAL As Ordered ONE (10:33)
--- NOTE | 2019-12-31 11:54 | POST-OPPD ---
Postoperative Procedure Note Date Of Procedure: Dec 31, 2019 Time Of Procedure: 11:52 IR Tunneled Ascites Drain IR PleurX catheter placement Ascites tunneled peritoneal drainage catheter placement with sonographic and fluoroscopic guidance Limited abdominal ultrasound Clinical Information:End-stage liver disease. Refractory ascites. Hospice care. Physician: Dr. Maldonado. Procedure: The patient was advised of the benefits, risks, and alternatives of the procedure and informed consent was obtained. A time out was performed with verification of the patient's name, MRN, site of procedure, and type of procedure to be performed. The patient was positioned in the supine position on the angiographic table. The site was prepped and draped in the usual sterile fashion. Moderate sedation was not appropriate for this patient. The physician spent 45 minutes of continuous [id number] time with the patient. A bookkeeping clerks supervisor radiograph revealssurgical clips in the right upper quadrant. Limited ultrasound of the abdomen demonstrates ascites. The anticipated puncture site was identified using sonographic guidance and the overlying skin and subcutaneous tissues were anesthetized with lidocaine.An 18- gauge Chiba needle was inserted under ultrasound guidance in theright lower quadrant of the abdomen. The inner stylet was removed revealing yellow ascites. An Amplatz wire was introduced through the needle and into the peritoneal cavity, under fluoroscopy guidance. The needle was removed over the wire and a dilator was advanced over the wire under fluoroscopic guidance. A small skin incision was made at the catheter insertion site. A second incision was made medial to the original incision. The catheter was then subcutaneously tunneled from the exit site incision to the insertion site incision. The catheter insertion site was then serially dilated under fluoroscopic guidance and a peel-away sheath was then placed. The catheter was then passed over the wire and through the peel-away sheath into the pelvis and the peel-away sheath was removed. Approximately 5.5 L of ascitic fluid was then drained. The dedicated catheter drainage tip was attached. The catheter insertion site was closed with Monocryl suture, glue and Steri-Strip. A sterile dressing was applied. The patient tolerated the procedure well and was returned to the PCU in stable condition. EBL:Less than 5 mL. Complications:None. Conclusion: 1. Successful placement of a Pleurx peritoneal drainage catheter in right olga- abdomen. Patient may drain 2 times a week as required. Patient requires dressing supplies for up to 2-3 drainages per week. 2. 5.5 L ascites was drained today. Thank you for this referral JUANA MALDONADO MD Dec 31, 2019 11:54
[2019-12-31 12:25] VITALS: BP 110/77
[2019-12-31 12:45] VITALS: BP 124/77
[2019-12-31 13:00] VITALS: BP 124/74
[2019-12-31] MEDS: ACETAMINOPHEN TAB 650MG DOSE (2X325MG) PO PRN (15:44)
[2019-12-31] MEDS: MORPHINE 2 MG/ML 1ML VIAL (J2270) IV PRN ×2 (17:14→20:41)
[2019-12-31] MEDS: MONTELUKAST 10 MG TAB PO SCH (20:40)
[2019-12-31] MEDS: RAMELTEON 8 MG TAB (ROZEREM) PO PRN (20:40)
[2020-01-01] MEDS: ACETAMINOPHEN TAB 650MG DOSE (2X325MG) PO PRN ×3 (01:58→16:45)
[2020-01-01] MEDS: CIPROFLOXACIN 500MG TABLET PO SCH (06:01)
[2020-01-01] MEDS: SYMBICORT 160/4.5MCG INHALER 6GM INH SCH ×2 (07:35→19:50)
[2020-01-01] MEDS: CREON-12 CAPSULE PO SCH ×2 (08:12→18:03)
[2020-01-01] MEDS: MORPHINE 2 MG/ML 1ML VIAL (J2270) IV PRN ×2 (12:01→20:44)
[2020-01-01] MEDS: MONTELUKAST 10 MG TAB PO SCH (20:45)
[2020-01-01] MEDS: RAMELTEON 8 MG TAB (ROZEREM) PO PRN (20:45)
[2020-01-02] MEDS: MORPHINE 2 MG/ML 1ML VIAL (J2270) IV PRN ×3 (00:20→23:18)
[2020-01-02] MEDS: CIPROFLOXACIN 500MG TABLET PO SCH (06:49)
[2020-01-02] MEDS: SYMBICORT 160/4.5MCG INHALER 6GM INH SCH ×2 (07:27→19:33)
[2020-01-02] MEDS: CREON-12 CAPSULE PO SCH ×2 (08:26→18:42)
[2020-01-02] MEDS: ACETAMINOPHEN TAB 650MG DOSE (2X325MG) PO PRN ×2 (11:48→20:03)
[2020-01-02] MEDS: RAMELTEON 8 MG TAB (ROZEREM) PO PRN (20:03)
[2020-01-02] MEDS: MONTELUKAST 10 MG TAB PO SCH (20:03)
[2020-01-02] MEDS: ONDANSETRON 4 MG ORAL DISINTEGRATING TAB PO PRN (20:04)
[2020-01-03] MEDS: MORPHINE 2 MG/ML 1ML VIAL (J2270) IV PRN ×2 (05:24→08:21)
[2020-01-03] MEDS: CIPROFLOXACIN 500MG TABLET PO SCH (05:25)
[2020-01-03] MEDS: ONDANSETRON 4 MG ORAL DISINTEGRATING TAB PO PRN (05:25)
[2020-01-03 06:00] VITALS: BP 137/78
[2020-01-03] MEDS: SYMBICORT 160/4.5MCG INHALER 6GM INH SCH (07:15)
[2020-01-03 07:49] VITALS: BP 140/85
[2020-01-03] MEDS ORDERED: BISA10SU PR ×2 (08:03→09:23)
[2020-01-03] MEDS ORDERED: MORP1SOL4 PO (08:03)
[2020-01-03] MEDS ORDERED: SCOP1PAT2 TOP ×2 (08:03→09:23)
[2020-01-03] MEDS ORDERED: ONDA4TAB6 PO ×2 (08:03→09:23)
[2020-01-03] MEDS ORDERED: ATIV1TAB7 PO (08:03)
[2020-01-03] MEDS: CREON-12 CAPSULE PO SCH (08:26)
[2020-01-03] MEDS: ACETAMINOPHEN TAB 650MG DOSE (2X325MG) PO PRN ×2 (10:03→13:23)
--- NOTE | 2020-01-03 14:02 | DS.PDOC ---
Discharge Summary General Date of Admission Dec 31, 2019 at 10:11 Date of Discharge 01/03/20 Discharge Summary PROCEDURES PERFORMED DURING STAY: PleurX catheter with paracentesis Medical History NELSON, liver cirrhosis with worsening ascites H/O SBP. Gastroesophageal varices. Atrial fibrillation on chronic Xarelto. Hypertension. Dyslipidemia. Asthma. Benign prostatic hypertrophy. Nonobstructing left renal calculus. L1 and L4 compression deformities. Surgical History Umbilical hernia repair 2019. Cholecystectomy. COMPLICATIONS/CHIEF COMPLAINT: Cirrhosis Of Liver With Ascites. HISTORY OF PRESENT ILLNESS: Patient is a 79 y/o M with PMH of NELSON liver cirrhosis with worsening ascites requiring weekly paracentesis (last 12/21/19), hx of SBP, gastroesophageal varices, atrial fibrillation on chronic Xarelto, HTN, HLD, asthma, BPH, nonobstructing left renal calculus who presented for complaint of abdominal distention. 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 Patient came to ER for palliative paracentesis, and placement of pleurx catheter for continued palliative care. Patient denied fever, chills, nausea, vomiting, diarrhea. HOSPITAL COURSE: Patient seen by interventional radiology, and underwent placement of pleurx catheter with concurrent paracentesis and drainage of over 5L of fluid. Patient discharged to hospice. DISCHARGE MEDICATIONS: Please see below. ALLERGIES: Please see below. PHYSICAL EXAMINATION ON DISCHARGE: VITAL SIGNS: Please see below. GENERAL: NAD HEENT: NC/AT Abd: ND, NT, +BS LABORATORY DATA: Please see below. ACTIVITY: [As tolerated]. DISPOSITION: Hospice DISCHARGE INSTRUCTIONS: 1. Follow up with hospice as directed. DISCHARGE CONDITION: [Stable]. TIME SPENT ON DISCHARGE: 35 minutes. Vital Signs/I&Os Vital Signs Date Time Temp Pulse Resp B/P (MAP) Pulse Ox O2 Delivery O2 Flow Rate FiO2 01/03/20 08:32 16 01/03/20 07:49 97.5 91 140/85 (103) 95 Room Air 12/31/19 11:25 2 I&O- Last 24 Hours up to 6 AM0 01/03/20 06:00 Intake Total 1420 ml Balance 1420 ml Discharge Medications Scheduled Budesonide/Formoterol (Symbicort 160-4.5 Mcg Inhaler) 6 Gm Hfa.aer.ad, 2 PUFF INH BID, (Reported) Ciprofloxacin HCl (Ciprofloxacin HCl) 500 Mg Tablet, 500 MG PO DAILY, (Reported) Montelukast Sodium (Montelukast Sodium) 10 Mg Tablet, 10 MG PO QHS, (Reported) Pancreatic Enzymes (Creon Dr 12,000 Units Capsule) 1 Each Capsule.dr, 36,000 UNITS PO BIDWM, (Reported) BREAKFAST/DINNER Scheduled PRN Bisacodyl (Bisacodyl) 10 Mg Supp.rect, 10 MG [place] Q24HP PRN for CONSTIPATION Fluticasone Propionate (Fluticasone Propionate) 16 Gm [place].susp, 1 SPRAY NARES BID PRN for CONGESTION, (Reported) Lorazepam (Ativan) 1 Mg Tablet, 1 MG PO Q2HP PRN for ANXIETY Morphine Sulfate (Morphine Sulfate) 10 Mg/5 Ml Solution, 5 MG PO Q2HP PRN for PAIN Ondansetron (Ondansetron Odt) 4 Mg Tab.rapdis, 4 MG PO Q6HP PRN for NAUSEA OR VOMITING Scopolamine (Transderm-Scop) 1 Each Patch.td.3, 1 PATCH TOP Q3DP PRN for EXCESSIVE SECRETIONS Allergies Coded Allergies: prednisone (Verified Allergy, Unknown, 12/30/19) spironolactone (Verified Adverse Reaction, Intermediate, GYNECOMASTIA, 12/30/19) niacin (Verified Adverse Reaction, Unknown, "sunburn", 12/30/19) PERRY KWONG MD Jan 03, 2020 14:02
== END 2020-01-03 13:40 | disposition hospice, home (50) | DRG 940 ==
LOC: M ED 16:17 → M ED INP 16:18 → M MS5PR 22:33 → OBSVTOIN 12-31 10:11
PROVIDERS: ADMIT Internal Medicine; ATTEND Internal Medicine
PROC: 0W9G30Z Drainage of Peritoneal Cavity with Drainage Device, Percutaneous Approach (ICD-10-PCS; 2019-12-31)
PROC: 0JH Subcutaneous Tissue and Fascia, Insertion (ICD-10-PCS; principal; 2019-12-31 11:00)
DX: Z51.5 Encounter for palliative care (principal); R18.8 Other ascites; I85.10 Secondary esophageal varices without bleeding; K75.81 Nonalcoholic steatohepatitis (NASH); I48.91 Unspecified atrial fibrillation; I10 Essential (primary) hypertension; E78.5 Hyperlipidemia, unspecified; K74.60 Unspecified cirrhosis of liver; Z66 Do not resuscitate; J45.909 Unspecified asthma, uncomplicated; N40.0 Benign prostatic hyperplasia without lower urinary tract symptoms; N20.0 Calculus of kidney; Z79.899 Other long term (current) drug therapy; Z88.8 Allergy status to other drugs, medicaments and biological substances; Z90.49 Acquired absence of other specified parts of digestive tract; Z87.891 Personal history of nicotine dependence